=== PATIENT | female | born 1935 | race Caucasian/White ===

== ENCOUNTER 2017-03-15 14:58 | Inpatient (IN) | payer MEDICARE, OTHER ==
[2017-03-15] VITALS (12 sets, daily range): BP systolic 142–201; BP diastolic 63–102; PULSE 102–126; RESP 24–36; TEMP 97.5–98.4; O2SAT 94–99
[~2017-03-15] VITALS: Ht 167.6 cm; Wt 62.5 kg
[~2017-03-15 14:58] MED LIST: ALBU0.086 INH; ALPR0.5T3 PO; ATOR10TA PO; ATOR10TA15 PO; CART300C2 PO; CEPH500C3 PO; DILT300C3 PO; DUONSOL2 NEB; FLUT1INH INH; HYDR-3533 PO; MIRT1TAB PO; O2; PRED10 PO; PRED10PA PO; TIZA2CAP3 PO; Z.0.OXYGEN INH; ZOFR4TAB3 SL
[2017-03-15] MEDS ORDERED: RESP: ALBUTEROL 2.5 MG/3 ML NEB (SCH) ONE ×2 (15:05→20:38)
--- NOTE | 2017-03-15 15:12 | PD ---
HPI Chief Complaint: Respiratory Distress Time Seen by Provider: 15:02 Travel History International Travel<30 days: No Contact w/Intl Traveler<30days: No Traveled to known affect area: No History of Present Illness HPI PATIENT HAS BEEN DEVELOPING SOB OVER LAST 2 DAYS BUT WORSENED OVER PAST 4-6 HRS , WORSENED BY ACTIVITY, PROD COUGH OF YELLOW SPUTUM, AFEBRILE, PCP IS DR KEYONA BARBOSA ([facility] IS [facility]UL[facility]) PER DAUGHTER SUPPLIED MAJORITY OF HISTORY DUE TO CLINICAL CONDITION....GIVES PMHX OF BREAST CA S/P KENNEDY MASTECTOMY, COPD, HTN, HIGH CHOL....PATIENT IS ON SECOND ROUND OF ABX, AUGMENTIN AND PREDNISONE BUT WORSENING DESPITE THESE MEASURES......PATIENT PRESENTED WITH 1 WORD DYSPNEA/ TRIPODING. PFSH Past Medical History Hx Anticoagulant Therapy: No Cardiovascular Problems: Yes (CHOL, HTN) High Cholesterol: Yes COPD: Yes Diabetes: No Diminished Hearing: Yes Hypertension: Yes Respiratory: Yes (COPD) Past Surgical History Gynecologic Surgery: Yes (BILAT. MASTECTOMY) Hysterectomy: Yes Social History Alcohol Use: Yes (VERY RARE) Tobacco Use: No Substance Use: No Allergies-Medications (Allergen,Severity, Reaction): Coded Allergies: No Known Allergies (Unverified , 03/05/17) Reported Meds & Prescriptions Reported Meds & Active Scripts Active Lortab (Hydrocodone-Acetaminophen) 5-325 Mg Tab 1-2 Tab PO Q6H PRN Reported [O2] Prednisone 10 Mg Tab 10 Mg PO DAILY Tizanidine (Tizanidine HCl) 2 Mg Cap 2 Mg PO TID Atorvastatin (Atorvastatin Calcium) 10 Mg Tab 10 Mg PO HS Diltiazem CD 24 HR 300 Mg Caper 300 Mg PO DAILY Mirtazapine 7.5 Mg Tab 7.5 Mg PO HS Review of Systems ROS Limitations: Clinical Condition Except as stated in HPI: all other systems reviewed are Neg Respiratory: Positive: Shortness of Breath, Wheezing Physical Exam Exam Limitations: Clinical Condition Narrative GENERAL: SKIN: Warm and dry. HEAD: Atraumatic. Normocephalic. EYES: Pupils equal and round. No scleral icterus. No injection or drainage. ENT: No nasal bleeding or discharge. Mucous membranes pink and moist. NECK: Trachea midline. No JVD. CARDIOVASCULAR: Regular RHYTHM, TACHYCARDIC RESPIRATORY: TACHYPNEIC, PURSED LIP BREATHING, SINGLE WORD DYSPNEA, RETRACTIONS PRESENT (SUPRA), WHEEZING DIFFUSELY AND DECREASED TV GASTROINTESTINAL: Abdomen soft, non-tender, nondistended. Hepatic and splenic margins not palpable. MUSCULOSKELETAL: Extremities without clubbing, cyanosis, or edema. No obvious deformities. NEUROLOGICAL: Awake and alert. No obvious cranial nerve deficits. Motor grossly within normal limits. Five out of 5 muscle strength in the arms and legs. Normal speech. PSYCHIATRIC: Appropriate mood and affect; insight and judgment normal. Data Data Last Documented VS Vital Signs Date Time Temp Pulse Resp B/P Pulse Ox O2 Delivery O2 Flow Rate FiO2 03/15/17 16:17 97 Nasal Cannula 3 03/15/17 16:01 113 28 142/77 03/15/17 15:00 97.5 Orders Complete Blood Count With Diff (03/15/17 15:03) Comprehensive Metabolic Panel (03/15/17 15:03) B-Type Natriuretic Peptide (03/15/17 15:03) Act Partial Throm Time (Ptt) (03/15/17 15:03) Prothrombin Time / Inr (Pt) (03/15/17 15:03) Ckmb (Isoenzyme) Profile (03/15/17 15:03) Troponin I (03/15/17 15:03) Influenzae A/B Antigen (03/15/17 15:03) Blood Culture (03/15/17 15:03) Iv Access Insert/Monitor (03/15/17 15:03) Electrocardiogram (03/15/17 15:03) Ecg Monitoring (03/15/17 15:03) Oximetry (03/15/17 15:03) Oxygen Administration (03/15/17 15:03) Chest, Single Ap (03/15/17 15:03) Sodium Chloride 0.9% Flush (Ns Flush) (03/15/17 15:15) Methylprednisolone So Succ Inj (Solumedr (03/15/17 15:15) Albuterol Neb (Albuterol Neb) (03/15/17 15:15) Magnesium Sulfate 1 Gm Premix (Magnesium (03/15/17 15:15) Azithromycin Inj (Zithromax Inj) (03/15/17 15:15) Lactic Acid Sepsis Protocol (03/15/17 15:03) Albuterol Neb (Albuterol Neb) (03/15/17 15:05) Lorazepam Inj (Ativan Inj) (03/15/17 15:45) Labs Laboratory Tests Test 03/15/17 15:15 White Blood Count 32.2 TH/MM3 Red Blood Count 4.23 MIL/MM3 Hemoglobin 12.1 GM/DL Hematocrit 38.5 % Mean Corpuscular Volume 91.0 FL Mean Corpuscular Hemoglobin 28.7 PG Mean Corpuscular Hemoglobin 31.6 % Concent Red Cell Distribution Width 16.1 % Platelet Count 436 TH/MM3 Mean Platelet Volume 8.5 FL Neutrophils (%) (Auto) 94.0 % Lymphocytes (%) (Auto) 3.4 % Monocytes (%) (Auto) 2.4 % Eosinophils (%) (Auto) 0.0 % Basophils (%) (Auto) 0.2 % Neutrophils # (Auto) 30.3 TH/MM3 Lymphocytes # (Auto) 1.1 TH/MM3 Monocytes # (Auto) 0.8 TH/MM3 Eosinophils # (Auto) 0.0 TH/MM3 Basophils # (Auto) 0.1 TH/MM3 CBC Comment AUTO DIFF Differential Total Cells 100 Counted Neutrophils % (Manual) 93 % Band Neutrophils % 2 % Lymphocytes % 3 % Monocytes % 1 % Neutrophils # (Manual) 30.9 TH/MM3 Metamyelocytes 1 % Differential Comment FINAL DIFF MANUAL Toxic Granulation 1+ Platelet Estimate HIGH Platelet Morphology Comment NORMAL Ovalocytes 1+ Acanthocytes OCC Prothrombin Time 10.8 SEC Prothromb Time International 1.0 RATIO Ratio Activated Partial 21.4 SEC Thromboplast Time B-Type Natriuretic Peptide 75 PG/ML MDM Medical Decision Making Medical Screen Exam Complete: Yes Emergency Medical Condition: Yes Medical Record Reviewed: Yes Interpretation(s) MY INTERP: BASELINE MOTION ARTIFACT NOTED, NSR, ST 118, J POINT ELEVATION, NO STEMI PATTERN, NONSPEC STT CHANGES Differential Diagnosis COPD EXAC V PNA V ATYPICAL MN V PTX Narrative Course PATIENT IMMEDIATELY UPON SEEING, WAS STARTED ON HOURLONG NEBS, SOLUMEDROL, MAGNESIUM AND AZITHROMYCIN. PATIENT SHOWED SOME IMPROVEMENT BUT NOT ENOUGH TO DISCHARGE, PT ALSO HAD FAILED OUTPT THERAPY (AUGMENTIN AND PREDNISONE) WELL. Critical Care Narrative CRITICAL CARE NOTE: With evaluation of the patient, labs, EKG, receipt of radiologic studies, administration of medications, reevaluation the patient and discussion of the patient with the admitting physicians, the total critical care time was [60] minutes. Time to perform other separately billable procedures was not included in the critical care time. Diagnosis Primary Impression: SEVERE COPD EXACERBATION Additional Impressions: Right middle lobe pneumonia Qualified Code: J18.1 - Pneumonia of right middle lobe due to infectious organism Failure of outpatient treatment Admitting Information Admitting Physician Requests: Lei Nelson MD Mar 15, 2017 15:12
[2017-03-15] MEDS: RESP: ALBUTEROL 2.5 MG/3 ML NEB (SCH) INH (15:13)
[2017-03-15] MEDS ORDERED: MAGNESIUM SULFATE 1 GM PREMIX 100 ML IV ONE (15:15)
[2017-03-15] MEDS ORDERED: AZITHROMYCIN INJ 500 MG in SODIUM CHLOR 0.9% 250 ML INJ 250 ML IV ONE (15:15)
[2017-03-15] MEDS ORDERED: methylPREDNISolone SOD SUCC 125 MG/2 ML VIAL IVP ONE (15:15)
[2017-03-15] MEDS ORDERED: SODIUM CHLORIDE 0.9% FLUSH 10 ML FLUSH IVF PRN (15:15)
[2017-03-15] MEDS ORDERED: LORazepam 2 MG/ML VIAL IV PUSH ONE (15:45)
[2017-03-15 15:50] LABS: AUTOMATED NEUTROPHIL # 30.3 TH/MM3 (1.8-7.7); BASOPHIL # 0.1 TH/MM3 (0-0.2); BASOPHIL % 0.2 % (0.0-2.0); HEMATOCRIT 38.5 % (35.0-46.0); LYMPH % 3.4 % (9.0-44.0); LYMPHOCYTE # 1.1 TH/MM3 (1.0-4.8); MEAN CORPUSCULAR HEMOGLOBIN 28.7 PG (27.0-34.0); MEAN CORPUSCULAR HGB CONC 31.6 % (32.0-36.0); MONO % 2.4 % (0.0-8.0); PLATELET COUNT 436 TH/MM3 (150-450); RED BLOOD COUNT 4.23 MIL/MM3 (4.00-5.30); RED CELL DISTRIBUTION WIDTH 16.1 % (11.6-17.2); WHITE BLOOD COUNT 32.2 TH/MM3 (4.0-11.0)
[2017-03-15 15:53] LABS: HEMO FLAGS AUTO DIFF
--- NOTE | 2017-03-15 15:53 | RADRPT ---
EXAM DATE/TIME: 03/15/2017 15:08 [facility] COMPARISON: No previous studies available for comparison. INDICATIONS : Shortness of breath. MEDICAL HISTORY : Chronic obstructive pulmonary disease. Hypercholesterolemia. Hypertension. SURGICAL HISTORY : Hysterectomy. Mastectomy, bilateral. ENCOUNTER: Initial ACUITY: 1 day PAIN SCORE: 0/10 LOCATION: Bilateral chest FINDINGS: There is focal patchy opacity within the right medial lung base consistent with probable pneumonia. Clinical correlation is recommended. Underlying emphysematous changes are noted. The heart is deuce l. CONCLUSION: 1. Focal patchy opacity within the right medial lung base consistent with probable pneumonia. Clini faisal correlation is recommended. 2. Underlying emphysematous changes bilaterally. Cayden Candelario MD on March 15, 2017 at 15:49 Board Certified Radiologist. This report was verified electronically.
[2017-03-15 16:16] LABS: APTT (PATIENT) 21.4 SEC (24.3-30.1); PROTHROMBIN TIME - PATIENT 10.8 SEC (9.8-11.6)
[2017-03-15 16:23] LABS: BANDS 2 % (0-6); METAMYELOCYTES 1 % (0-1); NEUTROPHIL # MANUAL DIFF 30.9 TH/MM3 (1.8-7.7); POLYS (SEG NEUTROPHILS) 93 % (16-70); WBC DIFF SAMPLE 100
[2017-03-15 16:26] LABS: ACANTHOCYTES OCC (NORMAL); OVALOCYTES 1+ (NORMAL); PLATELET ESTIMATE SMEAR HIGH (NORMAL); PLATELET MORPHOLOGY NORMAL (NORMAL)
[2017-03-15 16:27] LABS: SCAN/DIFF FINAL DIFF MANUAL; TOXIC GRANULATION 1+ (NORMAL)
[2017-03-15 16:37] LABS: ALKALINE PHOSPHATASE 134 U/L (45-117); ALT (GPT) 30 U/L (10-53); ANION GAP 15 MEQ/L (5-15); AST (GOT) 41 U/L (15-37); BICARBONATE 21.6 MEQ/L (21.0-32.0); BLOOD UREA NITROGEN 43 MG/DL (7-18); CHLORIDE 98 MEQ/L (98-107); CREATINE KINASE 70 U/L (26-192); GLOMERULAR FILTRATION RATE 36 ML/MIN (>89); POTASSIUM 5.1 MEQ/L (3.5-5.1); SODIUM (NA) 135 MEQ/L (136-145); TOTAL BILIRUBIN ADULT 0.5 MG/DL (0.2-1.0)
[2017-03-15] MEDS ORDERED: SODIUM CHLOR 0.9% 1000 ML INJ 1,000 ML IV ONE ×2 (16:45→18:00)
[2017-03-15] MEDS: SODIUM CHLOR 0.9% 1000 ML INJ 1,000 ML IV SCH ×3 (17:19→22:00)
[2017-03-15] MEDS ORDERED: NYST1000 SWISH-SWAL (17:20)
[2017-03-15] MEDS ORDERED: AUGM875T3 PO (17:20)
[2017-03-15] MEDS ORDERED: IPRASOL INH (17:20)
[2017-03-15] MEDS ORDERED: VENTAER INH (17:20)
[2017-03-15] MEDS ORDERED: NALOXONE HCL 0.4 MG/ML AMP IV PRN (17:30)
[2017-03-15] MEDS ORDERED: BISACODYL 10 MG SUPP RECTAL PRN (17:30)
[2017-03-15] MEDS ORDERED: ONDANSETRON HCL 4 MG/2 ML VIAL IVP PRN (17:30)
[2017-03-15] MEDS ORDERED: ACETAMINOPHEN 325 MG TAB PO PRN (17:30)
[2017-03-15] MEDS ORDERED: SODIUM CHLORIDE 0.9% FLUSH 10 ML FLUSH IV FLUSH PRN (17:30)
[2017-03-15 17:36] LABS: LACTIC ACID GHOST NOT REPORTABLE
[2017-03-15] MEDS ORDERED: RESP: ALBUTEROL CONC 2.5 MG/0.5 ML NEB NEB PRN (17:45)
[2017-03-15] MEDS ORDERED: SODIUM CHLORID 0.9% 500 ML INJ 500 ML IV ONE (18:00)
[2017-03-15] MEDS ORDERED: GLUCAGON 1 MG/ML VIAL OTHER PRN (18:00)
[2017-03-15] MEDS ORDERED: DEXTROSE 50% IN WATER 50 ML VIAL(D50) IV PRN (18:00)
--- NOTE | 2017-03-15 18:39 | HHI.HP ---
[facility] Service [facility] Primary Care Physician Dante Reddy MD Admission Diagnosis RML PNA, RESPIRATORY DISTRESS DUE TO COPD EXACERBATION Diagnoses: Chief Complaint: Having trouble breathing Travel History International Travel<30 Days: No Contact w/Intl Traveler <30 Da: No Traveled to Known Affected Are: No Sepsis Criteria Sepsis Criteria (SIRS+source): Infect source susp/known (PNA) Criteria Outcome: Meets sepsis criteria (tachycardic, elevated white count ( although this could be from steroids) possible source of infection being pneumonia) History of Present Illness 81-year-old white female being admitted for a respiratory distress. Patient was in her usual state of health until a few weeks ago when she had a fall, injured her ribs and subsequently began experiencing shortness of breath. She came our emergency room originally for her acute evaluation for rib contusion and one home. She then saw her PCP and says that she was prescribed at least two trials of antibiotics. The patient does not know all of her medicines by name completely. Originally (from checking with the pharmacy) she had filled on a Z-Ten and doxycycline after her ER visit but is unfortunate she both of those regimens completely. About 4-5 days later she complained her PCP about persistent and worsening shortness of breath and worsening productive cough at which point she was then prescribed Augmentin which the patient says she had been taking for the past few days. Her symptoms worsened today to the point where she called her daughter and told her bring her to the emergency room because she felt like she was having "a panic attack" due to how short her breathing became. She reports having intermittent posttussive emesis, otherwise denies any liz nausea. She says she's had decreased by mouth intake because of her trouble breathing the past few days. Patient denies any cyanosis clubbing or edema in her legs or fingertips. She reports being compliant with her DuoNeb's and her Ventolin inhaler but she does admit that she does not take her Breo controller inhaler because she thinks it makes her mouth sore. She says that she takes prednisone daily at 10 mg as a regular medication and says that her home oxygen is at 2-3 L 24 hours a day. Review of Systems Except as stated in HPI: all other systems reviewed are Neg Past Family Social History Past Medical History COPD Reported Medications Reported Meds & Active Scripts Active Lortab (Hydrocodone-Acetaminophen) 5-325 Mg Tab 1-2 Tab PO Q6H PRN Reported Duoneb (Ipratropium-Albuterol Neb) 0.5-2.5 Mg/3 Ml Neb 1 Nebule INH QID NEB PRN Ventolin Hfa 18 GM Inh (Albuterol Sulfate) 90 Mcg/Act Aer 2 Puff INH Q6H PRN Nystatin Liq 100,000 unit/ml Susp 4 Ml SWISH-SWAL QID Augmentin (Amoxicillin-Clavulanate) 875-125 Mg Tab 1 Tab PO BID [O2] Prednisone 10 Mg Tab 10 Mg PO DAILY Atorvastatin (Atorvastatin Calcium) 10 Mg Tab 10 Mg PO HS Allergies: Coded Allergies: No Known Allergies (Unverified , 03/05/17) Social History Lives by herself. Used to smoke over 15 years ago. Says she used to smoke starting during her high school age. Physical Exam Vital Signs Vital Signs Date Time Temp Pulse Resp B/P Pulse Ox O2 Delivery O2 Flow Rate FiO2 03/15/17 16:17 97 Nasal Cannula 3 03/15/17 16:01 113 28 142/77 99 Nasal Cannula 3 03/15/17 15:13 97 Nasal Cannula 3.00 03/15/17 15:09 98 Nasal Cannula 3 03/15/17 15:09 98 Aerosol Mask 3 03/15/17 15:06 98 Nasal Cannula 3 03/15/17 15:00 97.5 121 36 201/102 95 Physical Exam GENERAL: This is a well-nourished, well-developed patient, in moderate distress SKIN: No rashes, ecchymoses or lesions. Cool and dry. EYES: Pupils equal round and reactive. Extraocular motions intact. No scleral icterus. No injection or drainage. ENT: Dentures in place Throat without erythema, NECK: Trachea midline. No JVD CARDIOVASCULAR: Tachycardic rate and regular rhythm without murmurs, gallops, or rubs. Normal cap refill less than 2 seconds, radial pulses bilaterally intact and strong RESPIRATORY: Bilateral wheezing and Bilateral rales , right greater than left, moderately decreased breath sounds bilaterally, subcostal retractions noted, conversive dyspnea noted GASTROINTESTINAL: Abdomen soft, non-tender, nondistended. No focal masses palpated MUSCULOSKELETAL: Extremities without clubbing, cyanosis, or edema NEUROLOGICAL: Awake and alert. Five out of 5 muscle strength in all muscle groups. Normal speech. Laboratory Reported Meds & Active Scripts Active Lortab (Hydrocodone-Acetaminophen) 5-325 Mg Tab 1-2 Tab PO Q6H PRN Reported Duoneb (Ipratropium-Albuterol Neb) 0.5-2.5 Mg/3 Ml Neb 1 Nebule INH QID NEB PRN Ventolin Hfa 18 GM Inh (Albuterol Sulfate) 90 Mcg/Act Aer 2 Puff INH Q6H PRN Nystatin Liq 100,000 unit/ml Susp 4 Ml SWISH-SWAL QID Augmentin (Amoxicillin-Clavulanate) 875-125 Mg Tab 1 Tab PO BID [O2] Prednisone 10 Mg Tab 10 Mg PO DAILY Tizanidine (Tizanidine HCl) 2 Mg Cap 2 Mg PO TID Atorvastatin (Atorvastatin Calcium) 10 Mg Tab 10 Mg PO HS Mirtazapine 7.5 Mg Tab 7.5 Mg PO HS Laboratory Tests Test 03/15/17 15:15 White Blood Count 32.2 Red Blood Count 4.23 Hemoglobin 12.1 Hematocrit 38.5 Mean Corpuscular Volume 91.0 Mean Corpuscular Hemoglobin 28.7 Mean Corpuscular Hemoglobin 31.6 Concent Red Cell Distribution Width 16.1 Platelet Count 436 Mean Platelet Volume 8.5 Neutrophils (%) (Auto) 94.0 Lymphocytes (%) (Auto) 3.4 Monocytes (%) (Auto) 2.4 Eosinophils (%) (Auto) 0.0 Basophils (%) (Auto) 0.2 Neutrophils # (Auto) 30.3 Lymphocytes # (Auto) 1.1 Monocytes # (Auto) 0.8 Eosinophils # (Auto) 0.0 Basophils # (Auto) 0.1 CBC Comment AUTO DIFF Differential Total Cells 100 Counted Neutrophils % (Manual) 93 Band Neutrophils % 2 Lymphocytes % 3 Monocytes % 1 Neutrophils # (Manual) 30.9 Metamyelocytes 1 Differential Comment FINAL DIFF MANUAL Toxic Granulation 1+ Platelet Estimate HIGH Platelet Morphology Comment NORMAL Ovalocytes 1+ Acanthocytes OCC Prothrombin Time 10.8 Prothromb Time International 1.0 Ratio Activated Partial 21.4 Thromboplast Time Sodium Level 135 Potassium Level 5.1 Chloride Level 98 Carbon Dioxide Level 21.6 Anion Gap 15 Blood Urea Nitrogen 43 Creatinine 1.40 Estimat Glomerular Filtration 36 Rate Random Glucose 206 Lactic Acid Level 7.2 Calcium Level 9.9 Total Bilirubin 0.5 Aspartate Amino Transf 41 (AST/SGOT) Alanine Aminotransferase 30 (ALT/SGPT) Alkaline Phosphatase 134 Total Creatine Kinase 70 Troponin I LESS THAN 0.02 B-Type Natriuretic Peptide 75 Total Protein 7.8 Albumin 3.3 Date/Time Procedure Status Source Growth 03/15/17 15:55 Influenza Types A,B Antigen (BILLY) - Final Complete Nasal Washing NEGATIVE FOR FLU A AND B ANTIGEN.... 03/15/17 15:45 Aerobic Blood Culture Received Blood Peripheral Pending 03/15/17 15:45 Anaerobic Blood Culture Received Blood Peripheral Pending Result Diagram: 03/15/17 1515 03/15/17 1515 Imaging Last Impressions Chest X-Ray 03/15/17 1503 Signed Impressions: Service Date/Time: Friday, March 15, 2017 15:08 - CONCLUSION: 1. Focal patchy opacity within the right medial lung base consistent with probable pneumonia. Clinical correlation is recommended. 2. Underlying emphysematous changes bilaterally. Cayden Candelario MD Assessment and Plan Problem List: (1) Right middle lobe pneumonia ICD Code: J18.1 Status: Acute (2) Failure of outpatient treatment ICD Code: Z78.9 Status: Acute (3) Rib contusion ICD Code: S20.219A Status: Acute (4) COPD with exacerbation ICD Code: J44.1 Status: Acute (5) Severe sepsis due to pneumococcus with acute organ dysfunction ICD Code: A40.3 Status: Acute Assessment and Plan 81 -year-old white female being admitted for respiratory distress and likely sepsis secondary to COPD exacerbation and pneumonia. During the ER course, patient's condition per signout had significantly improved but she still was very short of breath. Initially she was tripoding but now she is able to talk with still notable conversive dyspnea. Will nonetheless admit her to intensive care given she has an elevated lactate at 7 with the suspected source being pneumonia. Respiratory distress - COPD exacerbation with likely right lobe pneumonia. I independently reviewed a chest x-ray in comparison to a prior film, there is slightly more prominent opacity/infiltrates noted in the right middle and right lower lobe which are still mild at best. Antibiotics as below. Solu-Medrol has been scheduled, respiratory protocol with oxygen ordered. The patient is fortunately maintaining her home oxygen requirement as of now. Duonebs and albuterol scheduled. Will ultimately need to go back on home controller inhaler. Pain medication for recent rib contusion along with incentive spirometry to prevent atelectasis. Sepsis likely secondary to pneumonia - normal saline boluses ordered (ER ordered 1 L, ordering an additional 2.5 L followed by MIVF). Blood cultures obtained, Gram stain, pneumococcal and legionella urinary antigens obtained. Influenza negative. Levaquin, vancomycin, Zosyn to cover for healthcare associated pneumonia. Repeat lactate is pending. A.m. labs. Renal insufficiency - uncontrolled this is acute or chronic. Will adjust medications accordingly. Continuing all home medications otherwise. Code Status full code Discussed Condition With pt Physician Certification 2 Midnight Certification Type: Admission for Inpatient Services Order for Inpatient Services The services are ordered in accordance with Medicare regulations or non- Medicare payer requirements, as applicable. In the case of services not specified as inpatient-only, they are appropriately provided as inpatient services in accordance with the 2-midnight benchmark. Estimated LOS (days): 2 3 days is the estimated time the patient will need to remain in the hospital, assuming treatment plan goals are met and no additional complications. Post-Hospital Plan: Home Problem Qualifiers (1) Right middle lobe pneumonia: Qualified Code: J13 - Pneumonia of right middle lobe due to Streptococcus pneumoniae Garrett Mcdonnell MD Mar 15, 2017 18:39
[2017-03-15] MEDS ORDERED: Vancomycin Consult Pharmacy 1 EA OTHER SCH ×2 (18:45)
[2017-03-15] MEDS: LEVOFLOXACIN 750 MG PREMIX INJ 150 ML IV SCH (19:22)
[2017-03-15] MEDS: RESP: ALBUTEROL 2.5 MG/IPRATROPIUM 0.5 MG NEB (SCH) NEB (19:32)
[2017-03-15] MEDS ORDERED: VANCOMYCIN 1,000 MG/NS 250 ML IV SCH ×2 (20:00)
[2017-03-15] MEDS: NYSTATIN SUSP 500,000 U/5 ML CUP SWISH-SWAL SCH ×2 (21:00→22:02)
[2017-03-15] MEDS ORDERED: LORazepam 0.5 MG TAB PO ONE (21:45)
[2017-03-15] MEDS: ATORVASTATIN 10 MG TAB PO SCH (22:02)
[2017-03-15] MEDS: DOCUSATE SODIUM 50 MG/SENNA 8.6 MG TAB PO SCH (22:02)
[2017-03-15] MEDS: SODIUM CHLORIDE 0.9% FLUSH 10 ML FLUSH IV FLUSH SCH (22:03)
[2017-03-15] MEDS: MIRTAZAPINE 15 MG TAB PO SCH (22:03)
[2017-03-15] MEDS: methylPREDNISolone SOD SUCC 125 MG/2 ML VIAL IV PUSH SCH (22:03)
[2017-03-15] MEDS: PIPERACIL-TAZO 3.375 GM PREMIX 50 ML IV SCH (22:04)
[2017-03-15] MEDS: ENOXAPARIN SODIUM 30 MG/0.3 ML SYRINGE SQ SCH (23:00)
[2017-03-15] MEDS: INSULIN ASPART SUPPLEMENTAL SCALE SQ SCH (23:05)
[2017-03-16] VITALS (28 sets, daily range): BP systolic 152–203; BP diastolic 69–102; PULSE 95–156; RESP 20–32; TEMP 97–98.4; O2SAT 92–96
[2017-03-16] MEDS: RESP: ALBUTEROL 2.5 MG/IPRATROPIUM 0.5 MG NEB (SCH) NEB ×6 (00:15→19:46)
[2017-03-16] MEDS: PIPERACIL-TAZO 3.375 GM PREMIX 50 ML IV SCH ×4 (02:13→20:14)
[2017-03-16] MEDS: methylPREDNISolone SOD SUCC 125 MG/2 ML VIAL IV PUSH SCH ×4 (04:20→21:21)
[2017-03-16 05:34] LABS: AUTOMATED NEUTROPHIL # 26.3 TH/MM3 (1.8-7.7); BASOPHIL % 0.2 % (0.0-2.0); HEMATOCRIT 28.4 % (35.0-46.0); HEMO FLAGS DIFF FINAL; LYMPH % 1.3 % (9.0-44.0); LYMPHOCYTE # 0.3 TH/MM3 (1.0-4.8); MEAN CELL VOLUME 89.7 FL (80.0-100.0); MEAN CORPUSCULAR HGB CONC 33.4 % (32.0-36.0); MONO % 1.9 % (0.0-8.0); NEUT % 96.6 % (16.0-70.0); PLATELET COUNT 343 TH/MM3 (150-450); RED BLOOD COUNT 3.16 MIL/MM3 (4.00-5.30); WHITE BLOOD COUNT 27.2 TH/MM3 (4.0-11.0)
[2017-03-16] MEDS: INSULIN ASPART SUPPLEMENTAL SCALE SQ SCH ×4 (05:57→21:18)
[2017-03-16 06:06] LABS: BICARBONATE 25.6 MEQ/L (21.0-32.0); POTASSIUM 3.5 MEQ/L (3.5-5.1)
[2017-03-16] MEDS: NYSTATIN SUSP 500,000 U/5 ML CUP SWISH-SWAL SCH ×4 (08:11→21:21)
[2017-03-16] MEDS: DOCUSATE SODIUM 50 MG/SENNA 8.6 MG TAB PO SCH ×2 (08:12→21:20)
[2017-03-16] MEDS: SODIUM CHLORIDE 0.9% FLUSH 10 ML FLUSH IV FLUSH SCH ×2 (08:22→21:19)
--- NOTE | 2017-03-16 09:30 | HHI.PR ---
Subjective Remarks No acute events overnight. Tachycardic to 128. Afebrile. Patient continues to complain of shortness of breath and states that her breathing is "exhausting. " She denies subjective fever/chills. Endorses fatigue. Objective Vitals Vital Signs Date Time Temp Pulse Resp B/P Pulse Ox O2 Delivery O2 Flow Rate FiO2 03/16/17 07:34 92 Nasal Cannula 3.00 03/16/17 06:00 128 03/16/17 05:00 128 03/16/17 04:00 132 03/16/17 04:00 98.4 114 24 156/83 95 03/16/17 03:00 127 03/16/17 02:00 124 03/16/17 01:00 130 03/16/17 01:00 98.4 119 24 165/95 94 03/16/17 00:00 117 03/15/17 23:00 112 03/15/17 22:00 116 03/15/17 21:00 112 03/15/17 20:53 126 03/15/17 20:40 98.4 120 24 156/76 95 03/15/17 19:35 96 Nasal Cannula 3.00 03/15/17 18:52 104 26 142/66 94 Nasal Cannula 3 03/15/17 17:33 102 28 145/63 94 Nasal Cannula 3 03/15/17 16:17 97 Nasal Cannula 3 03/15/17 16:01 113 28 142/77 99 Nasal Cannula 3 03/15/17 15:13 97 Nasal Cannula 3.00 03/15/17 15:09 98 Nasal Cannula 3 03/15/17 15:09 98 Aerosol Mask 3 03/15/17 15:06 98 Nasal Cannula 3 03/15/17 15:00 97.5 121 36 201/102 95 I/O 03/15/17 03/15/17 03/15/17 03/16/17 03/16/17 03/16/17 06:59 14:59 22:59 06:59 14:59 22:59 Intake Total 1335 ml Output Total 400 ml Balance 935 ml Intake Oral 480 ml IV Total 855 ml Output Urine Total 400 ml # Voids 2 # Bowel Movements 0 Result Diagram: 03/16/17 [id number] Objective Remarks GENERAL: This is a well-nourished, well-developed patient, in mild distress SKIN: No rashes, ecchymoses or lesions. Cool and dry. EYES: Pupils equal round and reactive. Extraocular motions intact. No scleral icterus. No injection or drainage. ENT: Dentures in place Throat without erythema. NECK: Trachea midline. No JVD CARDIOVASCULAR: Tachycardic rate and regular rhythm without murmurs, gallops, or rubs. RESPIRATORY: Decreased breath sounds bilaterally. No wheezes/rales. Conversive dyspnea. GASTROINTESTINAL: Abdomen soft, non-tender, nondistended. No focal masses palpated MUSCULOSKELETAL: Extremities without clubbing, cyanosis, or edema NEUROLOGICAL: Awake and alert. Five out of 5 muscle strength in all muscle groups. Normal speech. A/P Problem List: (1) Right middle lobe pneumonia ICD Code: J18.1 Status: Acute (2) Failure of outpatient treatment ICD Code: Z78.9 Status: Acute (3) Rib contusion ICD Code: S20.219A Status: Acute (4) COPD with exacerbation ICD Code: J44.1 Status: Acute (5) Severe sepsis due to pneumococcus with acute organ dysfunction ICD Code: A40.3 Status: Acute Assessment and Plan 81-year-old female with a past medical history of COPD admitted for severe sepsis secondary to COPD exacerbation and pneumonia. 1. Respiratory distress/severe sepsis Secondary to COPD exacerbation with right lower lobe pneumonia. Treated for HCAP, continue vancomycin, Zosyn and Levaquin Continue IV fluid resuscitation Lactic acid improving, continue to trend DuoNeb's and IV steroids Follow cultures Legionella and pneumococcal antigens pending Patient with recent rib contusion, continue pain medication and IS to prevent hypoventilation 2. ANNE MARIE Resolved Continue IV fluid hydration Continuing all home medications otherwise. Discharge Planning Pending clinical improvement Problem Qualifiers (1) Right middle lobe pneumonia: Qualified Code: J13 - Pneumonia of right middle lobe due to Streptococcus pneumoniae Katherine Rolon MD R3 Mar 16, 2017 09:30
[2017-03-16] MEDS ORDERED: hydrALAZINE HCL 20 MG/ML VIAL IV PUSH ONE (12:45)
[2017-03-16] MEDS: SODIUM CHLOR 0.9% 1000 ML INJ 1,000 ML IV SCH ×2 (13:19→23:19)
[2017-03-16] MEDS: LORazepam 2 MG/ML VIAL IM PRN (13:38)
--- NOTE | 2017-03-16 14:37 | EKG ---
Date Performed: 03/15/2017 Time Performed: 15:06:17 PTAGE: 81 years EKG: Baseline artifact Poor initial anterior forces in V1 and V2, probable normal variant Minor nonspecific ST-T wave change NO PREVIOUS TRACING DOCTOR: Kike Ayala Interpretating Date/Time 03/16/2017 14:36:18
--- NOTE | 2017-03-16 15:26 | MB ---
cc: ALISE SHAW M.D., JENNIFER DATE OF CONSULTATION: 03/16/2017. REASON FOR CONSULTATION: Hospital records have been reviewed and the patient spoken with. She is an 81-year-old white female I am seeing for tachycardia. HISTORY OF PRESENT ILLNESS: The patient has no definite cardiac history but has underlying COPD with distant radiation therapy to the lung and tobacco abuse. A few weeks ago she fell injuring her ribs and has had chest wall discomfort since then. She notes moderate to chronic dyspnea on exertion otherwise. She notes no fevers, chills or sputum production. She was admitted because of worsening shortness of breath. She has chest wall discomfort but otherwise no cardiac symptoms. EKG initially showed sinus tachycardia with mild nonspecific S-T-T wave changes. She appears to either have premature atrial contractions or more likely multifocal atrial tachycardia now. PAST MEDICAL HISTORY: 1. Hypertension. 2. Hyperlipidemia. 3. COPD. 4. Hysterectomy. 5. Bilateral mastectomy with distant radiation therapy. SOCIAL HISTORY: She is a and smoked in the past up until twenty years ago. She rarely drinks. ALLERGIES: NONE. MEDICATIONS: Medication list reviewed. FAMILY HISTORY: Noncontributory. REVIEW OF SYSTEMS: Remarkable for the above along with occasional joint and back pain. IMAGING STUDIES: Chest x-ray Showed focal opacity in the right midlung consistent with probable pneumonia and underlying COPD. LABORATORY DATA: White count is markedly elevated. Her hematocrit has dropped from 38.5 to 28.4 today. PT/PTT normal. Initial potassium 5.1, creatinine 1.4, BUN 43. Troponins negative. Lactic acid was up, but has normalized. Potassium 3.5 with a creatinine of 0.79. BNP level is normal at 75. PHYSICAL EXAMINATION: GENERAL: On exam, she appears moderately short of breath and tachypneic. VITAL SIGNS: She is mildly hypertensive. She is tachycardiac with what appears to be multifocal atrial tachycardia. HEAD, EYES, EARS, NOSE, THROAT: There are no xanthelasma and oral pharyngeal mucosa normal. NECK: JVD normal. CHEST: Decreased breath sounds with mild van-expiratory wheezes. CARDIOVASCULAR: JVD normal. S1-S2. No murmurs or gallops. ABDOMEN: Benign. EXTREMITIES: Show no cyanosis, clubbing or edema. PULSES: Carotids without bruits. Radials 2+. Femorals not well appreciated. Pedals 1+. She is not ambulated. PROBLEMS: 1. Probable multifocal atrial tachycardia. 2. Pneumonia with underlying COPD. 3. Hypertension. 4. Hyperlipidemia. RECOMMENDATIONS: 1. At this point in time, her rhythm and heart rate is most likely due to underlying process. I discussed this with Dr. Rolon and would leave further management to her and the hospitalist service with antibiotics and optimization of pulmonary management. 2. She is on DVT prophylaxis. 3. They will need to follow up her hemoglobin and hematocrit, although there is no obvious source of bleeding. 4. There is no evidence of congestive heart failure as BNP level is normal. At this point, I have nothing more to add and will leave further management to the primary service. MD RA Marr/JCChristian /2:49 PM /3:13 PM
[2017-03-16] MEDS: ENOXAPARIN SODIUM 30 MG/0.3 ML SYRINGE SQ SCH (17:17)
[2017-03-16] MEDS: METOPROLOL TARTRATE 25 MG TAB PO SCH ×2 (17:17→21:20)
[2017-03-16] MEDS: VANCOMYCIN INJ 1,250 MG in SODIUM CHLOR 0.9% 250 ML INJ 250 ML IV SCH (20:58)
[2017-03-16] MEDS: ATORVASTATIN 10 MG TAB PO SCH (21:20)
[2017-03-16] MEDS: MIRTAZAPINE 15 MG TAB PO SCH (21:20)
[2017-03-17] VITALS (34 sets, daily range): BP systolic 143–170; BP diastolic 78–89; PULSE 84–126; RESP 16–21; TEMP 97.6–98.6; O2SAT 94–99
[2017-03-17] MEDS: RESP: ALBUTEROL 2.5 MG/IPRATROPIUM 0.5 MG NEB (SCH) NEB ×8 (00:08→23:47)
[2017-03-17 02:54] LABS: BASOPHIL % 0.1 % (0.0-2.0); LYMPH % 2.2 % (9.0-44.0); LYMPHOCYTE # 0.8 TH/MM3 (1.0-4.8); MEAN CELL VOLUME 90.3 FL (80.0-100.0); MEAN CORPUSCULAR HEMOGLOBIN 28.9 PG (27.0-34.0); MONO % 2.7 % (0.0-8.0); PLATELET COUNT 301 TH/MM3 (150-450); RED BLOOD COUNT 2.44 MIL/MM3 (4.00-5.30); WHITE BLOOD COUNT 34.7 TH/MM3 (4.0-11.0)
[2017-03-17 02:55] LABS: HEMO FLAGS AUTO DIFF
[2017-03-17 03:24] LABS: BICARBONATE 24.6 MEQ/L (21.0-32.0); POTASSIUM 3.1 MEQ/L (3.5-5.1)
[2017-03-17] MEDS: methylPREDNISolone SOD SUCC 125 MG/2 ML VIAL IV PUSH SCH ×2 (03:24→09:41)
[2017-03-17] MEDS: PIPERACIL-TAZO 3.375 GM PREMIX 50 ML IV SCH ×4 (03:26→20:05)
[2017-03-17] MEDS: SODIUM CHLOR 0.9% 1000 ML INJ 1,000 ML IV SCH ×2 (04:19→09:19)
[2017-03-17] MEDS: METOPROLOL TARTRATE 25 MG TAB PO SCH ×3 (05:45→22:22)
[2017-03-17 05:46] LABS: BANDS 3 % (0-6); PLATELET ESTIMATE SMEAR NORMAL (NORMAL); PLATELET MORPHOLOGY NORMAL (NORMAL); POLYS (SEG NEUTROPHILS) 92 % (16-70); SCAN/DIFF FINAL DIFF MANUAL; WBC DIFF SAMPLE 100
[2017-03-17] MEDS: INSULIN ASPART SUPPLEMENTAL SCALE SQ SCH ×4 (05:48→20:31)
[2017-03-17] MEDS ORDERED: POTASSIUM CHLORIDE 20 MEQ CONTROLLED RELEASE TAB PO ONE (08:00)
[2017-03-17] MEDS ORDERED: SODIUM CHLOR 0.9% 250 ML INJ 250 ML IV ONE (08:00)
[2017-03-17] MEDS: DOCUSATE SODIUM 50 MG/SENNA 8.6 MG TAB PO SCH ×2 (09:41→21:00)
[2017-03-17] MEDS: NYSTATIN SUSP 500,000 U/5 ML CUP SWISH-SWAL SCH ×4 (09:42→20:05)
[2017-03-17] MEDS: SODIUM CHLORIDE 0.9% FLUSH 10 ML FLUSH IV FLUSH SCH ×2 (09:42→20:06)
--- NOTE | 2017-03-17 10:18 | HHI.PR ---
Subjective Remarks Patient tells me that she is feeling better today. Her shortness of breath seems to be improving however still present. Denies any chest pains, nausea or vomiting. Patient denies any bleeding per vagina or rectum. Objective Vitals Vital Signs Date Time Temp Pulse Resp B/P Pulse Ox O2 Delivery O2 Flow Rate FiO2 03/17/17 07:43 94 Nasal Cannula 2.00 03/17/17 07:30 97.6 87 18 143/89 96 03/17/17 06:00 86 03/17/17 05:00 90 03/17/17 04:00 86 03/17/17 03:53 86 16 148/78 96 03/17/17 03:00 95 03/17/17 02:00 94 03/17/17 01:00 100 03/17/17 00:13 94 Nasal Cannula 2.50 03/17/17 00:00 106 03/16/17 23:49 109 20 152/82 95 03/16/17 23:00 95 03/16/17 22:00 118 03/16/17 21:00 130 03/16/17 20:00 140 03/16/17 19:55 97.8 123 20 159/99 95 03/16/17 19:48 96 Nasal Cannula 3.00 03/16/17 19:00 131 03/16/17 18:00 148 03/16/17 17:00 150 03/16/17 16:00 98.0 145 22 190/102 94 03/16/17 16:00 156 03/16/17 15:00 145 03/16/17 13:30 144 181/69 03/16/17 13:00 130 03/16/17 12:00 97.6 125 24 170/96 95 03/16/17 12:00 123 03/16/17 11:00 130 I/O 03/16/17 03/16/17 03/16/17 03/17/17 03/17/17 03/17/17 07:00 15:00 23:00 07:00 15:00 23:00 Intake Total 1335 ml 1100 ml 1050 ml Output Total 400 ml 700 ml Balance 935 ml 1100 ml 350 ml Intake Oral 480 ml 600 ml 300 ml IV Total 855 ml 500 ml 750 ml Output Urine Total 400 ml 700 ml # Voids 2 4 # Bowel Movements 0 0 Result Diagram: 03/17/17 0209 03/17/17 0209 Imaging Last Impressions Chest X-Ray 03/15/17 1503 Signed Impressions: Service Date/Time: Friday, March 15, 2017 15:08 - CONCLUSION: 1. Focal patchy opacity within the right medial lung base consistent with probable pneumonia. Clinical correlation is recommended. 2. Underlying emphysematous changes bilaterally. Cayden Candelario MD Objective Remarks GENERAL: This is a well-nourished, well-developed patient, NC in place EYES: Extraocular motions intact. ENT: dry mucous membranes, had to sip some water NECK: Trachea midline. CARDIOVASCULAR: RRR w no obvious murmurs RESPIRATORY: Decreased breath sounds bilaterally. poor air entry however pt speaking in full sentences No wheezes/rales. GASTROINTESTINAL: Abdomen soft, non-tender, nondistended. No focal masses palpated MUSCULOSKELETAL: Extremities without edema NEUROLOGICAL: Awake and alert. Normal speech. moves all extremities. A/P Problem List: (1) Right middle lobe pneumonia ICD Code: J18.1 Status: Acute (2) Failure of outpatient treatment ICD Code: Z78.9 Status: Acute (3) Rib contusion ICD Code: S20.219A Status: Acute (4) COPD with exacerbation ICD Code: J44.1 Status: Acute (5) Severe sepsis due to pneumococcus with acute organ dysfunction ICD Code: A40.3 Status: Acute Assessment and Plan 81-year-old female with a past medical history of COPD admitted for severe sepsis secondary to COPD exacerbation and pneumonia. 1. Respiratory distress/severe sepsis/PNA/leukocytosis Secondary to COPD exacerbation with right lower lobe pneumonia. Treated for HCAP, continue vancomycin, Zosyn and Levaquin Continue IV fluid resuscitation Lactic acid improving, continue to trend. D-dimer elevated, check CTA DuoNeb's and IV steroids.Will switch solu-medrol to 40mg IV q8hrs today and continue to taper blood cx neg x 1 day, flu neg. Legionella and pneumococcal antigens pending Patient with recent rib contusion, continue pain medication and encouraged use of IS to prevent hypoventilation _Persistent leukocytosis, most likely secondary to high steroid use and infection. Monitor closely. 2. ANNE MARIE Resolved Continue IV fluid hydration 3- Severe anemia on admission Hb was 12 now down to 7.0. Bleeding source is unknown, check Hemoccult. Get a GI consult for further evaluation and recommendations. Hold all anticoagulation. We'll transfuse 1 unit packed red blood cells. Repeat H& H posttransfusion. 4. Hypernatremia: Sodium jumped to 148. Encouraged water intake. 5. Elevated troponins: Patient is chest pain-free. Most likely due to oxygen demand due to her tachycardia on admission 6. Hypokalemia: Replaced DVT prophylaxis: Stop Lovenox due to severe anemia possibly GI bleed Continuing all home medications otherwise. Discharge Planning GI consult and place Follow-up on CTA 1 unit packed red blood cells ordered to be transfused now Problem Qualifiers (1) Right middle lobe pneumonia: Qualified Code: J13 - Pneumonia of right middle lobe due to Streptococcus pneumoniae Sydnie Cruz MD Mar 17, 2017 10:18
[2017-03-17] MEDS ORDERED: EPINEPHrine HCL (1:10,000) 1 MG/10 ML SYRINGE ONE (12:00)
[2017-03-17] MEDS ORDERED: IOHEXOL 350 MG/ML 10 ML VIAL (for RAD DIAG) IV ONE (12:18)
--- NOTE | 2017-03-17 12:29 | RADRPT ---
EXAM DATE/TIME: 03/17/2017 12:06 [facility] COMPARISON: No previous studies available for comparison. INDICATIONS : Respiratory distress. IV CONTRAST: 75 cc Omnipaque 350 (iohexol) IV RADIATION DOSE: 6.29 CTDIvol (mGy) MEDICAL HISTORY : Hypertension. Chronic obstructive pulmonary disease. Carcinoma, breast. SURGICAL HISTORY : Hysterectomy. Mastectomy, bilateral. ENCOUNTER: Initial ACUITY: 1 day PAIN SCALE: 3/10 LOCATION: Bilateral chest TECHNIQUE: Volumetric scanning of the chest was performed using a pulmonary embolism protocol MIP images were re constructed. Using automated exposure control and adjustment of the mA and/or kV according to patien t size, radiation dose was kept as low as reasonably achievable to obtain optimal diagnostic quality images. DICOM format image data is available electronically for review and comparison. Follow-up recommendations for incidentally detected pulmonary nodules are based at a minimum on nodul e size and patient risk factors according to Fleischner Society Guidelines. FINDINGS: There is no evidence for PE for technique. Extensive COPD is present. In the right lower lobe th ere are multiple areas of masslike densities the largest measures 3.6 cm in size extending posteromed ially to pleural surfaces. There is one area which has air-fluid level within it measures 2 cm in siz e. These are most likely areas of mucous plugging with inflammatory changes and in the endobronchial tree there are multiple tiny nodular densities the largest one in the subcarinal area measures 1.1 cm in size may be inspissated mucous, however endobronchial lesion is difficult to exclude. Multiple cy sts are present in the kidneys the largest on the right measures 5.2 cm in size. CONCLUSION: Multiple endobronchial nodular densities could be inspissated mucous versus endobronchial lesions wit h probable mucous plugging and inflammatory change right lower lobe. Follow up is suggested with nonc ontrast chest CT in 3 months after appropriate clinical therapy. Megha Aleman MD on March 17, 2017 at 12:22 Board Certified Radiologist. This report was verified electronically.
--- NOTE | 2017-03-17 14:07 | PD.CONS ---
HPI History of Present Illness This is a 81 year old female with a history of COPD, on O2 3L via n/c at home, who is currently hospitalized for right middle lobe pneumonia and COPD. On admission, she had an H&H of 12.1/38.5 and this has been trending down with an HH of 7.0/22.0 today. GI has been consulted for evaluation of anemia. The patient has not seen any obvious blood loss. She denies any history of GI bleeding in the past. She has never had an upper endoscopy but reports that she had a colonoscopy many years ago, probably more than 10 years ago and that it was normal without any polyps. She complains of occasional odynophagia with swallowing, with a discomfort in her lower esophagus, right side of chest, but reports this is rare and she cannot identify any aggravating factors. She denies any heartburn or reflux. She denies any nausea, vomiting, abdominal pain , bowel changes, constipation, diarrhea, melena, or hematochezia. She reports that she has always had a small appetite, but this is her "norm" and that she has not recently lost any significant weight. She denies any family hx of esophageal, gastric, or colorectal cancer. (Saloni Lane) PFSH Past Medical History COPD Past Surgical History Colonoscopy (Saloni Laen) Coded Allergies: No Known Allergies (Unverified , 03/05/17) Medications Allergies Coded Allergies Type Severity Reaction Last Updated Verified No Known Allergies 03/05/17 No Active Scripts Medications Dose Route/Sig Days Date Category Duoneb (Ipratropium-Albuterol Neb) 0.5-2.5 Mg/3 Ml Neb 1 Nebule INH QID NEB PRN 03/15/17 Reported Ventolin Hfa 18 GM Inh (Albuterol Sulfate) 90 Mcg/Act Aer 2 Puff INH Q6H PRN 03/15/17 Reported Nystatin Liq 100,000 unit/ml Susp 4 Ml SWISH-SWAL QID 03/15/17 Reported Augmentin (Amoxicillin-Clavulanate) 875-125 Mg Tab 1 Tab PO BID 03/15/17 Reported Lortab (Hydrocodone-Acetaminophen) 5-325 Mg Tab 1-2 Tab PO Q6H PRN 03/05/17 Rx [O2] 03/05/17 Reported Prednisone 10 Mg Tab 10 Mg PO DAILY 03/05/17 Reported Tizanidine (Tizanidine HCl) 2 Mg Cap 2 Mg PO TID 03/05/17 Reported Atorvastatin (Atorvastatin Calcium) 10 Mg Tab 10 Mg PO HS 03/05/17 Reported Mirtazapine 7.5 Mg Tab 7.5 Mg PO HS 03/05/17 Reported Family History Mother had COPD, asthma Father had asthma Denies any family history of esophageal, gastric, or colorectal cancer Social History Quit smoking more than 15 years ago, states that she smoked from high school until that time. No etoh use. (Saloni Lane) Review of Systems Constitutional: COMPLAINS OF: Fatigue, DENIES: Weight loss Respiratory: COMPLAINS OF: Cough, Wheezing, Sputum production, Shortness of breath Cardiovascular: DENIES: Chest pain Gastrointestinal: COMPLAINS OF: Odynophagia, DENIES: Abdominal pain, Black stools, Bloody stools, Constipation, Diarrhea, Nausea, Vomiting, Difficulty Swallowing, Heartburn, Hematemesis Musculoskeletal: COMPLAINS OF: Back pain Hematologic/lymphatic: COMPLAINS OF: Bruising Neurologic: DENIES: Headache Psychiatric: DENIES: Confusion (Saloni Lane) GI Exam Vitals I&O Vital Signs Date Time Temp Pulse Resp B/P Pulse Ox O2 Delivery O2 Flow Rate FiO2 03/17/17 12:30 84 03/17/17 11:40 98.0 99 21 170/88 94 03/17/17 11:00 97 03/17/17 10:00 88 03/17/17 09:00 84 03/17/17 08:00 86 03/17/17 07:43 94 Nasal Cannula 2.00 03/17/17 07:30 97.6 87 18 143/89 96 03/17/17 07:20 86 03/17/17 06:00 86 03/17/17 05:00 90 03/17/17 04:00 86 03/17/17 03:53 86 16 148/78 96 03/17/17 03:00 95 03/17/17 02:00 94 03/17/17 01:00 100 03/17/17 00:13 94 Nasal Cannula 2.50 03/17/17 00:00 106 03/16/17 23:49 109 20 152/82 95 03/16/17 23:00 95 03/16/17 22:00 118 03/16/17 21:00 130 03/16/17 20:00 140 03/16/17 19:55 97.8 123 20 159/99 95 03/16/17 19:48 96 Nasal Cannula 3.00 03/16/17 19:00 131 03/16/17 18:00 148 03/16/17 17:00 150 03/16/17 16:00 98.0 145 22 190/102 94 03/16/17 16:00 156 03/16/17 15:00 145 I/O 03/16/17 03/16/17 03/16/17 03/17/17 03/17/17 03/17/17 07:00 15:00 23:00 07:00 15:00 23:00 Intake Total 1335 ml 1100 ml 1050 ml Output Total 400 ml 700 ml Balance 935 ml 1100 ml 350 ml Intake Oral 480 ml 600 ml 300 ml IV Total 855 ml 500 ml 750 ml Output Urine Total 400 ml 700 ml # Voids 2 4 # Bowel Movements 0 [address] Angiography 03/17/17 0000 Signed Impressions: Service Date/Time: Friday, March 17, 2017 12:06 - CONCLUSION: Multiple endobronchial nodular densities could be inspissated mucous versus endobronchial lesions with probable mucous plugging and inflammatory change right lower lobe. Follow up is suggested with noncontrast chest CT in 3 months after appropriate clinical therapy. Megha Aleman MD Chest X-Ray 03/15/17 1503 Signed Impressions: Service Date/Time: Wednesday, March 15, 2017 15:08 - CONCLUSION: 1. Focal patchy opacity within the right medial lung base consistent with probable pneumonia. Clinical correlation is recommended. 2. Underlying emphysematous changes bilaterally. Cayden Candelario MD Laboratory Test 03/16/17 03/16/17 03/17/17 03/17/17 14:29 20:33 02:09 10:40 D-Dimer Quantitative (PE/DVT) 3.90 MG/L FEU Total Creatine Kinase 56 U/L 60 U/L 41 U/L Troponin I 0.04 NG/ML 0.06 NG/ML 0.07 NG/ML White Blood Count 34.7 TH/MM3 Red Blood Count 2.44 MIL/MM3 Hemoglobin 7.0 GM/DL Hematocrit 22.0 % Mean Corpuscular Volume 90.3 FL Mean Corpuscular Hemoglobin 28.9 PG Mean Corpuscular Hemoglobin 32.0 % Concent Red Cell Distribution Width 16.0 % Platelet Count 301 TH/MM3 Mean Platelet Volume 8.2 FL Neutrophils (%) (Auto) 95.0 % Lymphocytes (%) (Auto) 2.2 % Monocytes (%) (Auto) 2.7 % Eosinophils (%) (Auto) 0.0 % Basophils (%) (Auto) 0.1 % Neutrophils # (Auto) 33.0 TH/MM3 Lymphocytes # (Auto) 0.8 TH/MM3 Monocytes # (Auto) 0.9 TH/MM3 Eosinophils # (Auto) 0.0 TH/MM3 Basophils # (Auto) 0.0 TH/MM3 CBC Comment AUTO DIFF Differential Total Cells 100 Counted Neutrophils % (Manual) 92 % Band Neutrophils % 3 % Lymphocytes % 3 % Monocytes % 2 % Neutrophils # (Manual) 33.0 TH/MM3 Differential Comment FINAL DIFF MANUAL Platelet Estimate NORMAL Platelet Morphology Comment NORMAL Sodium Level 148 MEQ/L Potassium Level 3.1 MEQ/L Chloride Level 115 MEQ/L Carbon Dioxide Level 24.6 MEQ/L Anion Gap 8 MEQ/L Blood Urea Nitrogen 38 MG/DL Creatinine 0.74 MG/DL Estimat Glomerular Filtration 76 ML/MIN Rate Random Glucose 151 MG/DL Calcium Level 7.5 MG/DL Blood Type O POSITIVE Antibody Screen NEGATIVE Crossmatch Leukocyte-Reduced Red Blood Cells Blood Bank Comment Date/Time Procedure Status Source Growth 03/15/17 15:55 Influenza Types A,B Antigen (BILLY) - Final Complete Nasal Washing NEGATIVE FOR FLU A AND B ANTIGEN.... 03/15/17 15:45 Aerobic Blood Culture - Preliminary Resulted Blood Peripheral NO GROWTH IN 2 DAYS 03/15/17 15:45 Anaerobic Blood Culture - Preliminary Resulted Blood Peripheral NO GROWTH IN 2 DAYS Physical Examination HEENT: Normocephalic; atraumatic; no jaundice. CHEST: Resp even/unlabored, expiratory wheezing, tachypneic, mildly labored. CARDIAC: RRR. ABDOMEN: Soft, nondistended, nontender; no hepatosplenomegaly; bowel sounds are present in all four quadrants. EXTREMITIES: No clubbing, cyanosis, or edema. SKIN: Normal; no rash; no jaundice. 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 (Saloni Lane) Assessment and Plan Plan ASSESSMENT: - Anemia with drop in Hgb. HH went from 12.1/38.5 on admission to 7.0/22.0. No obvious blood loss. C/O occasional odynophagia, but no other GI symptoms. Never had EGD. Last colonoscopy was about 10 years ago, pt reports as normal with no polyps. No family hx of esophageal, gastric, colorectal cancer. GI consulted for further evaluation of anemia. D/W patient further evaluation with egd/colonoscopy, but she is currently having significant wheezing and her breathing is mildly labored and therefore we would wait until her respiratory status is optimized prior to scheduling for procedures. PPI. Hemoccult stool. - Odynophagia. Rare episodes of painful swallowing in lower esophagus/right side of chest, very rare, no aggravating factors. No dysphagia. - Right Middle Lobe Pneumonia, COPD exacerbation. Steroids, nebs, vancomycin, zosyn. On 3L via n/c (on 2L at home). She has exp. wheezing, mildly tachypneic and labored breathing. - Sepsis/Leukocytosis. WBC 34.7. BCx no growth x 2 days. - ANNE MARIE with electrolyte abnormalities. Improved. PLAN: - SAI - Hemoccult stool - Protonix 40mg po daily - Monitor HH - Transfuse as necessary - Supportive care - Plan for egd/colonoscopy once respiratory status optimized - Further recommendations to follow based on results of above - Pt seen and examined by Dr. Morgan and myself and this note is written on her behalf (Saloni Lane) Physician Comments seen, examined agree with above ba swallow egd when more stable or if active bleeding we will schedule on emergency ppi (Jenna Morgan MD) Saloni Lane Mar 17, 2017 14:07 Jenna Morgan MD Mar 17, 2017 20:26
[2017-03-17] MEDS ORDERED: PANTOPRAZOLE SOD 40 MG DELAYED RELEASE TAB PO SCH (14:15)
--- NOTE | 2017-03-17 14:51 | EKG ---
Date Performed: 03/16/2017 Time Performed: 14:31:22 PTAGE: 81 years EKG: Atrial fibrillation with rapid ventricular response Extensive ST-T changes are nonspecific At times there appears to be organized atrial activity but the irregularly irregular nature with her tachycardia make atrial fibrillation/atrial tachycardia the most likely diagnosis. Borderline ECG PREVIOUS TRACING : 03/15/2017 15.06 DOCTOR: Anthony Johnson Interpretating Date/Time 03/17/2017 14:49:21
--- NOTE | 2017-03-17 14:51 | EKG ---
Date Performed: 03/17/2017 Time Performed: 06:09:20 PTAGE: 81 years EKG: Sinus rhythm with PVC(s) with PAC(s) Compared to previous tracing sinus rhythm has replaced the likely rapid atri al fibrillation Borderline ECG PREVIOUS TRACING : 03/16/2017 14.31 DOCTOR: Anthony Johnson Interpretating Date/Time 03/17/2017 14:49:42
[2017-03-17] MEDS: methylPREDNISolone SOD SUCC 40 MG/1 ML VIAL IV PUSH SCH (17:58)
[2017-03-17] MEDS: LEVOFLOXACIN 750 MG PREMIX INJ 150 ML IV SCH (17:59)
[2017-03-17] MEDS: MIRTAZAPINE 15 MG TAB PO SCH (20:05)
[2017-03-17] MEDS: ATORVASTATIN 10 MG TAB PO SCH (20:05)
[2017-03-17] MEDS: guaiFENesin E.R. 600 MG TAB PO SCH (20:05)
[2017-03-17] MEDS: RESP: ACETYLCYSTEINE 20% 30 ML NEB NEB SCH (22:00)
[2017-03-17] MEDS: SUCRALFATE 1 GM/10 ML CUP PO SCH (22:22)
[2017-03-17] MEDS: PANTOPRAZOLE SODIUM 40 MG VIAL IV PUSH SCH (22:23)
[2017-03-17] MEDS: VANCOMYCIN INJ 1,250 MG in SODIUM CHLOR 0.9% 250 ML INJ 250 ML IV SCH (22:23)
[2017-03-18] VITALS (23 sets, daily range): BP systolic 140–170; BP diastolic 76–94; PULSE 90–120; RESP 19–20; TEMP 97.6–98.2; O2SAT 94–100
[2017-03-18] MEDS: RESP: ALBUTEROL 2.5 MG/IPRATROPIUM 0.5 MG NEB (SCH) NEB ×4 (03:33→16:29)
[2017-03-18] MEDS: RESP: ACETYLCYSTEINE 20% 30 ML NEB NEB SCH ×3 (03:33→16:00)
[2017-03-18] MEDS: PIPERACIL-TAZO 3.375 GM PREMIX 50 ML IV SCH ×4 (03:54→22:38)
[2017-03-18] MEDS: methylPREDNISolone SOD SUCC 40 MG/1 ML VIAL IV PUSH SCH ×3 (03:54→17:02)
[2017-03-18] MEDS: INSULIN ASPART SUPPLEMENTAL SCALE SQ SCH ×4 (06:02→23:08)
[2017-03-18] MEDS: METOPROLOL TARTRATE 25 MG TAB PO SCH ×3 (06:03→21:12)
[2017-03-18] MEDS: SUCRALFATE 1 GM/10 ML CUP PO SCH ×4 (06:03→21:12)
[2017-03-18 06:46] LABS: AUTOMATED NEUTROPHIL # 22.1 TH/MM3 (1.8-7.7); BASOPHIL % 0.1 % (0.0-2.0); HEMATOCRIT 25.2 % (35.0-46.0); LYMPH % 2.2 % (9.0-44.0); LYMPHOCYTE # 0.5 TH/MM3 (1.0-4.8); MEAN CELL VOLUME 89.7 FL (80.0-100.0); MEAN CORPUSCULAR HEMOGLOBIN 29.9 PG (27.0-34.0); MEAN CORPUSCULAR HGB CONC 33.3 % (32.0-36.0); MONO % 4.9 % (0.0-8.0); NEUT % 92.8 % (16.0-70.0); PLATELET COUNT 281 TH/MM3 (150-450); RED BLOOD COUNT 2.81 MIL/MM3 (4.00-5.30); RED CELL DISTRIBUTION WIDTH 15.2 % (11.6-17.2); WHITE BLOOD COUNT 23.8 TH/MM3 (4.0-11.0)
[2017-03-18 06:51] LABS: HEMO FLAGS AUTO DIFF
[2017-03-18 07:02] LABS: BICARBONATE 25.3 MEQ/L (21.0-32.0); POTASSIUM 3.3 MEQ/L (3.5-5.1)
[2017-03-18 07:25] LABS: BANDS 1 % (0-6); NEUTROPHIL # MANUAL DIFF 22.4 TH/MM3 (1.8-7.7); POLYS (SEG NEUTROPHILS) 93 % (16-70); WBC DIFF SAMPLE 100
[2017-03-18 07:26] LABS: OVALOCYTES 1+ (NORMAL); PLATELET ESTIMATE SMEAR NORMAL (NORMAL); PLATELET MORPHOLOGY NORMAL (NORMAL); SCAN/DIFF FINAL DIFF MANUAL
--- NOTE | 2017-03-18 07:32 | MB ---
cc: LISA MICHELLE DATE OF CONSULTATION 03/17/[address] Sydnie Cruz REASON FOR CONSULTATION Pulmonary management and possible mucus plugging. HISTORY OF PRESENT ILLNESS Ms. Weston is an elderly female with longstanding history of COPD. She is oxygen dependent. She uses oxygen 2-3 liters via nasal cannula. She has lately become more short of breath, has cough and congestion, had fever one time. She is becoming more clumsy and had two falls. Recently she had a fall and has a laceration of the ribs. Because of worsening of her symptoms, she was brought to the hospital. She had a workup and she was found to have MAP. She had a CT scan of the chest and it does not show any pulmonary embolism; it shows right lower lobe inflammatory infiltrate and possible inspissated mucus in the endobronchial area. Her CBC showed WBC count of 34.71, hemoglobin 7.0, hematocrit 22, MCV 95, platelet count 201. Her sodium is 140, potassium 3.1, chloride 115, CO2 24, BUN 38, creatinine 0.74. INR is 1.0. PAST MEDICAL HISTORY Significant for - 1. History of COPD. She is oxygen dependent. 2. History of lumpectomy and radiation done 20 years ago. 3. She had a recent bilateral mastectomy done for CA of the breast. MEDICATIONS She is currently taking - 1. Mucomyst. 2. Solu-Medrol 40 mg q. 8 hours. 3. Protonix 40 mg a day. 4. Vancomycin IV. 5. Metoprolol 25 mg q. 8 hours. 6. Lorazepam p.r.n. 7. Albuterol/Atrovent nebulizer treatments. 8. Zosyn IV. 9. Levaquin 750 mg q.48 hours. ALLERGIES No known drug allergies. SOCIAL HISTORY She has history of smoking which she quit. No alcohol abuse. FAMILY HISTORY She is a , lives alone. Her daughter lives nearby. She has three children. REVIEW OF SYSTEMS She has lost some weight, has cough and congestion. No fever or chills. No DVT or pulmonary embolism. PHYSICAL EXAMINATION GENERAL: An elderly female, mild short of breath, somewhat confused. Her daughter is at the bedside. VITAL SIGNS: Blood pressure 163/80, heart rate 99, respirations 20, temperature 98.1. HEENT EXAMINATION: Pupils are equal and reactive to light. She had bilateral cataract surgery done. Oral mucosa, nasal mucosa normal. NECK: Supple. JVP not raised. CHEST: Good Breath sounds bilat. She has scattered rhonchi. CV: S1 and S2 normal. ABDOMEN: Benign. EXTREMITIES: No edema. IMPRESSION 1. COPD with exacerbation. 2. Right lower lobe infiltrate. 3. Mucous plugging in the airways. She is tolerating it well. 4. Leukocytosis. 5. History of fall. 6. Anemia and possible GI bleed. PLAN 1. I discussed with the patient and her daughter. We will give her aerosol treatment starting Mucomyst nebulizer treatment. 2. Mucinex twice a day and use acapella. 3. If her symptoms persist or the repeat study shows persistent mucous plugging, she will need bronchoscopy. 4. Continue antibiotic, aerosol treatment, IV Solu-Medrol. 5. She has received blood transfusion. We will check the hemoglobin. 6. GI is following the patient. Further treatment will depend on the course in the hospital. Thank you Dr. Cruz for this consultation. Lisa Michelle MD ADA/SSB /6:21 PM /7:16 AM K[facility]
[2017-03-18] MEDS: DOCUSATE SODIUM 50 MG/SENNA 8.6 MG TAB PO SCH ×2 (09:00→21:12)
[2017-03-18] MEDS: ACETAMINOPHEN/HYDROcodone 325 MG/5 MG TAB PO PRN ×2 (09:59→17:09)
[2017-03-18] MEDS: guaiFENesin E.R. 600 MG TAB PO SCH ×2 (09:59→21:12)
[2017-03-18] MEDS: PANTOPRAZOLE SODIUM 40 MG VIAL IV PUSH SCH ×2 (09:59→21:11)
[2017-03-18] MEDS: NYSTATIN SUSP 500,000 U/5 ML CUP SWISH-SWAL SCH ×4 (09:59→21:11)
[2017-03-18] MEDS: SODIUM CHLORIDE 0.9% FLUSH 10 ML FLUSH IV FLUSH SCH ×2 (10:01→21:13)
--- NOTE | 2017-03-18 10:29 | HHI.PR ---
Subjective Remarks Pt tells me that she was eating a grape and after swallowing she gets right sided chest pain w radiation to her back. pain right now is about an 8/10. This has been occurring everytime she eats. SOB is about the same, not worsened. No coughing much. No nausea or vomiting. Per our and, patient did have black stools this morning. Hemoccult is positive. Objective Vitals Vital Signs Date Time Temp Pulse Resp B/P Pulse Ox O2 Delivery O2 Flow Rate FiO2 03/18/17 07:53 98 Nasal Cannula 2.00 03/18/17 04:00 97.9 100 20 152/80 100 03/18/17 02:00 94 03/18/17 01:00 102 03/18/17 00:00 98.0 99 20 140/76 100 03/18/17 00:00 116 03/17/17 23:00 108 03/17/17 22:00 126 03/17/17 21:00 106 03/17/17 20:59 98 Nasal Cannula 2.00 03/17/17 20:00 104 03/17/17 20:00 100 20 165/85 99 03/17/17 19:00 108 03/17/17 18:00 104 03/17/17 17:00 100 03/17/17 15:50 102 03/17/17 15:35 98.1 99 21 163/80 97 03/17/17 15:30 98.3 99 20 164/86 96 03/17/17 15:25 98.6 101 20 158/85 95 03/17/17 15:24 98.3 101 20 160/81 97 03/17/17 15:20 98.3 101 21 160/81 97 03/17/17 14:00 106 03/17/17 13:00 102 03/17/17 12:30 84 03/17/17 11:40 98.0 99 21 170/88 94 03/17/17 11:00 97 I/O 03/17/17 03/17/17 03/17/17 03/18/17 03/18/17 03/18/17 07:00 15:00 23:00 07:00 15:00 23:00 Intake Total 1050 ml 1300 ml 1421 ml Output Total 700 ml Balance 350 ml 1300 ml 1421 ml Intake Oral 300 ml 480 ml 480 ml IV Total 750 ml 820 ml 941 ml Output Urine Total 700 ml # Voids 3 2 # Bowel Movements 0 2 1 Result Diagram: 03/18/17 0620 03/18/17 [address] Angiography 03/17/17 0000 Signed Impressions: Service Date/Time: Friday, March 17, 2017 12:06 - CONCLUSION: Multiple endobronchial nodular densities could be inspissated mucous versus endobronchial lesions with probable mucous plugging and inflammatory change right lower lobe. Follow up is suggested with noncontrast chest CT in 3 months after appropriate clinical therapy. Megha Aleman MD Chest X-Ray 03/15/17 1503 Signed Impressions: Service Date/Time: Wednesday, March 15, 2017 15:08 - CONCLUSION: 1. Focal patchy opacity within the right medial lung base consistent with probable pneumonia. Clinical correlation is recommended. 2. Underlying emphysematous changes bilaterally. Cayden Candelario MD Objective Remarks GENERAL: This is a well-nourished, well-developed patient, NC in place EYES: Extraocular motions intact. ENT: dry mucous membranes, had to sip some water NECK: Trachea midline. CARDIOVASCULAR: RRR w no obvious murmurs RESPIRATORY: Decreased breath sounds bilaterally. poor air entry however pt speaking in full sentences. some wheezing noted at the bases. GASTROINTESTINAL: Abdomen soft, non-tender, nondistended. No focal masses palpated MUSCULOSKELETAL: Extremities without edema NEUROLOGICAL: Awake and alert. Normal speech. moves all extremities. A/P Problem List: (1) Right middle lobe pneumonia ICD Code: J18.1 Status: Acute (2) Failure of outpatient treatment ICD Code: Z78.9 Status: Acute (3) Rib contusion ICD Code: S20.219A Status: Acute (4) COPD with exacerbation ICD Code: J44.1 Status: Acute (5) Severe sepsis due to pneumococcus with acute organ dysfunction ICD Code: A40.3 Status: Acute Assessment and Plan 81-year-old female with a past medical history of COPD admitted for severe sepsis secondary to COPD exacerbation and pneumonia. 1. Respiratory distress/severe sepsis/PNA/leukocytosis Secondary to COPD exacerbation with right lower lobe pneumonia. Treated for HCAP, continue vancomycin, Zosyn and Levaquin Continue IV fluid resuscitation Lactic acid improving, continue to trend. D-dimer elevated, CTA shows endobronchial nodules densities: Mucus plugging versus inflammatory changes in the right lower lobe. Pulmonology following. Continue duo nebs and IV steroids. Continue to taper steroids blood cx neg x 2 days, flu neg. Legionella and pneumococcal antigens pending Patient with recent rib contusion, continue pain medication and encouraged use of IS to prevent hypoventilation _Persistent leukocytosis, most likely secondary to high steroid use and infection. Trending down. Monitor closely 2. ANNE MARIE Resolved Continue IV fluid hydration 3- Severe anemia on admission Hb was 12 now down to 7.0. Bleeding source is unknown, Hemoccult positive. GI evaluated the patient and recommends a barium swallow eval and EGD when more stable. Hold all anticoagulation. Status post 1 unit packed red blood cells. Hemoglobin today is 8.4 4. Hypernatremia: Sodium jumped to 149. Encouraged water intake. However we' ll switch her IV fluids to one half normal saline at 60 mL's per hour and repeat BMP later today. 5. Elevated troponins: Most likely due to oxygen demand due to her tachycardia on admission 6. Hypokalemia: Replaced DVT prophylaxis: In no chemical anticoagulation due to GI bleed Continuing all home medications otherwise. Discharge Planning GI following. Schedule for a barium swallow eval and will need EGD when more stable pulmonary levi Pulmonology following. May need bronchoscopy Continue to taper steroids Problem Qualifiers (1) Right middle lobe pneumonia: Qualified Code: J13 - Pneumonia of right middle lobe due to Streptococcus pneumoniae Sydnie Cruz MD Mar 18, 2017 10:29
[2017-03-18] MEDS ORDERED: EPINEPHrine HCL (1:10,000) 1 MG/10 ML SYRINGE ONE (10:43)
--- NOTE | 2017-03-18 11:26 | RADRPT ---
EXAM DATE/TIME: 03/18/2017 11:04 [facility] COMPARISON: No previous studies available for comparison. INDICATIONS : Pain in chest when swallowing liquids and solids FLUORO TIME: 0.9 minutes IMAGE COUNT: 10 CONTRAST: 1. Liquid E-Z Paque Barium Sulfate (60% w/v, 41% w.w) MEDICAL HISTORY : Chronic obstructive pulmonary disease. Hypercholesterolemia. Hypertension. pneumonia SURGICAL HISTORY : Mastectomy, bilateral. Hysterectomy. ENCOUNTER: Subsequent ACUITY: 3 days PAIN SCORE: 5/10 LOCATION: Bilateral esophagus FINDINGS: No esophageal obstruction or filling defects are identified. There is a small sliding hiatal hernia. No esophageal dilatation. Mild nonspecific esophageal motility disorder. CONCLUSION: 1. Mild nonspecific esophageal motility disorder with small sliding hiatal. Parker Nassar MD on March 18, 2017 at 11:23 Board Certified Radiologist. This report was verified electronically.
[2017-03-18] MEDS: SODIUM CHLOR 0.45% 1000 ML INJ 1,000 ML IV SCH (12:53)
--- NOTE | 2017-03-18 15:17 | HHI.GIFU ---
Subjective Remarks Pt resting in bed. c/o epigastric pain when she eats. She does okay with softer foods like ice cream and jello. (Estefania Gayle) Objective Vitals I&O Vital Signs Date Time Temp Pulse Resp B/P Pulse Ox O2 Delivery O2 Flow Rate FiO2 03/18/17 15:06 97.6 114 19 142/83 97 03/18/17 15:00 110 03/18/17 14:00 120 03/18/17 13:00 102 03/18/17 12:00 92 03/18/17 11:30 93 03/18/17 11:30 97.8 101 20 170/80 96 03/18/17 10:00 98 03/18/17 09:00 110 03/18/17 08:00 100 03/18/17 07:53 98 Nasal Cannula 2.00 03/18/17 07:50 98.2 104 19 157/79 94 03/18/17 07:50 101 03/18/17 04:00 97.9 100 20 152/80 100 03/18/17 02:00 94 03/18/17 01:00 102 03/18/17 00:00 98.0 99 20 140/76 100 03/18/17 00:00 116 03/17/17 23:00 108 03/17/17 22:00 126 03/17/17 21:00 106 03/17/17 20:59 98 Nasal Cannula 2.00 03/17/17 20:00 104 03/17/17 20:00 100 20 165/85 99 03/17/17 19:00 108 03/17/17 18:00 104 03/17/17 17:00 100 03/17/17 15:50 102 03/17/17 15:35 98.1 99 21 163/80 97 03/17/17 15:30 98.3 99 20 164/86 96 03/17/17 15:25 98.6 101 20 158/85 95 03/17/17 15:24 98.3 101 20 160/81 97 03/17/17 15:20 98.3 101 21 160/81 97 I/O 03/17/17 03/17/17 03/17/17 03/18/17 03/18/17 03/18/17 07:00 15:00 23:00 07:00 15:00 23:00 Intake Total 1050 ml 1300 ml 1421 ml Output Total 700 ml Balance 350 ml 1300 ml 1421 ml Intake Oral 300 ml 480 ml 480 ml IV Total 750 ml 820 ml 941 ml Output Urine Total 700 ml # Voids 3 2 # Bowel Movements 0 2 1 Laboratory Laboratory Tests Test 03/18/17 06:20 White Blood Count 23.8 Red Blood Count 2.81 Hemoglobin 8.4 Hematocrit 25.2 Mean Corpuscular Volume 89.7 Mean Corpuscular Hemoglobin 29.9 Mean Corpuscular Hemoglobin 33.3 Concent Red Cell Distribution Width 15.2 Platelet Count 281 Mean Platelet Volume 8.6 Neutrophils (%) (Auto) 92.8 Lymphocytes (%) (Auto) 2.2 Monocytes (%) (Auto) 4.9 Eosinophils (%) (Auto) 0.0 Basophils (%) (Auto) 0.1 Neutrophils # (Auto) 22.1 Lymphocytes # (Auto) 0.5 Monocytes # (Auto) 1.2 Eosinophils # (Auto) 0.0 Basophils # (Auto) 0.0 CBC Comment AUTO DIFF Differential Total Cells 100 Counted Neutrophils % (Manual) 93 Band Neutrophils % 1 Lymphocytes % 2 Monocytes % 4 Neutrophils # (Manual) 22.4 Differential Comment FINAL DIFF MANUAL Platelet Estimate NORMAL Platelet Morphology Comment NORMAL Ovalocytes 1+ Sodium Level 149 Potassium Level 3.3 Chloride Level 115 Carbon Dioxide Level 25.3 Anion Gap 9 Blood Urea Nitrogen 31 Creatinine 0.78 Estimat Glomerular Filtration 71 Rate Random Glucose 132 Calcium Level 7.8 Date/Time Procedure Status Source Growth 03/17/17 16:53 Stool Occult Blood (BILLY) - Final Complete Stool Stool HEMOCCULT POSITIVE 03/15/17 15:55 Influenza Types A,B Antigen (BILLY) - Final Complete Nasal Washing NEGATIVE FOR FLU A AND B ANTIGEN.... 03/15/17 15:45 Aerobic Blood Culture - Preliminary Resulted Blood Peripheral NO GROWTH IN 3 DAYS 03/15/17 15:45 Anaerobic Blood Culture - Preliminary Resulted Blood Peripheral NO GROWTH IN 3 DAYS Imaging Last Impressions Barium Swallow X-Ray 03/18/17 0000 Signed Impressions: Service Date/Time: Saturday, March 18, 2017 11:04 - CONCLUSION: 1. Mild nonspecific esophageal motility disorder with small sliding hiatal. Parker Nassar MD CT Angiography 03/17/17 0000 Signed Impressions: Service Date/Time: Friday, March 17, 2017 12:06 - CONCLUSION: Multiple endobronchial nodular densities could be inspissated mucous versus endobronchial lesions with probable mucous plugging and inflammatory change right lower lobe. Follow up is suggested with noncontrast chest CT in 3 months after appropriate clinical therapy. Megha Aleman MD Chest X-Ray 03/15/17 1503 Signed Impressions: Service Date/Time: Wednesday, March 15, 2017 15:08 - CONCLUSION: 1. Focal patchy opacity within the right medial lung base consistent with probable pneumonia. Clinical correlation is recommended. 2. Underlying emphysematous changes bilaterally. Cayden Candelario MD Physical Exam HEENT: PERRL; normocephalic; atraumatic; no jaundice. CHEST: diminished, tachypneic CARDIAC: tachy ABDOMEN: Soft, nondistended, mild epigastric TTP; no hepatosplenomegaly; bowel sounds are present in all four quadrants. EXTREMITIES: No clubbing, cyanosis, or edema. SKIN: Normal; no rash; no jaundice. [employer]: No focal deficits; alert and oriented times three. (Estefania Gayle [facility]) Assessment and Plan Plan ASSESSMENT: - Anemia with drop in Hgb. HH went from 12.1/38.5 on admission to 7.0/22.0. No obvious blood loss. heme pos stool. HH stable. C/O occasional odynophagia, but no other GI symptoms. Never had EGD. Last colonoscopy was about 10 years ago, pt reports as normal with no polyps. No family hx of esophageal, gastric, colorectal cancer. GI consulted for further evaluation of anemia. D/W patient further evaluation with egd/colonoscopy, but she is currently having significant wheezing and her breathing is mildly labored and therefore we would wait until her respiratory status is optimized prior to scheduling for procedures. PPI. Hemoccult stool. - Odynophagia. Rare episodes of painful swallowing in lower esophagus/right side of chest, very rare, no aggravating factors. No dysphagia. Ba swallow --> mild non specific esophageal motility disorder - Right Middle Lobe Pneumonia, COPD exacerbation. Steroids, nebs, vancomycin, zosyn. On 3L via n/c (on 2L at home). She has exp. wheezing, mildly tachypneic and labored breathing. - Sepsis/Leukocytosis. TRENDING DOWN BCx no growth x 2 days. - ANNE MARIE with electrolyte abnormalities. Improved. PLAN: - soft diet - Protonix 40mg po daily - Monitor HH - Transfuse as necessary - Supportive care - Plan for egd/colonoscopy once respiratory status optimized - Further recommendations to follow based on results of above - Pt seen and examined by Dr. Morgan and myself and this note is written on her behalf (Estefania Gayle) Physician Comments seen, examined agree with above no indication of gi bleeding will start Cardizem drip shortly (Jenna Morgan MD) Estefania Gayle Mar 18, 2017 15:17 Jenna Morgan MD Mar 18, 2017 16:22
[2017-03-18] MEDS ORDERED: DILTIAZEM HCL 25 MG/5 ML VIAL IVP ONE (16:30)
[2017-03-18] MEDS ORDERED: DILTIAZEM INJ 125 MG in SODIUM CHLORIDE 0.9% INJ 100 ML IV SCH (16:30)
--- NOTE | 2017-03-18 19:33 | HHI.PR ---
Subjective Remarks 81 YOWF with COPD exac, mucous plugging, RLL infilt/ density Has cough, not able to expactorate Breathing better Had Ba swallow study Objective Vital Signs Vital Signs Date Time Temp Pulse Resp B/P Pulse Ox O2 Delivery O2 Flow Rate FiO2 03/18/17 18:00 107 03/18/17 17:00 102 03/18/17 16:06 110 03/18/17 15:06 97.6 114 19 142/83 97 03/18/17 15:00 110 03/18/17 14:00 120 03/18/17 13:00 102 03/18/17 12:00 92 03/18/17 11:30 93 03/18/17 11:30 97.8 101 20 170/80 96 03/18/17 10:00 98 03/18/17 09:00 110 03/18/17 08:00 100 03/18/17 07:53 98 Nasal Cannula 2.00 03/18/17 07:50 98.2 104 19 157/79 94 03/18/17 07:50 101 03/18/17 04:00 97.9 100 20 152/80 100 03/18/17 02:00 94 03/18/17 01:00 102 03/18/17 00:00 98.0 99 20 140/76 100 03/18/17 00:00 116 03/17/17 23:00 108 03/17/17 22:00 126 03/17/17 21:00 106 03/17/17 20:59 98 Nasal Cannula 2.00 03/17/17 20:00 104 03/17/17 20:00 100 20 165/85 99 I/O 03/17/17 03/17/17 03/17/17 03/18/17 03/18/17 03/18/17 07:00 15:00 23:00 07:00 15:00 23:00 Intake Total 1050 ml 1300 ml 1421 ml 480 ml Output Total 700 ml 200 ml Balance 350 ml 1300 ml 1421 ml 280 ml Intake Oral 300 ml 480 ml 480 ml 480 ml IV Total 750 ml 820 ml 941 ml Output Urine Total 700 ml 200 ml # Voids 3 2 1 # Bowel Movements 0 2 1 1 Result Diagram: 03/18/1720 03/18/17 0620 Objective Remarks GENERAL: MBMN WF,Mild sob SKIN: Warm and dry. HEAD: Normocephalic. EYES: No scleral icterus. No injection or drainage. NECK: Supple, trachea midline. No JVD or lymphadenopathy. CARDIOVASCULAR: Regular rate and rhythm without murmurs, gallops, or rubs. RESPIRATORY: Breath sounds equal bilaterally. No accessory muscle use. Exp rhonchi GASTROINTESTINAL: Abdomen soft, non-tender, nondistended. MUSCULOSKELETAL: No cyanosis, or edema. BACK: Nontender without obvious deformity. No CVA tenderness. A/P Assessment and Plan COPD exac Mucous plugging Rll infilt/ density Anemia Leucocytosis improving PLAN IV Solumedrol Cont Abx Mucomyst Nebs Mucinex BID use IS and Acapella DW pt and daughter at BS. Hong Velasquez MD Mar 18, 2017 19:33
[2017-03-18] MEDS ORDERED: PHARMACY ORDERED LAB ONE (20:45)
[2017-03-18] MEDS: RESP: IPRATROPIUM 0.5 MG/2.5 ML NEB NEB SCH (20:51)
[2017-03-18] MEDS: VANCOMYCIN INJ 1,250 MG in SODIUM CHLOR 0.9% 250 ML INJ 250 ML IV SCH ×2 (21:00→22:40)
[2017-03-18] MEDS: MIRTAZAPINE 15 MG TAB PO SCH (21:12)
[2017-03-18] MEDS: ATORVASTATIN 10 MG TAB PO SCH (21:12)
[2017-03-18 21:43] LABS: BICARBONATE 23.8 MEQ/L (21.0-32.0); POTASSIUM 3.1 MEQ/L (3.5-5.1)
[2017-03-19] VITALS (29 sets, daily range): BP systolic 145–179; BP diastolic 72–106; PULSE 82–130; RESP 18–20; TEMP 97.6–98.2; O2SAT 95–98
[2017-03-19 02:25] LABS: BASOPHIL # 0.1 TH/MM3 (0-0.2); BASOPHIL % 0.3 % (0.0-2.0); HEMATOCRIT 24.9 % (35.0-46.0); LYMPH % 4.8 % (9.0-44.0); LYMPHOCYTE # 1.1 TH/MM3 (1.0-4.8); MEAN CELL VOLUME 91.3 FL (80.0-100.0); MEAN CORPUSCULAR HGB CONC 32.8 % (32.0-36.0); MONO % 6.9 % (0.0-8.0); PLATELET COUNT 321 TH/MM3 (150-450); RED BLOOD COUNT 2.73 MIL/MM3 (4.00-5.30); RED CELL DISTRIBUTION WIDTH 15.9 % (11.6-17.2); WHITE BLOOD COUNT 22.8 TH/MM3 (4.0-11.0)
[2017-03-19 02:27] LABS: HEMO FLAGS AUTO DIFF
[2017-03-19] MEDS: PIPERACIL-TAZO 3.375 GM PREMIX 50 ML IV SCH ×4 (02:50→20:38)
[2017-03-19] MEDS: methylPREDNISolone SOD SUCC 40 MG/1 ML VIAL IV PUSH SCH ×3 (02:50→16:57)
[2017-03-19 02:54] LABS: BICARBONATE 27.1 MEQ/L (21.0-32.0); POTASSIUM 3.1 MEQ/L (3.5-5.1); VANCOMYCIN TROUGH 8.4 MCG/ML (5.0-10.0)
[2017-03-19] MEDS: RESP: IPRATROPIUM 0.5 MG/2.5 ML NEB NEB SCH ×4 (03:08→20:55)
[2017-03-19] MEDS: SODIUM CHLOR 0.45% 1000 ML INJ 1,000 ML IV SCH ×2 (03:10→14:12)
[2017-03-19] MEDS: METOPROLOL TARTRATE 25 MG TAB PO SCH ×3 (06:00→20:37)
[2017-03-19] MEDS: INSULIN ASPART SUPPLEMENTAL SCALE SQ SCH ×4 (06:14→21:00)
[2017-03-19] MEDS: SUCRALFATE 1 GM/10 ML CUP PO SCH ×4 (07:00→20:37)
[2017-03-19] MEDS: RESP: ACETYLCYSTEINE 20% 30 ML NEB NEB SCH ×4 (08:00→20:55)
[2017-03-19 08:06] LABS: METAMYELOCYTES 2 % (0-1); MYELOCYTES 1 % (0-0); NEUTROPHIL # MANUAL DIFF 20.7 TH/MM3 (1.8-7.7); POLYS (SEG NEUTROPHILS) 88 % (16-70); WBC DIFF SAMPLE 100
[2017-03-19 08:07] LABS: PLATELET ESTIMATE SMEAR NORMAL (NORMAL); PLATELET MORPHOLOGY NORMAL (NORMAL); SCAN/DIFF FINAL DIFF MANUAL
[2017-03-19] MEDS: LORazepam 2 MG/ML VIAL IM PRN (08:53)
[2017-03-19] MEDS: ACETAMINOPHEN/HYDROcodone 325 MG/5 MG TAB PO PRN ×2 (08:53→16:59)
[2017-03-19] MEDS: SODIUM CHLORIDE 0.9% FLUSH 10 ML FLUSH IV FLUSH SCH ×2 (08:53→20:38)
[2017-03-19] MEDS: NYSTATIN SUSP 500,000 U/5 ML CUP SWISH-SWAL SCH ×4 (08:54→20:37)
[2017-03-19] MEDS: guaiFENesin E.R. 600 MG TAB PO SCH ×2 (08:54→20:37)
[2017-03-19] MEDS: DOCUSATE SODIUM 50 MG/SENNA 8.6 MG TAB PO SCH ×2 (08:54→20:38)
[2017-03-19] MEDS: PANTOPRAZOLE SODIUM 40 MG VIAL IV PUSH SCH ×2 (08:54→20:36)
--- NOTE | 2017-03-19 10:38 | EKG ---
Date Performed: 03/18/2017 Time Performed: 16:20:58 PTAGE: 81 years EKG: Sinus tachycardia with PAC(s). Inferior T wave changes are nonspecific Borderline ECG PREVIOUS TRACING : 03/17/2017 06.09 DOCTOR: Arnoldo Degroot Interpretating Date/Time 03/19/2017 10:36:23
[2017-03-19] MEDS: VANCOMYCIN INJ 1,250 MG in SODIUM CHLOR 0.9% 250 ML INJ 250 ML IV SCH (11:46)
[2017-03-19] MEDS ORDERED: POTASSIUM CHLORIDE 25 MEQ EFFERVESCENT TAB PO ONE (13:00)
--- NOTE | 2017-03-19 15:19 | HHI.PR ---
Subjective Remarks Follow-up for shortness of breath and chest pain Shortness of breath and chest pain about the same as yesterday. Still coughing , dry, can bring them up. No fever. Objective Vitals Vital Signs Date Time Temp Pulse Resp B/P Pulse Ox O2 Delivery O2 Flow Rate FiO2 03/19/17 12:00 94 03/19/17 12:00 97.6 107 20 145/96 95 03/19/17 11:00 102 03/19/17 10:00 106 03/19/17 10:00 153/80 03/19/17 09:54 20 03/19/17 09:33 95 Nasal Cannula 3.00 03/19/17 09:00 90 03/19/17 08:00 97.8 88 20 179/106 96 03/19/17 08:00 97 03/19/17 07:00 92 03/19/17 06:00 89 03/19/17 05:04 88 03/19/17 04:00 95 03/19/17 04:00 98.2 89 20 162/98 98 03/19/17 03:12 98 Nasal Cannula 3.00 03/19/17 03:00 82 03/19/17 02:05 97 Nasal Cannula 3.00 03/19/17 02:00 92 03/19/17 01:00 82 03/19/17 00:00 86 03/19/17 00:00 98.0 91 20 150/97 98 03/18/17 23:00 90 03/18/17 22:00 96 03/18/17 21:00 96 03/18/17 20:00 97.8 98 19 156/94 97 03/18/17 20:00 98 03/18/17 19:00 98 03/18/17 18:00 107 03/18/17 17:00 102 03/18/17 16:06 110 03/18/17 15:06 97.6 114 19 142/83 97 03/18/17 15:00 110 03/18/17 14:00 120 I/O 03/18/17 03/18/17 03/18/17 03/19/17 03/19/17 03/19/17 07:00 15:00 23:00 07:00 15:00 23:00 Intake Total 1421 ml 480 ml 1010 ml Output Total 200 ml 700 ml Balance 1421 ml 280 ml 310 ml Intake Oral 480 ml 480 ml 240 ml IV Total 941 ml 770 ml Output Urine Total 200 ml 700 ml # Voids 2 1 # Bowel Movements 1 1 1 Result Diagram: 03/19/1720303/19/17203 Objective Remarks GENERAL: Not in distress, nasal cannula in place. EYES: Extraocular motions intact. ENT: dry mucous membranes NECK: Trachea midline. CARDIOVASCULAR: RRR w no obvious murmurs, positive for reproducible chest pain. RESPIRATORY: Decreased breath sounds bilaterally. poor air entry however pt speaking in full sentences. No wheezing. Poor effort. GASTROINTESTINAL: Abdomen soft, non-tender, nondistended. No focal masses palpated MUSCULOSKELETAL: Extremities without edema NEUROLOGICAL: Awake and alert, oriented, no focal deficits. A/P Problem List: (1) Right middle lobe pneumonia ICD Code: J18.1 Status: Acute (2) Failure of outpatient treatment ICD Code: Z78.9 Status: Acute (3) Rib contusion ICD Code: S20.219A Status: Acute (4) COPD with exacerbation ICD Code: J44.1 Status: Acute (5) Severe sepsis due to pneumococcus with acute organ dysfunction ICD Code: A40.3 Status: Acute Assessment and Plan 81-year-old female with a past medical history of COPD admitted for severe sepsis secondary to COPD exacerbation and pneumonia. 1. Respiratory distress/severe sepsis/PNA/leukocytosis Secondary to COPD exacerbation with right lower lobe pneumonia. Treated for HCAP, continue vancomycin, Zosyn and Levaquin, switch to oral tomorrow if stable. CTA shows endobronchial nodules densities: Mucus plugging versus inflammatory changes in the right lower lobe. Pulmonology following. Continue duo nebs and IV steroids, taper per pulmonary. Continue incentive spirometry. blood cx neg x 2 days, flu neg. Legionella and pneumococcal antigens pending Patient with recent rib contusion, continue pain medication and encouraged use of IS to prevent hypoventilation. Still with leukocytosis, recheck CBC tomorrow. 2. ANNE MARIE Resolved Continue IV fluid hydration 3- Severe anemia -Hemoccult positive. GI evaluated the patient and recommends a barium swallow eval and EGD when more stable. Hold all anticoagulation. Status post 1 unit packed red blood cells. Recheck hemoglobin tomorrow. 4. Hypernatremia: Still mildly elevated, increase half-normal saline. Recheck BMP tomorrow 5. Elevated troponins: Most likely due to oxygen demand due to her tachycardia on admission , reproducible. 6. Hypokalemia: Replaced DVT prophylaxis: In no chemical anticoagulation due to possible GI bleed Discharge Planning GI following. Schedule for a barium swallow eval and will need EGD when more stable pulmonary levi Problem Qualifiers (1) Right middle lobe pneumonia: Qualified Code: J13 - Pneumonia of right middle lobe due to Streptococcus pneumoniae Haider Silvestre MD Mar 19, 2017 14:39
--- NOTE | 2017-03-19 15:44 | HHI.GIFU ---
Subjective Remarks Pt resting in bed. says it still hurts to swallow but she does okay with softer foods. (Estefania Gayle) Objective Vitals I&O Vital Signs Date Time Temp Pulse Resp B/P Pulse Ox O2 Delivery O2 Flow Rate FiO2 03/19/17 14:19 97 Venturi Mask 6.00 35 03/19/17 12:00 94 03/19/17 12:00 97.6 107 20 145/96 95 03/19/17 11:00 102 03/19/17 10:00 106 03/19/17 10:00 153/80 03/19/17 09:54 20 03/19/17 09:33 95 Nasal Cannula 3.00 03/19/17 09:00 90 03/19/17 08:00 97.8 88 20 179/106 96 03/19/17 08:00 97 03/19/17 07:00 92 03/19/17 06:00 89 03/19/17 05:04 88 03/19/17 04:00 95 03/19/17 04:00 98.2 89 20 162/98 98 03/19/17 03:12 98 Nasal Cannula 3.00 03/19/17 03:00 82 03/19/17 02:05 97 Nasal Cannula 3.00 03/19/17 02:00 92 03/19/17 01:00 82 03/19/17 00:00 86 03/19/17 00:00 98.0 91 20 150/97 98 03/18/17 23:00 90 03/18/17 22:00 96 03/18/17 21:00 96 03/18/17 20:00 97.8 98 19 156/94 97 03/18/17 20:00 98 03/18/17 19:00 98 03/18/17 18:00 107 03/18/17 17:00 102 03/18/17 16:06 110 I/O 03/18/17 03/18/17 03/18/17 03/19/17 03/19/17 03/19/17 07:00 15:00 23:00 07:00 15:00 23:00 Intake Total 1421 ml 480 ml 1010 ml Output Total 200 ml 700 ml Balance 1421 ml 280 ml 310 ml Intake Oral 480 ml 480 ml 240 ml IV Total 941 ml 770 ml Output Urine Total 200 ml 700 ml # Voids 2 1 # Bowel Movements 1 1 1 Laboratory Laboratory Tests Test 03/18/17 03/19/17 20:46 02:04 Sodium Level 146 147 Potassium Level 3.1 3.1 Chloride Level 114 111 Carbon Dioxide Level 23.8 27.1 Anion Gap 8 9 Blood Urea Nitrogen 27 25 Creatinine 0.80 0.75 Estimat Glomerular Filtration 69 74 Rate Random Glucose 165 111 Calcium Level 8.0 7.6 White Blood Count 22.8 Red Blood Count 2.73 Hemoglobin 8.2 Hematocrit 24.9 Mean Corpuscular Volume 91.3 Mean Corpuscular Hemoglobin 30.0 Mean Corpuscular Hemoglobin 32.8 Concent Red Cell Distribution Width 15.9 Platelet Count 321 Mean Platelet Volume 8.4 Neutrophils (%) (Auto) 88.0 Lymphocytes (%) (Auto) 4.8 Monocytes (%) (Auto) 6.9 Eosinophils (%) (Auto) 0.0 Basophils (%) (Auto) 0.3 Neutrophils # (Auto) 20.0 Lymphocytes # (Auto) 1.1 Monocytes # (Auto) 1.6 Eosinophils # (Auto) 0.0 Basophils # (Auto) 0.1 CBC Comment AUTO DIFF Differential Total Cells 100 Counted Neutrophils % (Manual) 88 Lymphocytes % 6 Monocytes % 3 Neutrophils # (Manual) 20.7 Metamyelocytes 2 Myelocytes 1 Differential Comment FINAL DIFF MANUAL Platelet Estimate NORMAL Platelet Morphology Comment NORMAL Red Cell Morphology Comment NORMAL Vancomycin Level Trough 8.4 Date/Time Procedure Status Source Growth 03/17/17 16:53 Stool Occult Blood (BILLY) - Final Complete Stool Stool HEMOCCULT POSITIVE 03/15/17 15:55 Influenza Types A,B Antigen (BILLY) - Final Complete Nasal Washing NEGATIVE FOR FLU A AND B ANTIGEN.... 03/15/17 15:45 Aerobic Blood Culture - Preliminary Resulted Blood Peripheral NO GROWTH IN 4 DAYS 03/15/17 15:45 Anaerobic Blood Culture - Preliminary Resulted Blood Peripheral NO GROWTH IN 4 DAYS Imaging Last Impressions Barium Swallow X-Ray 03/18/17 0000 Signed Impressions: Service Date/Time: Saturday, March 18, 2017 11:04 - CONCLUSION: 1. Mild nonspecific esophageal motility disorder with small sliding hiatal. Parker Nassar MD CT Angiography 03/17/17 0000 Signed Impressions: Service Date/Time: Friday, March 17, 2017 12:06 - CONCLUSION: Multiple endobronchial nodular densities could be inspissated mucous versus endobronchial lesions with probable mucous plugging and inflammatory change right lower lobe. Follow up is suggested with noncontrast chest CT in 3 months after appropriate clinical therapy. Megha Aleman MD Chest X-Ray 03/15/17 1503 Signed Impressions: Service Date/Time: Friday, March 15, 2017 15:08 - CONCLUSION: 1. Focal patchy opacity within the right medial lung base consistent with probable pneumonia. Clinical correlation is recommended. 2. Underlying emphysematous changes bilaterally. Cayden Candelario MD Physical Exam HEENT: PERRL; normocephalic; atraumatic; no jaundice. CHEST: diminished, tachypneic, shallow, wheezes CARDIAC: irr HR ABDOMEN: Soft, nondistended, mild epigastric TTP; no hepatosplenomegaly; bowel sounds are present in all four quadrants. EXTREMITIES: No clubbing, cyanosis, or edema. SKIN: Normal; no rash; no jaundice. REHABILITATION LIAISON: No focal deficits; alert and oriented times three. (Estefania Gayle [facility]) Assessment and Plan Plan ASSESSMENT: - Anemia with drop in Hgb. HH went from 12.1/38.5 on admission to 7.0/22.0. No obvious blood loss. heme pos stool. HH stable. C/O occasional odynophagia, but no other GI symptoms. Never had EGD. Last colonoscopy was about 10 years ago, pt reports as normal with no polyps. No family hx of esophageal, gastric, colorectal cancer. GI consulted for further evaluation of anemia. D/W patient further evaluation with egd/colonoscopy, but she is currently having significant wheezing and her breathing is mildly labored and therefore we would wait until her respiratory status is optimized prior to scheduling for procedures. PPI. Hemoccult stool. - Odynophagia. Rare episodes of painful swallowing in lower esophagus/right side of chest, very rare, no aggravating factors. No dysphagia. Ba swallow --> mild non specific esophageal motility disorder on nystatin swish and swallow - Right Middle Lobe Pneumonia, COPD exacerbation. Steroids, nebs, vancomycin, zosyn. On 3L via n/c (on 2L at home). She has exp. wheezing, mildly tachypneic and labored breathing. - Sepsis/Leukocytosis. TRENDING DOWN BCx no growth x 4 days. - ANNE MARIE with electrolyte abnormalities. Improved. PLAN: - continue nystatin - soft diet - Protonix 40mg po daily - Monitor HH - Transfuse as necessary - Supportive care - Plan for egd/colonoscopy once respiratory status optimized - Further recommendations to follow based on results of above - Pt seen and examined by Dr. Morgan and myself and this note is written on her behalf (Estefania Gayle) Estefania Gayle Mar 19, 2017 15:44 Jenna Morgan MD Mar 19, 2017 17:50
[2017-03-19] MEDS: LEVOFLOXACIN 750 MG PREMIX INJ 150 ML IV SCH (16:57)
--- NOTE | 2017-03-19 19:57 | HHI.PR ---
Subjective Remarks 81 YOWF with COPD exac, mucous plugging, RLL infilt/ density Has cough, not able to expactorate Breathing better Had Ba swallow study Cough loosened, able to bring up some sp" Objective Vital Signs Vital Signs Date Time Temp Pulse Resp B/P Pulse Ox O2 Delivery O2 Flow Rate FiO2 03/19/17 19:00 108 03/19/17 18:00 112 03/19/17 17:35 16 03/19/17 17:00 112 03/19/17 16:00 99 03/19/17 16:00 97.6 109 18 157/96 95 03/19/17 15:00 110 03/19/17 14:19 97 Venturi Mask 6.00 35 03/19/17 14:00 130 03/19/17 13:00 114 03/19/17 12:00 94 03/19/17 12:00 97.6 107 20 145/96 95 03/19/17 11:00 102 03/19/17 10:00 106 03/19/17 10:00 153/80 03/19/17 09:33 95 Nasal Cannula 3.00 03/19/17 09:00 90 03/19/17 08:00 97.8 88 20 179/106 96 03/19/17 08:00 97 03/19/17 07:00 92 03/19/17 06:00 89 03/19/17 05:04 88 03/19/17 04:00 95 03/19/17 04:00 98.2 89 20 162/98 98 03/19/17 03:12 98 Nasal Cannula 3.00 03/19/17 03:00 82 03/19/17 02:05 97 Nasal Cannula 3.00 03/19/17 02:00 92 03/19/17 01:00 82 03/19/17 00:00 86 03/19/17 00:00 98.0 91 20 150/97 98 03/18/17 23:00 90 03/18/17 22:00 96 03/18/17 21:00 96 03/18/17 20:00 97.8 98 19 156/94 97 03/18/17 20:00 98 I/O 03/18/17 03/18/17 03/18/17 03/19/17 03/19/17 03/19/17 06:59 14:59 22:59 06:59 14:59 22:59 Intake Total 1421 ml 480 ml 1010 ml 1550 ml Output Total 200 ml 700 ml 3 ml Balance 1421 ml 280 ml 310 ml 1547 ml Intake Oral 480 ml 480 ml 240 ml 600 ml IV Total 941 ml 770 ml 950 ml Output Urine Total 200 ml 700 ml 3 ml # Voids 2 1 2 # Bowel Movements 1 1 1 2 Result Diagram: 03/19/1720303/19/17203 Objective Remarks GENERAL: MBMN WF,Mild sob SKIN: Warm and dry. HEAD: Normocephalic. EYES: No scleral icterus. No injection or drainage. NECK: Supple, trachea midline. No JVD or lymphadenopathy. CARDIOVASCULAR: Regular rate and rhythm without murmurs, gallops, or rubs. RESPIRATORY: Breath sounds equal bilaterally. No accessory muscle use. Exp rhonchi GASTROINTESTINAL: Abdomen soft, non-tender, nondistended. MUSCULOSKELETAL: No cyanosis, or edema. BACK: Nontender without obvious deformity. No CVA tenderness. A/P Assessment and Plan COPD exac Mucous plugging Rll infilt/ density Anemia Leucocytosis improving PLAN IV Solumedrol Cont Abx Mucomyst Nebs Mucinex BID use IS and Acapella Duonebs Hong Chirinos MD Mar 19, 2017 19:57
[2017-03-19] MEDS: ATORVASTATIN 10 MG TAB PO SCH (20:37)
[2017-03-19] MEDS: MIRTAZAPINE 15 MG TAB PO SCH (20:37)
[2017-03-20] VITALS (29 sets, daily range): BP systolic 147–163; BP diastolic 81–110; PULSE 82–126; RESP 16–22; TEMP 97.6–98.4; O2SAT 95–99
[2017-03-20] MEDS: methylPREDNISolone SOD SUCC 40 MG/1 ML VIAL IV PUSH SCH ×3 (03:13→16:59)
[2017-03-20] MEDS: PIPERACIL-TAZO 3.375 GM PREMIX 50 ML IV SCH ×4 (03:13→20:50)
[2017-03-20] MEDS: RESP: IPRATROPIUM 0.5 MG/2.5 ML NEB NEB SCH ×4 (04:00→19:12)
[2017-03-20] MEDS: SUCRALFATE 1 GM/10 ML CUP PO SCH ×4 (05:16→20:51)
[2017-03-20] MEDS: METOPROLOL TARTRATE 25 MG TAB PO SCH ×3 (05:16→20:59)
[2017-03-20] MEDS: VANCOMYCIN INJ 1,250 MG in SODIUM CHLOR 0.9% 250 ML INJ 250 ML IV SCH ×2 (05:16→23:53)
[2017-03-20] MEDS: SODIUM CHLOR 0.45% 1000 ML INJ 1,000 ML IV SCH (05:47)
[2017-03-20] MEDS: INSULIN ASPART SUPPLEMENTAL SCALE SQ SCH ×4 (06:10→20:55)
[2017-03-20 06:54] LABS: BICARBONATE 29.4 MEQ/L (21.0-32.0); MAGNESIUM 1.9 MG/DL (1.5-2.5); POTASSIUM 3.2 MEQ/L (3.5-5.1)
[2017-03-20] MEDS: PANTOPRAZOLE SODIUM 40 MG VIAL IV PUSH SCH ×2 (08:49→20:51)
[2017-03-20] MEDS: NYSTATIN SUSP 500,000 U/5 ML CUP SWISH-SWAL SCH ×4 (08:49→20:52)
[2017-03-20] MEDS: DOCUSATE SODIUM 50 MG/SENNA 8.6 MG TAB PO SCH ×2 (08:50→20:55)
[2017-03-20] MEDS: SODIUM CHLORIDE 0.9% FLUSH 10 ML FLUSH IV FLUSH SCH ×2 (08:50→20:50)
[2017-03-20] MEDS: guaiFENesin E.R. 600 MG TAB PO SCH ×2 (08:50→20:54)
[2017-03-20] MEDS: ACETAMINOPHEN/HYDROcodone 325 MG/5 MG TAB PO PRN (09:02)
[2017-03-20] MEDS: LORazepam 2 MG/ML VIAL IM PRN (09:02)
[2017-03-20] MEDS: RESP: ACETYLCYSTEINE 20% 30 ML NEB NEB SCH (09:25)
[2017-03-20 10:12] LABS: BASOPHIL % 0.2 % (0.0-2.0); HEMATOCRIT 25.9 % (35.0-46.0); LYMPHOCYTE # 0.9 TH/MM3 (1.0-4.8); MEAN CELL VOLUME 89.5 FL (80.0-100.0); MEAN CORPUSCULAR HEMOGLOBIN 29.3 PG (27.0-34.0); MEAN CORPUSCULAR HGB CONC 32.8 % (32.0-36.0); MONO % 6.1 % (0.0-8.0); NEUT % 88.7 % (16.0-70.0); PLATELET COUNT 338 TH/MM3 (150-450); RED CELL DISTRIBUTION WIDTH 15.2 % (11.6-17.2)
[2017-03-20 10:26] LABS: HEMO FLAGS AUTO DIFF
[2017-03-20 11:50] LABS: BANDS 3 % (0-6); CORRECTED NUCLEATED RBC 1 /100 WBC (0-0); NEUTROPHIL # MANUAL DIFF 14.9 TH/MM3 (1.8-7.7); PLATELET ESTIMATE SMEAR NORMAL (NORMAL); PLATELET MORPHOLOGY NORMAL (NORMAL); POLYS (SEG NEUTROPHILS) 80 % (16-70); SCAN/DIFF FINAL DIFF MANUAL; WBC DIFF SAMPLE 100
[2017-03-20] MEDS ORDERED: POTASSIUM CHLORIDE 10 MEQ CONTROLLED RELEASE TAB PO ONE (13:00)
--- NOTE | 2017-03-20 13:00 | HHI.PR ---
Subjective Remarks Follow up pneumonia, hypokalemia. The patient states that she has not had any significant dyspnea today. Denies chest pain except when eating. She describes pain with swallowing. She states that she is able to take her medications orally. Denies nausea, vomiting, diarrhea, constipation. Objective Vitals Vital Signs Date Time Temp Pulse Resp B/P Pulse Ox O2 Delivery O2 Flow Rate FiO2 03/20/17 11:56 98.4 102 18 159/89 97 03/20/17 10:04 18 03/20/17 09:25 95 Nasal Cannula 3.00 03/20/17 09:17 97.6 102 22 163/110 99 03/20/17 06:00 104 03/20/17 05:40 97.8 93 18 147/81 99 03/20/17 05:00 102 03/20/17 04:00 102 03/20/17 03:00 90 03/20/17 02:00 96 03/20/17 01:00 84 03/20/17 00:00 82 03/20/17 00:00 97 16 154/86 97 03/19/17 23:00 96 03/19/17 22:00 92 03/19/17 21:00 112 03/19/17 20:58 96 Nasal Cannula 3.00 03/19/17 20:00 118 03/19/17 20:00 98.1 125 18 155/72 96 03/19/17 19:00 108 03/19/17 18:00 112 03/19/17 17:00 112 03/19/17 16:00 99 03/19/17 16:00 97.6 109 18 157/96 95 03/19/17 15:00 110 03/19/17 14:19 97 Venturi Mask 6.00 35 03/19/17 14:00 130 03/19/17 13:00 114 I/O 03/19/17 03/19/17 03/19/17 03/20/17 03/20/17 03/20/17 07:00 15:00 23:00 07:00 15:00 23:00 Intake Total 1010 ml 1550 ml 1120 ml Output Total 700 ml 3 ml 1500 ml Balance 310 ml 1547 ml -380 ml Intake Oral 240 ml 600 ml 240 ml IV Total 770 ml 950 ml 880 ml Output Urine Total 700 ml 3 ml 1500 ml # Voids 2 # Bowel Movements 1 2 1 Result Diagram: 03/20/17 1000 03/20/17 0613 Imaging Last Impressions Barium Swallow X-Ray 03/18/17 0000 Signed Impressions: Service Date/Time: Saturday, March 18, 2017 11:04 - CONCLUSION: 1. Mild nonspecific esophageal motility disorder with small sliding hiatal. Parker Nassar MD CT Angiography 03/17/17 0000 Signed Impressions: Service Date/Time: Friday, March 17, 2017 12:06 - CONCLUSION: Multiple endobronchial nodular densities could be inspissated mucous versus endobronchial lesions with probable mucous plugging and inflammatory change right lower lobe. Follow up is suggested with noncontrast chest CT in 3 months after appropriate clinical therapy. Megha Aleman MD Chest X-Ray 03/15/17 1503 Signed Impressions: Service Date/Time: Wednesday, March 15, 2017 15:08 - CONCLUSION: 1. Focal patchy opacity within the right medial lung base consistent with probable pneumonia. Clinical correlation is recommended. 2. Underlying emphysematous changes bilaterally. Cayden Candelario MD Objective Remarks General: Elderly female in no acute distress. Heart: Regular rate and rhythm. No murmur. Lungs: Decreased breath sounds throughout. No wheezing noted. Breathing is nonlabored. Abdomen: Soft, nontender, nondistended. Extremities: No lower extremity edema. No calf tenderness. Psych: Alert and oriented. Procedures None Urinary Catheter: No Vascular Central Line Catheter: No A/P Problem List: (1) Right middle lobe pneumonia ICD Code: J18.1 Status: Acute (2) Failure of outpatient treatment ICD Code: Z78.9 Status: Acute (3) Rib contusion ICD Code: S20.219A Status: Acute (4) COPD with exacerbation ICD Code: J44.1 Status: Acute (5) Severe sepsis due to pneumococcus with acute organ dysfunction ICD Code: A40.3 Status: Acute Assessment and Plan 1. Respiratory distress, COPD exacerbation, pneumonia: Continue treatment for healthcare associated pneumonia (vancomycin, Zosyn, Levaquin). Continue DuoNeb, steroids. Appreciate pulmonology recommendations. Continue incentive spirometry. 2. Severe sepsis: Secondary to pneumonia. Sepsis has improved. Continue treatment as above. 3. Acute kidney injury: Resolved. 4. Hypernatremia: Sodium now within normal limits. Continue IV fluids. 5. Hypokalemia: Add potassium to IV fluids. Supplement potassium as well. Recheck labs tomorrow. 6. Elevated troponin: Most likely demand mediated secondary to tachycardia upon admission. 7. Anemia: Hemoccult positive. Appreciate GI recommendations. Barium swallow and EGD when patient is more stable. Anticoagulation on hold. Status post transfusion 1 unit PRBCs. Monitor H&H. 8. DVT prophylaxis: SCDs, DIANDRA hose. Avoid chemical prophylaxis secondary to GI bleed. Problem Qualifiers (1) Right middle lobe pneumonia: Qualified Code: J13 - Pneumonia of right middle lobe due to Streptococcus pneumoniae Samir Cardenas MD Mar 20, 2017 13:00
[2017-03-20] MEDS: 1/2 NS + KCL 20 MEQ INJ 1,000 ML IV SCH (13:36)
--- NOTE | 2017-03-20 14:52 | HHI.GIFU ---
Subjective Remarks Pt resting in bed, getting breathing treatment. Says she is doing better swallowing with less pain if she is careful and takes small bites. (Estefania Gayle) Objective Vitals I&O Vital Signs Date Time Temp Pulse Resp B/P Pulse Ox O2 Delivery O2 Flow Rate FiO2 03/20/17 11:56 98.4 102 18 159/89 97 03/20/17 10:04 18 03/20/17 09:25 95 Nasal Cannula 3.00 03/20/17 09:17 97.6 102 22 163/110 99 03/20/17 06:00 104 03/20/17 05:40 97.8 93 18 147/81 99 03/20/17 05:00 102 03/20/17 04:00 102 03/20/17 03:00 90 03/20/17 02:00 96 03/20/17 01:00 84 03/20/17 00:00 82 03/20/17 00:00 97 16 154/86 97 03/19/17 23:00 96 03/19/17 22:00 92 03/19/17 21:00 112 03/19/17 20:58 96 Nasal Cannula 3.00 03/19/17 20:00 118 03/19/17 20:00 98.1 125 18 155/72 96 03/19/17 19:00 108 03/19/17 18:00 112 03/19/17 17:00 112 03/19/17 16:00 99 03/19/17 16:00 97.6 109 18 157/96 95 03/19/17 15:00 110 I/O 03/19/17 03/19/17 03/19/17 03/20/17 03/20/17 03/20/17 07:00 15:00 23:00 07:00 15:00 23:00 Intake Total 1010 ml 1550 ml 1120 ml Output Total 700 ml 3 ml 1500 ml Balance 310 ml 1547 ml -380 ml Intake Oral 240 ml 600 ml 240 ml IV Total 770 ml 950 ml 880 ml Output Urine Total 700 ml 3 ml 1500 ml # Voids 2 # Bowel Movements 1 2 1 Laboratory Laboratory Tests Test 03/20/17 03/20/17 06:13 10:00 Sodium Level 139 Potassium Level 3.2 Chloride Level 102 Carbon Dioxide Level 29.4 Anion Gap 8 Blood Urea Nitrogen 14 Creatinine 0.66 Estimat Glomerular Filtration 86 Rate Random Glucose 127 Calcium Level 7.8 Magnesium Level 1.9 White Blood Count 18.0 Red Blood Count 2.90 Hemoglobin 8.5 Hematocrit 25.9 Mean Corpuscular Volume 89.5 Mean Corpuscular Hemoglobin 29.3 Mean Corpuscular Hemoglobin 32.8 Concent Red Cell Distribution Width 15.2 Platelet Count 338 Mean Platelet Volume 8.2 Neutrophils (%) (Auto) 88.7 Lymphocytes (%) (Auto) 5.0 Monocytes (%) (Auto) 6.1 Eosinophils (%) (Auto) 0.0 Basophils (%) (Auto) 0.2 Neutrophils # (Auto) 16.0 Lymphocytes # (Auto) 0.9 Monocytes # (Auto) 1.1 Eosinophils # (Auto) 0.0 Basophils # (Auto) 0.0 CBC Comment AUTO DIFF Differential Total Cells 100 Counted Neutrophils % (Manual) 80 Band Neutrophils % 3 Lymphocytes % 10 Monocytes % 7 Neutrophils # (Manual) 14.9 Nucleated Red Blood Cells 1 Differential Comment FINAL DIFF MANUAL Platelet Estimate NORMAL Platelet Morphology Comment NORMAL Red Cell Morphology Comment NORMAL Date/Time Procedure Status Source Growth 03/17/17 16:53 Stool Occult Blood (BILLY) - Final Complete Stool Stool HEMOCCULT POSITIVE 03/15/17 15:55 Influenza Types A,B Antigen (BILLY) - Final Complete Nasal Washing NEGATIVE FOR FLU A AND B ANTIGEN.... 03/15/17 15:45 Aerobic Blood Culture - Final Complete Blood Peripheral NO GROWTH IN 5 DAYS 03/15/17 15:45 Anaerobic Blood Culture - Final Complete Blood Peripheral NO GROWTH IN 5 DAYS Physical Exam HEENT: PERRL; normocephalic; atraumatic; no jaundice. CHEST: diminished, tachypneic, shallow, wheezes CARDIAC: irr HR ABDOMEN: Soft, nondistended, mild epigastric TTP; no hepatosplenomegaly; bowel sounds are present in all four quadrants. EXTREMITIES: No clubbing, cyanosis, or edema. SKIN: Normal; no rash; no jaundice. RADIATION ONCOLOGY THERAPIST: No focal deficits; alert and oriented times three. (Estefania Gayle) Assessment and Plan Plan ASSESSMENT: - Anemia with drop in Hgb. HH went from 12.1/38.5 on admission to 7.0/22.0. relatively stable currently No obvious blood loss. heme pos stool. HH stable. C/O occasional odynophagia, but no other GI symptoms. Never had EGD. Last colonoscopy was about 10 years ago, pt reports as normal with no polyps. No family hx of esophageal, gastric, colorectal cancer. GI consulted for further evaluation of anemia. D/W patient further evaluation with egd/colonoscopy, but she is currently having significant wheezing and her breathing is mildly labored and therefore we would wait until her respiratory status is optimized prior to scheduling for procedures. PPI. Hemoccult stool. - Odynophagia. Rare episodes of painful swallowing in lower esophagus/right side of chest, very rare, no aggravating factors. No dysphagia. Ba swallow --> mild non specific esophageal motility disorder on nystatin swish and swallow - Right Middle Lobe Pneumonia, COPD exacerbation. Steroids, nebs, vancomycin, zosyn. On 3L via n/c (on 2L at home). She has exp. wheezing, mildly tachypneic and labored breathing. - Sepsis/Leukocytosis. TRENDING DOWN BCx no growth x 4 days. - ANNE MARIE with electrolyte abnormalities. Improved. PLAN: - continue nystatin - soft diet - Protonix 40mg po daily - Monitor HH - Transfuse as necessary - Supportive care - Plan for egd/colonoscopy once respiratory status optimized - Further recommendations to follow based on results of above - Pt seen and examined by Dr. Morgan and myself and this note is written on her behalf (Estefania Gayle) Physician Comments seen, examined egd/dil when pulmonary improved trial of gi cocktail (Jenna Morgan MD) Estefania Gayle Mar 20, 2017 14:51 Jenna Morgan MD Mar 20, 2017 19:48
[2017-03-20] MEDS ORDERED: NYSTAT/DIPHENHY/LIDO MOUTHWASH (Adult) 120ML SWISH-SWAL PRN (15:00)
[2017-03-20] MEDS: LEVOFLOXACIN 750 MG PREMIX INJ 150 ML IV SCH (16:59)
--- NOTE | 2017-03-20 19:51 | HHI.PR ---
Subjective Remarks 81 YOWF with COPD exac, mucous plugging, RLL infilt/ density Has cough, not able to expactorate Breathing better Cough loosened, able to bring up some sp Objective Vital Signs Vital Signs Date Time Temp Pulse Resp B/P Pulse Ox O2 Delivery O2 Flow Rate FiO2 03/20/17 18:00 112 03/20/17 17:48 104 03/20/17 17:21 96 Nasal Cannula 3.00 03/20/17 17:00 106 03/20/17 16:00 98.0 109 18 155/100 98 03/20/17 16:00 106 03/20/17 15:00 110 03/20/17 14:00 126 03/20/17 13:00 102 03/20/17 12:00 98 03/20/17 11:56 98.4 102 18 159/89 97 03/20/17 11:00 98 03/20/17 10:04 18 03/20/17 10:00 94 03/20/17 09:25 95 Nasal Cannula 3.00 03/20/17 09:17 97.6 102 22 163/110 99 03/20/17 09:00 108 03/20/17 08:00 92 03/20/17 07:00 90 03/20/17 06:00 104 03/20/17 05:40 97.8 93 18 147/81 99 03/20/17 05:00 102 03/20/17 04:00 102 03/20/17 03:00 90 03/20/17 02:00 96 03/20/17 01:00 84 03/20/17 00:00 82 03/20/17 00:00 97 16 154/86 97 03/19/17 23:00 96 03/19/17 22:00 92 03/19/17 21:00 112 03/19/17 20:58 96 Nasal Cannula 3.00 03/19/17 20:00 118 03/19/17 20:00 98.1 125 18 155/72 96 I/O 03/19/17 03/19/17 03/19/17 03/20/17 03/20/17 03/20/17 07:00 15:00 23:00 07:00 15:00 23:00 Intake Total 1010 ml 1550 ml 1120 ml Output Total 700 ml 3 ml 1500 ml Balance 310 ml 1547 ml -380 ml Intake Oral 240 ml 600 ml 240 ml IV Total 770 ml 950 ml 880 ml Output Urine Total 700 ml 3 ml 1500 ml # Voids 2 # Bowel Movements 1 2 1 Result Diagram: 03/20/17 1000 03/20/17 0613 Objective Remarks GENERAL: MBMN WF,Mild sob SKIN: Warm and dry. HEAD: Normocephalic. EYES: No scleral icterus. No injection or drainage. NECK: Supple, trachea midline. No JVD or lymphadenopathy. CARDIOVASCULAR: Regular rate and rhythm without murmurs, gallops, or rubs. RESPIRATORY: Breath sounds equal bilaterally. No accessory muscle use. Exp rhonchi GASTROINTESTINAL: Abdomen soft, non-tender, nondistended. MUSCULOSKELETAL: No cyanosis, or edema. BACK: Nontender without obvious deformity. No CVA tenderness. A/P Assessment and Plan COPD exac Mucous plugging Rll infilt/ density Anemia Leucocytosis improving PLAN DC Solumedrol Cont Abx Mucomyst Nebs Mucinex BID use IS and Acapella Duonebs qid Prednisone 10 mg tid Hong Velasquez MD Mar 20, 2017 19:50
[2017-03-20] MEDS: ATORVASTATIN 10 MG TAB PO SCH (20:53)
[2017-03-20] MEDS: MIRTAZAPINE 15 MG TAB PO SCH (20:53)
[2017-03-20] MEDS ORDERED: PHARMACY ORDERED LAB ONE (23:45)
[2017-03-21] VITALS (17 sets, daily range): BP systolic 131–173; BP diastolic 87–99; PULSE 74–130; RESP 18–20; TEMP 97.5–98.4; O2SAT 93–98
[2017-03-21 01:25] LABS: BICARBONATE 31.3 MEQ/L (21.0-32.0)
[2017-03-21 01:26] LABS: VANCOMYCIN TROUGH 14.4 MCG/ML (5.0-10.0)
[2017-03-21] MEDS: PIPERACIL-TAZO 3.375 GM PREMIX 50 ML IV SCH ×3 (01:58→14:29)
[2017-03-21] MEDS: 1/2 NS + KCL 20 MEQ INJ 1,000 ML IV SCH ×2 (01:59→12:50)
[2017-03-21] MEDS: RESP: IPRATROPIUM 0.5 MG/2.5 ML NEB NEB SCH ×4 (03:37→20:32)
[2017-03-21] MEDS: SUCRALFATE 1 GM/10 ML CUP PO SCH ×4 (05:05→21:45)
[2017-03-21] MEDS: METOPROLOL TARTRATE 25 MG TAB PO SCH (05:07)
[2017-03-21] MEDS: INSULIN ASPART SUPPLEMENTAL SCALE SQ SCH ×4 (05:08→21:54)
[2017-03-21 06:45] LABS: AUTOMATED NEUTROPHIL # 12.3 TH/MM3 (1.8-7.7); BASOPHIL % 0.1 % (0.0-2.0); EOSINOPHIL # 0.1 TH/MM3 (0-0.4); EOSINOPHIL % 0.5 % (0.0-4.0); HEMATOCRIT 24.5 % (35.0-46.0); LYMPH % 9.6 % (9.0-44.0); LYMPHOCYTE # 1.5 TH/MM3 (1.0-4.8); MEAN CORPUSCULAR HGB CONC 33.7 % (32.0-36.0); MONO % 8.6 % (0.0-8.0); NEUT % 81.2 % (16.0-70.0); PLATELET COUNT 315 TH/MM3 (150-450); RED BLOOD COUNT 2.75 MIL/MM3 (4.00-5.30); RED CELL DISTRIBUTION WIDTH 15.4 % (11.6-17.2); WHITE BLOOD COUNT 15.2 TH/MM3 (4.0-11.0)
[2017-03-21 06:50] LABS: HEMO FLAGS AUTO DIFF
[2017-03-21] MEDS: RESP: ACETYLCYSTEINE 20% 30 ML NEB NEB SCH ×2 (07:18→16:21)
[2017-03-21 07:39] LABS: BANDS 3 % (0-6); EOSINOPHILS 1 % (0-4); MYELOCYTES 3 % (0-0); NEUTROPHIL # MANUAL DIFF 13.1 TH/MM3 (1.8-7.7); POLYS (SEG NEUTROPHILS) 80 % (16-70); WBC DIFF SAMPLE 100
[2017-03-21 07:42] LABS: PLATELET ESTIMATE SMEAR NORMAL (NORMAL); PLATELET MORPHOLOGY NORMAL (NORMAL); SCAN/DIFF FINAL DIFF MANUAL
[2017-03-21] MEDS: guaiFENesin E.R. 600 MG TAB PO SCH ×2 (09:26→21:40)
[2017-03-21] MEDS: DOCUSATE SODIUM 50 MG/SENNA 8.6 MG TAB PO SCH ×2 (09:27→21:00)
[2017-03-21] MEDS: predniSONE 10 MG TAB PO SCH ×3 (09:27→17:40)
[2017-03-21] MEDS: NYSTATIN SUSP 500,000 U/5 ML CUP SWISH-SWAL SCH ×4 (09:27→21:51)
[2017-03-21] MEDS: SODIUM CHLORIDE 0.9% FLUSH 10 ML FLUSH IV FLUSH SCH ×2 (09:27→21:46)
[2017-03-21] MEDS: PANTOPRAZOLE SODIUM 40 MG VIAL IV PUSH SCH ×2 (09:27→21:51)
--- NOTE | 2017-03-21 13:26 | HHI.PR ---
Subjective Remarks Follow up pneumonia. Patient seen and examined, lying in bed awake, alert and comfortably in bed. No apparent distress noted. Tolerating PO intake, no signs of aspiration. Has been out of bed ambulating, minimal shortness of breath. On NC 3 L. Afebrile. Objective Vitals Vital Signs Date Time Temp Pulse Resp B/P Pulse Ox O2 Delivery O2 Flow Rate FiO2 03/21/17 13:03 124 03/21/17 12:03 97.7 118 18 141/97 93 03/21/17 12:03 118 03/21/17 08:01 88 03/21/17 08:01 98.1 88 18 160/92 96 03/21/17 07:18 98 Nasal Cannula 3.00 03/21/17 04:00 98.3 95 18 173/87 98 03/21/17 04:00 88 03/21/17 00:00 98.4 89 18 155/99 97 03/21/17 00:00 95 03/20/17 23:00 98 03/20/17 22:00 102 03/20/17 21:00 124 03/20/17 20:00 99 03/20/17 20:00 98.0 107 18 151/87 97 03/20/17 18:00 112 03/20/17 17:48 104 03/20/17 17:21 96 Nasal Cannula 3.00 03/20/17 17:00 106 03/20/17 16:00 98.0 109 18 155/100 98 03/20/17 16:00 106 03/20/17 15:00 110 03/20/17 14:00 126 I/O 03/20/17 03/20/17 03/20/17 03/21/17 03/21/17 03/21/17 06:59 14:59 22:59 06:59 14:59 22:59 Intake Total 1120 ml 1981 ml 1206 ml Output Total 1500 ml 550 ml Balance -380 ml 1981 ml 656 ml Intake Oral 240 ml 500 ml 240 ml IV Total 880 ml 1481 ml 966 ml Output Urine Total 1500 ml 550 ml # Bowel Movements 1 Result Diagram: 03/21/17 0507 03/21/17 0037 Imaging Last Impressions Barium Swallow X-Ray 03/18/17 0000 Signed Impressions: Service Date/Time: Saturday, March 18, 2017 11:04 - CONCLUSION: 1. Mild nonspecific esophageal motility disorder with small sliding hiatal. Parker Nassar MD CT Angiography 03/17/17 0000 Signed Impressions: Service Date/Time: Friday, March 17, 2017 12:06 - CONCLUSION: Multiple endobronchial nodular densities could be inspissated mucous versus endobronchial lesions with probable mucous plugging and inflammatory change right lower lobe. Follow up is suggested with noncontrast chest CT in 3 months after appropriate clinical therapy. Megha Aleman MD Chest X-Ray 03/15/17 1503 Signed Impressions: Service Date/Time: Wednesday, March 15, 2017 15:08 - CONCLUSION: 1. Focal patchy opacity within the right medial lung base consistent with probable pneumonia. Clinical correlation is recommended. 2. Underlying emphysematous changes bilaterally. Cayden Candelario MD Objective Remarks GENERAL: Well-developed, well-nourished female patient lying in bed on 3 LNC, mild shortness of breath with exertion. SKIN: Warm and dry. No rash. HEENT: Atraumatic. Normocephalic. Pupils equal and round. No scleral icterus. No injection or drainage. No nasal bleeding or discharge. Mucous membranes pink and moist. NECK: Trachea midline. No JVD. CARDIOVASCULAR: Tachycardia. No murmur appreciated. RESPIRATORY: No accessory muscle use. Barrel chested, diminished breath sounds throughout. No wheezing noted. Equal bilaterally. GASTROINTESTINAL: Abdomen soft, non-tender, nondistended. Hepatic and splenic margins not palpable. MUSCULOSKELETAL: Extremities without clubbing, cyanosis, or edema. No obvious deformities. NEUROLOGICAL: Awake and alert. No obvious cranial nerve deficits. Motor grossly within normal limits. Five out of 5 muscle strength in the arms and legs. Normal speech. PSYCHIATRIC: Appropriate mood and affect; insight and judgment normal. Procedures None A/P Problem List: (1) Right middle lobe pneumonia ICD Code: J18.1 Status: Acute (2) Failure of outpatient treatment ICD Code: Z78.9 Status: Acute (3) Rib contusion ICD Code: S20.219A Status: Acute (4) COPD with exacerbation ICD Code: J44.1 Status: Acute (5) Severe sepsis due to pneumococcus with acute organ dysfunction ICD Code: A40.3 Status: Acute Assessment and Plan 1. Respiratory distress, COPD exacerbation, pneumonia: Continue treatment for healthcare associated pneumonia (vancomycin, Zosyn, Levaquin). Continue DuoNeb, steroids. Appreciate pulmonology recommendations. Continue incentive spirometry. Supplemental O2 as needed. 2. Severe sepsis: Secondary to pneumonia. Sepsis has improved. Continue treatment as above. 3. Acute kidney injury: Resolved. 4. Hypernatremia: Na 146 today. Continue 1/2 NS. Encouraged increase in PO water intake. Monitor BMP in am. 5. Hypokalemia: K 4.0 today. Continue supplement potassium as well. Recheck labs tomorrow. 6. Elevated troponin: Most likely demand mediated secondary to tachycardia upon admission. 7. Anemia: Hemoccult positive. GI following and has seen patient, appreciate GI recommendations. GI cocktail given. Patient denies any abdominal or gastric pain. Tolerating PO intake. Barium swallow and EGD when patient is more stable. Anticoagulation on hold. Status post transfusion 1 unit PRBCs. Monitor H&H. No signs and symptoms of bleeding. Continue Protonix. 8. Sinus tachycardia: Heart rate in the 120's today. EKGs reviewed. Cardiac tele events reviewed. Will increase dose of Metoprolol from 25 mg PO q8hr to 50 mg PO BID. Continue to monitor. 9. DVT prophylaxis: SCDs, DIANDRA pate. Avoid chemical prophylaxis secondary to GI bleed. Problem Qualifiers (1) Right middle lobe pneumonia: Qualified Code: J13 - Pneumonia of right middle lobe due to Streptococcus pneumoniae Bárbara Bazzi Mar 21, 2017 13:26
[2017-03-21] MEDS: METOPROLOL TARTRATE 50 MG TAB PO SCH ×2 (14:28→21:40)
--- NOTE | 2017-03-21 15:33 | HHI.GIFU ---
Subjective Remarks Pt resting in bed, says she is feeling better. No difference from GI cocktail. (Estefania Gayle) Objective Vitals I&O Vital Signs Date Time Temp Pulse Resp B/P Pulse Ox O2 Delivery O2 Flow Rate FiO2 03/21/17 14:07 130 03/21/17 13:03 124 03/21/17 12:03 97.7 118 18 141/97 93 03/21/17 12:03 118 03/21/17 08:01 88 03/21/17 08:01 98.1 88 18 160/92 96 03/21/17 07:18 98 Nasal Cannula 3.00 03/21/17 04:00 98.3 95 18 173/87 98 03/21/17 04:00 88 03/21/17 00:00 98.4 89 18 155/99 97 03/21/17 00:00 95 03/20/17 23:00 98 03/20/17 22:00 102 03/20/17 21:00 124 03/20/17 20:00 99 03/20/17 20:00 98.0 107 18 151/87 97 03/20/17 18:00 112 03/20/17 17:48 104 03/20/17 17:21 96 Nasal Cannula 3.00 03/20/17 17:00 106 03/20/17 16:00 98.0 109 18 155/100 98 03/20/17 16:00 106 I/O 03/20/17 03/20/17 03/20/17 03/21/17 03/21/17 03/21/17 07:00 15:00 23:00 07:00 15:00 23:00 Intake Total 1120 ml 1981 ml 1206 ml Output Total 1500 ml 550 ml Balance -380 ml 1981 ml 656 ml Intake Oral 240 ml 500 ml 240 ml IV Total 880 ml 1481 ml 966 ml Output Urine Total 1500 ml 550 ml # Bowel Movements 1 Laboratory Laboratory Tests Test 03/21/17 03/21/17 00:37 05:07 Sodium Level 146 Potassium Level 4.0 Chloride Level 108 Carbon Dioxide Level 31.3 Anion Gap 7 Blood Urea Nitrogen 16 Creatinine 0.81 Estimat Glomerular Filtration 68 Rate Random Glucose 106 Calcium Level 7.7 Vancomycin Level Trough 14.4 White Blood Count 15.2 Red Blood Count 2.75 Hemoglobin 8.3 Hematocrit 24.5 Mean Corpuscular Volume 89.0 Mean Corpuscular Hemoglobin 30.0 Mean Corpuscular Hemoglobin 33.7 Concent Red Cell Distribution Width 15.4 Platelet Count 315 Mean Platelet Volume 9.0 Neutrophils (%) (Auto) 81.2 Lymphocytes (%) (Auto) 9.6 Monocytes (%) (Auto) 8.6 Eosinophils (%) (Auto) 0.5 Basophils (%) (Auto) 0.1 Neutrophils # (Auto) 12.3 Lymphocytes # (Auto) 1.5 Monocytes # (Auto) 1.3 Eosinophils # (Auto) 0.1 Basophils # (Auto) 0.0 CBC Comment AUTO DIFF Differential Total Cells 100 Counted Neutrophils % (Manual) 80 Band Neutrophils % 3 Lymphocytes % 10 Monocytes % 3 Eosinophils % 1 Neutrophils # (Manual) 13.1 Myelocytes 3 Differential Comment FINAL DIFF MANUAL Platelet Estimate NORMAL Platelet Morphology Comment NORMAL Red Cell Morphology Comment NORMAL Date/Time Procedure Status Source Growth 03/17/17 16:53 Stool Occult Blood (BILLY) - Final Complete Stool Stool HEMOCCULT POSITIVE Imaging Last Impressions Barium Swallow X-Ray 03/18/17 0000 Signed Impressions: Service Date/Time: Saturday, March 18, 2017 11:04 - CONCLUSION: 1. Mild nonspecific esophageal motility disorder with small sliding hiatal. Parker Nassar MD CT Angiography 03/17/17 0000 Signed Impressions: Service Date/Time: Friday, March 17, 2017 12:06 - CONCLUSION: Multiple endobronchial nodular densities could be inspissated mucous versus endobronchial lesions with probable mucous plugging and inflammatory change right lower lobe. Follow up is suggested with noncontrast chest CT in 3 months after appropriate clinical therapy. Megha Aleman MD Chest X-Ray 03/15/17 1503 Signed Impressions: Service Date/Time: Wednesday, March 15, 2017 15:08 - CONCLUSION: 1. Focal patchy opacity within the right medial lung base consistent with probable pneumonia. Clinical correlation is recommended. 2. Underlying emphysematous changes bilaterally. Cayden Candelario MD Physical Exam HEENT: PERRL; normocephalic; atraumatic; no jaundice. CHEST: diminished, wheezes left side CARDIAC: irr HR ABDOMEN: Soft, nondistended, mild epigastric TTP; no hepatosplenomegaly; bowel sounds are present in all four quadrants. EXTREMITIES: No clubbing, cyanosis, or edema. SKIN: Normal; no rash; no jaundice. [employer]: No focal deficits; alert and oriented times three. (Estefania Gayle) Assessment and Plan Plan ASSESSMENT: - Anemia with drop in Hgb. HH went from 12.1/38.5 on admission to 7.0/22.0. relatively stable currently No obvious blood loss. heme pos stool. HH stable. C/O occasional odynophagia, but no other GI symptoms. Never had EGD. Last colonoscopy was about 10 years ago, pt reports as normal with no polyps. No family hx of esophageal, gastric, colorectal cancer. GI consulted for further evaluation of anemia. D/W patient further evaluation with egd/colonoscopy, but she is currently having significant wheezing and her breathing is mildly labored and therefore we would wait until her respiratory status is optimized prior to scheduling for procedures. PPI. Hemoccult stool. - Odynophagia. Rare episodes of painful swallowing in lower esophagus/right side of chest, very rare, no aggravating factors. No dysphagia. Ba swallow --> mild non specific esophageal motility disorder on nystatin swish and swallow - Right Middle Lobe Pneumonia, COPD exacerbation. Steroids, nebs, vancomycin, zosyn. On 3L via n/c (on 2L at home). She has exp. wheezing, mildly tachypneic and labored breathing. - Sepsis/Leukocytosis. TRENDING DOWN BCx no growth x 4 days. - ANNE MARIE with electrolyte abnormalities. Improved. PLAN: - EGD w/ dil/colonoscopy friday vs outpt - soft diet - Protonix 40mg po daily - Monitor HH - Transfuse as necessary - Supportive care - Further recommendations to follow based on results of above - Pt seen and examined by Dr. Morgan and myself and this note is written on her behalf (Estefania Gayle) Estefania Gayle Mar 21, 2017 15:33 Jenna Morgan MD Mar 21, 2017 20:24
[2017-03-21] MEDS ORDERED: Vancomycin Consult Pharmacy 1 EA OTHER SCH (16:45)
--- NOTE | 2017-03-21 17:32 | HHI.PR ---
Subjective Remarks 81 YOWF with COPD exac, mucous plugging, RLL infilt/ density Has cough, not able to expactorate Breathing better Cough loosened, able to bring up some sp "I feels so much better, I can dance" Anxious to go home Objective Vital Signs Vital Signs Date Time Temp Pulse Resp B/P Pulse Ox O2 Delivery O2 Flow Rate FiO2 03/21/17 17:12 89 03/21/17 16:29 86 03/21/17 16:29 97.5 82 18 131/87 95 03/21/17 15:36 74 03/21/17 14:07 130 03/21/17 13:03 124 03/21/17 12:03 97.7 118 18 141/97 93 03/21/17 12:03 118 03/21/17 08:01 88 03/21/17 08:01 98.1 88 18 160/92 96 03/21/17 07:18 98 Nasal Cannula 3.00 03/21/17 04:00 98.3 95 18 173/87 98 03/21/17 04:00 88 03/21/17 00:00 98.4 89 18 155/99 97 03/21/17 00:00 95 03/20/17 23:00 98 03/20/17 22:00 102 03/20/17 21:00 124 03/20/17 20:00 99 03/20/17 20:00 98.0 107 18 151/87 97 03/20/17 18:00 112 03/20/17 17:48 104 I/O 03/20/17 03/20/17 03/20/17 03/21/17 03/21/17 03/21/17 07:00 15:00 23:00 07:00 15:00 23:00 Intake Total 1120 ml 1981 ml 1206 ml 640 ml Output Total 1500 ml 550 ml Balance -380 ml 1981 ml 656 ml 640 ml Intake Oral 240 ml 500 ml 240 ml 640 ml IV Total 880 ml 1481 ml 966 ml Output Urine Total 1500 ml 550 ml # Voids 4 # Bowel Movements 1 1 Result Diagram: 03/21/17 0507 03/21/17 0037 Objective Remarks GENERAL: MBMN WF,Mild sob SKIN: Warm and dry. HEAD: Normocephalic. EYES: No scleral icterus. No injection or drainage. NECK: Supple, trachea midline. No JVD or lymphadenopathy. CARDIOVASCULAR: Regular rate and rhythm without murmurs, gallops, or rubs. RESPIRATORY: Breath sounds equal bilaterally. No accessory muscle use. Exp rhonchi GASTROINTESTINAL: Abdomen soft, non-tender, nondistended. MUSCULOSKELETAL: No cyanosis, or edema. BACK: Nontender without obvious deformity. No CVA tenderness. A/P Assessment and Plan COPD exac Mucous plugging Rll infilt/ density Anemia Leucocytosis improving PLAN Cont Abx Mucomyst Nebs Mucinex BID use IS and Acapella Duonebs qid Prednisone 10 mg tid DC [place] barron and IV levaquin PO Levaquin DC plans for home Hong Velasquez MD Mar 21, 2017 17:32
[2017-03-21] MEDS ORDERED: VANCOMYCIN 1,500 MG/NS 500 ML IV SCH ×2 (18:00)
[2017-03-21] MEDS: ATORVASTATIN 10 MG TAB PO SCH (21:40)
[2017-03-21] MEDS: MIRTAZAPINE 15 MG TAB PO SCH (21:44)
[2017-03-21] MEDS: LORazepam 2 MG/ML VIAL IM PRN (21:53)
[2017-03-22] VITALS (31 sets, daily range): BP systolic 145–183; BP diastolic 69–98; PULSE 72–106; RESP 18–21; TEMP 97.8–99; O2SAT 94–99
[2017-03-22] MEDS: RESP: IPRATROPIUM 0.5 MG/2.5 ML NEB NEB SCH ×5 (04:00→20:06)
[2017-03-22] MEDS: 1/2 NS + KCL 20 MEQ INJ 1,000 ML IV SCH (04:11)
[2017-03-22] MEDS: SUCRALFATE 1 GM/10 ML CUP PO SCH ×4 (06:03→21:40)
[2017-03-22] MEDS: INSULIN ASPART SUPPLEMENTAL SCALE SQ SCH ×4 (06:03→21:46)
[2017-03-22 08:07] LABS: BASOPHIL % 0.2 % (0.0-2.0); EOSINOPHIL # 0.2 TH/MM3 (0-0.4); EOSINOPHIL % 1.4 % (0.0-4.0); HEMATOCRIT 28.3 % (35.0-46.0); LYMPH % 8.7 % (9.0-44.0); LYMPHOCYTE # 1.4 TH/MM3 (1.0-4.8); MEAN CELL VOLUME 90.5 FL (80.0-100.0); MEAN CORPUSCULAR HEMOGLOBIN 29.2 PG (27.0-34.0); MEAN CORPUSCULAR HGB CONC 32.2 % (32.0-36.0); MONO % 8.6 % (0.0-8.0); NEUT % 81.1 % (16.0-70.0); PLATELET COUNT 351 TH/MM3 (150-450); RED BLOOD COUNT 3.13 MIL/MM3 (4.00-5.30); RED CELL DISTRIBUTION WIDTH 15.4 % (11.6-17.2); WHITE BLOOD COUNT 16.1 TH/MM3 (4.0-11.0)
[2017-03-22 08:10] LABS: HEMO FLAGS AUTO DIFF
[2017-03-22 08:28] LABS: POTASSIUM 3.1 MEQ/L (3.5-5.1)
[2017-03-22] MEDS: LEVOFLOXACIN 500 MG TAB PO SCH (08:53)
[2017-03-22] MEDS: DOCUSATE SODIUM 50 MG/SENNA 8.6 MG TAB PO SCH ×2 (08:53→21:00)
[2017-03-22] MEDS: NYSTATIN SUSP 500,000 U/5 ML CUP SWISH-SWAL SCH ×4 (08:53→21:40)
[2017-03-22] MEDS: METOPROLOL TARTRATE 50 MG TAB PO SCH ×2 (08:53→21:39)
[2017-03-22] MEDS: PANTOPRAZOLE SODIUM 40 MG VIAL IV PUSH SCH (08:53)
[2017-03-22] MEDS: guaiFENesin E.R. 600 MG TAB PO SCH ×2 (08:53→21:38)
[2017-03-22] MEDS: predniSONE 10 MG TAB PO SCH ×3 (08:53→18:15)
[2017-03-22] MEDS: SODIUM CHLORIDE 0.9% FLUSH 10 ML FLUSH IV FLUSH SCH ×2 (08:53→21:00)
[2017-03-22 09:36] LABS: BANDS 2 % (0-6); EOSINOPHILS 1 % (0-4); METAMYELOCYTES 2 % (0-1); MYELOCYTES 1 % (0-0); NEUTROPHIL # MANUAL DIFF 14.2 TH/MM3 (1.8-7.7); POLYS (SEG NEUTROPHILS) 83 % (16-70); WBC DIFF SAMPLE 100
[2017-03-22 09:41] LABS: OVALOCYTES 1+ (NORMAL); SCAN/DIFF FINAL DIFF MANUAL
--- NOTE | 2017-03-22 10:27 | HHI.PR ---
Subjective Remarks The patient was really anxious to go home. She said her breathing was at baseline. She said that she has not been eating much because she does have trouble swallowing. She says she has only been ambulating to the commode and back. She would be interested in working with physical therapy. She has been having bowel movements. She has been sleeping well. Objective Vitals Vital Signs Date Time Temp Pulse Resp B/P Pulse Ox O2 Delivery O2 Flow Rate FiO2 03/22/17 07:01 81 03/22/17 06:15 84 03/22/17 05:08 86 03/22/17 04:20 77 03/22/17 04:00 98.0 90 18 165/84 96 03/22/17 03:30 79 03/22/17 02:11 78 03/22/17 01:30 85 03/22/17 00:20 97.9 96 21 168/98 97 03/22/17 00:00 89 03/21/17 23:00 87 03/21/17 22:00 106 03/21/17 21:03 94 03/21/17 20:34 98 Nasal Cannula 3.00 03/21/17 20:20 98.1 98 20 168/88 97 03/21/17 20:20 104 03/21/17 19:20 99 03/21/17 18:36 92 03/21/17 17:12 89 03/21/17 16:29 86 03/21/17 16:29 97.5 82 18 131/87 95 03/21/17 15:36 74 03/21/17 14:07 130 03/21/17 13:03 124 03/21/17 12:03 97.7 118 18 141/97 93 03/21/17 12:03 118 I/O 03/21/17 03/21/17 03/21/17 03/22/17 03/22/17 03/22/17 07:00 15:00 23:00 07:00 15:00 23:00 Intake Total 1206 ml 640 ml 2429 ml Output Total 550 ml Balance 656 ml 640 ml 2429 ml Intake Oral 240 ml 640 ml 480 ml IV Total 966 ml 1949 ml Output Urine Total 550 ml # Voids 4 2 # Bowel Movements 1 2 Result Diagram: 03/22/17 0736 03/22/17 0736 Imaging Last Impressions Barium Swallow X-Ray 03/18/17 0000 Signed Impressions: Service Date/Time: Saturday, March 18, 2017 11:04 - CONCLUSION: 1. Mild nonspecific esophageal motility disorder with small sliding hiatal. Parker Nassar MD CT Angiography 03/17/17 0000 Signed Impressions: Service Date/Time: Friday, March 17, 2017 12:06 - CONCLUSION: Multiple endobronchial nodular densities could be inspissated mucous versus endobronchial lesions with probable mucous plugging and inflammatory change right lower lobe. Follow up is suggested with noncontrast chest CT in 3 months after appropriate clinical therapy. Megha Aleman MD Chest X-Ray 03/15/17 1503 Signed Impressions: Service Date/Time: Wednesday, March 15, 2017 15:08 - CONCLUSION: 1. Focal patchy opacity within the right medial lung base consistent with probable pneumonia. Clinical correlation is recommended. 2. Underlying emphysematous changes bilaterally. Cayden Candelario MD Objective Remarks GENERAL: Resting comfortably in bed. SKIN: Warm and dry. No rash. HEENT: Atraumatic. Normocephalic. Pupils equal and round. No scleral icterus. No injection or drainage. No nasal bleeding or discharge. Mucous membranes pink and moist. NECK: Trachea midline. No JVD. CARDIOVASCULAR: Regular rate and rhythm. No murmur appreciated. RESPIRATORY: No accessory muscle use. Diminished breath sounds throughout. No wheezing noted. GASTROINTESTINAL: Abdomen soft, non-tender, nondistended. Hepatic and splenic margins not palpable. MUSCULOSKELETAL: Extremities without clubbing, cyanosis, or edema. No obvious deformities. NEUROLOGICAL: Awake and alert. No obvious cranial nerve deficits. Motor grossly within normal limits. Five out of 5 muscle strength in the arms and legs. Normal speech. PSYCHIATRIC: Appropriate mood and affect; insight and judgment normal. Procedures None Medications and IVs Current Medications Medications (Trade) Dose Ordered Sig/Shanelle Route Start Time Stop Time Status Last Admin (NS Flush) 2 ml UNSCH PRN IV FLUSH 03/15/17 17:30 (NS Flush) 2 ml BID IV FLUSH 03/15/17 21:00 03/22/17 08:53 (Tylenol) 650 mg Q4H PRN PO 03/15/17 17:30 (Zofran Inj) 4 mg Q6H PRN IVP 03/15/17 17:30 03/16/17 08:11 (Lovenox Inj) 30 mg Q24H SQ 03/15/17 18:00 Hold 03/16/17 17:17 (Narcan Inj) 0.4 mg UNSCH PRN IV 03/15/17 17:30 (Gloria-Colace) 1 tab BID PO 03/15/17 21:00 03/22/17 08:53 (Dulcolax Supp) 10 mg DAILY PRN RECTAL 03/15/17 17:30 (D50w (Vial) Inj) 50 ml UNSCH PRN IV 03/15/17 18:00 (Glucagon Inj) 1 mg UNSCH PRN OTHER 03/15/17 18:00 (Lipitor) 10 mg HS PO 03/15/17 21:00 03/21/17 21:40 (Verbena 5-325 Mg) 1 tab Q6H PRN PO 03/15/17 18:00 03/20/17 09:02 (Remeron) 7.5 mg HS PO 03/15/17 21:00 03/21/17 21:44 (Mycostatin Liq) 4 ml QID SWISH-SWAL 03/15/17 18:00 03/22/17 08:53 (Ativan Inj) 0.5 mg Q6H PRN IM 03/16/17 12:45 03/21/17 21:53 (Mucinex Er) 600 mg BID PO 03/17/17 21:00 03/22/17 08:53 (Protonix Inj) 40 mg Q12H IV PUSH 03/17/17 21:00 03/22/17 08:53 (Carafate Liq) 1 gm ACHS PO 03/17/17 21:00 03/22/17 06:03 (Magic Mouthwash Adult Liq) 10 ml QID PRN SWISH-SWAL 03/20/17 15:00 03/20/17 16:59 (Deltasone) 10 mg TID PO 03/21/17 09:00 03/22/17 08:53 (Lopressor) 50 mg Q12HR PO 03/21/17 14:00 03/22/17 08:53 (Levaquin) 500 mg DAILY PO 03/22/17 09:00 03/22/17 08:53 (KCl) 40 meq Q4H PO 03/22/17 10:00 03/22/17 14:01 A/P Problem List: (1) Right middle lobe pneumonia ICD Code: J18.1 Status: Acute (2) Failure of outpatient treatment ICD Code: Z78.9 Status: Acute (3) Rib contusion ICD Code: S20.219A Status: Acute (4) COPD with exacerbation ICD Code: J44.1 Status: Acute (5) Severe sepsis due to pneumococcus with acute organ dysfunction ICD Code: A40.3 Status: Acute Assessment and Plan 1. Respiratory distress, COPD exacerbation, pneumonia: S/p treatment for healthcare associated pneumonia (vancomycin, Zosyn). Continue Levaquin per pulmonology. Continue DuoNeb, steroids. Appreciate pulmonology recommendations. Incentive spirometry. Supplemental O2 as needed. Continue prednisone. Add physical therapy. 2. Severe sepsis: Secondary to pneumonia. Sepsis has improved. Continue treatment as above. 3. Acute kidney injury: Resolved. 4. Hypernatremia: Improved on 1/2NS. Encouraged increase in PO water intake. Monitor BMP in am. 5. Hypokalemia: Possibly s/t decreased PO intake. Continue supplement potassium and monitor. Check mag and phos levels. 6. Elevated troponin: Most likely demand mediated secondary to tachycardia upon admission. 7. Anemia: Hemoccult positive. GI following and has seen patient, appreciate GI recommendations. GI cocktail given. Patient denies any abdominal or gastric pain. Tolerating PO intake. Barium swallow and EGD when patient is more stable. Anticoagulation on hold. Status post transfusion 1 unit PRBCs. Monitor H&H. No signs and symptoms of bleeding. Continue Protonix. 8. Sinus tachycardia: EKGs reviewed. Will increase dose of Metoprolol from 25 mg PO q8hr to 50 mg PO BID. Continue to monitor. Improved. Continue telemetry. 9. DVT prophylaxis: SCDs, DIANDRA pate. Avoid chemical prophylaxis secondary to GI bleed. Discharge Planning Anticipate discharge home in 1-2 days Problem Qualifiers (1) Right middle lobe pneumonia: Qualified Code: J13 - Pneumonia of right middle lobe due to Streptococcus pneumoniae Diogenes Sanches DO Mar 22, 2017 10:27
[2017-03-22] MEDS: RESP: ACETYLCYSTEINE 20% 30 ML NEB NEB SCH ×4 (10:38→20:06)
[2017-03-22] MEDS: POTASSIUM CHLORIDE 20 MEQ CONTROLLED RELEASE TAB PO SCH ×2 (10:57→13:47)
[2017-03-22 11:14] LABS: MAGNESIUM 1.8 MG/DL (1.5-2.5)
[2017-03-22] MEDS ORDERED: SODIUM PHOSPHATE INJ 30 MMOL in SODIUM CHLOR 0.9% 250 ML INJ 250 ML IV ONE (20:00)
[2017-03-22] MEDS: PANTOPRAZOLE SOD 40 MG DELAYED RELEASE TAB PO SCH (21:00)
[2017-03-22] MEDS: MIRTAZAPINE 15 MG TAB PO SCH (21:39)
[2017-03-22] MEDS: ATORVASTATIN 10 MG TAB PO SCH (21:39)
[2017-03-23] VITALS (30 sets, daily range): BP systolic 119–168; BP diastolic 72–87; PULSE 67–112; RESP 18–20; TEMP 97.2–98.5; O2SAT 92–98
[2017-03-23] MEDS ORDERED: cloNIDine HCL 0.1 MG TAB PO ONE (00:45)
[2017-03-23] MEDS: RESP: IPRATROPIUM 0.5 MG/2.5 ML NEB NEB SCH ×4 (04:08→22:06)
[2017-03-23] MEDS: SUCRALFATE 1 GM/10 ML CUP PO SCH ×4 (05:50→21:24)
[2017-03-23] MEDS: INSULIN ASPART SUPPLEMENTAL SCALE SQ SCH ×4 (06:02→21:00)
[2017-03-23] MEDS: DOCUSATE SODIUM 50 MG/SENNA 8.6 MG TAB PO SCH ×2 (09:00→21:00)
--- NOTE | 2017-03-23 09:24 | HHI.GIFU ---
Subjective Remarks Lying in bed in no distress. Patient states her breathing is at baseline. O2 sat 96% on 3L via NC. (Ammy Strong) Objective Vitals I&O Vital Signs Date Time Temp Pulse Resp B/P Pulse Ox O2 Delivery O2 Flow Rate FiO2 03/23/17 07:00 80 03/23/17 07:00 97.3 90 19 156/80 96 03/23/17 07:00 96 Nasal Cannula 3.00 03/23/17 06:06 73 03/23/17 05:09 70 03/23/17 04:10 98 Nasal Cannula 2.00 03/23/17 04:00 70 03/23/17 03:51 98.3 83 151/86 97 03/23/17 03:15 80 03/23/17 02:00 78 03/23/17 01:00 84 03/23/17 00:39 97.6 75 168/86 95 03/23/17 00:00 72 03/22/17 23:00 76 03/22/17 22:00 100 03/22/17 21:00 106 03/22/17 20:08 96 Nasal Cannula 2.00 03/22/17 20:00 98.4 103 158/69 97 03/22/17 20:00 100 03/22/17 19:00 101 03/22/17 18:01 94 03/22/17 17:01 78 03/22/17 16:00 76 03/22/17 15:15 98.3 94 18 145/86 94 03/22/17 15:00 75 03/22/17 14:00 86 03/22/17 13:00 80 03/22/17 12:01 72 03/22/17 11:01 99.0 92 18 162/96 94 03/22/17 11:00 92 03/22/17 10:41 98 Nasal Cannula 3.00 03/22/17 10:00 86 I/O 03/22/17 03/22/17 03/22/17 03/23/17 03/23/17 03/23/17 06:59 14:59 22:59 06:59 14:59 22:59 Intake Total 2429 ml 3355 ml 240 ml Output Total 1100 ml Balance 2429 ml 2255 ml 240 ml Intake Oral 480 ml 480 ml 240 ml IV Total 1949 ml 2875 ml Output Urine Total 1100 ml # Voids 2 5 3 # Bowel Movements 2 2 1 Imaging Last Impressions Barium Swallow X-Ray 03/18/17 0000 Signed Impressions: Service Date/Time: Saturday, March 18, 2017 11:04 - CONCLUSION: 1. Mild nonspecific esophageal motility disorder with small sliding hiatal. Parker Nassar MD CT Angiography 03/17/17 0000 Signed Impressions: Service Date/Time: Friday, March 17, 2017 12:06 - CONCLUSION: Multiple endobronchial nodular densities could be inspissated mucous versus endobronchial lesions with probable mucous plugging and inflammatory change right lower lobe. Follow up is suggested with noncontrast chest CT in 3 months after appropriate clinical therapy. Megha Aleman MD Chest X-Ray 03/15/17 1503 Signed Impressions: Service Date/Time: Wednesday, March 15, 2017 15:08 - CONCLUSION: 1. Focal patchy opacity within the right medial lung base consistent with probable pneumonia. Clinical correlation is recommended. 2. Underlying emphysematous changes bilaterally. Cayden Candelario MD Physical Exam HEENT: PERRLA; normocephalic; atraumatic; no jaundice. CHEST: Diminished lung sounds throughout, clear CARDIAC: RRR ABDOMEN: Soft, nondistended, no hepatosplenomegaly; bowel sounds x 4 quadrants EXTREMITIES: No clubbing, cyanosis, or edema. SKIN: Normal; no rash; no jaundice. [employer]: No focal deficits; alert and oriented x 3 (Ammy Strong) Assessment and Plan Plan ASSESSMENT: - Anemia with drop in Hgb. HH went from 12.1/38.5 on admission to 7.0/22.0. HH (03/22) 9.1/28.3. No obvious blood loss. Heme positive stool. C/O occasional odynophagia, but no other GI symptoms. Never had EGD. Last colonoscopy was about 10 years ago, pt reports as normal with no polyps. No family hx of esophageal, gastric, colorectal cancer. GI consulted for further evaluation of anemia. PPI. - Odynophagia. Rare episodes of painful swallowing in lower esophagus/right side of chest, very rare, no aggravating factors. No dysphagia. Barium swallow--->mild non specific esophageal motility disorder. On nystatin swish and swallow - Right Middle Lobe Pneumonia, COPD exacerbation. Steroids, nebs, vancomycin, Zosyn. On 3L via n/c, O2 sat 96% (on 2L at home). - Sepsis/Leukocytosis. TRENDING DOWN. WBC 16.1 today. BCx no growth x 5 days. - ANNE MARIE with electrolyte abnormalities. Improved. PLAN: - EGD w/ dilation and Colonoscopy Friday - Obtain consents - Clear liquids today - Bowel prep today - NPO after MN tonight - Protonix 40mg PO daily - Monitor HH, transfuse as necessary - Supportive care - Further recommendations to follow based on results of above Patient seen and examined by Dr. Morgan and myself and this note is written on her behalf (Ammy Strong) Physician Comments seen, examined agree with above respiratory status improved (Jenna Morgan MD) Ammy Strong Mar 23, 2017 09:24 Jenna Morgan MD Mar 23, 2017 15:57
[2017-03-23] MEDS: NYSTATIN SUSP 500,000 U/5 ML CUP SWISH-SWAL SCH ×4 (10:06→21:27)
[2017-03-23] MEDS: PANTOPRAZOLE SOD 40 MG DELAYED RELEASE TAB PO SCH ×2 (10:08→21:25)
[2017-03-23] MEDS: SODIUM CHLORIDE 0.9% FLUSH 10 ML FLUSH IV FLUSH SCH ×2 (10:08→21:30)
[2017-03-23] MEDS: predniSONE 10 MG TAB PO SCH ×3 (10:08→17:23)
[2017-03-23] MEDS: LEVOFLOXACIN 500 MG TAB PO SCH (10:08)
[2017-03-23] MEDS: METOPROLOL TARTRATE 50 MG TAB PO SCH ×2 (10:08→21:25)
[2017-03-23] MEDS: guaiFENesin E.R. 600 MG TAB PO SCH ×2 (10:08→21:27)
[2017-03-23] MEDS: RESP: ACETYLCYSTEINE 20% 30 ML NEB NEB SCH ×3 (11:07→22:06)
[2017-03-23] MEDS: ACETAMINOPHEN/HYDROcodone 325 MG/5 MG TAB PO PRN ×2 (12:59→21:27)
--- NOTE | 2017-03-23 15:35 | HHI.PR ---
Subjective Remarks The patient was resting in bed comfortably. She says she was tolerating her clear liquid diet. She requested a sleeping medication. Objective Vitals Vital Signs Date Time Temp Pulse Resp B/P Pulse Ox O2 Delivery O2 Flow Rate FiO2 03/23/17 14:10 20 03/23/17 14:00 83 03/23/17 13:00 88 03/23/17 12:00 112 03/23/17 11:07 95 Nasal Cannula 3.00 03/23/17 11:00 97.6 112 20 119/73 94 03/23/17 11:00 106 03/23/17 10:00 84 03/23/17 09:00 102 03/23/17 08:00 108 03/23/17 07:00 80 03/23/17 07:00 97.3 90 19 156/80 96 03/23/17 07:00 96 Nasal Cannula 3.00 03/23/17 06:06 73 03/23/17 05:09 70 03/23/17 04:10 98 Nasal Cannula 2.00 03/23/17 04:00 70 03/23/17 03:51 98.3 83 151/86 97 03/23/17 03:15 80 03/23/17 02:00 78 03/23/17 01:00 84 03/23/17 00:39 97.6 75 168/86 95 03/23/17 00:00 72 03/22/17 23:00 76 03/22/17 22:00 100 03/22/17 21:00 106 03/22/17 20:08 96 Nasal Cannula 2.00 03/22/17 20:00 98.4 103 158/69 97 03/22/17 20:00 100 03/22/17 19:00 101 03/22/17 18:01 94 03/22/17 17:01 78 03/22/17 16:00 76 I/O 03/22/17 03/22/17 03/22/17 03/23/17 03/23/17 03/23/17 06:59 14:59 22:59 06:59 14:59 22:59 Intake Total 2429 ml 3355 ml 240 ml Output Total 1100 ml Balance 2429 ml 2255 ml 240 ml Intake Oral 480 ml 480 ml 240 ml IV Total 1949 ml 2875 ml Output Urine Total 1100 ml # Voids 2 5 3 # Bowel Movements 2 2 1 Result Diagram: 03/22/17 0736 03/22/17 0736 Imaging Last Impressions Barium Swallow X-Ray 03/18/17 0000 Signed Impressions: Service Date/Time: Saturday, March 18, 2017 11:04 - CONCLUSION: 1. Mild nonspecific esophageal motility disorder with small sliding hiatal. Parker Nassar MD CT Angiography 03/17/17 0000 Signed Impressions: Service Date/Time: Friday, March 17, 2017 12:06 - CONCLUSION: Multiple endobronchial nodular densities could be inspissated mucous versus endobronchial lesions with probable mucous plugging and inflammatory change right lower lobe. Follow up is suggested with noncontrast chest CT in 3 months after appropriate clinical therapy. Megha Aleman MD Chest X-Ray 03/15/17 1503 Signed Impressions: Service Date/Time: Wednesday, March 15, 2017 15:08 - CONCLUSION: 1. Focal patchy opacity within the right medial lung base consistent with probable pneumonia. Clinical correlation is recommended. 2. Underlying emphysematous changes bilaterally. Cayden Candelario MD Objective Remarks GENERAL: Resting comfortably in bed. SKIN: Warm and dry. No rash. HEENT: Atraumatic. Normocephalic. Pupils equal and round. No scleral icterus. No injection or drainage. No nasal bleeding or discharge. Mucous membranes pink and moist. NECK: Trachea midline. No JVD. CARDIOVASCULAR: Regular rate and rhythm. No murmur appreciated. RESPIRATORY: No accessory muscle use. Diminished breath sounds throughout. No wheezing noted. GASTROINTESTINAL: Abdomen soft, non-tender, nondistended. Hepatic and splenic margins not palpable. MUSCULOSKELETAL: Extremities without clubbing, cyanosis, or edema. No obvious deformities. NEUROLOGICAL: Awake and alert. No obvious cranial nerve deficits. Motor grossly within normal limits. Five out of 5 muscle strength in the arms and legs. Normal speech. PSYCHIATRIC: Appropriate mood and affect; insight and judgment normal. Procedures None Medications and IVs Current Medications Medications (Trade) Dose Ordered Sig/Shanelle Route Start Time Stop Time Status Last Admin (NS Flush) 2 ml UNSCH PRN IV FLUSH 03/15/17 17:30 (NS Flush) 2 ml BID IV FLUSH 03/15/17 21:00 03/23/17 10:08 (Tylenol) 650 mg Q4H PRN PO 7/29/17 17:30 (Zofran Inj) 4 mg Q6H PRN IVP 03/15/17 17:30 03/16/17 08:11 (Lovenox Inj) 30 mg Q24H SQ 03/15/17 18:00 Hold 03/16/17 17:17 (Narcan Inj) 0.4 mg UNSCH PRN IV 03/15/17 17:30 (Gloria-Colace) 1 tab BID PO 03/15/17 21:00 03/22/17 08:53 (Dulcolax Supp) 10 mg DAILY PRN RECTAL 03/15/17 17:30 (D50w (Vial) Inj) 50 ml UNSCH PRN IV 03/15/17 18:00 (Glucagon Inj) 1 mg UNSCH PRN OTHER 03/15/17 18:00 (Lipitor) 10 mg HS PO 03/15/17 21:00 03/22/17 21:39 ([place] 5-325 Mg) 1 tab Q6H PRN PO 03/15/17 18:00 03/23/17 12:59 (Remeron) 7.5 mg HS PO 03/15/17 21:00 03/22/17 21:39 (Mycostatin Liq) 4 ml QID SWISH-SWAL 03/15/17 18:00 03/23/17 12:50 (Ativan Inj) 0.5 mg Q6H PRN IM 03/16/17 12:45 03/21/17 21:53 (Mucinex Er) 600 mg BID PO 03/17/17 21:00 03/23/17 10:08 (Carafate Liq) 1 gm ACHS PO 03/17/17 21:00 03/23/17 10:07 (Magic Mouthwash Adult Liq) 10 ml QID PRN SWISH-SWAL 03/20/17 15:00 03/20/17 16:59 (Deltasone) 10 mg TID PO 03/21/17 09:00 03/23/17 12:50 (Lopressor) 50 mg Q12HR PO 03/21/17 14:00 03/23/17 10:08 (Levaquin) 500 mg DAILY PO 03/22/17 09:00 03/23/17 10:08 (Protonix) 40 mg Q12HR PO 03/22/17 21:00 03/23/17 10:08 (Colyte Liq) 4,000 ml ONCE ONCE PO 03/23/17 16:00 03/23/17 16:01 A/P Problem List: (1) Right middle lobe pneumonia ICD Code: J18.1 Status: Acute (2) Failure of outpatient treatment ICD Code: Z78.9 Status: Acute (3) Rib contusion ICD Code: S20.219A Status: Acute (4) COPD with exacerbation ICD Code: J44.1 Status: Acute (5) Severe sepsis due to pneumococcus with acute organ dysfunction ICD Code: A40.3 Status: Acute Assessment and Plan 1. Respiratory distress, COPD exacerbation, pneumonia: S/p treatment for healthcare associated pneumonia (vancomycin, Zosyn). Continue Levaquin per pulmonology. Continue DuoNeb, steroids. Appreciate pulmonology recommendations. Incentive spirometry. Supplemental O2 as needed. Continue prednisone. Add physical therapy. SNF recommended. 2. Severe sepsis: Secondary to pneumonia. Sepsis has improved. Continue treatment as above. 3. Acute kidney injury: Resolved. 4. Hypernatremia: Improved on 1/2NS. Encouraged increase in PO water intake. Monitor BMP in am. 5. Hypokalemia: Possibly s/t decreased PO intake. Continue supplement potassium and monitor. Check mag and phos levels. 6. Elevated troponin: Most likely demand mediated secondary to tachycardia upon admission. 7. Anemia: Hemoccult positive. GI following and has seen patient, appreciate GI recommendations. GI cocktail given. Patient denies any abdominal or gastric pain. Tolerating PO intake. EGD planned 03/24. Anticoagulation on hold. Status post transfusion 1 unit PRBCs. Monitor H&H. No signs and symptoms of bleeding. Continue Protonix. 8. Sinus tachycardia: EKGs reviewed. Will increase dose of Metoprolol from 25 mg PO q8hr to 50 mg PO BID. Continue to monitor. Improved. Continue telemetry. 9. DVT prophylaxis: SCDsDIANDRA. Avoid chemical prophylaxis secondary to GI bleed. 10. Odynophagia: GI planning EGD 03/24. Discharge Planning Awaiting EGD Problem Qualifiers (1) Right middle lobe pneumonia: Qualified Code: J13 - Pneumonia of right middle lobe due to Streptococcus pneumoniae Diogenes Sanches DO Mar 23, 2017 15:35
[2017-03-23] MEDS ORDERED: PEG (High)/E-LYTE SOLN 4000 ML BTL PO ONE (16:00)
[2017-03-23 16:27] LABS: HEMATOCRIT 25.3 % (35.0-46.0); MEAN CELL VOLUME 90.9 FL (80.0-100.0); MEAN CORPUSCULAR HEMOGLOBIN 28.8 PG (27.0-34.0); MEAN CORPUSCULAR HGB CONC 31.7 % (32.0-36.0); PLATELET COUNT 350 TH/MM3 (150-450); RED BLOOD COUNT 2.79 MIL/MM3 (4.00-5.30); RED CELL DISTRIBUTION WIDTH 15.4 % (11.6-17.2); REVIEW FLAG FINAL; WHITE BLOOD COUNT 14.4 TH/MM3 (4.0-11.0)
[2017-03-23 16:40] LABS: BICARBONATE 28.1 MEQ/L (21.0-32.0); MAGNESIUM 1.7 MG/DL (1.5-2.5); POTASSIUM 3.7 MEQ/L (3.5-5.1)
[2017-03-23] MEDS ORDERED: MAGNESIUM SULFATE 1 GM PREMIX 100 ML IV ONE (18:00)
[2017-03-23] MEDS ORDERED: POTASSIUM CHLORIDE 25 MEQ EFFERVESCENT TAB PO ONE (18:00)
[2017-03-23] MEDS ORDERED: TEMAZEPAM 15 MG CAP PO PRN (21:00)
[2017-03-23] MEDS: ATORVASTATIN 10 MG TAB PO SCH (21:26)
[2017-03-23] MEDS: MIRTAZAPINE 15 MG TAB PO SCH (21:26)
[2017-03-23] MEDS ORDERED: PHARMACY ORDERED LAB ONE (23:45)
[2017-03-24] VITALS (15 sets, daily range): BP systolic 114–171; BP diastolic 62–88; PULSE 62–98; RESP 12–20; TEMP 97.2–98.1; O2SAT 94–99
[2017-03-24] MEDS: RESP: IPRATROPIUM 0.5 MG/2.5 ML NEB NEB SCH ×3 (04:10→15:40)
[2017-03-24 06:50] LABS: MEAN CELL VOLUME 90.1 FL (80.0-100.0); MEAN CORPUSCULAR HEMOGLOBIN 29.6 PG (27.0-34.0); MEAN CORPUSCULAR HGB CONC 32.9 % (32.0-36.0); PLATELET COUNT 371 TH/MM3 (150-450); RED BLOOD COUNT 2.88 MIL/MM3 (4.00-5.30); RED CELL DISTRIBUTION WIDTH 15.3 % (11.6-17.2); REVIEW FLAG FINAL; WHITE BLOOD COUNT 11.8 TH/MM3 (4.0-11.0)
[2017-03-24 07:00] LABS: PROTHROMBIN TIME - PATIENT 10.6 SEC (9.8-11.6)
[2017-03-24] MEDS: INSULIN ASPART SUPPLEMENTAL SCALE SQ SCH ×3 (07:00→15:53)
[2017-03-24] MEDS: SUCRALFATE 1 GM/10 ML CUP PO SCH ×3 (07:15→15:53)
[2017-03-24 07:17] LABS: BICARBONATE 30.5 MEQ/L (21.0-32.0); MAGNESIUM 2.1 MG/DL (1.5-2.5); POTASSIUM 3.4 MEQ/L (3.5-5.1)
[2017-03-24] MEDS: NYSTATIN SUSP 500,000 U/5 ML CUP SWISH-SWAL SCH ×2 (08:32→12:57)
[2017-03-24] MEDS: PANTOPRAZOLE SOD 40 MG DELAYED RELEASE TAB PO SCH (08:32)
[2017-03-24] MEDS: predniSONE 10 MG TAB PO SCH ×2 (08:32→12:57)
[2017-03-24] MEDS: METOPROLOL TARTRATE 50 MG TAB PO SCH (08:32)
[2017-03-24] MEDS: LEVOFLOXACIN 500 MG TAB PO SCH (08:32)
[2017-03-24] MEDS: guaiFENesin E.R. 600 MG TAB PO SCH (08:32)
[2017-03-24] MEDS: DOCUSATE SODIUM 50 MG/SENNA 8.6 MG TAB PO SCH (08:33)
[2017-03-24] MEDS: SODIUM CHLORIDE 0.9% FLUSH 10 ML FLUSH IV FLUSH SCH (08:33)
[2017-03-24] MEDS: RESP: ACETYLCYSTEINE 20% 30 ML NEB NEB SCH ×2 (09:16→15:40)
[2017-03-24] MEDS ORDERED: PROPOFOL 200 MG/20 ML AMP IV ONE (11:11)
--- NOTE | 2017-03-24 12:01 | HHI.GIFU ---
Subjective Remarks EGD with biopsy and esophageal dilatation to 18mm. Pt has esophagitis. Also erosive gastritis and biosy obtained. Antral ulcer and duodenal ulcers. Colonoscopy showed several small benign polyps. Re stacey with snare and biopsy forceps. Objective Vitals I&O Vital Signs Date Time Temp Pulse Resp B/P Pulse Ox O2 Delivery O2 Flow Rate FiO2 03/24/17 09:18 96 Nasal Cannula 3.00 03/24/17 09:00 90 03/24/17 08:00 82 03/24/17 07:00 73 03/24/17 07:00 94 Nasal Cannula 3.00 03/24/17 07:00 98.1 97 18 151/88 94 03/24/17 06:00 72 03/24/17 05:00 70 03/24/17 04:00 80 03/24/17 03:00 67 03/24/17 03:00 97.2 82 12 157/79 97 03/24/17 02:00 66 03/24/17 01:00 80 03/24/17 00:00 62 03/23/17 23:00 97.2 74 18 144/85 98 03/23/17 23:00 67 03/23/17 22:07 92 Nasal Cannula 3.00 03/23/17 22:00 104 03/23/17 21:00 84 03/23/17 20:00 92 03/23/17 19:25 86 03/23/17 19:00 97.5 85 18 138/87 97 03/23/17 19:00 98 Nasal Cannula 3.00 03/23/17 18:00 109 03/23/17 17:00 103 03/23/17 16:03 84 03/23/17 15:00 98.5 95 18 141/72 94 03/23/17 15:00 88 03/23/17 14:10 20 03/23/17 14:00 83 03/23/17 13:00 88 03/23/17 12:00 112 I/O 03/23/17 03/23/17 03/23/17 03/24/17 03/24/17 03/24/17 07:00 15:00 23:00 07:00 15:00 23:00 Intake Total 240 ml 600 ml 960 ml Output Total 500 ml Balance 240 ml 100 ml 960 ml Intake Oral 240 ml 600 ml 960 ml Output Urine Total 500 ml # Voids 3 3 # Bowel Movements 1 3 3 Laboratory Laboratory Tests Test 03/23/17 03/24/17 15:41 05:10 White Blood Count 14.4 11.8 Red Blood Count 2.79 2.88 Hemoglobin 8.0 8.6 Hematocrit 25.3 26.0 Mean Corpuscular Volume 90.9 90.1 Mean Corpuscular Hemoglobin 28.8 29.6 Mean Corpuscular Hemoglobin 31.7 32.9 Concent Red Cell Distribution Width 15.4 15.3 Platelet Count 350 371 Mean Platelet Volume 8.4 8.6 Sodium Level 141 143 Potassium Level 3.7 3.4 Chloride Level 105 106 Carbon Dioxide Level 28.1 30.5 Anion Gap 8 7 Blood Urea Nitrogen 19 16 Creatinine 0.57 0.56 Estimat Glomerular Filtration 102 104 Rate Random Glucose 140 70 Calcium Level 8.1 8.0 Phosphorus Level 2.6 Magnesium Level 1.7 2.1 Prothrombin Time 10.6 Prothromb Time International 1.0 Ratio Physical Exam HEENT: PERRLA; normocephalic; atraumatic; no jaundice. CHEST: Diminished lung sounds throughout, clear CARDIAC: RRR ABDOMEN: Soft, nondistended, no hepatosplenomegaly; bowel sounds x 4 quadrants EXTREMITIES: No clubbing, cyanosis, or edema. SKIN: Normal; no rash; no jaundice. PROP ATTENDANT: No focal deficits; alert and oriented x 3 Assessment and Plan Plan ASSESSMENT: - Anemia with drop in Hgb. HH went from 12.1/38.5 on admission to 7.0/22.0. HH (03/22) 9.1/28.3. No obvious blood loss. Heme positive stool. C/O occasional odynophagia, but no other GI symptoms. Never had EGD. Last colonoscopy was about 10 years ago, pt reports as normal with no polyps. No family hx of esophageal, gastric, colorectal cancer. GI consulted for further evaluation of anemia. PPI. - Odynophagia. Rare episodes of painful swallowing in lower esophagus/right side of chest, very rare, no aggravating factors. No dysphagia. Barium swallow--->mild non specific esophageal motility disorder. On nystatin swish and swallow - Right Middle Lobe Pneumonia, COPD exacerbation. Steroids, nebs, vancomycin, Zosyn. On 3L via n/c, O2 sat 96% (on 2L at home). - Sepsis/Leukocytosis. TRENDING DOWN. WBC 16.1 today. BCx no growth x 5 days. - ANNE MARIE with electrolyte abnormalities. Improved. EGD showed duodenal ulcers and erosive gastritis. No active bleeding. Colonoscopy showed a few small benign polyps, removed. PLAN: - advance to regular diet. Protonix 40mg po bid. OK for discharge if otherwise stable. Large duodenal ulcer will require 2-3 months to heal. Repeat EGD in 6 weeks. Treat H pylori if present on biopsy. Await polyp biopsy results. Paolo Hinson MD Mar 24, 2017 12:01
--- NOTE | 2017-03-24 13:54 | HHI.FF ---
Face to Face Verification Diagnosis: (1) Acute and chronic respiratory failure (2) COPD exacerbation (3) Right middle lobe pneumonia (4) Antral ulcer (5) Ulcer (6) Generalized weakness (7) Duodenal ulcer (8) Esophagitis Physical Therapy Order: Evaluate and Treat, Improve ambulation, Strength and gait training Home Health Nursing Order: Medical education Signs/symptoms of disease process Oxygen administration education Medication education-adverse effect Nursing assessment with vital signs I have seen patient Concetta Weston on 03/24/17. My clinical findings support the need for the requested home health care services because: Patient has SOB Deconditioned w/ increased weakness Limited ability to care for self High risk of falls I certify that my clinical findings support that this patient is homebound because: Hx COPD- exertion dyspnea/weakness Unsteady gait/balance Unsafe to leave home unassisted Diogenes Sanches DO Mar 24, 2017 13:54
--- NOTE | 2017-03-24 13:55 | HHI.DCPOC ---
Discharge Care Plan Diagnosis: (1) COPD exacerbation (2) Antral ulcer (3) Acute and chronic respiratory failure (4) Generalized weakness (5) Duodenal ulcer (6) Esophagitis (7) Right middle lobe pneumonia Goals to Promote Your Health * To prevent worsening of your condition and complications * To maintain your health at the optimal level Directions to Meet Your Goals Take your medications as prescribed Follow your dietary instruction Follow activity as directed Keep your appointments as scheduled Take your immunizations and boosters as scheduled If your symptoms worsen call your PCP, if no PCP go to Urgent Care Center or Emergency Room Smoking is Dangerous to Your Health. Avoid second hand smoke Call the 24-hour hour crisis hotline for domestic abuse at Diogenes Sanches DO Mar 24, 2017 13:55
[2017-03-24] MEDS ORDERED: PRED10PA PO (14:00)
[2017-03-24] MEDS ORDERED: HYDR-3516 PO (14:00)
[2017-03-24] MEDS ORDERED: LEVA500T20 PO (14:00)
[2017-03-24] MEDS ORDERED: PANT40TA3 PO (14:00)
[2017-03-24] MEDS ORDERED: POTA-163 PO (14:01)
[2017-03-24] MEDS ORDERED: GETGO ROLLING W1 MI1 (14:13)
--- NOTE | 2017-03-24 14:24 | HHI.DS ---
Discharge Summary Admission Date Mar 15, 2017 at 17:28 Discharge Date: Mar 24, 2017 Admitting Diagnosis RML PNA, RESPIRATORY DISTRESS DUE TO COPD EXACERBATION (1) Right middle lobe pneumonia ICD Code: J18.1 (2) Failure of outpatient treatment ICD Code: Z78.9 (3) Rib contusion ICD Code: S20.219A (4) COPD with exacerbation ICD Code: J44.1 (5) Severe sepsis due to pneumococcus with acute organ dysfunction ICD Code: A40.3 (6) Generalized weakness ICD Code: R53.1 (7) Antral ulcer ICD Code: K25.9 (8) Acute and chronic respiratory failure ICD Code: J96.20 Diagnosis: Principal (9) Duodenal ulcer ICD Code: K26.9 (10) Esophagitis ICD Code: K20.9 Procedures None Brief History - From Admission 81-year-old white female being admitted for a respiratory distress. Patient was in her usual state of health until a few weeks ago when she had a fall, injured her ribs and subsequently began experiencing shortness of breath. She came our emergency room originally for her acute evaluation for rib contusion and one home. She then saw her PCP and says that she was prescribed at least two trials of antibiotics. The patient does not know all of her medicines by name completely. Originally (from checking with the pharmacy) she had filled on a Z-Ten and doxycycline after her ER visit but is unfortunate she both of those regimens completely. About 4-5 days later she complained her PCP about persistent and worsening shortness of breath and worsening productive cough at which point she was then prescribed Augmentin which the patient says she had been taking for the past few days. Her symptoms worsened today to the point where she called her daughter and told her bring her to the emergency room because she felt like she was having "a panic attack" due to how short her breathing became. She reports having intermittent posttussive emesis, otherwise denies any liz nausea. She says she's had decreased by mouth intake because of her trouble breathing the past few days. Patient denies any cyanosis clubbing or edema in her legs or fingertips. She reports being compliant with her DuoNeb's and her Ventolin inhaler but she does admit that she does not take her Breo controller inhaler because she thinks it makes her mouth sore. She says that she takes prednisone daily at 10 mg as a regular medication and says that her home oxygen is at 2-3 L 24 hours a day. CBC/BMP: 03/24/17 0510 03/24/17 0510 Significant Findings Laboratory Tests Test 03/22/17 03/23/17 03/24/17 07:36 15:41 05:10 White Blood Count 16.1 TH/MM3 14.4 TH/MM3 11.8 TH/MM3 (4.0-11.0) (4.0-11.0) (4.0-11.0) Red Blood Count 3.13 MIL/MM3 2.79 MIL/MM3 2.88 MIL/MM3 (4.00-5.30) (4.00-5.30) (4.00-5.30) Hemoglobin 9.1 GM/DL 8.0 GM/DL 8.6 GM/DL (11.6-15.3) (11.6-15.3) (11.6-15.3) Hematocrit 28.3 % 25.3 % 26.0 % (35.0-46.0) (35.0-46.0) (35.0-46.0) Neutrophils (%) (Auto) 81.1 % (16.0-70.0) Lymphocytes (%) (Auto) 8.7 % (9.0-44.0) Monocytes (%) (Auto) 8.6 % (0.0-8.0) Neutrophils # (Auto) 13.0 TH/MM3 (1.8-7.7) Monocytes # (Auto) 1.4 TH/MM3 (0-0.9) Neutrophils % (Manual) 83 % (16-70) Neutrophils # (Manual) 14.2 TH/MM3 (1.8-7.7) Metamyelocytes 2 % (0-1) Myelocytes 1 % (0-0) Ovalocytes 1+ (NORMAL) Potassium Level 3.1 MEQ/L 3.4 MEQ/L (3.5-5.1) (3.5-5.1) Creatinine 0.43 MG/DL (0.50-1.00) Calcium Level 8.2 MG/DL 8.1 MG/DL 8.0 MG/DL (8.5-10.1) (8.5-10.1) (8.5-10.1) Phosphorus Level 1.7 MG/DL (2.5-4.9) Mean Corpuscular Hemoglobin 31.7 % Concent (32.0-36.0) Blood Urea Nitrogen 19 MG/DL (7-18) Random Glucose 140 MG/DL 70 MG/DL (74-106) (74-106) Imaging Last Impressions Barium Swallow X-Ray 03/18/17 0000 Signed Impressions: Service Date/Time: Saturday, March 18, 2017 11:04 - CONCLUSION: 1. Mild nonspecific esophageal motility disorder with small sliding hiatal. Parker Nassar MD CT Angiography 03/17/17 0000 Signed Impressions: Service Date/Time: Friday, March 17, 2017 12:06 - CONCLUSION: Multiple endobronchial nodular densities could be inspissated mucous versus endobronchial lesions with probable mucous plugging and inflammatory change right lower lobe. Follow up is suggested with noncontrast chest CT in 3 months after appropriate clinical therapy. Megha Aleman MD Chest X-Ray 03/15/17 1503 Signed Impressions: Service Date/Time: Wednesday, March 15, 2017 15:08 - CONCLUSION: 1. Focal patchy opacity within the right medial lung base consistent with probable pneumonia. Clinical correlation is recommended. 2. Underlying emphysematous changes bilaterally. Cayden Candelario MD PE at Discharge GENERAL: Resting comfortably in bed. SKIN: Warm and dry. No rash. HEENT: Atraumatic. Normocephalic. Pupils equal and round. No scleral icterus. No injection or drainage. No nasal bleeding or discharge. Mucous membranes pink and moist. NECK: Trachea midline. No JVD. CARDIOVASCULAR: Regular rate and rhythm. No murmur appreciated. RESPIRATORY: No accessory muscle use. Diminished breath sounds throughout. No wheezing noted. GASTROINTESTINAL: Abdomen soft, non-tender, nondistended. Hepatic and splenic margins not palpable. MUSCULOSKELETAL: Extremities without clubbing, cyanosis, or edema. No obvious deformities. NEUROLOGICAL: Awake and alert. No obvious cranial nerve deficits. Motor grossly within normal limits. Five out of 5 muscle strength in the arms and legs. Normal speech. PSYCHIATRIC: Appropriate mood and affect; insight and judgment normal. Pt update on day of discharge The patient was seen following her procedures. She was about to eat lunch. She tolerated the first few bites well. She was interested in going home. Discussed with nursing. Hospital Course Respiratory distress/ COPD exacerbation/ Pneumonia CXR performed initially concerning for right sided pneumonia. CT scan showed: Multiple endobronchial nodular densities could be inspissated mucous versus endobronchial lesions with probable mucous plugging and inflammatory change right lower lobe. Follow up is suggested with noncontrast chest CT in 3 months after appropriate clinical therapy. Pulmonology was consulted. S/p treatment for healthcare associated pneumonia (vancomycin, Zosyn). She was started on Levaquin. She was continued on DuoNeb and steroids. She received incentive spirometry. She was continued on supplemental O2. She will be discharged on Levaquin and a steroid taper. She will follow up with pulmonology. She will continue her home oxygen. Anemia/ Odynophagia Hemoccult positive. GI was consulted. Anticoagulation was put on hold. Status post transfusion of 1 unit PRBCs. Her hemoglobin remained stable. She was continued on Protonix. She had a barium swallow. S/p EGD with esophageal dilatation/ colonoscopy which showed: esophagitis; erosive gastritis and biosy was obtained; Antral ulcer and duodenal ulcers; Colonoscopy showed several small benign polyps. She will follow up with gastroenterology. She will continue a PPI. She will continue a mechanical soft diet. She will continue nystatin. Plavix will remain on hold until cleared by GI. Hypokalemia She received supplemental potassium and her diet was advanced. She will be discharged on KCl supplementation. Tachycardia Her diltiazem was held and she was placed on Lopressor. She was monitored on telemetry. Cardiology was consulted and recommended treating the underlying conditions. The pt will resume her home meds on discharge. Pt Condition on Discharge: Stable Discharge Disposition: Disch w/ Home Health Serv Discharge Time: > 30 minutes Discharge Instructions DIET: Follow Instructions for: As Tolerated, No Restrictions Speech Therapy-Diet Recommends: Mechanical Soft Activities you can perform: Weight Bearing as Halima Follow up Referrals: Gastroenterology - 1 Week with Paolo Hinson MD PCP Follow-up - 1 Week Pulmonology - 1 Week with Hong Velasquez MD New Orders: BASIC METABOLIC PROF - 3-5 Days New Medications: Potassium Chloride ER (Potassium Chloride ER) 20 Meq Tab 20 MEQ PO DAILY Electrolyte Replacement #7 Ref 0 TAB Prednisone (21) 10 mg tab Dose Pack (Prednisone (21) 10 mg tab Dose Pack) 10 Mg Pack 10 MG PO DIRECTED Inflammation #1 Ref 0 DSPK Walker Rolling/GetGo (Walker Rolling/GetGo) 1 Mis Mis 1 EA .ROUTE DIRECTED #1 EA Hydrocodone-Acetaminophen (Hydrocodone-Acetaminophen) 5-325 mg Tab 1 TAB PO Q6H PRN PAIN 6-10 #12 TAB Levofloxacin (Levaquin) 500 Mg Tablet 500 MG PO DAILY Infection Days 3 TAB Pantoprazole (Pantoprazole) 40 Mg Tab 40 MG PO Q12HR Stomach #60 TAB Continued Medications: Albuterol 18 GM Inh (Ventolin Hfa 18 GM Inh) 90 Mcg/Act Aer 2 PUFF INH Q6H PRN SHORTNESS OF BREATH #1 Ref 0 INHALER Albuterol Sulfate (Proventil Ud 0.083% (2.5 Mg/3 Ml)) 2.5 Mg/3 Ml Inha 2.5 MG INH TID Alprazolam (Alprazolam) 0.5 Mg Tab 0.5 MG PO TID TAB Atorvastatin (Atorvastatin) 10 Mg Tab 10 MG PO HS Cholesterol Management #30 Ref 0 TAB DILTIAZEM XT 300 mg (Cartia) (Cartia XT 300 mg) 300 Mg/24 Hr Cap 300 MG PO DAILY Fluticasone Furoate-Vilanterol (Breo Ellipta 100-25 Mcg/INH) 1 Inh Inh 1 PUFF INH DAILY Ipratropium-Albuterol Neb (Duoneb) 0.5-2.5 Mg/3 Ml Neb 1 NEBULE INH QID NEB PRN SHORTNESS OF BREATH #120 Ref 0 NEBULE Mirtazapine (Mirtazapine) 7.5 Mg Tab 7.5 MG PO HS Depression Control #30 Ref 0 TAB Miscellaneous (Oxygen (O2)) Inha 2 L INH DAILY BOX Nystatin Liq (Nystatin Liq) 100,000 unit/ml Susp 4 ML SWISH-SWAL QID Infection Ref 0 ML Ondansetron (Zofran ODT) 4 Mg Tab 4 MG SL Q6H FOR NAUSEA/VOMITING PRN NAUSEA OR VOMITING #10 TAB Tizanidine (Tizanidine) 2 Mg Cap 2 MG PO TID Muscle Spasm Ref 0 CAP ([O2]) Discontinued Medications: Amoxicillin-Clavulanate (Augmentin) 875-125 Mg Tab 1 TAB PO BID Infection Ref 0 TAB Atorvastatin 10 mg (Atorvastatin 10 mg) 10 Mg Tab 10 MG PO HS Days 30 TAB Cephalexin (Keflex) 500 Mg Cap 500 MG PO Q6 #28 CAP Hydrocodone-Acetaminophen (Lortab) 5-325 Mg Tab 1-2 TAB PO Q6H PRN PAIN #20 Ref 0 TAB Hydrocodone/Acetaminophen 5 mg/325 mg (Lortab 5 mg/325 mg) 1 Tab 1 TAB PO Q6H PRN PAIN #7 TAB Ipratropium-Albuterol (Resp: Albuterol 2.5 Mg/Ipratropium 0.5 Mg) 1 Amp Nebu 1 AMP NEB Q4-6HPRN Days 30 AMP Prednisone (Sterapred Ds 12 Day Pack) 10 Mg Ten 10 MG PO DIRECTED USE DIRECTED copd #1 TEN Prednisone (Prednisone) 10 Mg Tab 10 MG PO DAILY Ref 0 TAB Diogenes Sanches DO Mar 24, 2017 14:23
--- NOTE | 2017-03-24 17:24 | HHI.PR ---
Subjective Remarks 81 YOWF with COPD exac, mucous plugging, RLL infilt/ density Has cough, not able to expactorate Breathing better Cough loosened, able to bring up some sp Anxious to go home Objective Vital Signs Vital Signs Date Time Temp Pulse Resp B/P Pulse Ox O2 Delivery O2 Flow Rate FiO2 03/24/17 15:00 97.7 98 20 114/62 98 03/24/17 15:00 98 03/24/17 14:00 85 03/24/17 13:00 89 03/24/17 12:48 88 03/24/17 12:48 97.7 74 20 171/80 99 03/24/17 12:19 97.6 72 16 126/60 100 03/24/17 09:18 96 Nasal Cannula 3.00 03/24/17 09:00 90 03/24/17 08:00 82 03/24/17 07:00 73 03/24/17 07:00 94 Nasal Cannula 3.00 03/24/17 07:00 98.1 97 18 151/88 94 03/24/17 06:00 72 03/24/17 05:00 70 03/24/17 04:00 80 03/24/17 03:00 67 03/24/17 03:00 97.2 82 12 157/79 97 03/24/17 02:00 66 03/24/17 01:00 80 03/24/17 00:00 62 03/23/17 23:00 97.2 74 18 144/85 98 03/23/17 23:00 67 03/23/17 22:07 92 Nasal Cannula 3.00 03/23/17 22:00 104 03/23/17 21:00 84 03/23/17 20:00 92 03/23/17 19:25 86 03/23/17 19:00 97.5 85 18 138/87 97 03/23/17 19:00 98 Nasal Cannula 3.00 03/23/17 18:00 109 I/O 03/23/17 03/23/17 03/23/17 03/24/17 03/24/17 03/24/17 07:00 15:00 23:00 07:00 15:00 23:00 Intake Total 240 ml 600 ml 960 ml Output Total 500 ml Balance 240 ml 100 ml 960 ml Intake Oral 240 ml 600 ml 960 ml Output Urine Total 500 ml # Voids 3 3 # Bowel Movements 1 3 3 Result Diagram: 03/24/17 0510 03/24/17 0510 Objective Remarks GENERAL: MBMN WF,Mild sob SKIN: Warm and dry. HEAD: Normocephalic. EYES: No scleral icterus. No injection or drainage. NECK: Supple, trachea midline. No JVD or lymphadenopathy. CARDIOVASCULAR: Regular rate and rhythm without murmurs, gallops, or rubs. RESPIRATORY: Breath sounds equal bilaterally. No accessory muscle use. Exp rhonchi GASTROINTESTINAL: Abdomen soft, non-tender, nondistended. MUSCULOSKELETAL: No cyanosis, or edema. BACK: Nontender without obvious deformity. No CVA tenderness. A/P Assessment and Plan COPD exac Mucous plugging Rll infilt/ density Anemia Leucocytosis improving PLAN Mucinex BID use IS and Acapella Duonebs qid Prednisone 10 mg tid PO Levaquin DC plans for home Hong Velasquez MD Mar 24, 2017 17:24
== END 2017-03-24 16:46 | disposition home health service (06) | DRG 871 ==
LOC: NEPC 14:58 → NEDA 17:05 → MERGE 17:28 → OBSVTOIN 17:28 → HCIS 20:26
PROVIDERS: ADMIT Hospitalist; ATTEND Hospitalist
PROC: 3E0F7GC Introduction of Other Therapeutic Substance into Respiratory Tract, Via Natural or Artificial Opening (ICD-10-PCS; principal; 2017-03-15)
PROC: 30233N1 Transfusion of Nonautologous Red Blood Cells into Peripheral Vein, Percutaneous Approach (ICD-10-PCS; 2017-03-17)
PROC: 0DB58ZX Excision of Esophagus, Via Natural or Artificial Opening Endoscopic, Diagnostic (ICD-10-PCS; 2017-03-24)
PROC: 0DB68ZX Excision of Stomach, Via Natural or Artificial Opening Endoscopic, Diagnostic (ICD-10-PCS; 2017-03-24)
PROC: 0D758ZZ Dilation of Esophagus, Via Natural or Artificial Opening Endoscopic (ICD-10-PCS; 2017-03-24)
PROC: 0DBK8ZX Excision of Ascending Colon, Via Natural or Artificial Opening Endoscopic, Diagnostic (ICD-10-PCS; 2017-03-24)
PROC: 0DBN8ZX Excision of Sigmoid Colon, Via Natural or Artificial Opening Endoscopic, Diagnostic (ICD-10-PCS; 2017-03-24)
PROC: 0DBK8ZX Excision of Ascending Colon, Via Natural or Artificial Opening Endoscopic, Diagnostic (ICD-10-PCS; 2017-03-24)
DX: A41.9 Sepsis, unspecified organism (principal); J13 Pneumonia due to Streptococcus pneumoniae; J96.20 Acute and chronic respiratory failure, unspecified whether with hypoxia or hypercapnia; N17.9 Acute kidney failure, unspecified; E87.0 Hyperosmolality and hypernatremia; K26.9 Duodenal ulcer, unspecified as acute or chronic, without hemorrhage or perforation; J44.0 Chronic obstructive pulmonary disease with (acute) lower respiratory infection; K92.2 Gastrointestinal hemorrhage, unspecified; J44.1 Chronic obstructive pulmonary disease with (acute) exacerbation; I10 Essential (primary) hypertension; K22.2 Esophageal obstruction; K63.5 Polyp of colon; D64.9 Anemia, unspecified; T17.990A Other foreign object in respiratory tract, part unspecified in causing asphyxiation, initial encounter; Z99.81 Dependence on supplemental oxygen; S20.219A Contusion of unspecified front wall of thorax, initial encounter; K20.9 Esophagitis, unspecified; K25.9 Gastric ulcer, unspecified as acute or chronic, without hemorrhage or perforation; H91.90 Unspecified hearing loss, unspecified ear; K29.60 Other gastritis without bleeding; E78.00 Pure hypercholesterolemia, unspecified; Z85.3 Personal history of malignant neoplasm of breast; Z87.891 Personal history of nicotine dependence; R65.20 Severe sepsis without septic shock; W19.XXXA Unspecified fall, initial encounter; Z90.13 Acquired absence of bilateral breasts and nipples; Z92.3 Personal history of irradiation; E78.5 Hyperlipidemia, unspecified; Z82.5 Family history of asthma and other chronic lower respiratory diseases; X58.XXXA Exposure to other specified factors, initial encounter; Y92.239 Unspecified place in hospital as the place of occurrence of the external cause; E87.6 Hypokalemia; K22.4 Dyskinesia of esophagus; R74.8 Abnormal levels of other serum enzymes
CPT/HCPCS: 36430; 71010; 71275; 74230; 76937; 80048; 80053; 80202; 82272; 82550; 82948; 83605; 83735; 83880; 84100; 84484; 85007; 85025; 85027; 85379; 85610; 85730; 86850; 86900; 86901; 86920; 87040; 87804; 88305; 88312; 93005; 94150; 94640; 94664; 94667; 94668; 96365; 96375; C1726; C9113; J0171; J0360; J0456; J1650; J1815; J1956; J2060; J2405; J2543; J2920; J2930; J3370; J3475; J7030; J7040; J7050; J7512; J7608; J7613; J7644; P9016; Q9967

== ENCOUNTER 2017-03-28 13:11 | Observation (INO) | payer OTHER ==
[2017-03-28] VITALS (13 sets, daily range): BP systolic 120–170; BP diastolic 68–94; PULSE 95–124; RESP 18–24; TEMP 98.2–98.6; O2SAT 97–100
[~2017-03-28] VITALS: Ht 167.6 cm; Wt 55.0 kg
[~2017-03-28 13:11] MED LIST changes: -ATOR10TA PO; -CEPH500C3 PO; -DILT300C3 PO; -DUONSOL2 NEB; +GETGO ROLLING W1 MI1; +HYDR-3516 PO; -HYDR-3533 PO; +IPRASOL INH; +LEVA500T20 PO; +NYST1000 SWISH-SWAL; +PANT40TA3 PO; +POTA-163 PO; -PRED10 PO; +VENTAER INH
--- NOTE | 2017-03-28 13:53 | PD ---
HPI Chief Complaint: Abnormal Results Time Seen by Provider: 13:34 Travel History International Travel<30 days: No Contact w/Intl Traveler<30days: No Traveled to known affect area: No History of Present Illness HPI 81 y/o female presents with low hemoglobin of 6.4. She denies any active bleeding. She cannot recall if she's had this issue before per staff. She does state that she was in the hospital recently. She denies any other concurrent complaints. She is presenting from the detention. She states she had the blood work done routinely and only notes tiredness. She denies other concurrent complaints. PFSH Past Medical History Hx Anticoagulant Therapy: No Arthritis: Yes (MILD GENERALIZED) Asthma: Yes Autoimmune Disease: No Blood Disorders: No Anxiety: Yes (RARE ANXIETY ATTACKS) Depression: No Heart Rhythm Problems: No Cancer: Yes (BREAST CANCER) Cardiovascular Problems: Yes High Cholesterol: Yes Chemotherapy: No Chest Pain: No Congestive Heart Failure: No COPD: Yes Diabetes: No Diminished Hearing: Yes Endocrine: No Gastrointestinal Disorders: Yes (LACTOSE INTOLERANT ) GERD: No Glaucoma: No Genitourinary: No Hepatitis: No Hiatal Hernia: No Hypertension: Yes Immune Disorder: No Insomnia: Yes Musculoskeletal: Yes Neurologic: No Psychiatric: Yes Reproductive: No Respiratory: Yes Immunizations Current: Yes Radiation Therapy: Yes (1989) Sleep Apnea: No Thyroid Disease: No Ulcer: No Tetanus Vaccination: < 5 Years PNEUMOCCOCAL Vaccine (Year): 2008 ?: Not Menopausal: Yes Past Surgical History Abdominal Surgery: Yes (TAHBSO) Cardiac Surgery: No Ear Surgery: No Endocrine Surgery: No Eye Surgery: Yes (CATARACTS BILATERAL ) Genitourinary Surgery: No Gynecologic Surgery: Yes (BILAT. MASTECTOMY) Hysterectomy: Yes Oral Surgery: Yes (EXTRACTIONS ) Pacemaker: No Thoracic Surgery: Yes (left breast lumpectomy ) Other Surgery: Yes (LEFT BREAST LUMPECTOMY) Social History Alcohol Use: Yes (VERY RARE) Tobacco Use: No Substance Use: No Allergies-Medications (Allergen,Severity, Reaction): Coded Allergies: No Known Allergies (Verified , 03/28/17) Reported Meds & Prescriptions Reported Meds & Active Scripts Active Potassium Chloride ER (Potassium Chloride) 20 Meq Tab 20 Meq PO DAILY Reported Flonase Nasal [place] (Fluticasone Nasal [place]) 50 Mcg/Act [place] 1 Spr EACH NARE Q12HR PRN Guaifenesin 400 Mg Tab 400 Mg PO BID PRN Tizanidine (Tizanidine HCl) 4 Mg Cap 4 Mg PO TID PRN Nitroglycerin SL (Nitroglycerin) 0.4 Mg Subl 0.4 Mg SL DIRECTED PRN ONE TABLET UNDER THE TONGUE NEEDED FOR CHEST PAIN, MAY REPEAT EVERY FIVE MINUTES FOR A TOTAL OF 3 DOSES OR CALL 911 IF NO RELIEF Prednisone 10 Mg Tab 10 Mg PO BID Atorvastatin (Atorvastatin Calcium) 20 Mg Tab 20 Mg PO HS Breo Ellipta Inh (Fluticasone/Vilanterol) 200-25 Mcg/Act Inh 1 Puff INH DAILY Use daily at the same time. Vitamin D3 (Cholecalciferol) 1,000 Unit Tab 1,000 Units PO DAILY Ocuvite Lutein 25-5 mg Softgel (Lutein/Zeaxanthin) 1 Each Capsule 1 Cap PO DAILY Caltrate 600+D Plus Minerals (Calcium Carbonate-Vitamin D W/Minerals) 600-800 Mg -Unit Tab 1 Tab PO DAILY Multiple Vitamin 1 Tab 1 Tab PO DAILY Omeprazole 40 Mg Cap 40 Mg PO DAILY Duoneb (Ipratropium-Albuterol Neb) 0.5-2.5 Mg/3 Ml Neb 1 Nebule INH Q4HR PRN Ventolin Hfa 18 GM Inh (Albuterol Sulfate) 90 Mcg/Act Aer 2 Puff INH Q6H PRN Tizanidine (Tizanidine HCl) 2 Mg Cap 2 Mg PO TID PRN Mirtazapine 7.5 Mg Tab 7.5 Mg PO HS Review of Systems Except as stated in HPI: all other systems reviewed are Neg Physical Exam Narrative GENERAL: Well-nourished, well-developed patient. SKIN: Warm and dry. HEAD: Normocephalic and atraumatic. EYES: No injection or drainage. ENT: No nasal drainage noted. NECK: Supple, trachea midline. CARDIOVASCULAR: Regular rate and rhythm RESPIRATORY: No increased effort. No accessory muscle use. GASTROINTESTINAL: Abdomen soft, non-tender, nondistended. RECTAL EXAM: Performed with clerk specialist and after permission. No external hemorrhoid or fissure, stool is brown, non-bloody. NEUROLOGICAL: Awake. Moves all extremities. Normal speech. Data Data Last Documented VS Vital Signs Date Time Temp Pulse Resp B/P Pulse Ox O2 Delivery O2 Flow Rate FiO2 03/28/17 16:00 114 22 162/81 97 Nasal Cannula 2 03/28/17 13:23 98.3 Orders Complete Blood Count With Diff (03/28/17 13:40) Basic Metabolic Panel (Bmp) (03/28/17 13:40) Act Partial Throm Time (Ptt) (03/28/17 13:40) Prothrombin Time / Inr (Pt) (03/28/17 13:40) Iv Access Insert/Monitor (03/28/17 13:40) Ecg Monitoring (03/28/17 13:40) Oximetry (03/28/17 13:40) Type And Screen (03/28/17 13:40) Urinalysis - C+S If Indicated (03/28/17 14:36) Chest, Single Ap (03/28/17 ) Blood Product Administration .UPON TRANSFUSION (03/28/17 14:37) Sodium Chlor 0.9% 250 Ml Inj (Ns 250 Ml (03/28/17 14:45) Red Blood Cells (Rbc) (03/28/17 15:51) Sodium Chlor 0.9% 250 Ml Inj (Ns 250 Ml (03/28/17 16:00) Levofloxacin (Levaquin) (03/28/17 16:00) Admit Order (Ed Use Only) (03/28/17 16:11) Labs Laboratory Tests Test 03/28/17 03/28/17 13:35 15:51 White Blood Count 18.6 TH/MM3 Red Blood Count 2.51 MIL/MM3 Hemoglobin 7.3 GM/DL Hematocrit 22.8 % Mean Corpuscular Volume 91.2 FL Mean Corpuscular Hemoglobin 29.3 PG Mean Corpuscular Hemoglobin 32.1 % Concent Red Cell Distribution Width 15.2 % Platelet Count 306 TH/MM3 Mean Platelet Volume 8.2 FL Neutrophils (%) (Auto) 92.3 % Lymphocytes (%) (Auto) 3.2 % Monocytes (%) (Auto) 4.1 % Eosinophils (%) (Auto) 0.3 % Basophils (%) (Auto) 0.1 % Neutrophils # (Auto) 17.2 TH/MM3 Lymphocytes # (Auto) 0.6 TH/MM3 Monocytes # (Auto) 0.8 TH/MM3 Eosinophils # (Auto) 0.1 TH/MM3 Basophils # (Auto) 0.0 TH/MM3 CBC Comment DIFF FINAL Differential Comment Prothrombin Time 10.4 SEC Prothromb Time International 0.9 RATIO Ratio Activated Partial 19.4 SEC Thromboplast Time Sodium Level 139 MEQ/L Potassium Level 4.0 MEQ/L Chloride Level 103 MEQ/L Carbon Dioxide Level 26.5 MEQ/L Anion Gap 10 MEQ/L Blood Urea Nitrogen 20 MG/DL Creatinine 0.77 MG/DL Estimat Glomerular Filtration 72 ML/MIN Rate Random Glucose 103 MG/DL Calcium Level 8.9 MG/DL Blood Type O POSITIVE O POSITIVE Antibody Screen NEGATIVE Crossmatch Leukocyte-Reduced Red Blood Cells Blood Bank Comment MDM Medical Decision Making Medical Screen Exam Complete: Yes Emergency Medical Condition: Yes Medical Record Reviewed: Yes (past history confirmed, recent hospitalization with transfusion, EGD with gastritis and esophagitis) Interpretation(s) CBC & BMP Diagram 03/28/17 13:35 Last 24 hours Impressions Chest X-Ray 03/28/17 0000 Signed Impressions: Service Date/Time: Tuesday, March 28, 2017 14:37 - CONCLUSION: Stable chest x-ray with persistent airspace opacity in the right lower lobe. The prior CT demonstrated findings suspicious for aspiration with consolidation. Pop Connolly MD Differential Diagnosis Iron deficiency anemia, blood loss, lab error Narrative Course Will check blood work to confirm and reevaluate Blood work confirms anemia. We will transfuse with 1 unit, x-ray shows persistent infiltrate and acute elevation in white blood cell count so we will write for an additional day of Levaquin and her white blood cell count will need to be monitored. Clinically she only notes generalized weakness. We will place in observation. HemaPrompt Point of Care Internal Pos. & Neg. Controls: Passed Fecal Specimen Occult Blood: Negative Diagnosis Primary Impression: Anemia Qualified Code: D64.9 - Anemia, unspecified type Additional Impressions: Generalized weakness Infiltrate noted on imaging study Admitting Information Admitting Physician Requests: Observation Miguelina Betancur MD Mar 28, 2017 13:53
[2017-03-28 14:07] LABS: AUTOMATED NEUTROPHIL # 17.2 TH/MM3 (1.8-7.7); BASOPHIL % 0.1 % (0.0-2.0); EOSINOPHIL # 0.1 TH/MM3 (0-0.4); EOSINOPHIL % 0.3 % (0.0-4.0); HEMATOCRIT 22.8 % (35.0-46.0); HEMO FLAGS DIFF FINAL; LYMPH % 3.2 % (9.0-44.0); LYMPHOCYTE # 0.6 TH/MM3 (1.0-4.8); MEAN CELL VOLUME 91.2 FL (80.0-100.0); MEAN CORPUSCULAR HEMOGLOBIN 29.3 PG (27.0-34.0); MEAN CORPUSCULAR HGB CONC 32.1 % (32.0-36.0); MONO % 4.1 % (0.0-8.0); NEUT % 92.3 % (16.0-70.0); PLATELET COUNT 306 TH/MM3 (150-450); RED BLOOD COUNT 2.51 MIL/MM3 (4.00-5.30); RED CELL DISTRIBUTION WIDTH 15.2 % (11.6-17.2); WHITE BLOOD COUNT 18.6 TH/MM3 (4.0-11.0)
[2017-03-28] MEDS ORDERED: CALC1TAB34 PO (14:11)
[2017-03-28] MEDS ORDERED: MULTTAB67 PO (14:11)
[2017-03-28] MEDS ORDERED: OMEP40CA2 PO (14:11)
[2017-03-28] MEDS ORDERED: LUTE1CAP10 PO (14:11)
[2017-03-28] MEDS ORDERED: PRED10 PO (14:16)
[2017-03-28] MEDS ORDERED: ATOR20TA15 PO (14:16)
[2017-03-28] MEDS ORDERED: FLUT1INH7 INH (14:16)
[2017-03-28] MEDS ORDERED: NITR1SUB3 SL (14:16)
[2017-03-28] MEDS ORDERED: VITA100018 PO (14:16)
[2017-03-28] MEDS ORDERED: TIZA4CAP3 PO (14:21)
[2017-03-28] MEDS ORDERED: FLUT1SPR5 EACH NARE (14:21)
[2017-03-28] MEDS ORDERED: GUAI400T8 PO (14:21)
[2017-03-28 14:23] LABS: APTT (PATIENT) 19.4 SEC (24.3-30.1); INTERNATIONAL NORMALIZED RATIO 0.9 RATIO; PROTHROMBIN TIME - PATIENT 10.4 SEC (9.8-11.6)
[2017-03-28 14:29] LABS: BICARBONATE 26.5 MEQ/L (21.0-32.0)
[2017-03-28] MEDS ORDERED: SODIUM CHLOR 0.9% 250 ML INJ 250 ML IV ONE ×2 (14:45→16:00)
--- NOTE | 2017-03-28 15:51 | RADRPT ---
EXAM DATE/TIME: 03/28/2017 14:37 [facility] COMPARISON: CT PULMONARY ANGIOGRAM, March 17, 2017, 12:06. CHEST SINGLE AP, March 15, 2017, 15:08. INDICATIONS : Shortness of breath. MEDICAL HISTORY : Chronic obstructive pulmonary disease. Hypercholesterolemia. Hypertension. SURGICAL HISTORY : Mastectomy, bilateral. Hysterectomy. ENCOUNTER: Initial ACUITY: 1 day PAIN SCORE: 0/10 LOCATION: Bilateral chest FINDINGS: 2 AP views of the chest demonstrate a normal-sized cardiac silhouette calcification of the aorta. The lungs are mildly underinflated. There is persistent airspace opacity in the medial right lower lobe. No pleural effusion or pneumothorax is identified. Background lung changes are characteristic of emp hysema. Bones and soft tissues demonstrate no acute finding. There are multiple clips in the left axi lla. CONCLUSION: Stable chest x-ray with persistent airspace opacity in the right lower lobe. The prior CT demonstrate d findings suspicious for aspiration with consolidation. Pop Connolly MD on March 28, 2017 at 15:47 Board Certified Radiologist. This report was verified electronically.
[2017-03-28] MEDS ORDERED: LEVOFLOXACIN 750 MG TAB PO ONE (16:00)
[2017-03-28] MEDS ORDERED: ONDANSETRON HCL 4 MG/2 ML VIAL IVP PRN (16:15)
[2017-03-28] MEDS ORDERED: BISACODYL 10 MG SUPP RECTAL PRN (16:15)
[2017-03-28] MEDS ORDERED: NALOXONE HCL 0.4 MG/ML AMP IV PRN (16:15)
[2017-03-28] MEDS ORDERED: MAGNESIUM HYDROXIDE SUSP 30 ML CUP PO PRN (16:15)
[2017-03-28] MEDS ORDERED: LACTULOSE SYRUP 20 GM/30 ML CUP PO PRN (16:15)
[2017-03-28] MEDS ORDERED: ACETAMINOPHEN 325 MG TAB PO PRN (16:15)
[2017-03-28] MEDS ORDERED: SENNOSIDES 8.6 MG TAB PO PRN (16:15)
[2017-03-28] MEDS ORDERED: SODIUM CHLORIDE 0.9% FLUSH 10 ML FLUSH IV FLUSH PRN (16:15)
--- NOTE | 2017-03-28 17:26 | HHI.HP ---
HPI Service [facility] Primary Care Physician Dante Reddy MD Admission Diagnosis anemia Diagnoses: Chief Complaint: Anemia Travel History International Travel<30 Days: No Contact w/Intl Traveler <30 Da: No Traveled to Known Affected Are: No History of Present Illness Written by Aaron Olvera, acting as scribe for Dr. Cardenas on 03/28/17 at 17:07. 81-year-old female with past medical history of COPD, PUD, HTN/tachycardia who was sent from SNF for anemia. The patient is awake and alert, but states she is "confused". History is obtained from the patient, ED communication, jail documentation, and the EMR. She states she was sent from the jail for low blood count. The patient had a recent hospitalization for pneumonia and GI bleeding. The patient was Hemoccult negative in the ED. She had outpatient lab work that showed a hemoglobin of 6.4. Repeat hemoglobin in the ED was 7.3. ED transfuse 1 unit PRBCs. The patient denies any pain, headache, vision changes, bleeding, abdominal pain , nausea, vomiting, fever, chills, sweats. Her shortness of breath is at baseline. She has been having a nonproductive cough. She states she completed treatment for pneumonia. The patient hasn't had a bowel movement 2 days, which is normal for her. The patient was discharged from the hospital on 03/25 after an admission for pneumonia where she saw pulmonology and GI bleed which she saw gastroenterology. She did have an EGD which showed erosive gastritis and 2 ulcers. She saw her PCP on 03/26. She is admitted to SNF 03/27. She was sent to the ED on 03/28 for anemia as above on labs at SNF. Review of Systems ROS Limitations: Poor Historian Except as stated in HPI: all other systems reviewed are Neg Past Family Social History Past Medical History COPD on home oxygen Recent GI bleed and peptic ulcer disease Hypertension with tachycardia History of breast cancer status post mastectomy Past Surgical History Bilateral mastectomy Hysterectomy EGD Reported Medications Potassium Chloride ER (Potassium Chloride) 20 Meq Tab 20 Meq PO DAILY Flonase Nasal [place] (Fluticasone Nasal [place]) 50 Mcg/Act [place] 1 Spr EACH NARE Q12HR PRN Guaifenesin 400 Mg Tab 400 Mg PO BID PRN Tizanidine (Tizanidine HCl) 4 Mg Cap 4 Mg PO TID PRN Nitroglycerin SL (Nitroglycerin) 0.4 Mg Subl 0.4 Mg SL DIRECTED PRN ONE TABLET UNDER THE TONGUE NEEDED FOR CHEST PAIN, MAY REPEAT EVERY FIVE MINUTES FOR A TOTAL OF 3 DOSES OR CALL 911 IF NO RELIEF Prednisone 10 Mg Tab 10 Mg PO BID Atorvastatin (Atorvastatin Calcium) 20 Mg Tab 20 Mg PO HS Breo Ellipta Inh (Fluticasone/Vilanterol) 200-25 Mcg/Act Inh 1 Puff INH DAILY Use daily at the same time. Vitamin D3 (Cholecalciferol) 1,000 Unit Tab 1,000 Units PO DAILY Ocuvite Lutein 25-5 mg Softgel (Lutein/Zeaxanthin) 1 Each Capsule 1 Cap PO DAILY Caltrate 600+D Plus Minerals (Calcium Carbonate-Vitamin D W/Minerals) 600-800 Mg -Unit Tab 1 Tab PO DAILY Multiple Vitamin 1 Tab 1 Tab PO DAILY Omeprazole 40 Mg Cap 40 Mg PO DAILY Duoneb (Ipratropium-Albuterol Neb) 0.5-2.5 Mg/3 Ml Neb 1 Nebule INH Q4HR PRN Ventolin Hfa 18 GM Inh (Albuterol Sulfate) 90 Mcg/Act Aer 2 Puff INH Q6H PRN Tizanidine (Tizanidine HCl) 2 Mg Cap 2 Mg PO TID PRN Mirtazapine 7.5 Mg Tab 7.5 Mg PO HS Allergies: Coded Allergies: No Known Allergies (Verified , 03/28/17) Active Ordered Medications Current Medications Medications (Trade) Dose Ordered Sig/Shanelle Route Start Time Stop Time Status Last Admin Sodium Chloride 250 ml @ 15 mls/hr ONCE ONCE IV 03/28/17 14:45 03/29/17 07:24 03/28/17 15:02 (NS 250 ml Inj) 250 ml @ 15 mls/hr ONCE ONCE IV 03/28/17 16:00 03/29/17 08:39 (NS Flush) 2 ml UNSCH PRN IV FLUSH 03/28/17 16:15 (NS Flush) 2 ml BID IV FLUSH 03/28/17 21:00 (Tylenol) 650 mg Q4H PRN PO 03/28/17 16:15 (Zofran Inj) 4 mg Q6H PRN IVP 03/28/17 16:15 (Narcan Inj) 0.4 mg UNSCH PRN IV 03/28/17 16:15 (Gloria-Colace) 1 tab BID PO 03/28/17 21:00 (Milk Of Magnesia Liq) 30 ml Q12H PRN PO 03/28/17 16:15 (Senokot) 17.2 mg Q12H PRN PO 03/28/17 16:15 (Dulcolax Supp) 10 mg DAILY PRN RECTAL 03/28/17 16:15 (Lactulose Liq) 30 ml DAILY PRN PO 03/28/17 16:15 (Levaquin) 750 mg Q24H PO 03/29/17 16:00 Family History Mother had CHF Brother had throat cancer Sister had unknown cancer Social History [facility] resident Quit smoking 15 years ago Has 1 alcoholic beverage every other month Denies any drug use Physical Exam Vital Signs Vital Signs Date Time Temp Pulse Resp B/P Pulse Ox O2 Delivery O2 Flow Rate FiO2 03/28/17 17:03 120 19 170/70 97 03/28/17 16:50 98.6 120 24 154/86 100 Nasal Cannula 2 03/28/17 16:00 114 22 162/81 97 Nasal Cannula 2 03/28/17 13:52 98 Nasal Cannula 2 03/28/17 13:23 98.3 115 24 170/87 98 Physical Exam GENERAL: Well-developed well-nourished. In no acute distress. Appears comfortable on O2. SKIN: Warm and dry. No lesions noted. HEENT: Normocephalic. Pupils equal and round. Mucous membranes pink and moist. CARDIOVASCULAR: Regular rate and rhythm. No murmur appreciated. RESPIRATORY: No accessory muscle use. Diffuse coarse breath sounds. Basilar rhonchi bilaterally. GASTROINTESTINAL: Abdomen soft, non-tender, nondistended. Bowel sounds x4. MUSCULOSKELETAL: No obvious deformities. No clubbing or cyanosis. No edema. NEUROLOGICAL: Awake and alert. No focal neurological deficits. Moves upper and lower extremities spontaneously. Normal speech. PSYCHIATRIC: Pleasantly confused mood and affect; insight and judgment fair. Laboratory Laboratory Tests Test 03/28/17 03/28/17 13:35 15:51 White Blood Count 18.6 Red Blood Count 2.51 Hemoglobin 7.3 Hematocrit 22.8 Mean Corpuscular Volume 91.2 Mean Corpuscular Hemoglobin 29.3 Mean Corpuscular Hemoglobin 32.1 Concent Red Cell Distribution Width 15.2 Platelet Count 306 Mean Platelet Volume 8.2 Neutrophils (%) (Auto) 92.3 Lymphocytes (%) (Auto) 3.2 Monocytes (%) (Auto) 4.1 Eosinophils (%) (Auto) 0.3 Basophils (%) (Auto) 0.1 Neutrophils # (Auto) 17.2 Lymphocytes # (Auto) 0.6 Monocytes # (Auto) 0.8 Eosinophils # (Auto) 0.1 Basophils # (Auto) 0.0 CBC Comment DIFF FINAL Differential Comment Prothrombin Time 10.4 Prothromb Time International 0.9 Ratio Activated Partial 19.4 Thromboplast Time Sodium Level 139 Potassium Level 4.0 Chloride Level 103 Carbon Dioxide Level 26.5 Anion Gap 10 Blood Urea Nitrogen 20 Creatinine 0.77 Estimat Glomerular Filtration 72 Rate Random Glucose 103 Calcium Level 8.9 Blood Type O POSITIVE O POSITIVE Antibody Screen NEGATIVE Crossmatch Leukocyte-Reduced Red Blood Cells Blood Bank Comment Result Diagram: 03/28/17 1335 03/28/17 1335 Imaging Last Impressions Chest X-Ray 03/28/17 0000 Signed Impressions: Service Date/Time: Tuesday, March 28, 2017 14:37 - CONCLUSION: Stable chest x-ray with persistent airspace opacity in the right lower lobe. The prior CT demonstrated findings suspicious for aspiration with consolidation. Pop Connolly MD Assessment and Plan Assessment and Plan 81-year-old female with past medical history of COPD, PUD, HTN/tachycardia who was sent from SNF for anemia Normocytic anemia: Acute on chronic. Recent anemia of acute blood loss. Hemoglobin 7.3, previously 8.6 on 03/24/17. No signs of active bleeding, Hemoccult negative in the ED. -Status post transfusion 1 unit PRBCs in the ED -Monitor H&H and for signs of active bleeding Pneumonia: Patient continuing with cough. Chest x-ray shows continued airspace opacity in the right lower lobe. S/P recent treatment for hospital-acquired pneumonia. -Resume Levaquin -Consult pulmonology COPD with chronic respiratory failure on home O2: -Continue steroid taper -Continue pulmonary regimen and nebs as needed Hypertension and tachycardia: Currently not well controlled -Resume Cardizem -Monitor on telemetry Peptic ulcer disease: -Continue PPI DVT prophylaxis: SCDs. Avoid chemical prophylaxis with anemia. Discussed Condition With Patient, ED staff Attending Statement This note was transcribed by shahid Olvera. I, Dr. Samir Cardenas personally performed the history, physical exam, and medical decision making; and confirmed the accuracy of the information in the transcribed note. Authenticated by Dr. Samir Cardenas on 03/28/17 at 18:09. Aaron Olvera Mar 28, 2017 17:26 Samir Cardenas MD Mar 28, 2017 18:10
[2017-03-28] MEDS ORDERED: guaiFENesin SOLUTION 200 MG/10 ML CUP PO PRN (17:30)
[2017-03-28] MEDS ORDERED: RESP: ALBUTEROL 2.5 MG/IPRATROPIUM 0.5 MG NEB (PRN) INH (17:30)
[2017-03-28] MEDS: DILTIAZEM-CD 240 MG CAP ER PO SCH (17:30)
[2017-03-28] MEDS ORDERED: TEMAZEPAM 7.5 MG CAP PO PRN (19:00)
[2017-03-28] MEDS ORDERED: PILL SPLITTER OTHER PRN (19:30)
[2017-03-28 20:50] LABS: BLOOD, URINE NEG (NEG); COMMENT (UR) CATH-CULT NOT IND; CULTURE IF INDICATED CATH CULTURE NOT IND; GLUCOSE,URINE NEG (NEG); KETONE, URINE NEG (NEG); NITRITE,URINE NEG (NEG); SQUAMOUS EPITHELIAL CELL URINE 1 /hpf (0-5); URINE COLOR YELLOW (YELLW/STRAW)
[2017-03-28] MEDS ORDERED: ATORVASTATIN 20 MG TAB PO SCH (21:00)
[2017-03-28] MEDS ORDERED: MIRTAZAPINE 15 MG TAB PO SCH (21:00)
[2017-03-28] MEDS: predniSONE 10 MG TAB PO SCH (21:14)
[2017-03-28] MEDS: DOCUSATE SODIUM 50 MG/SENNA 8.6 MG TAB PO SCH (21:14)
[2017-03-28] MEDS: SODIUM CHLORIDE 0.9% FLUSH 10 ML FLUSH IV FLUSH SCH (21:15)
--- NOTE | 2017-03-28 22:14 | MB ---
cc: LISA MICHELLE DATE OF CONSULTATION 03/28/17 REQUESTING PHYSICIAN Aaron Olvera MD REASON FOR CONSULTATION COPD and pneumonia. HISTORY OF PRESENT ILLNESS Ms. Weston is a pleasant elderly female with history of COPD. She is oxygen dependent. The patient was admitted in this hospital and discharged from here last week. She had a lung infiltrate and anemia. The patient had a workup done in the skilled nursing and was told that her hemoglobin was low and she was sent over here she was worked up in the emergency room, had hemoglobin 7.3 and she is receiving packed blood cells. She has mild shortness of breath which is normal for her, not able to bring up any phlegm. No fever or chills. No night sweats. PAST MEDICAL HISTORY 1. History of COPD. She is oxygen dependent 2. History of lumpectomy and radiation 20 years ago. 3. History of bilateral mastectomy for CA of the breast 4. Anemia MEDICATIONS Currently taking 1. Levaquin 750 mg a day, 2. Breo elipta 200/25 once a day. 4. Lipitor 20 mg at night time. 5. Albuterol/Atrovent nebulizer treatment. 6. Prednisone 10 mg twice a day, 7. Diltiazem 240 mg a day. ALLERGIES NO KNOWN DRUG ALLERGIES. SOCIAL HISTORY She has history of smoking in the past which she quit. No alcohol use. FAMILY HISTORY She is a , lives alone. Her daughter lives nearby. She has three children. REVIEW OF SYSTEMS She feels weak, walks only short distance. She was recuperating in the skilled nursing. No headache or dizziness. No bleeding from any site. PHYSICAL EXAMINATION GENERAL: Elderly female mildly short of breath. VITAL SIGNS: Blood pressure 120/74, heart rate 120, respirations 22, temperature 98.3 HEENT: Pupils are equal and reactive to light. Oral mucosa, nasal mucosa normal. NECK: Supple. CHESET: She has end-expiratory rhonchi. CARDIOVASCULAR: S1, S2 normal. ABDOMEN: Soft, nondistended. Bowel sounds are present. EXTREMITIES: No edema. NEUROLOGIC: Alert and oriented times three in no focal deficit. LABORATORY FINDINGS WBC count is 18.6, hemoglobin 7.3, hematocrit 22.8, MCV 91, platelet count 306, sodium 139, potassium 4.0, chloride 103, CO2 26, BUN 20, creatinine 0.77. IMPRESSION 1. Chronic obstructive pulmonary disease with mild exacerbation 2. Leukocytosis. She is on steroids. 3. Anemia. 4. History of CA of the breast status post bilateral mastectomy. PLAN The patient has received one unit if blood transfusion. She has a lung infiltrate, likely resolving pneumonia. She is being covered with Levaquin. We will give her aerosol treatment and p.o. prednisone. Monitor her hemoglobin and hematocrit. She has difficulty sleeping, wants some sleeping pill. I will give her Restoril 7.5 mg at nighttime only as needed. Further treatment will depend on the course in the hospital. Thank you, Dr. Aaron Olvera, for this consultation. MD FLORENCIO Blair/ /6:53 PM /9:59 PM MTDD
[2017-03-29] VITALS (7 sets, daily range): BP systolic 130–160; BP diastolic 75–82; PULSE 79–100; RESP 16–20; TEMP 97.6–98.6; O2SAT 96–98
[2017-03-29 06:15] LABS: AUTOMATED NEUTROPHIL # 14.9 TH/MM3 (1.8-7.7); BASOPHIL % 0.1 % (0.0-2.0); EOSINOPHIL # 0.1 TH/MM3 (0-0.4); EOSINOPHIL % 0.4 % (0.0-4.0); HEMATOCRIT 26.4 % (35.0-46.0); HEMO FLAGS DIFF FINAL; LYMPH % 6.3 % (9.0-44.0); LYMPHOCYTE # 1.1 TH/MM3 (1.0-4.8); MEAN CELL VOLUME 88.4 FL (80.0-100.0); MEAN CORPUSCULAR HEMOGLOBIN 30.3 PG (27.0-34.0); MEAN CORPUSCULAR HGB CONC 34.2 % (32.0-36.0); MONO % 5.5 % (0.0-8.0); NEUT % 87.7 % (16.0-70.0); PLATELET COUNT 259 TH/MM3 (150-450); RED BLOOD COUNT 2.98 MIL/MM3 (4.00-5.30); RED CELL DISTRIBUTION WIDTH 14.8 % (11.6-17.2)
[2017-03-29 06:48] LABS: BICARBONATE 30.3 MEQ/L (21.0-32.0); POTASSIUM 3.6 MEQ/L (3.5-5.1)
[2017-03-29] MEDS ORDERED: PANTOPRAZOLE SOD 40 MG DELAYED RELEASE TAB PO SCH (09:00)
[2017-03-29] MEDS ORDERED: MULTIVITAMIN-OPHTHALMIC 1 TAB PO SCH (09:00)
[2017-03-29] MEDS ORDERED: POTASSIUM CHLORIDE 20 MEQ CONTROLLED RELEASE TAB PO SCH (09:00)
[2017-03-29] MEDS ORDERED: CALCIUM/VITAMIN D 250 MG/125 U TAB PO SCH (09:00)
[2017-03-29] MEDS ORDERED: FLUTICASONE 200 MCG/VILANTEROL 25 MCG INHALER INH SCH (09:00)
[2017-03-29] MEDS ORDERED: NON-FORMULARY DRUG (Multiple Vitamin 1 TAB) PO SCH (09:00)
[2017-03-29] MEDS ORDERED: CHOLECALCIFEROL (VIT D3) 1000 UNIT TAB PO SCH (09:00)
--- NOTE | 2017-03-29 09:00 | HHI.PR ---
Subjective Remarks Follow up anemia, pneumonia. Patient states that she feels good today. Denies chest pain. Dyspnea is chronic, unchanged. Denies bleeding. Objective Vitals Vital Signs Date Time Temp Pulse Resp B/P Pulse Ox O2 Delivery O2 Flow Rate FiO2 03/29/17 07:17 97.6 92 16 146/75 96 03/29/17 03:29 98.6 79 18 143/78 98 03/29/17 00:16 89 03/28/17 23:55 142/68 03/28/17 23:36 98.2 95 18 169/92 98 03/28/17 22:33 97 Nasal Cannula 2.00 03/28/17 21:27 132/80 03/28/17 21:12 18 03/28/17 21:10 109 03/28/17 20:23 98.6 114 18 170/94 98 03/28/17 18:21 98.3 120 22 120/74 99 03/28/17 17:30 98.5 124 20 135/92 97 03/28/17 17:03 120 19 170/70 97 03/28/17 16:50 98.6 120 24 154/86 100 Nasal Cannula 2 03/28/17 16:00 114 22 162/81 97 Nasal Cannula 2 03/28/17 13:52 98 Nasal Cannula 2 03/28/17 13:23 98.3 115 24 170/87 98 I/O 03/28/17 03/28/17 03/28/17 03/29/17 03/29/17 03/29/17 06:59 14:59 22:59 06:59 14:59 22:59 Intake Total 250 ml Output Total 600 ml Balance -350 ml Intake Packed Cells 250 ml Output Urine Total 600 ml # Voids 1 Result Diagram: 03/29/17 0500 03/29/17 0500 Imaging Last Impressions Chest X-Ray 03/28/17 0000 Signed Impressions: Service Date/Time: Tuesday, March 28, 2017 14:37 - CONCLUSION: Stable chest x-ray with persistent airspace opacity in the right lower lobe. The prior CT demonstrated findings suspicious for aspiration with consolidation. Pop Connolly MD Objective Remarks General: Elderly female in no acute distress. Heart: Regular rate and rhythm. No murmur. Lungs: Clear to auscultation bilaterally. No wheezes, rales, or rhonchi. Breathing is nonlabored. Abdomen: Soft, nontender, nondistended. Extremities: No lower extremity edema. SCDs. Psych: Alert, somewhat confused. Answers questions appropriately. Procedures None Urinary Catheter: No Vascular Central Line Catheter: No A/P Problem List: (1) Anemia ICD Code: D64.9 Status: Acute (2) Generalized weakness ICD Code: R53.1 Status: Acute (3) COPD with exacerbation ICD Code: J44.1 Status: Acute (4) Pneumonia ICD Code: J18.9 Status: Acute Assessment and Plan 1. Anemia, normocytic: Acute on chronic. Patient had recent anemia secondary to acute blood loss. Hemoglobin was 6.4 as outpatient yesterday, 7.3 on presentation to the ER. Hemoglobin has improved following transfusion of 1 unit PRBCs. Recheck H&H this morning. No reported bleeding overnight. Stool was negative for blood in the ER. 2. Pneumonia: Patient has recently been treated for healthcare associated pneumonia. Continue Levaquin. Appreciate pulmonology recommendations. Continue oxygen. 3. 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 4. Hypertension, tachycardia: Continue Cardizem. 5. GI prophylaxis: PPI. 6. DVT prophylaxis: SCDs. Avoid chemical prophylaxis secondary to anemia, recent GI bleed. Discharge Planning Possible discharge to SNF later today if H&H remains stable. Problem Qualifiers (1) Anemia: Qualified Code: D64.9 - Anemia, unspecified type Samir Cardenas MD Mar 29, 2017 09:00
[2017-03-29] MEDS ORDERED: LEVA750T9 PO (09:02)
[2017-03-29] MEDS ORDERED: CARD240C6 PO (09:02)
[2017-03-29] MEDS ORDERED: PNEUMOCOCCAL POLYVALENT INJ 25 MCG/0.5 ML SYR IM ONE (10:00)
[2017-03-29] MEDS ORDERED: INFLUENZA VIRUS VACCINE (QUADRIVALENT) 0.5 ML SYR IM ONE (10:00)
[2017-03-29] MEDS: DOCUSATE SODIUM 50 MG/SENNA 8.6 MG TAB PO SCH (10:18)
[2017-03-29] MEDS: DILTIAZEM-CD 240 MG CAP ER PO SCH (10:18)
[2017-03-29] MEDS: SODIUM CHLORIDE 0.9% FLUSH 10 ML FLUSH IV FLUSH SCH (10:21)
[2017-03-29] MEDS: predniSONE 10 MG TAB PO SCH (10:35)
--- NOTE | 2017-03-29 11:37 | HHI.PR ---
Subjective Remarks 81 YOWF with COPD, Anemia Breathing better had 1 unit PRBC Hb 10 No fever Objective Vital Signs Vital Signs Date Time Temp Pulse Resp B/P Pulse Ox O2 Delivery O2 Flow Rate FiO2 03/29/17 11:26 97.9 94 20 130/82 96 03/29/17 07:26 97 Nasal Cannula 2.00 03/29/17 07:17 97.6 92 16 146/75 96 03/29/17 03:29 98.6 79 18 143/78 98 03/29/17 00:16 89 03/28/17 23:55 142/68 03/28/17 23:36 98.2 95 18 169/92 98 03/28/17 22:33 97 Nasal Cannula 2.00 03/28/17 21:27 132/80 03/28/17 21:12 18 03/28/17 21:10 109 03/28/17 20:23 98.6 114 18 170/94 98 03/28/17 18:21 98.3 120 22 120/74 99 03/28/17 17:30 98.5 124 20 135/92 97 03/28/17 17:03 120 19 170/70 97 03/28/17 16:50 98.6 120 24 154/86 100 Nasal Cannula 2 03/28/17 16:00 114 22 162/81 97 Nasal Cannula 2 03/28/17 13:52 98 Nasal Cannula 2 03/28/17 13:23 98.3 115 24 170/87 98 I/O 03/28/17 03/28/17 03/28/17 03/29/17 03/29/17 03/29/17 06:59 14:59 22:59 06:59 14:59 22:59 Intake Total 250 ml Output Total 600 ml Balance -350 ml Intake Packed Cells 250 ml Output Urine Total 600 ml # Voids 1 Result Diagram: 03/29/17 0500 03/29/17 0500 Objective Remarks GENERAL: MBMN WF NAD SKIN: Warm and dry. HEAD: Normocephalic. EYES: No scleral icterus. No injection or drainage. NECK: Supple, trachea midline. No JVD or lymphadenopathy. CARDIOVASCULAR: Regular rate and rhythm without murmurs, gallops, or rubs. RESPIRATORY: Breath sounds equal bilaterally. No accessory muscle use. GASTROINTESTINAL: Abdomen soft, non-tender, nondistended. MUSCULOSKELETAL: No cyanosis, or edema. BACK: Nontender without obvious deformity. No CVA tenderness. A/P Assessment and Plan COPD with mild exac Lung infilterate, resolving Pn Leucocytosis Anemia H/O Ca breast PLAN: Aerosol nebs PO Prednisone cont Abx Supplement 02 Monitor H&H DC Plans for back to SNF/rehab Hong Velasquez MD Mar 29, 2017 11:37
[2017-03-29 12:09] LABS: HEMATOCRIT 26.6 % (35.0-46.0); REVIEW FLAG FINAL
--- NOTE | 2017-03-29 12:55 | HHI.DCPOC ---
Discharge Care Plan Diagnosis: (1) COPD with exacerbation (2) Pneumonia (3) Generalized weakness (4) Anemia Goals to Promote Your Health * To prevent worsening of your condition and complications * To maintain your health at the optimal level Directions to Meet Your Goals Take your medications as prescribed Follow your dietary instruction Follow activity as directed Keep your appointments as scheduled Take your immunizations and boosters as scheduled If your symptoms worsen call your PCP, if no PCP go to Urgent Care Center or Emergency Room Smoking is Dangerous to Your Health. Avoid second hand smoke Call the 24-hour hour crisis hotline for domestic abuse at Samir Cardenas MD Mar 29, 2017 12:54
[2017-03-29] MEDS ORDERED: LEVOFLOXACIN 750 MG TAB PO SCH (16:00)
== END 2017-03-29 19:07 ==
LOC: NEPE 13:11 → NEDA 16:13 → NEPFCDU 19:47
PROVIDERS: ADMIT Family Medicine; ATTEND Family Medicine
DX: D64.9 Anemia, unspecified (principal); J18.9 Pneumonia, unspecified organism; J44.1 Chronic obstructive pulmonary disease with (acute) exacerbation; J44.0 Chronic obstructive pulmonary disease with (acute) lower respiratory infection; J96.10 Chronic respiratory failure, unspecified whether with hypoxia or hypercapnia; G47.00 Insomnia, unspecified; R53.1 Weakness; R00.0 Tachycardia, unspecified; I10 Essential (primary) hypertension; K27.9 Peptic ulcer, site unspecified, unspecified as acute or chronic, without hemorrhage or perforation; K29.60 Other gastritis without bleeding; E78.00 Pure hypercholesterolemia, unspecified; I70.0 Atherosclerosis of aorta; M19.90 Unspecified osteoarthritis, unspecified site; F41.9 Anxiety disorder, unspecified; H91.90 Unspecified hearing loss, unspecified ear; Z99.81 Dependence on supplemental oxygen; Z79.899 Other long term (current) drug therapy; Z85.3 Personal history of malignant neoplasm of breast; Z87.891 Personal history of nicotine dependence; Z90.13 Acquired absence of bilateral breasts and nipples; Z23 Encounter for immunization
CPT/HCPCS: 36430; 71010; 80048; 81001; 85014; 85018; 85025; 85610; 85730; 86850; 86900; 86901; 86920; 90732; 94664; 96372; 99285; G0378; J7050; J7512; P9016

== ENCOUNTER 2018-04-25 14:47 | Inpatient (IN) ==
[2018-04-25] MEDS ORDERED: Labetalol HCl Inj 100 MG/20 ML Vial IV.PUSH ONE (14:53)
--- NOTE | 2018-04-25 15:10 | ED ---
HPI General Chief Complaint: Shortness of Breath/Dyspnea Stated Complaint: Medical Time Seen by Provider: 04/25/18 14:53 Source: patient Mode of arrival: EMS Limitations: no limitations History of Present Illness The patient is a 82-year-old female who presents to the emergency department via EMS for shortness of breath. The patient has a history of COPD and bronchitis. The patient was recently diagnosed with bronchitis and has been on an antibiotic but no steroids. The patient states her symptoms have been progressing over the last several days and progressively worsened throughout the day. EMS states they arrived and the patient's O2 saturation was in the low 70s, the patient does have an air compressor at home, but EMS states he would not be able to do more than 4 L of oxygen. The patient has been using nebulizers at home without any alleviation of her symptoms. The patient does have a history of COPD, denies any known history of congestive heart failure, pulmonary embolism, or DVT. She does complain of a slightly productive cough, chest congestion, and shortness of breath. She denies any nausea or vomiting. The patient's primary physician is Dr. Pop Reddy. The patient's fur sewer is Dr. Velasquez. Complaint: shortness of breath Onset (ago): day(s) Context: recent illness Severity: severe Consistency/Duration: progressively worsening Relieving factors: nothing Exacerbating factors: exertion Known history of: COPD Associated symptoms: cough, wheezing and chest congestion Treatment prior to arrival: oxygen and bronchodilator Related Data Home oxygen amount: 2 liters Home Medications Medication Instructions Recorded Confirmed atorvastatin 10 mg PO DAILY 04/25/18 04/25/18 diltiazem HCl [DILT-XR] 240 mg PO DAILY 04/25/18 04/25/18 fluticasone-vilanterol [Breo 1 inh INHALATION DAILY 04/25/18 04/25/18 Ellipta] ipratropium-albuterol 3 ml INHALATION Q6-8H PRN 04/25/18 04/25/18 iron 65 mg PO BID 04/25/18 04/25/18 mirtazapine 15 mg PO HS 04/25/18 04/25/18 pnphifjn-zph-zsiu-FA-lutein 1 mcg PO DAILY 04/25/18 04/25/18 [Centrum Silver Women] pantoprazole 40 mg PO DAILY 04/25/18 04/25/18 prednisone 20 mg PO DAILY 04/25/18 04/25/18 Allergies Allergy/AdvReac Type Severity Reaction Status Date / Time No Known Allergies Allergy Unverified 04/25/18 14:51 Review of Systems ROS: all other systems reviewed are negative [facility] Medical History Medical History Breast cancer (Acute) Bronchitis (Acute) COPD (chronic obstructive pulmonary disease) (Acute) Hyperlipidemia (Acute) Surgical History Surgical History H/O left mastectomy (Acute) H/O right mastectomy (Acute) Family History Family History Mother CHF (congestive heart failure) COPD (chronic obstructive pulmonary disease) Sister Breast cancer Social History Social History Substance History: No History of Abuse Second Hand Smoke Exposure: No Smoking Status: Former smoker How Often Do You Have a Drink Containing Alcohol: Never Recent Travel in [facility] within the Last 8 Weeks: No Exam Narrative Exam Narrative: GENERAL: Awake, alert, 82-year-old female who appears her stated age and is in moderate respiratory distress on CPAP. SKIN: Diaphoretic. HEAD: Atraumatic. Normocephalic. EYES: No injection or drainage. ENT: No nasal bleeding or discharge. Mucous membranes pink and moist. NECK: Trachea midline. No JVD. CARDIOVASCULAR: Regular, tachycardic with a heart rate of 110. RESPIRATORY: Tachypnea with a respiratory of 28. Prolonged expiratory phase with wheezing, diminished breath sounds in left base with rhonchi. GASTROINTESTINAL: Abdomen soft, non-tender, nondistended. MUSCULOSKELETAL: No obvious deformities. No clubbing. No cyanosis. Scattered areas of ecchymosis to lower extremities with thin skin. NEUROLOGICAL: Awake and alert. No obvious cranial nerve deficits. Motor grossly within normal limits. Normal speech. PSYCHIATRIC: Appropriate mood and affect; insight and judgment normal. Course Initial Documented Vital Signs Pulse Oximetry 100 04/25/18 14:50 Last Documented Vital Signs Temperature 97.7 F 04/26/18 08:00 Pulse Rate 97 H 04/26/18 09:24 Respiratory Rate 20 04/26/18 08:17 Blood Pressure 164/86 H 04/26/18 08:00 Pulse Oximetry 98 04/26/18 08:17 Critical Care Time Critical Care Time: Yes Total Critical Care Time: 40 Attestation: Aggregate critical care time was 40 minutes. Time to perform other separately billable procedures was not included in the critical care time. My time did not include minutes spent treating any other patients simultaneously or on activities that did not directly contribute to the patient's treatment. The services I provided to this patient were to treat and/or prevent clinically significant deterioration that could result in: Anoxia, hypoxia, aspiration, arrhythmia, pulmonary edema, . I provided critical care services requiring my management, as noted below: Chart data review, documentation time, medication orders and management, vital sign assessments/reviewing monitor data, ordering and reviewing lab tests, ordering and interpreting/reviewing x-rays and diagnostic studies, care of the patient and discussion of the patient with the admitting physicians. Medical Decision Making MDM Narrative Medical decision making narrative: IV was established, labs are drawn and sent, and the patient was placed on cardiac telemetry monitoring and continuous pulse oximetry monitoring. EKG was ordered and interpreted. Chest x-ray was obtained. The patient was placed on BiPAP at 12/5 and 50% oxygen. I had a discussion with the patient regarding possibilities including intubation, patient states if intubation is necessary she would prefer to be intubated. The patient was administered a nebulizer, already received 3 breathing treatments and Solu-Medrol 125 mg intravenously prior to arrival by EMS. The patient improved on BiPAP. BNP was unremarkable. The patient will be admitted to the medical team, [facility] since she is on BiPAP. I discussed the patient with Dr. Ramírez who agrees with admission. Medical Screen Exam Complete: Yes Emergency Medical Condition: Yes Differential Diagnosis Differential Diagnosis: Differential diagnosis includes COPD exacerbation, congestive heart failure, bronchitis, pneumonia, pleural effusion, pulmonary embolism, acute coronary syndrome, hypoxia. Lab Data Result diagrams: 04/26/18 05:43 04/26/18 05:43 Lab Results 04/25/18 04/25/18 04/25/18 Range/Units 14:53 15:00 15:00 WBC 21.5 H (4.0-11.0) th/mm3 RBC 4.44 (4.00-5.30) mil/mm3 Hgb 13.8 (11.6-15.3) gm/dL Hct 42.8 (35.0-46.0) % MCV 96.4 (80.0-100.0) fL MCH 31.0 (27.0-34.0) pg MCHC 32.2 (32.0-36.0) % RDW 14.5 (11.6-17.2) % Plt Count 294 (150-450) th/mm3 MPV 9.5 (7.0-11.0) fL Neut % (Auto) 82.4 H (16.0-70.0) % Lymph % (Auto) 12.8 (9.0-44.0) % [place] % (Auto) 4.2 (0.0-8.0) % Eos % (Auto) 0.4 (0.0-4.0) % Baso % (Auto) 0.2 (0.0-2.0) % Neut # (Auto) 17.8 H (1.8-7.7) th/mm3 Lymph # (Auto) 2.8 (1.0-4.8) th/mm3 [place] # (Auto) 0.9 (0.0-0.9) th/mm3 Eos # (Auto) 0.1 (0.0-0.4) th/mm3 Baso # (Auto) 0.0 (0.0-0.2) th/mm3 WBC Differential . Differential Comment Auto diff final Puncture Site Patient Temperature O2 Saturation (90-100) % ABG pH (7.380-7.420) ABG pCO2 (38-42) mmHg ABG pO2 (61-120) mmHg ABG HCO3 (22-26) mmol/L ABG O2 Content (12.0-20.0) Vol % ABG Base Excess (-2-2) mmol/L ABG Methemoglobin (0-2) % Ricky Test Hemoglobin (12.0-16.0) G/DL Carboxyhemoglobin (0-4) % O2 Delivery Device Vent Setting Inspired O2 % Critical Value Sodium 142 (136-145) meq/L Potassium 4.6 (3.5-5.1) meq/L Chloride 102 (98-107) meq/L Carbon Dioxide 31.3 (21.0-32.0) meq/L Anion Gap 9 (5-15) meq/L BUN 23 H (7-18) mg/dL Creatinine 0.76 (0.50-1.00) mg/dL Estimated GFR 73 L (>89) mL/min Random Glucose 143 H (74-106) mg/dL Lactic Acid (0.4-2.0) mmol/L Calcium 9.1 (8.5-10.1) mg/dL Magnesium (1.5-2.5) mg/dL Total Bilirubin 0.5 (0.2-1.0) mg/dL AST 61 H (15-37) U/L ALT 57 H (10-53) U/L Alkaline Phosphatase 100 (45-117) U/L Total Creatine Kinase (26-192) U/L CK-MB (CK-2) (0.5-3.6) ng/mL Troponin I 0.02 (0.02-0.05) ng/mL B-Natriuretic Peptide (0-100) pg/mL Total Protein 7.5 (6.4-8.2) g/dL Albumin 3.5 (3.4-5.0) g/dL Urine Color Yellow (Yellw/Straw) Urine Clarity Hazy H (Clear) Urine pH 5.0 (5.0-8.5) Ur Specific Simpson 1.022 (1.002-1.035) Urine Protein 500 or greater (Neg-Trace) mg/dL Urine Glucose (UA) 500 or greater (Negative) mg/dL Urine Ketones Negative (Negative) mg/dL Urine Occult Blood Negative (Negative) Urine Nitrate Negative (Negative) Urine Bilirubin Negative (Negative) Urine Urobilinogen Less than 2 (Less than 2) mg/dL Ur Leukocyte Esterase Negative (Negative) Urine RBC 2 (0-3) /hpf Urine WBC 5 (0-5) /hpf Ur Squamous Epith Cells 1 (0-5) /hpf Ur Transition Epith Cell 1 (None) /hpf Hyaline Casts 10 (0-3) /lpf Urine Mucus Few H (Occasional) /lpf Micro UA Comment Culture not ind Ur Microscopic Review Not Reportable Urine Culture Comments Culture not ind 04/25/18 04/25/18 04/25/18 Range/Units 15:00 15:00 15:40 WBC (4.0-11.0) th/mm3 RBC (4.00-5.30) mil/mm3 Hgb (11.6-15.3) gm/dL Hct (35.0-46.0) % MCV (80.0-100.0) fL MCH (27.0-34.0) pg MCHC (32.0-36.0) % RDW (11.6-17.2) % Plt Count (150-450) th/mm3 MPV (7.0-11.0) fL Neut % (Auto) (16.0-70.0) % Lymph % (Auto) (9.0-44.0) % [place] % (Auto) (0.0-8.0) % Eos % (Auto) (0.0-4.0) % Baso % (Auto) (0.0-2.0) % Neut # (Auto) (1.8-7.7) th/mm3 Lymph # (Auto) (1.0-4.8) th/mm3 [place] # (Auto) (0.0-0.9) th/mm3 Eos # (Auto) (0.0-0.4) th/mm3 Baso # (Auto) (0.0-0.2) th/mm3 WBC Differential Differential Comment Puncture Site Patient Temperature O2 Saturation (90-100) % ABG pH (7.380-7.420) ABG pCO2 (38-42) mmHg ABG pO2 (61-120) mmHg ABG HCO3 (22-26) mmol/L ABG O2 Content (12.0-20.0) Vol % ABG Base Excess (-2-2) mmol/L ABG Methemoglobin (0-2) % Ricky Test Hemoglobin (12.0-16.0) G/DL Carboxyhemoglobin (0-4) % O2 Delivery Device Vent Setting Inspired O2 % Critical Value Sodium (136-145) meq/L Potassium (3.5-5.1) meq/L Chloride (98-107) meq/L Carbon Dioxide (21.0-32.0) meq/L Anion Gap (5-15) meq/L BUN (7-18) mg/dL Creatinine (0.50-1.00) mg/dL Estimated GFR (>89) mL/min Random Glucose (74-106) mg/dL Lactic Acid 2.2 H (0.4-2.0) mmol/L Calcium (8.5-10.1) mg/dL Magnesium 2.3 (1.5-2.5) mg/dL Total Bilirubin (0.2-1.0) mg/dL AST (15-37) U/L ALT (10-53) U/L Alkaline Phosphatase (45-117) U/L Total Creatine Kinase 102 (26-192) U/L CK-MB (CK-2) 1.6 (0.5-3.6) ng/mL Troponin I (0.02-0.05) ng/mL B-Natriuretic Peptide 190 H (0-100) pg/mL Total Protein (6.4-8.2) g/dL Albumin (3.4-5.0) g/dL Urine Color (Yellw/Straw) Urine Clarity (Clear) Urine pH (5.0-8.5) Ur Specific Simpson (1.002-1.035) Urine Protein (Neg-Trace) mg/dL Urine Glucose (UA) (Negative) mg/dL Urine Ketones (Negative) mg/dL Urine Occult Blood (Negative) Urine Nitrate (Negative) Urine Bilirubin (Negative) Urine Urobilinogen (Less than 2) mg/dL Ur Leukocyte Esterase (Negative) Urine RBC (0-3) /hpf Urine WBC (0-5) /hpf Ur Squamous Epith Cells (0-5) /hpf Ur Transition Epith Cell (None) /hpf Hyaline Casts (0-3) /lpf Urine Mucus (Occasional) /lpf Micro UA Comment Ur Microscopic Review Urine Culture Comments 04/25/18 04/25/18 04/25/18 Range/Units 18:16 19:22 21:18 WBC (4.0-11.0) th/mm3 RBC (4.00-5.30) mil/mm3 Hgb (11.6-15.3) gm/dL Hct (35.0-46.0) % MCV (80.0-100.0) fL MCH (27.0-34.0) pg MCHC (32.0-36.0) % RDW (11.6-17.2) % Plt Count (150-450) th/mm3 MPV (7.0-11.0) fL Neut % (Auto) (16.0-70.0) % Lymph % (Auto) (9.0-44.0) % [place] % (Auto) (0.0-8.0) % Eos % (Auto) (0.0-4.0) % Baso % (Auto) (0.0-2.0) % Neut # (Auto) (1.8-7.7) th/mm3 Lymph # (Auto) (1.0-4.8) th/mm3 [place] # (Auto) (0.0-0.9) th/mm3 Eos # (Auto) (0.0-0.4) th/mm3 Baso # (Auto) (0.0-0.2) th/mm3 WBC Differential Differential Comment Puncture Site Right radial Right brachial Patient Temperature 98.6 98.6 O2 Saturation 98 97 (90-100) % ABG pH 7.44 H 7.47 H (7.380-7.420) ABG pCO2 42 39 (38-42) mmHg ABG pO2 171 H 124 H (61-120) mmHg ABG HCO3 28 H 28 H (22-26) mmol/L ABG O2 Content 17.5 17.3 (12.0-20.0) Vol % ABG Base Excess 3.8 H 4.4 H (-2-2) mmol/L ABG Methemoglobin 0.8 0.6 (0-2) % Ricky Test + Hemoglobin 12.5 12.5 (12.0-16.0) G/DL Carboxyhemoglobin 0.9 1.1 (0-4) % O2 Delivery Device Bipap Bipap Vent Setting [id number]/epap5 Ipap 12 / epap 5 Inspired O2 50 40 % Critical Value No No Sodium (136-145) meq/L Potassium (3.5-5.1) meq/L Chloride (98-107) meq/L Carbon Dioxide (21.0-32.0) meq/L Anion Gap (5-15) meq/L BUN (7-18) mg/dL Creatinine (0.50-1.00) mg/dL Estimated GFR (>89) mL/min Random Glucose (74-106) mg/dL Lactic Acid 2.0 (0.4-2.0) mmol/L Calcium (8.5-10.1) mg/dL Magnesium (1.5-2.5) mg/dL Total Bilirubin (0.2-1.0) mg/dL AST (15-37) U/L ALT (10-53) U/L Alkaline Phosphatase (45-117) U/L Total Creatine Kinase (26-192) U/L CK-MB (CK-2) (0.5-3.6) ng/mL Troponin I (0.02-0.05) ng/mL B-Natriuretic Peptide (0-100) pg/mL Total Protein (6.4-8.2) g/dL Albumin (3.4-5.0) g/dL Urine Color (Yellw/Straw) Urine Clarity (Clear) Urine pH (5.0-8.5) Ur Specific Simpson (1.002-1.035) Urine Protein (Neg-Trace) mg/dL Urine Glucose (UA) (Negative) mg/dL Urine Ketones (Negative) mg/dL Urine Occult Blood (Negative) Urine Nitrate (Negative) Urine Bilirubin (Negative) Urine Urobilinogen (Less than 2) mg/dL Ur Leukocyte Esterase (Negative) Urine RBC (0-3) /hpf Urine WBC (0-5) /hpf Ur Squamous Epith Cells (0-5) /hpf Ur Transition Epith Cell (None) /hpf Hyaline Casts (0-3) /lpf Urine Mucus (Occasional) /lpf Micro UA Comment Ur Microscopic Review Urine Culture Comments 04/25/18 04/26/18 04/26/18 Range/Units 21:18 05:43 05:43 WBC 15.3 H 13.6 H (4.0-11.0) th/mm3 RBC 4.03 3.75 L (4.00-5.30) mil/mm3 Hgb 12.4 11.8 (11.6-15.3) gm/dL Hct 38.6 35.1 (35.0-46.0) % MCV 95.7 93.7 (80.0-100.0) fL MCH 30.9 31.5 (27.0-34.0) pg MCHC 32.2 33.7 (32.0-36.0) % RDW 14.3 14.2 (11.6-17.2) % Plt Count 262 241 (150-450) th/mm3 MPV 8.8 8.9 (7.0-11.0) fL Neut % (Auto) 94.2 H (16.0-70.0) % Lymph % (Auto) 3.5 L (9.0-44.0) % [place] % (Auto) 2.0 (0.0-8.0) % Eos % (Auto) 0.0 (0.0-4.0) % Baso % (Auto) 0.3 (0.0-2.0) % Neut # (Auto) 12.8 H (1.8-7.7) th/mm3 Lymph # (Auto) 0.5 L (1.0-4.8) th/mm3 [place] # (Auto) 0.3 (0.0-0.9) th/mm3 Eos # (Auto) 0.0 (0.0-0.4) th/mm3 Baso # (Auto) 0.0 (0.0-0.2) th/mm3 WBC Differential . Differential Comment Auto diff final Puncture Site Patient Temperature O2 Saturation (90-100) % ABG pH (7.380-7.420) ABG pCO2 (38-42) mmHg ABG pO2 (61-120) mmHg ABG HCO3 (22-26) mmol/L ABG O2 Content (12.0-20.0) Vol % ABG Base Excess (-2-2) mmol/L ABG Methemoglobin (0-2) % Ricky Test Hemoglobin (12.0-16.0) G/DL Carboxyhemoglobin (0-4) % O2 Delivery Device Vent Setting Inspired O2 % Critical Value Sodium 140 (136-145) meq/L Potassium 3.5 D (3.5-5.1) meq/L Chloride 101 (98-107) meq/L Carbon Dioxide 30.5 (21.0-32.0) meq/L Anion Gap 9 (5-15) meq/L BUN 29 H (7-18) mg/dL Creatinine 0.74 (0.50-1.00) mg/dL Estimated GFR 75 L (>89) mL/min Random Glucose 149 H (74-106) mg/dL Lactic Acid (0.4-2.0) mmol/L Calcium 9.0 (8.5-10.1) mg/dL Magnesium (1.5-2.5) mg/dL Total Bilirubin 0.3 (0.2-1.0) mg/dL AST 17 (15-37) U/L ALT 43 (10-53) U/L Alkaline Phosphatase 76 (45-117) U/L Total Creatine Kinase (26-192) U/L CK-MB (CK-2) (0.5-3.6) ng/mL Troponin I (0.02-0.05) ng/mL B-Natriuretic Peptide (0-100) pg/mL Total Protein 6.2 L D (6.4-8.2) g/dL Albumin 3.1 L (3.4-5.0) g/dL Urine Color (Yellw/Straw) Urine Clarity (Clear) Urine pH (5.0-8.5) Ur Specific Simpson (1.002-1.035) Urine Protein (Neg-Trace) mg/dL Urine Glucose (UA) (Negative) mg/dL Urine Ketones (Negative) mg/dL Urine Occult Blood (Negative) Urine Nitrate (Negative) Urine Bilirubin (Negative) Urine Urobilinogen (Less than 2) mg/dL Ur Leukocyte Esterase (Negative) Urine RBC (0-3) /hpf Urine WBC (0-5) /hpf Ur Squamous Epith Cells (0-5) /hpf Ur Transition Epith Cell (None) /hpf Hyaline Casts (0-3) /lpf Urine Mucus (Occasional) /lpf Micro UA Comment Ur Microscopic Review Urine Culture Comments Imaging Data Radiologist's impression: Chest X-Ray 04/25/18 14:54 CONCLUSION: Negative examination. Discharge Plan Discharge Disposition Patient Disposition: 30 Still Patient Discharge Condition Condition: Stable Discharge Details Diagnosis: COPD exacerbation Physicians Team ED Provider: Go Munguia Primary Care Provider: Dante Reddy Attending Provider: Jillian Ramírez Other Providers: Pop Calvo V Discharge Interventions Interventions: ED Discharge Assessment Last Done: 04/25/18 20:15 Vital Signs Last Done: 04/25/18 17:00 Status ED Status: Left Department Discharge Information Discharge Date/Time: 04/25/18 20:15
[2018-04-25 15:30] LABS: Baso % (Auto) 0.2 % (0.0-2.0); Eos # (Auto) 0.1 th/mm3 (0.0-0.4); Eos % (Auto) 0.4 % (0.0-4.0); Hematocrit 42.8 % (35.0-46.0); Hemoglobin 13.8 gm/dL (11.6-15.3); Lymph # (Auto) 2.8 th/mm3 (1.0-4.8); Lymph % (Auto) 12.8 % (9.0-44.0); Mean Corpuscular HGB Conc 32.2 % (32.0-36.0); Mean Corpuscular Volume 96.4 fL (80.0-100.0); Mean Platelet Volume 9.5 fL (7.0-11.0); Mono # (Auto) 0.9 th/mm3 (0.0-0.9); Mono % (Auto) 4.2 % (0.0-8.0); Neut # (Auto) 17.8 th/mm3 (1.8-7.7); Neut % (Auto) 82.4 % (16.0-70.0); Platelet Count 294 th/mm3 (150-450); Red Blood Count 4.44 mil/mm3 (4.00-5.30); Red Cell Distribution Width 14.5 % (11.6-17.2); White Blood Count 21.5 th/mm3 (4.0-11.0)
--- NOTE | 2018-04-25 15:37 | XR ---
EXAM DATE: 04/25/2018 3:33 PM EDT AGE/SEX: 82 years / Female INDICATIONS: Short of Breath CLINICAL DATA: This is the patient's initial encounter. Patient reports that signs and symptoms have been present for 1 day and indicates a pain score of 4/10. MEDICAL/SURGICAL HISTORY: None. None. COMPARISON: POI, XR CHEST PA AND LAT, 02/09/2018. . FINDINGS: A single AP view of the chest demonstrates the lungs to be symmetrically aerated without evidence of mass, infiltrate or effusion. The cardiomediastinal contours are unremarkable. Osseous structures a re intact. CONCLUSION: Negative examination. Electronically signed by: Deisi Morris MD 04/25/2018 3:36 PM EDT
[2018-04-25] MEDS ORDERED: Levofloxacin 500 mg Premix Inj 500 MG/100 ML PIGGYBACK IV.SIG ONE (15:41)
[2018-04-25 16:00] LABS: Alkaline Phosphatase 100 U/L (45-117); Total Protein 7.5 g/dL (6.4-8.2); Troponin I 0.02 ng/mL (0.02-0.05)
[2018-04-25 16:03] LABS: Alanine Aminotransferase 57 U/L (10-53); Albumin 3.5 g/dL (3.4-5.0); Anion Gap 9 meq/L (5-15); Aspartate Aminotransferase 61 U/L (15-37); Blood Urea Nitrogen 23 mg/dL (7-18); Calcium 9.1 mg/dL (8.5-10.1); Carbon Dioxide 31.3 meq/L (21.0-32.0); Chloride 102 meq/L (98-107); Glomerular Filtration Rate 73 mL/min (>89); Glucose,Random 143 mg/dL (74-106); Magnesium 2.3 mg/dL (1.5-2.5); Sodium 142 meq/L (136-145)
[2018-04-25 16:09] LABS: Creatine Kinase 102 U/L (26-192); Potassium 4.6 meq/L (3.5-5.1)
[2018-04-25 16:29] LABS: Creatine Kinase MB 1.6 ng/mL (0.5-3.6)
[2018-04-25] MEDS ORDERED: Acetaminophen 325 MG Tablet PO PRN (17:31)
[2018-04-25] MEDS ORDERED: Bisacodyl 10 MG Supp RECTAL PRN (17:31)
--- NOTE | 2018-04-25 17:31 | P.HPIM ---
History of Present Illness Primary Care Physician: Dante Reddy MD History of Present Illness: 82 year old female with oxygen-dependent COPD, HLD, and tachycardia presenting with worsening shortness of breath for the past three days. She is accompanied by her two daughters who report they have been urging the patient to come in for evaluation but she has resisted. The patient finally worsened to the point where she could hardly get up and walk a couple steps, and she was severely short of breath even just at rest. EMS was called and on arrival the patient's O2 sat was in the low 70s and en route to the hospital she was given a dose of IV Solu-Medrol 125 mg. The majority of the history is provided by the patient's daughters who also state that she had just completed a 10 day course of cefuroxime for treatment of bronchitis diagnosed by Dr. Calvo, her project officer. She is chronically on low-dose prednisone but was placed on 30 mg of prednisone daily for a week followed by 20 mg of prednisone daily for a week for which she continues to take. The patient endorses coughing and chest congestion. She denies any chest pain, fever, chills, nausea, vomiting, or abdominal pain. She states she has been doing her nebulizer treatments every 3- 4 hours and sometimes even "doubling up." Her shortness of breath did not significantly improve until she was placed on BiPAP in the ED. - Diagnosis (1) COPD exacerbation Inpatient Certification: I certify that the inpatient services were ordered in accordance with Medicare regulations governing the order. This includes certification that hospital inpatient services are reasonable and necessary and in the case of services not specified as inpatient-only under 42 CFR 419.22(n), that they are appropriately provided as inpatient services in accordance to with the 2-midnight benchmark under 43 CFR 412.3(e) Estimated Total Length of Stay (Days): 3 Plans for Post Hospital Care: Not yet determined Review of Systems All other systems reviewed negative except as stated in HPI [facility] - History History Provided By: Patient, Family Member - Medical History Medical History: Medical History (Last Updated 04/25/18 @ 18:46 by Jillian Ramírez MD) Breast cancer Bronchitis COPD (chronic obstructive pulmonary disease) Hyperlipidemia - Surgical History Surgical History: Surgical History (Last Updated 04/25/18 @ 14:56 by Mavis Duncan) H/O left mastectomy H/O right mastectomy - Family History Family History: Family History (Last Updated 04/25/18 @ 18:46 by Jillian Ramírez MD) Mother CHF (congestive heart failure) COPD (chronic obstructive pulmonary disease) Sister Breast cancer - Social History I have reviewed the patient's Social History: Yes - Tobacco History Second Hand Smoke Exposure: No Tobacco Use In Past 30 Days: No Smoking Status: Former smoker - Alcohol History How Often Do You Have a Drink Containing Alcohol: Never - Substance Use History Substance History: No History of Abuse - Travel History Recent Travel in the [place] Within the Last 8 Weeks: No - Immunization History Tetanus Immunization: Unsure Hx Influenza Vaccine This Season: Unable to Assess Medications and Allergies Allergies Allergy/AdvReac Type Severity Reaction Status Date / Time No Known Allergies Allergy Unverified 04/25/18 14:51 Home Medications Medication Instructions Recorded Confirmed Type Centrum Silver Women 04/25/18 04/25/18 History atorvastatin 10 mg PO DAILY 04/25/18 04/25/18 History diltiazem HCl [DILT-XR] 240 mg PO DAILY 04/25/18 04/25/18 History fluticasone-vilanterol [Breo 1 inh INHALATION DAILY 04/25/18 04/25/18 History Ellipta] ipratropium-albuterol 3 ml INHALATION Q6-8H PRN 04/25/18 04/25/18 History iron 65 mg PO BID 04/25/18 04/25/18 History mirtazapine 15 mg PO HS 04/25/18 04/25/18 History pantoprazole 40 mg PO DAILY 04/25/18 04/25/18 History prednisone 20 mg PO DAILY 04/25/18 04/25/18 History Exam Vital signs: Vital Signs 04/25/18 14:51 04/25/18 15:07 04/25/18 15:26 Pulse Rate 112 H 74 Respiratory Rate 26 H 25 H Blood Pressure 197/107 H 164/82 H Pulse Oximetry 99 99 100 Intake & Output 04/24/18 04/25/18 04/25/18 18:59 06:59 18:59 Weight 58.967 kg Narrative: GENERAL: Elderly female sitting up in bed with BiPAP mask in place. SKIN: Warm and dry. HEENT: AT/NC. Pupils equal and round. MMM. NECK: Supple no tender LAD or JVD. CHEST: Prior mastectomy. HEART: RRR no m/r/g. LUNGS: Increased work of breathing with diffuse wheezing. No crackles. ABDOMEN: +BS, soft, NT, ND. EXTREMITIES: No LE edema. NEURO: Awake and alert. Results - Labs CBC & Chem 7: 04/25/18 15:00 04/25/18 15:00 Labs: Short CBC 04/25/18 Range/Units 15:00 WBC 21.5 H (4.0-11.0) th/mm3 Hgb 13.8 (11.6-15.3) gm/dL Hct 42.8 (35.0-46.0) % Plt Count 294 (150-450) th/mm3 BMP 04/25/18 15:00 Sodium 142 Potassium 4.6 Chloride 102 Carbon Dioxide 31.3 BUN 23 H Creatinine 0.76 Calcium 9.1 Cardiac Enzymes 04/25/18 04/25/18 Range/Units 15:00 15:00 Total Creatine Kinase 102 (26-192) U/L CK-MB (CK-2) 1.6 (0.5-3.6) ng/mL Troponin I 0.02 (0.02-0.05) ng/mL Liver Function 04/25/18 Range/Units 15:00 Total Bilirubin 0.5 (0.2-1.0) mg/dL AST 61 H (15-37) U/L ALT 57 H (10-53) U/L Alkaline Phosphatase 100 (45-117) U/L Albumin 3.5 (3.4-5.0) g/dL - Imaging Impressions Chest X-Ray 04/25/18 14:54 CONCLUSION: Negative examination. Caprini VTE Risk Assessment Caprini VTE Risk Assessment: Moderate/High Risk (score >= 2) Caprini Risk Assessment Model: Point Value = 1 Point Value = 2 Point Value = 3 Point Value = 5 Age 41-60 Minor surgery BMI > 25 kg/m2 Swollen legs Varicose veins or History of unexplained or recurrent spontaneous Oral contraceptives or hormone replacement Sepsis (< 1 month) Serious lung disease, including pneumonia (< 1 month) Abnormal pulmonary function Acute myocardial infarction Congestive heart failure (< 1 month) History of inflammatory bowel disease Medical patient at bed rest Age 61-74 Arthroscopic surgery Major open surgery (> 45 min) Laparoscopic surgery (> 45 min) Malignancy Confined to bed (> 72 hours) Immobilizing plaster cast Central venous access Age >= 75 History of VTE Family history of VTE Factor V Leiden Prothrombin [id number] Lupus anticoagulant Anticardiolipin antibodies Elevated serum homocysteine Heparin-induced thrombocytopenia Other congenital or acquired thrombophilia Stroke (< 1 month) Elective arthroplasty Hip, pelvis, or leg fracture Acute spinal cord injury (< 1 month) Prophylaxis Regimen: Total Risk Factor Score Risk Level Prophylaxis Regimen 0-1 Low Early ambulation 2 Moderate Order ONE of the following: *Sequential Compression Device (SCD) *Heparin 5000 units SQ BID 3-4 Higher Order ONE of the following medications: *Heparin 5000 units SQ TID *Enoxaparin/Lovenox 40 mg SQ daily (WT < 150 kg, CrCl > 30 mL/min) *Enoxaparin/Lovenox 30 mg SQ daily (WT < 150 kg, CrCl > 10-29 mL/min) *Enoxaparin/Lovenox 30 mg SQ BID (WT < 150 kg, CrCl > 30 mL/min) AND/OR *Sequential Compression Device (SCD) 5 or more Highest Order ONE of the following medications: *Heparin 5000 units SQ TID (Preferred with Epidurals) *Enoxaparin/Lovenox 40 mg SQ daily (WT < 150 kg, CrCl > 30 mL/min) *Enoxaparin/Lovenox 30 mg SQ daily (WT < 150 kg, CrCl > 10-29 mL/min) *Enoxaparin/Lovenox 30 mg SQ BID (WT < 150 kg, CrCl > 30 mL/min) AND *Sequential Compression Device (SCD) Assessment and Plan - Assessment (1) COPD exacerbation Code(s): J44.1 - Chronic obstructive pulmonary disease with (acute) exacerbation Status: Acute - Plan 82 year old female with history of O2-dependent COPD, breast cancer s/ p mastectomy, HLD, and tachycardia admitted for COPD exacerbation. 1. COPD exacerbation, failed outpatient therapy Initial O2 saturation on the scene by EMS in the 70s Maintaining sats 97-100% on BiPAP CXR negative for infiltrate, personally reviewed ABG looks pretty good on BiPAP, pH 7.44, PO2 171, PCO2 42, bicarb 28 WBC elevated 21.5 but the patient has been on steroids and received IV Solu- Medrol en route Afebrile but will monitor clinically for signs of infection Check sputum culture, Legionella and pneumococcal antigens, and influenza DuoNeb Q4H Albuterol Q2H PRN Resume home Brio Supplemental O2 and BiPAP as needed Solu-Medrol 60 mg IV Q6 IV Levaquin 2. Sepsis Patient tachypneic with elevated lactic acid of 2.2 and leukocytosis, source as above Blood cultures drawn Urinalysis ordered Repeat lactic acid Monitor on telemetry See plans above regarding treatment of underlying source 3. Elevated blood pressure No reported history of hypertension, BP elevated likely secondary to stress and increased work of breathing Clonidine, hydralazine, metoprolol as needed Will consider scheduling something if BPs remain elevated 4. Tachycardia No history of atrial fibrillation Resume home diltiazem 5. Elevated LFTs Appears to be acute Possibly secondary to sepsis Avoid hepatotoxic agents Monitor LFTs 6. Depression Resume home mirtazapine 7. Hyperlipidemia Resume home atorvastatin DVT prophylaxis: Heparin Q12 Code Status: FULL Discussed Condition With: Dr. Munguia, patient, and family
[2018-04-25 18:26] LABS: ABG Base Excess 3.8 mmol/L (-2-2); ABG PCO2 42 mmHg (38-42); ABG PO2 171 mmHg (61-120)
[2018-04-25] MEDS ORDERED: hydrALAZINE HCl Inj 20 MG/ML Vial IV.PUSH PRN (18:48)
[2018-04-25] MEDS ORDERED: Metoprolol Inj 5 MG/5 ML Vial IV.PUSH PRN (18:48)
[2018-04-25 19:37] LABS: ABG Base Excess 4.4 mmol/L (-2-2); ABG PCO2 39 mmHg (38-42); ABG PO2 124 mmHg (61-120)
[2018-04-25] MEDS: MethylPREDNISolone Sod Succinate Inj 125 MG/2 ML Vial IV.PUSH SCH (21:15)
[2018-04-25] MEDS: Senna/Docusate Sodium 8.6/50 MG Tablet PO SCH (21:16)
[2018-04-25] MEDS: Heparin - SQ 10,000 UNITS/ML Vial SQ SCH (21:16)
[2018-04-25] MEDS: guaiFENesin 600 MG ER Tablet PO SCH (21:16)
[2018-04-25] MEDS: Mirtazapine 15 MG Tablet PO SCH (21:24)
[2018-04-25 21:36] LABS: Hematocrit 38.6 % (35.0-46.0); Hemoglobin 12.4 gm/dL (11.6-15.3); Mean Corpuscular HGB Conc 32.2 % (32.0-36.0); Mean Corpuscular Hemoglobin 30.9 pg (27.0-34.0); Mean Corpuscular Volume 95.7 fL (80.0-100.0); Mean Platelet Volume 8.8 fL (7.0-11.0); Platelet Count 262 th/mm3 (150-450); Red Blood Count 4.03 mil/mm3 (4.00-5.30); Red Cell Distribution Width 14.3 % (11.6-17.2); White Blood Count 15.3 th/mm3 (4.0-11.0)
--- NOTE | 2018-04-26 00:11 | MB ---
cc: Agusto Mcdermott MD DATE: 04/25/2018 REASON FOR CONSULTATION: COPD and respiratory distress. HISTORY OF PRESENT ILLNESS: This is an 82-year-old white female with a history of COPD and tachycardia, who was admitted for progressive dyspnea over the past 3-4 days. She has home oxygen at 3 liters. She was bringing up thick whitish-yellow mucus and started taking an antibiotic as an outpatient over the past 10 days, including prednisone 30 mg with tapered dose. The patient has been coughing up and bringing up some whitish-yellow mucus and failed to improve over the past 2 days and thus came to the emergency room for evaluation. Chest x-ray done upon admission showed no evidence of active infiltrate, but evidence of hyperinflation. She has been placed on a BiPAP mask due to hypercapnia and she is now breathing easier, her heart rate is better, and she is saturating well, up to 96% on 50% FiO2. The patient has a cough and brings up thick foamy mucus. No fevers or chills. No hemoptysis, but has reflux. PAST HISTORY: Includes recurrent bronchitis, asthma and COPD. She has had pneumonia in the past. She has a history of breast cancer with left mastectomy and right mastectomy. She has had endoscopies done in the past. No history of diabetes. HABITS: The patient smoked 1-2 packs per day for over 35 years and no significant alcohol use. FAMILY HISTORY: Significant for heart disease. ALLERGIES: THE PATIENT HAS NO SIGNIFICANT DRUG ALLERGIES. REVIEW OF SYSTEMS: The patient has lost weight. She has leg swelling. She has headaches, postnasal drip and cough. She has wheezing and epigastric distress. She has urinary frequency and flank pains. She has joint pains of her extremities. No skin rash. She has trouble sleeping at night. PHYSICAL EXAMINATION: GENERAL: This is an elderly, thinly built white female who is pale and dyspneic at rest. She has mild clubbing. Minimal peripheral edema. VITAL SIGNS: Blood pressure 138/80, pulse is 95, respirations 20, temperature 97.2. HEENT: Head is normocephalic. Pupils reactive and equal. Tongue dry. Throat is injected. Nasal mucosa edematous. NECK: Supple. No bruits or thyroid enlargement. No lymphadenopathy. RESPIRATORY: Decreased excursions with increased AP diameter. Percussion note resonant throughout. Expiratory wheezes throughout both lung [place], prolonged expirations. HEART: Sounds are irregular, S1 and S2. No murmur. ABDOMEN: Soft, benign. No masses. EXTREMITIES: Varicosities and decreased peripheral pulses. NEUROLOGIC: Reflexes are 1+ with no gross motor deficits. Cranial nerves are grossly intact. SKIN: Multiple ecchymotic areas of the skin of the extremities. IMPRESSION: 1. Chronic obstructive pulmonary disease with acute exacerbation. 2. Hypercapnic respiratory failure. 3. Probable sepsis and early pneumonia. 4. Depression and anxiety. 5. Tachycardia. PLAN: The patient has been placed on O2 at 35% FiO2 with BiPAP 12/5 and 35%. We will place her on Solu-Medrol 60 mg IV every 6 hours. Continue with antibiotic coverage including Levaquin 500 mg IV daily and add cefepime 1 g IV every 12 hours. The patient will be continued on Breo 100/25 mcg 1 puff a day. Repeat chest x-ray to be done. Sputum sent for Gram stain and culture. Wean her off the BiPAP in the a.m. and switch her to a nasal cannula at [address] Ramírez for this consultation. Agusto Mcdermott MD VJD/zaid , 10:59 PM , 11:12 PM
[2018-04-26] MEDS: MethylPREDNISolone Sod Succinate Inj 125 MG/2 ML Vial IV.PUSH SCH ×6 (01:15→20:28)
[2018-04-26 01:41] LABS: Bilirubin,Urine Negative (Negative); Clarity,Urine Hazy (Clear); Color,Urine Yellow (Yellw/Straw); Glucose,Urine (UA) 500 or Greater mg/dL (Negative); Hyaline Casts,Urine 10 /lpf (0-3); Leukocyte Esterase,Urine Negative (Negative); Mucus,Urine Few /lpf (Occasional); Nitrite,Urine Negative (Negative); Specific Gravity,Urine 1.022 (1.002-1.035); Squamous Epithelial Cell,Urine 1 /hpf (0-5); Transitional Epi Cells,Urine 1 /hpf
[2018-04-26 06:12] LABS: Baso % (Auto) 0.3 % (0.0-2.0); Hematocrit 35.1 % (35.0-46.0); Hemoglobin 11.8 gm/dL (11.6-15.3); Lymph # (Auto) 0.5 th/mm3 (1.0-4.8); Lymph % (Auto) 3.5 % (9.0-44.0); Mean Corpuscular HGB Conc 33.7 % (32.0-36.0); Mean Corpuscular Hemoglobin 31.5 pg (27.0-34.0); Mean Corpuscular Volume 93.7 fL (80.0-100.0); Mean Platelet Volume 8.9 fL (7.0-11.0); Mono # (Auto) 0.3 th/mm3 (0.0-0.9); Neut # (Auto) 12.8 th/mm3 (1.8-7.7); Neut % (Auto) 94.2 % (16.0-70.0); Platelet Count 241 th/mm3 (150-450); Red Blood Count 3.75 mil/mm3 (4.00-5.30); Red Cell Distribution Width 14.2 % (11.6-17.2); White Blood Count 13.6 th/mm3 (4.0-11.0)
[2018-04-26 06:55] LABS: Alanine Aminotransferase 43 U/L (10-53); Albumin 3.1 g/dL (3.4-5.0); Anion Gap 9 meq/L (5-15); Aspartate Aminotransferase 17 U/L (15-37); Blood Urea Nitrogen 29 mg/dL (7-18); Carbon Dioxide 30.5 meq/L (21.0-32.0); Chloride 101 meq/L (98-107); Glomerular Filtration Rate 75 mL/min (>89); Glucose,Random 149 mg/dL (74-106); Potassium 3.5 meq/L (3.5-5.1); Sodium 140 meq/L (136-145)
[2018-04-26 07:10] LABS: Alkaline Phosphatase 76 U/L (45-117); Total Protein 6.2 g/dL (6.4-8.2)
[2018-04-26] MEDS: Senna/Docusate Sodium 8.6/50 MG Tablet PO SCH ×2 (08:01→20:32)
[2018-04-26] MEDS: guaiFENesin 600 MG ER Tablet PO SCH ×2 (08:02→20:32)
[2018-04-26] MEDS: dilTIAZem CD 240 MG Capsule PO SCH (08:02)
[2018-04-26] MEDS: Heparin - SQ 10,000 UNITS/ML Vial SQ SCH ×2 (08:02→20:30)
--- NOTE | 2018-04-26 08:29 | P.PNIM ---
Subjective Interval history: Patient seen and examined for f/u COPD exacerbation. Reports she is feeling better than yesterday and hoping to be able to go home soon. Continues to have some shortness of breath, wheezing, and a dry cough but symptoms have improved. Denies chest pain. Appetite good. No N/V, abdominal pain. Physical Exam Vital signs: Vital Signs 04/25/18 14:50 04/25/18 14:51 04/25/18 15:07 Temperature Pulse Rate 112 H 74 Respiratory Rate 26 H 25 H Blood Pressure 197/107 H 164/82 H Pulse Oximetry 100 99 99 04/25/18 15:26 04/25/18 17:00 04/25/18 17:42 Temperature Pulse Rate 81 89 Respiratory Rate 20 28 H Blood Pressure 193/102 H Pulse Oximetry 100 100 97 04/25/18 19:15 04/25/18 19:30 04/25/18 20:00 Temperature 98.0 F Pulse Rate 83 85 88 Respiratory Rate 20 Blood Pressure 202/103 H 191/106 H 164/97 H Pulse Oximetry 99 04/25/18 20:35 04/25/18 21:00 04/25/18 22:00 Temperature Pulse Rate 88 89 Respiratory Rate Blood Pressure Pulse Oximetry 100 04/25/18 23:00 04/25/18 23:12 04/26/18 00:00 Temperature 97.8 F Pulse Rate 88 88 91 H Respiratory Rate 20 Blood Pressure 155/89 H Pulse Oximetry 97 04/26/18 00:31 04/26/18 01:00 04/26/18 02:00 Temperature Pulse Rate 88 83 81 Respiratory Rate 20 Blood Pressure Pulse Oximetry 04/26/18 03:00 04/26/18 03:59 04/26/18 04:40 Temperature 98 F Pulse Rate 94 H 85 85 Respiratory Rate 20 20 Blood Pressure 175/81 H Pulse Oximetry 99 04/26/18 05:00 04/26/18 05:54 Temperature Pulse Rate 83 82 Respiratory Rate Blood Pressure Pulse Oximetry Intake & Output 04/25/18 04/26/18 04/26/18 18:59 06:59 18:59 Intake Total 100 / 100 680 / 680 Output Total 600 / 600 Balance 100 / 100 80 / 80 Weight 58.967 kg 56.5 kg Intake: IV 100 / 100 200 / 200 Maxipime Inj 1,000 MG In NS Inj 200 / 200 100 ML @ 200 mls/hr IV.SIG Q8H RAÚL Rx#:[id number] Levaquin 500 mg Premix Inj 500 100 / 100 mg In 100 ml @ 100 mls/hr IV. SIG ONCE ONE Rx#:[id number] Oral 480 / 480 Output: Urine 600 / 600 Other: Date of Last Bowel Movement 04/25/18 Narrative: GENERAL: WN, WD elderly female resting in bed in NAD. SKIN: Warm and dry. Ecchymoses over upper extremities. HEENT: AT/NC. Pupils equal and round. MMM. NECK: Supple no tender LAD or JVD. Nasal cannula in place. HEART: RRR no m/r/g. LUNGS: Continues to have diffuse inspiratory crackles but slightly improved aeration compared to yesterday's exam and she definitely appears less short of breath. ABDOMEN: +BS, soft, NT, ND. EXTREMITIES: No LE edema. NEURO: Awake and alert. Results - Labs CBC & Chem 7: 04/26/18 05:43 04/26/18 05:43 Laboratory Results - last 24 hr 04/25/18 04/25/18 04/25/18 14:53 15:00 15:00 WBC 21.5 H RBC 4.44 Hgb 13.8 Hct 42.8 MCV 96.4 MCH 31.0 MCHC 32.2 RDW 14.5 Plt Count 294 MPV 9.5 Neut % (Auto) 82.4 H Lymph % (Auto) 12.8 [place] % (Auto) 4.2 Eos % (Auto) 0.4 Baso % (Auto) 0.2 Neut # (Auto) 17.8 H Lymph # (Auto) 2.8 [place] # (Auto) 0.9 Eos # (Auto) 0.1 Baso # (Auto) 0.0 WBC Differential . Differential Comment Auto diff final Puncture Site Patient Temperature O2 Saturation ABG pH ABG pCO2 ABG pO2 ABG HCO3 ABG O2 Content ABG Base Excess ABG Methemoglobin Ricky Test Hemoglobin Carboxyhemoglobin O2 Delivery Device Vent Setting Inspired O2 Critical Value Sodium 142 Potassium 4.6 Chloride 102 Carbon Dioxide 31.3 Anion Gap 9 BUN 23 H Creatinine 0.76 Estimated GFR 73 L Random Glucose 143 H Lactic Acid Calcium 9.1 Magnesium Total Bilirubin 0.5 AST 61 H ALT 57 H Alkaline Phosphatase 100 Total Creatine Kinase CK-MB (CK-2) Troponin I 0.02 B-Natriuretic Peptide Total Protein 7.5 Albumin 3.5 Urine Color Yellow Urine Clarity Hazy H Urine pH 5.0 Ur Specific [place] 1.022 Urine Protein 500 or greater Urine Glucose (UA) 500 or greater Urine Ketones Negative Urine Occult Blood Negative Urine Nitrate Negative Urine Bilirubin Negative Urine Urobilinogen Less than 2 Ur Leukocyte Esterase Negative Urine RBC 2 Urine WBC 5 Ur Squamous Epith Cells 1 Ur Transition Epith Cell 1 Hyaline Casts 10 Urine Mucus Few H Micro UA Comment Culture not ind Ur Microscopic Review Not Reportable Urine Culture Comments Culture not ind 04/25/18 04/25/18 04/25/18 15:00 15:00 15:40 WBC RBC Hgb Hct MCV MCH MCHC RDW Plt Count MPV Neut % (Auto) Lymph % (Auto) [place] % (Auto) Eos % (Auto) Baso % (Auto) Neut # (Auto) Lymph # (Auto) [place] # (Auto) Eos # (Auto) Baso # (Auto) WBC Differential Differential Comment Puncture Site Patient Temperature O2 Saturation ABG pH ABG pCO2 ABG pO2 ABG HCO3 ABG O2 Content ABG Base Excess ABG Methemoglobin Ricky Test Hemoglobin Carboxyhemoglobin O2 Delivery Device Vent Setting Inspired O2 Critical Value Sodium Potassium Chloride Carbon Dioxide Anion Gap BUN Creatinine Estimated GFR Random Glucose Lactic Acid 2.2 H Calcium Magnesium 2.3 Total Bilirubin AST ALT Alkaline Phosphatase Total Creatine Kinase 102 CK-MB (CK-2) 1.6 Troponin I B-Natriuretic Peptide 190 H Total Protein Albumin Urine Color Urine Clarity Urine pH Ur Specific [place] Urine Protein Urine Glucose (UA) Urine Ketones Urine Occult Blood Urine Nitrate Urine Bilirubin Urine Urobilinogen Ur Leukocyte Esterase Urine RBC Urine WBC Ur Squamous Epith Cells Ur Transition Epith Cell Hyaline Casts Urine Mucus Micro UA Comment Ur Microscopic Review Urine Culture Comments 04/25/18 04/25/18 04/25/18 18:16 19:22 21:18 WBC RBC Hgb Hct MCV MCH MCHC RDW Plt Count MPV Neut % (Auto) Lymph % (Auto) [place] % (Auto) Eos % (Auto) Baso % (Auto) Neut # (Auto) Lymph # (Auto) [place] # (Auto) Eos # (Auto) Baso # (Auto) WBC Differential Differential Comment Puncture Site Right radial Right brachial Patient Temperature 98.6 98.6 O2 Saturation 98 97 ABG pH 7.44 H 7.47 H ABG pCO2 42 39 ABG pO2 171 H 124 H ABG HCO3 28 H 28 H ABG O2 Content 17.5 17.3 ABG Base Excess 3.8 H 4.4 H ABG Methemoglobin 0.8 0.6 Ricky Test + Hemoglobin 12.5 12.5 Carboxyhemoglobin 0.9 1.1 O2 Delivery Device Bipap Bipap Vent Setting [id number] Ipap 12 / epap 5 Inspired O2 50 40 Critical Value No No Sodium Potassium Chloride Carbon Dioxide Anion Gap BUN Creatinine Estimated GFR Random Glucose Lactic Acid 2.0 Calcium Magnesium Total Bilirubin AST ALT Alkaline Phosphatase Total Creatine Kinase CK-MB (CK-2) Troponin I B-Natriuretic Peptide Total Protein Albumin Urine Color Urine Clarity Urine pH Ur Specific [place] Urine Protein Urine Glucose (UA) Urine Ketones Urine Occult Blood Urine Nitrate Urine Bilirubin Urine Urobilinogen Ur Leukocyte Esterase Urine RBC Urine WBC Ur Squamous Epith Cells Ur Transition Epith Cell Hyaline Casts Urine Mucus Micro UA Comment Ur Microscopic Review Urine Culture Comments 04/25/18 04/26/18 04/26/18 21:18 05:43 05:43 WBC 15.3 H 13.6 H RBC 4.03 3.75 L Hgb 12.4 11.8 Hct 38.6 35.1 MCV 95.7 93.7 MCH 30.9 31.5 MCHC 32.2 33.7 RDW 14.3 14.2 Plt Count 262 241 MPV 8.8 8.9 Neut % (Auto) 94.2 H Lymph % (Auto) 3.5 L [place] % (Auto) 2.0 Eos % (Auto) 0.0 Baso % (Auto) 0.3 Neut # (Auto) 12.8 H Lymph # (Auto) 0.5 L [place] # (Auto) 0.3 Eos # (Auto) 0.0 Baso # (Auto) 0.0 WBC Differential . Differential Comment Auto diff final Puncture Site Patient Temperature O2 Saturation ABG pH ABG pCO2 ABG pO2 ABG HCO3 ABG O2 Content ABG Base Excess ABG Methemoglobin Ricky Test Hemoglobin Carboxyhemoglobin O2 Delivery Device Vent Setting Inspired O2 Critical Value Sodium 140 Potassium 3.5 D Chloride 101 Carbon Dioxide 30.5 Anion Gap 9 BUN 29 H Creatinine 0.74 Estimated GFR 75 L Random Glucose 149 H Lactic Acid Calcium 9.0 Magnesium Total Bilirubin 0.3 AST 17 ALT 43 Alkaline Phosphatase 76 Total Creatine Kinase CK-MB (CK-2) Troponin I B-Natriuretic Peptide Total Protein 6.2 L D Albumin 3.1 L Urine Color Urine Clarity Urine pH Ur Specific [place] Urine Protein Urine Glucose (UA) Urine Ketones Urine Occult Blood Urine Nitrate Urine Bilirubin Urine Urobilinogen Ur Leukocyte Esterase Urine RBC Urine WBC Ur Squamous Epith Cells Ur Transition Epith Cell Hyaline Casts Urine Mucus Micro UA Comment Ur Microscopic Review Urine Culture Comments Microbiology 04/25/18 23:11 Nasal Wash Influenza Types A,B Antigen - Final Negative for FLU A and B antigen Infection due to influenza A or B cannot be ruled out since the antigen present in the sample may be below the detection limit of the test. - Imaging Impressions Chest X-Ray 04/25/18 14:54 CONCLUSION: Negative examination. Assessment and Plan - Assessment (1) COPD exacerbation Code(s): J44.1 - Chronic obstructive pulmonary disease with (acute) exacerbation Status: Acute - Plan 82 year old female with history of O2-dependent COPD, breast cancer s/ p mastectomy, HLD, and tachycardia admitted for COPD exacerbation. 04/26: Respiratory symptoms improving the patient continues to have significant wheezing on exam. Continue current care as described below. Added lisinopril for elevated blood pressures 1. COPD exacerbation, failed outpatient therapy Initial O2 saturation on the scene by EMS in the 70s Weaned off BiPAP overnight now on 3L NC with sats 98% CXR negative for infiltrate, personally reviewed ABG on BiPAP yesterday evening: pH 7.44, PO2 171, PCO2 42, bicarb 28 WBC elevated 21.5 but the patient has been on steroids and received IV Solu- Medrol en route WBC down to 13.6 this morning Remains afebrile Influenza negative Check sputum culture, Legionella and pneumococcal antigens DuoNeb Q4H Albuterol Q2H PRN Continue home Brio Supplemental O2 and BiPAP as needed Continue Solu-Medrol 60 mg IV Q6 Continue IV Levaquin Pulmonology consulted as patient known to Dr. Mcdermott. Added IV cefepime 2. Sepsis Patient tachypneic with elevated lactic acid of 2.2 and leukocytosis, source as above Repeat lactic acid 2.0 Blood cultures pending Urinalysis negative for infection Monitor on telemetry See plans above regarding treatment of underlying source 3. Elevated blood pressure No reported history of hypertension BPs continue to be quite elevated, up to 202/103 overnight and early this morning 175/81 Continue home Cardizem Start lisinopril 10 mg daily and can titrate. Monitor BMP and potassium Clonidine, hydralazine, metoprolol as needed 4. Tachycardia, resolved No history of atrial fibrillation Resume home diltiazem 5. Elevated LFTs, resolved Appears to be acute on admission, likely secondary to sepsis LFTs this morning within normal limits 6. Depression Resume home mirtazapine 7. Hyperlipidemia Resume home atorvastatin DVT prophylaxis: Heparin Q12 Discussed Condition With: Patient
[2018-04-26] MEDS: Lisinopril 10 MG Tablet PO SCH (09:05)
--- NOTE | 2018-04-26 14:27 | P.PN ---
Subjective Interval history: On O2 at 3 L. She is better today. Sputum is clearing. No fever. Physical Exam Vital signs: Vital Signs 04/25/18 14:50 04/25/18 14:51 04/25/18 15:07 Temperature Pulse Rate 112 H 74 Respiratory Rate 26 H 25 H Blood Pressure 197/107 H 164/82 H Pulse Oximetry 100 99 99 04/25/18 15:26 04/25/18 17:00 04/25/18 17:42 Temperature Pulse Rate 81 89 Respiratory Rate 20 28 H Blood Pressure 193/102 H Pulse Oximetry 100 100 97 04/25/18 19:15 04/25/18 19:30 04/25/18 20:00 Temperature 98.0 F Pulse Rate 83 85 88 Respiratory Rate 20 Blood Pressure 202/103 H 191/106 H 164/97 H Pulse Oximetry 99 04/25/18 20:35 04/25/18 21:00 04/25/18 22:00 Temperature Pulse Rate 88 89 Respiratory Rate Blood Pressure Pulse Oximetry 100 04/25/18 23:00 04/25/18 23:12 04/26/18 00:00 Temperature 97.8 F Pulse Rate 88 88 91 H Respiratory Rate 20 Blood Pressure 155/89 H Pulse Oximetry 97 04/26/18 00:31 04/26/18 01:00 04/26/18 02:00 Temperature Pulse Rate 88 83 81 Respiratory Rate 20 Blood Pressure Pulse Oximetry 04/26/18 03:00 04/26/18 03:59 04/26/18 04:40 Temperature 98 F Pulse Rate 94 H 85 85 Respiratory Rate 20 20 Blood Pressure 175/81 H Pulse Oximetry 99 04/26/18 05:00 04/26/18 05:54 04/26/18 08:00 Temperature 97.7 F Pulse Rate 83 82 98 H Respiratory Rate 20 Blood Pressure 164/86 H Pulse Oximetry 98 04/26/18 08:17 04/26/18 09:00 04/26/18 09:24 Temperature Pulse Rate 82 90 97 H Respiratory Rate 20 Blood Pressure Pulse Oximetry 98 04/26/18 11:00 04/26/18 11:59 04/26/18 12:33 Temperature 97.8 F Pulse Rate 86 98 H 98 H Respiratory Rate 20 20 Blood Pressure 100/73 Pulse Oximetry 96 04/26/18 13:19 Temperature Pulse Rate 92 H Respiratory Rate Blood Pressure Pulse Oximetry Intake & Output 04/25/18 04/26/18 04/26/18 18:59 06:59 18:59 Intake Total 100 / 100 680 / 680 100 / 100 Output Total 600 / 600 Balance 100 / 100 80 / 80 100 / 100 Weight 58.967 kg 56.5 kg Intake: IV 100 / 100 200 / 200 100 / 100 Maxipime Inj 1,000 MG In NS Inj 200 / 200 100 / 100 100 ML @ 200 mls/hr IV.SIG Q8H RAÚL Rx#:[id number] Levaquin 500 mg Premix Inj 500 100 / 100 mg In 100 ml @ 100 mls/hr IV. SIG ONCE ONE Rx#:[id number] Oral 480 / 480 Output: Urine 600 / 600 Other: Date of Last Bowel Movement 04/25/18 Narrative: GENERAL: WN, WD elderly female alert and Dyspneic SKIN: Warm and dry. Ecchymoses over upper extremities. HEENT: Pupils equal and round. MMM. NECK: Supple no tender LAD or JVD. HEART: RRR no m/r/g. LUNGS: Continues to have diffuse exp wheeze .Distant breath sounds ABDOMEN: +BS, soft, NT, ND. EXTREMITIES: No LE edema. NEURO: Awake and alert. No focal deficit Results - Labs CBC & Chem 7: 04/26/18 05:43 04/26/18 05:43 Laboratory Results - last 24 hr 04/25/18 04/25/18 04/25/18 14:53 15:00 15:00 WBC 21.5 H RBC 4.44 Hgb 13.8 Hct 42.8 MCV 96.4 MCH 31.0 MCHC 32.2 RDW 14.5 Plt Count 294 MPV 9.5 Neut % (Auto) 82.4 H Lymph % (Auto) 12.8 [place] % (Auto) 4.2 Eos % (Auto) 0.4 Baso % (Auto) 0.2 Neut # (Auto) 17.8 H Lymph # (Auto) 2.8 [place] # (Auto) 0.9 Eos # (Auto) 0.1 Baso # (Auto) 0.0 WBC Differential . Differential Comment Auto diff final Puncture Site Patient Temperature O2 Saturation ABG pH ABG pCO2 ABG pO2 ABG HCO3 ABG O2 Content ABG Base Excess ABG Methemoglobin Ricky Test Hemoglobin Carboxyhemoglobin O2 Delivery Device Vent Setting Inspired O2 Critical Value Sodium 142 Potassium 4.6 Chloride 102 Carbon Dioxide 31.3 Anion Gap 9 BUN 23 H Creatinine 0.76 Estimated GFR 73 L Random Glucose 143 H Lactic Acid Calcium 9.1 Magnesium Total Bilirubin 0.5 AST 61 H ALT 57 H Alkaline Phosphatase 100 Total Creatine Kinase CK-MB (CK-2) Troponin I 0.02 B-Natriuretic Peptide Total Protein 7.5 Albumin 3.5 Urine Color Yellow Urine Clarity Hazy H Urine pH 5.0 Ur Specific [place] 1.022 Urine Protein 500 or greater Urine Glucose (UA) 500 or greater Urine Ketones Negative Urine Occult Blood Negative Urine Nitrate Negative Urine Bilirubin Negative Urine Urobilinogen Less than 2 Ur Leukocyte Esterase Negative Urine RBC 2 Urine WBC 5 Ur Squamous Epith Cells 1 Ur Transition Epith Cell 1 Hyaline Casts 10 Urine Mucus Few H Micro UA Comment Culture not ind Ur Microscopic Review Not Reportable Urine Culture Comments Culture not ind 04/25/18 04/25/18 04/25/18 15:00 15:00 15:40 WBC RBC Hgb Hct MCV MCH MCHC RDW Plt Count MPV Neut % (Auto) Lymph % (Auto) [place] % (Auto) Eos % (Auto) Baso % (Auto) Neut # (Auto) Lymph # (Auto) [place] # (Auto) Eos # (Auto) Baso # (Auto) WBC Differential Differential Comment Puncture Site Patient Temperature O2 Saturation ABG pH ABG pCO2 ABG pO2 ABG HCO3 ABG O2 Content ABG Base Excess ABG Methemoglobin Ricky Test Hemoglobin Carboxyhemoglobin O2 Delivery Device Vent Setting Inspired O2 Critical Value Sodium Potassium Chloride Carbon Dioxide Anion Gap BUN Creatinine Estimated GFR Random Glucose Lactic Acid 2.2 H Calcium Magnesium 2.3 Total Bilirubin AST ALT Alkaline Phosphatase Total Creatine Kinase 102 CK-MB (CK-2) 1.6 Troponin I B-Natriuretic Peptide 190 H Total Protein Albumin Urine Color Urine Clarity Urine pH Ur Specific [place] Urine Protein Urine Glucose (UA) Urine Ketones Urine Occult Blood Urine Nitrate Urine Bilirubin Urine Urobilinogen Ur Leukocyte Esterase Urine RBC Urine WBC Ur Squamous Epith Cells Ur Transition Epith Cell Hyaline Casts Urine Mucus Micro UA Comment Ur Microscopic Review Urine Culture Comments 04/25/18 04/25/18 04/25/18 18:16 19:22 21:18 WBC RBC Hgb Hct MCV MCH MCHC RDW Plt Count MPV Neut % (Auto) Lymph % (Auto) [place] % (Auto) Eos % (Auto) Baso % (Auto) Neut # (Auto) Lymph # (Auto) [place] # (Auto) Eos # (Auto) Baso # (Auto) WBC Differential Differential Comment Puncture Site Right radial Right brachial Patient Temperature 98.6 98.6 O2 Saturation 98 97 ABG pH 7.44 H 7.47 H ABG pCO2 42 39 ABG pO2 171 H 124 H ABG HCO3 28 H 28 H ABG O2 Content 17.5 17.3 ABG Base Excess 3.8 H 4.4 H ABG Methemoglobin 0.8 0.6 Ricky Test + Hemoglobin 12.5 12.5 Carboxyhemoglobin 0.9 1.1 O2 Delivery Device Bipap Bipap Vent Setting [id number] Ipap 12 / epap 5 Inspired O2 50 40 Critical Value No No Sodium Potassium Chloride Carbon Dioxide Anion Gap BUN Creatinine Estimated GFR Random Glucose Lactic Acid 2.0 Calcium Magnesium Total Bilirubin AST ALT Alkaline Phosphatase Total Creatine Kinase CK-MB (CK-2) Troponin I B-Natriuretic Peptide Total Protein Albumin Urine Color Urine Clarity Urine pH Ur Specific [place] Urine Protein Urine Glucose (UA) Urine Ketones Urine Occult Blood Urine Nitrate Urine Bilirubin Urine Urobilinogen Ur Leukocyte Esterase Urine RBC Urine WBC Ur Squamous Epith Cells Ur Transition Epith Cell Hyaline Casts Urine Mucus Micro UA Comment Ur Microscopic Review Urine Culture Comments 04/25/18 04/26/18 04/26/18 21:18 05:43 05:43 WBC 15.3 H 13.6 H RBC 4.03 3.75 L Hgb 12.4 11.8 Hct 38.6 35.1 MCV 95.7 93.7 MCH 30.9 31.5 MCHC 32.2 33.7 RDW 14.3 14.2 Plt Count 262 241 MPV 8.8 8.9 Neut % (Auto) 94.2 H Lymph % (Auto) 3.5 L [place] % (Auto) 2.0 Eos % (Auto) 0.0 Baso % (Auto) 0.3 Neut # (Auto) 12.8 H Lymph # (Auto) 0.5 L [place] # (Auto) 0.3 Eos # (Auto) 0.0 Baso # (Auto) 0.0 WBC Differential . Differential Comment Auto diff final Puncture Site Patient Temperature O2 Saturation ABG pH ABG pCO2 ABG pO2 ABG HCO3 ABG O2 Content ABG Base Excess ABG Methemoglobin Ricky Test Hemoglobin Carboxyhemoglobin O2 Delivery Device Vent Setting Inspired O2 Critical Value Sodium 140 Potassium 3.5 D Chloride 101 Carbon Dioxide 30.5 Anion Gap 9 BUN 29 H Creatinine 0.74 Estimated GFR 75 L Random Glucose 149 H Lactic Acid Calcium 9.0 Magnesium Total Bilirubin 0.3 AST 17 ALT 43 Alkaline Phosphatase 76 Total Creatine Kinase CK-MB (CK-2) Troponin I B-Natriuretic Peptide Total Protein 6.2 L D Albumin 3.1 L Urine Color Urine Clarity Urine pH Ur Specific [place] Urine Protein Urine Glucose (UA) Urine Ketones Urine Occult Blood Urine Nitrate Urine Bilirubin Urine Urobilinogen Ur Leukocyte Esterase Urine RBC Urine WBC Ur Squamous Epith Cells Ur Transition Epith Cell Hyaline Casts Urine Mucus Micro UA Comment Ur Microscopic Review Urine Culture Comments Microbiology 04/25/18 15:45 Blood - Peripheral Aerobic Blood Culture - Preliminary No growth in 1 day 04/25/18 15:45 Blood - Peripheral Anaerobic Blood Culture - Preliminary No growth in 1 day 04/25/18 15:35 Blood - Peripheral Aerobic Blood Culture - Preliminary No growth in 1 day 04/25/18 15:35 Blood - Peripheral Anaerobic Blood Culture - Preliminary No growth in 1 day 04/25/18 23:11 Nasal Wash Influenza Types A,B Antigen - Final Negative for FLU A and B antigen Infection due to influenza A or B cannot be ruled out since the antigen present in the sample may be below the detection limit of the test. - Imaging Impressions Chest X-Ray 04/25/18 14:54 CONCLUSION: Negative examination. Assessment and Plan - Assessment (1) Emphysema of lung Code(s): J43.9 - Emphysema, unspecified Status: Acute (2) COPD exacerbation Code(s): J44.1 - Chronic obstructive pulmonary disease with (acute) exacerbation Status: Acute (3) Hypertension Code(s): I10 - Essential (primary) hypertension Status: Acute - Plan 1. O2 at 3 L. 2. nebs qid , duoneb. 3. taper solumedrol to 40 mg IV Q6H 4. Continue antibiotics 5. Sputum culture 6. Mucomyst 2 CC 20% with nebs qid.
[2018-04-26] MEDS ORDERED: Levofloxacin 500 mg Premix Inj 500 MG/100 ML PIGGYBACK IV.SIG SCH (18:00)
[2018-04-26] MEDS: Mirtazapine 15 MG Tablet PO SCH (20:32)
[2018-04-27] MEDS: MethylPREDNISolone Sod Succinate Inj 125 MG/2 ML Vial IV.PUSH SCH ×2 (01:41→09:22)
[2018-04-27 07:01] LABS: Hematocrit 36.4 % (35.0-46.0); Hemoglobin 11.6 gm/dL (11.6-15.3); Mean Corpuscular HGB Conc 31.8 % (32.0-36.0); Mean Corpuscular Hemoglobin 30.8 pg (27.0-34.0); Mean Corpuscular Volume 96.8 fL (80.0-100.0); Mean Platelet Volume 9.6 fL (7.0-11.0); Platelet Count 260 th/mm3 (150-450); Red Blood Count 3.76 mil/mm3 (4.00-5.30); Red Cell Distribution Width 14.6 % (11.6-17.2); White Blood Count 22.5 th/mm3 (4.0-11.0)
[2018-04-27 07:42] LABS: Carbon Dioxide 27.8 meq/L (21.0-32.0); Potassium 3.4 meq/L (3.5-5.1)
[2018-04-27] MEDS: Heparin - SQ 10,000 UNITS/ML Vial SQ SCH ×2 (09:22→20:28)
[2018-04-27] MEDS: Senna/Docusate Sodium 8.6/50 MG Tablet PO SCH ×2 (09:23→20:28)
[2018-04-27] MEDS: dilTIAZem CD 240 MG Capsule PO SCH (09:23)
[2018-04-27] MEDS: Lisinopril 10 MG Tablet PO SCH (09:23)
[2018-04-27] MEDS: guaiFENesin 600 MG ER Tablet PO SCH ×2 (09:23→20:28)
--- NOTE | 2018-04-27 09:59 | P.PNIM ---
Subjective Interval history: Patient states that she still short of breath. No active sputum production. No fevers or chills. No chest pain. States that he she does have oxygen at home uses 3 L. She is not dependent on a walker but uses it to ambulate at home. She is open to both going home or going to rehab if needed at this time. Physical Exam Vital signs: Vital Signs 04/26/18 11:00 04/26/18 11:59 04/26/18 12:33 Temperature 97.8 F Pulse Rate 86 98 H 98 H Respiratory Rate 20 20 Blood Pressure 100/73 Pulse Oximetry 96 04/26/18 13:19 04/26/18 14:36 04/26/18 15:28 Temperature 97.7 F Pulse Rate 92 H 95 H 78 Respiratory Rate 20 Blood Pressure 107/61 Pulse Oximetry 96 04/26/18 16:32 04/26/18 16:43 04/26/18 17:07 Temperature Pulse Rate 87 97 H 94 H Respiratory Rate 23 Blood Pressure Pulse Oximetry 98 04/26/18 19:00 04/26/18 20:00 04/26/18 20:13 Temperature 97.6 F Pulse Rate 84 106 H 80 Respiratory Rate 18 20 Blood Pressure 99/56 L Pulse Oximetry 99 96 04/26/18 21:00 04/26/18 22:00 04/26/18 23:00 Temperature 97.8 F Pulse Rate 95 H 99 H 100 H Respiratory Rate 18 Blood Pressure 138/66 Pulse Oximetry 95 04/27/18 00:00 04/27/18 00:08 04/27/18 01:00 Temperature Pulse Rate 81 76 96 H Respiratory Rate 16 Blood Pressure Pulse Oximetry 04/27/18 02:00 04/27/18 02:46 04/27/18 03:00 Temperature 97.7 F Pulse Rate 87 86 86 Respiratory Rate 20 Blood Pressure 145/64 H Pulse Oximetry 98 04/27/18 03:53 04/27/18 04:04 04/27/18 05:00 Temperature Pulse Rate 84 80 91 H Respiratory Rate 16 Blood Pressure Pulse Oximetry 04/27/18 06:00 04/27/18 07:00 04/27/18 08:00 Temperature 97.5 F L Pulse Rate 89 88 88 Respiratory Rate Blood Pressure 139/68 Pulse Oximetry 93 L 04/27/18 08:12 Temperature Pulse Rate 101 H Respiratory Rate 18 Blood Pressure Pulse Oximetry Intake & Output 04/26/18 04/27/18 04/27/18 18:59 06:59 18:59 Intake Total 800 / 800 680 / 680 Output Total 400 / 400 600 / 600 Balance 400 / 400 80 / 80 Weight 56 kg Intake: IV 200 / 200 200 / 200 Maxipime Inj 1,000 MG In NS Inj 100 / 100 200 / 200 100 ML @ 200 mls/hr IV.SIG Q8H RAÚL Rx#:[id number] Levaquin 500 mg Premix Inj 500 100 / 100 mg In 100 ml @ 100 mls/hr IV. SIG Q24H RAÚL Rx#:[id number] Oral 600 / 600 480 / 480 Output: Urine 400 / 400 600 / 600 Other: Date of Last Bowel Movement 04/26/18 04/26/18 # Bowel Movements 1 1 Narrative: GENERAL: This is a well-nourished, well-developed patient, in no apparent distress. CARDIOVASCULAR: Mildly tachycardic rate and rhythm RESPIRATORY: Bilateral wheezes diffuse, mild retraction GASTROINTESTINAL: Abdomen soft, non-tender, nondistended. Normal active bowel sounds MUSCULOSKELETAL: Extremities without clubbing, cyanosis, or edema. NEURO: Alert & Oriented x4 to person, place, time, situation. Moves all ext x4 Results - Labs CBC & Chem 7: 04/27/18 05:39 04/27/18 05:39 Laboratory Results - last 24 hr 04/27/18 04/27/18 05:39 05:39 WBC 22.5 H D RBC 3.76 L Hgb 11.6 Hct 36.4 MCV 96.8 MCH 30.8 MCHC 31.8 L RDW 14.6 Plt Count 260 MPV 9.6 Sodium 140 Potassium 3.4 L Chloride 101 Carbon Dioxide 27.8 Anion Gap 11 BUN 39 H Creatinine 1.07 H Estimated GFR 49 L Random Glucose 153 H Calcium 9.0 Microbiology 04/25/18 15:45 Blood - Peripheral Aerobic Blood Culture - Preliminary No growth in 1 day 04/25/18 15:45 Blood - Peripheral Anaerobic Blood Culture - Preliminary No growth in 1 day 04/25/18 15:35 Blood - Peripheral Aerobic Blood Culture - Preliminary No growth in 1 day 04/25/18 15:35 Blood - Peripheral Anaerobic Blood Culture - Preliminary No growth in 1 day Assessment and Plan - Assessment (1) COPD exacerbation Code(s): J44.1 - Chronic obstructive pulmonary disease with (acute) exacerbation Status: Acute - Plan 82 year old female with history of O2-dependent COPD, breast cancer s/ p mastectomy, HLD, and tachycardia admitted for COPD exacerbation. 1. Acute on chronic COPD exacerbation, failed outpatient therapy so that Initial O2 saturation on the scene by EMS in the 70s Weaned off BiPAP overnight now on 3L NC with sats 98% CXR negative for infiltrate, personally reviewed WBC elevated this morning but likely due to steroids, currently on cefepime E IV Remains afebrile Influenza negative Check sputum culture, Legionella and pneumococcal antigens DuoNeb Q4H Albuterol Q2H PRN Continue home Brio Supplemental O2 and BiPAP as needed Decrease Solu-Medrol 40 mg IV Q8 Continue IV cefepime IV Pulmonology consulted as patient known to Dr. Mcdermott. 2. Severe sepsis present on admission Patient tachypneic with elevated lactic acid of 2.2 and leukocytosis, source as above Repeat lactic acid 2.0 Blood cultures pending Urinalysis negative for infection 3. hypertension, chronic essential Better controlled Continue home Cardizem continue lisinopril 10 mg daily and can titrate. Monitor BMP and potassium Clonidine, hydralazine, metoprolol as needed 4. Tachycardia, resolved, improved No history of atrial fibrillation Resume home diltiazem 5. Elevated LFTs, resolved Appears to be acute on admission, likely secondary to sepsis Repeat LFTs within normal limits 6. Depression Resume home mirtazapine 7. Hyperlipidemia Resume home atorvastatin DVT prophylaxis: Heparin Q12 Continue physical therapy Discharge Planning: half-way facility versus home health care physical therapy depending on clinical progression of physical therapy
--- NOTE | 2018-04-27 10:09 | P.DCO ---
- Physical Therapy Order: Evaluate and treat - Home Health Nursing Order: Oxygen administration education, Nursing assessment with vital signs - Certification I have seen patient Concetta Weston on 04/27/18. My clinical findings support the need for the requested home health care services because: Patient has SOB I certify that my clinical findings support that this patient is homebound because: Hx COPD - exertion dyspnea/weakness
--- NOTE | 2018-04-27 12:31 | P.PN ---
Subjective Interval history: She was in distress today . Now on BIPAP. O2 sat 96.Still wheezing. Physical Exam Vital signs: Vital Signs 04/26/18 12:33 04/26/18 13:19 04/26/18 14:36 Temperature 97.7 F Pulse Rate 98 H 92 H 95 H Respiratory Rate 20 20 Blood Pressure 107/61 Pulse Oximetry 96 04/26/18 15:28 04/26/18 16:32 04/26/18 16:43 Temperature Pulse Rate 78 87 97 H Respiratory Rate 23 Blood Pressure Pulse Oximetry 98 04/26/18 17:07 04/26/18 19:00 04/26/18 20:00 Temperature 97.6 F Pulse Rate 94 H 84 106 H Respiratory Rate 18 Blood Pressure 99/56 L Pulse Oximetry 99 04/26/18 20:13 04/26/18 21:00 04/26/18 22:00 Temperature Pulse Rate 80 95 H 99 H Respiratory Rate 20 Blood Pressure Pulse Oximetry 96 04/26/18 23:00 04/27/18 00:00 04/27/18 00:08 Temperature 97.8 F Pulse Rate 100 H 81 76 Respiratory Rate 18 16 Blood Pressure 138/66 Pulse Oximetry 95 04/27/18 01:00 04/27/18 02:00 04/27/18 02:46 Temperature 97.7 F Pulse Rate 96 H 87 86 Respiratory Rate 20 Blood Pressure 145/64 H Pulse Oximetry 98 04/27/18 03:00 04/27/18 03:53 04/27/18 04:04 Temperature Pulse Rate 86 84 80 Respiratory Rate 16 Blood Pressure Pulse Oximetry 04/27/18 05:00 04/27/18 06:00 04/27/18 07:00 Temperature 97.5 F L Pulse Rate 91 H 89 88 Respiratory Rate Blood Pressure 139/68 Pulse Oximetry 93 L 04/27/18 08:00 04/27/18 08:12 04/27/18 09:00 Temperature Pulse Rate 88 101 H 118 H Respiratory Rate 18 Blood Pressure Pulse Oximetry 04/27/18 10:00 04/27/18 10:03 Temperature Pulse Rate 136 H 113 H Respiratory Rate 28 H Blood Pressure Pulse Oximetry Intake & Output 04/26/18 04/27/18 04/27/18 18:59 06:59 18:59 Intake Total 800 / 800 680 / 680 Output Total 400 / 400 600 / 600 Balance 400 / 400 80 / 80 Weight 56 kg Intake: IV 200 / 200 200 / 200 Maxipime Inj 1,000 MG In NS Inj 100 / 100 200 / 200 100 ML @ 200 mls/hr IV.SIG Q8H RAÚL Rx#:[id number] Levaquin 500 mg Premix Inj 500 100 / 100 mg In 100 ml @ 100 mls/hr IV. SIG Q24H RAÚL Rx#:[id number] Oral 600 / 600 480 / 480 Output: Urine 400 / 400 600 / 600 Other: Date of Last Bowel Movement 04/26/18 04/26/18 # Bowel Movements 1 1 Narrative: GENERAL: This is a thin elderly W/F patient, in distress. CARDIOVASCULAR: Mildly tachycardic rate and rhythm RESPIRATORY: Bilateral wheezes diffuse, mild retraction and distant breath sounds. GASTROINTESTINAL: Abdomen soft, non-tender, nondistended. Normal active bowel sounds MUSCULOSKELETAL: Extremities without clubbing, cyanosis, or edema. NEURO: Alert & Oriented x4 to person, place, time, situation. Moves all ext x4 Results - Labs CBC & Chem 7: 04/27/18 05:39 04/27/18 05:39 Laboratory Results - last 24 hr 04/27/18 04/27/18 05:39 05:39 WBC 22.5 H D RBC 3.76 L Hgb 11.6 Hct 36.4 MCV 96.8 MCH 30.8 MCHC 31.8 L RDW 14.6 Plt Count 260 MPV 9.6 Sodium 140 Potassium 3.4 L Chloride 101 Carbon Dioxide 27.8 Anion Gap 11 BUN 39 H Creatinine 1.07 H Estimated GFR 49 L Random Glucose 153 H Calcium 9.0 Microbiology 04/25/18 15:45 Blood - Peripheral Aerobic Blood Culture - Preliminary No growth in 2 days 04/25/18 15:45 Blood - Peripheral Anaerobic Blood Culture - Preliminary No growth in 2 days 04/25/18 15:35 Blood - Peripheral Aerobic Blood Culture - Preliminary No growth in 2 days 04/25/18 15:35 Blood - Peripheral Anaerobic Blood Culture - Preliminary No growth in 2 days 04/26/18 16:15 Urine - Random Urine Streptococcus pneumoniae Antigen (M - Final Presumptive negative for streptococcus pneumoniae antigen, suggesting no current or recent infection. Infection due to Streptococcus pneumoniae cannot be ruled out since the antigen present in the sample may be below the detection limit of the test. 04/26/18 16:15 Urine - Random Urine Legionella Antigen - Final Presumptive negative for Legionella pneumophila serogroup 1 antigen in urine, suggesting no recent or recurrent infection. Infection due to Legionella cannot be ruled out since other serogroups and species may cause disease, antigen may not be present in urine in early infection, and the level of antigen present in the urine may be below the detection limit of the test. Assessment and Plan - Assessment (1) Emphysema of lung Code(s): J43.9 - Emphysema, unspecified Status: Acute (2) COPD exacerbation Code(s): J44.1 - Chronic obstructive pulmonary disease with (acute) exacerbation Status: Acute (3) Hypertension Code(s): I10 - Essential (primary) hypertension Status: Acute - Plan 1. O2 at 4 L. 2. nebs qid , duoneb. 3. taper solumedrol to 40 mg IV Q8H 4. Continue antibiotics 5. Will use BIPAP 12/5 CM daytime for resp distress and at HS 6. Mucomyst 2 CC 20% with nebs qid. 7. CXR ,BMP in am
--- NOTE | 2018-04-27 15:02 | XR ---
EXAM DATE: 04/27/2018 2:37 PM EDT AGE/SEX: 82 years / Female INDICATIONS: Shortness of breath. CLINICAL DATA: This is the patient's subsequent encounter. Patient reports that signs and symptoms h ave been present for 2 days and indicates a pain score of 0/10. MEDICAL/SURGICAL HISTORY: Chronic obstructive pulmonary disease. None. COMPARISON: [facility] – [place], CHEST 1V SINGLE AP, 04/25/2018. . FINDINGS: Lungs are hyperinflated. There is no evidence of consolidating airspace disease mass densities or eff usions. Heart and mediastinal structures are unremarkable. CONCLUSION: Stable chest demonstrating COPD but no evidence of acute process. Electronically signed by: Td Curiel MD 04/27/2018 3:00 PM EDT
[2018-04-27] MEDS: MethylPREDNISolone Sod Succinate Inj 40 MG/ML Vial IV.PUSH SCH (17:10)
[2018-04-27] MEDS: levoFLOXacin 500 MG Tablet PO SCH (17:50)
[2018-04-27] MEDS: Mirtazapine 15 MG Tablet PO SCH (20:28)
[2018-04-28] MEDS: MethylPREDNISolone Sod Succinate Inj 40 MG/ML Vial IV.PUSH SCH ×4 (02:15→22:33)
[2018-04-28 04:21] LABS: Baso % (Auto) 0.1 % (0.0-2.0); Hemoglobin 11.4 gm/dL (11.6-15.3); Lymph # (Auto) 0.3 th/mm3 (1.0-4.8); Lymph % (Auto) 1.1 % (9.0-44.0); Mean Corpuscular HGB Conc 32.5 % (32.0-36.0); Mean Corpuscular Hemoglobin 31.2 pg (27.0-34.0); Mean Corpuscular Volume 96.1 fL (80.0-100.0); Mean Platelet Volume 9.2 fL (7.0-11.0); Mono # (Auto) 0.8 th/mm3 (0.0-0.9); Mono % (Auto) 3.4 % (0.0-8.0); Neut # (Auto) 22.6 th/mm3 (1.8-7.7); Neut % (Auto) 95.4 % (16.0-70.0); Platelet Count 259 th/mm3 (150-450); Red Blood Count 3.64 mil/mm3 (4.00-5.30); Red Cell Distribution Width 14.7 % (11.6-17.2); White Blood Count 23.7 th/mm3 (4.0-11.0)
[2018-04-28 04:28] LABS: Calcium 9.4 mg/dL (8.5-10.1); Carbon Dioxide 26.6 meq/L (21.0-32.0); Potassium 3.9 meq/L (3.5-5.1)
[2018-04-28] MEDS ORDERED: levoFLOXacin Liq 25 MG/ML 100 ML Bottle PO SCH (09:00)
[2018-04-28] MEDS: Senna/Docusate Sodium 8.6/50 MG Tablet PO SCH ×2 (09:29→22:34)
[2018-04-28] MEDS: Heparin - SQ 10,000 UNITS/ML Vial SQ SCH ×2 (09:29→22:34)
[2018-04-28] MEDS: guaiFENesin 600 MG ER Tablet PO SCH ×2 (09:30→22:34)
[2018-04-28] MEDS: dilTIAZem CD 240 MG Capsule PO SCH (09:30)
--- NOTE | 2018-04-28 09:50 | P.PNIM ---
Subjective Interval history: Breathing much better today and overnight. Yesterday had to be on BiPAP. No reports of chest pain. Feeling better. Physical Exam Vital signs: Vital Signs 04/27/18 10:00 04/27/18 10:03 04/27/18 11:00 Temperature 99.7 F H Pulse Rate 136 H 113 H 114 H Respiratory Rate 28 H Blood Pressure 130/68 Pulse Oximetry 93 L 04/27/18 12:00 04/27/18 12:53 04/27/18 13:00 Temperature Pulse Rate 102 H 107 H 120 H Respiratory Rate 28 H Blood Pressure Pulse Oximetry 96 04/27/18 14:00 04/27/18 15:00 04/27/18 16:00 Temperature 98.8 F Pulse Rate 92 H 92 H 88 Respiratory Rate Blood Pressure 125/64 Pulse Oximetry 93 L 04/27/18 16:06 04/27/18 16:08 04/27/18 17:00 Temperature Pulse Rate 91 H 96 H Respiratory Rate 26 H Blood Pressure Pulse Oximetry 98 04/27/18 18:00 04/27/18 19:00 04/27/18 19:45 Temperature Pulse Rate 100 H 91 H 94 H Respiratory Rate 28 H Blood Pressure Pulse Oximetry 97 04/27/18 20:00 04/27/18 21:00 04/27/18 22:00 Temperature 98.1 F Pulse Rate 98 H 96 H 90 Respiratory Rate 24 Blood Pressure 120/64 Pulse Oximetry 96 04/27/18 23:00 04/28/18 00:00 04/28/18 01:00 Temperature 98.0 F Pulse Rate 101 H 92 H 88 Respiratory Rate 22 Blood Pressure 136/73 Pulse Oximetry 96 04/28/18 02:00 04/28/18 03:00 04/28/18 03:11 Temperature Pulse Rate 86 119 H Respiratory Rate Blood Pressure Pulse Oximetry 99 04/28/18 03:18 04/28/18 04:00 04/28/18 04:02 Temperature 97.9 F Pulse Rate 90 100 H Respiratory Rate 18 Blood Pressure 139/74 Pulse Oximetry 95 99 04/28/18 05:00 04/28/18 06:00 04/28/18 07:59 Temperature Pulse Rate 101 H 99 H 91 H Respiratory Rate 16 Blood Pressure Pulse Oximetry 98 Intake & Output 04/27/18 04/28/18 04/28/18 18:59 06:59 18:59 Intake Total 940 / 940 670 / 670 Output Total 600 / 600 400 / 400 Balance 340 / 340 270 / 270 Weight 57 kg Intake: IV 100 / 100 190 / 190 Maxipime Inj 1,000 MG In NS Inj 100 / 100 190 / 190 100 ML @ 200 mls/hr IV.SIG Q8H [facility] Rx#:[id number] Oral 840 / 840 480 / 480 Output: Urine 600 / 600 400 / 400 Other: Date of Last Bowel Movement 04/26/18 # Bowel Movements 0 Narrative: GENERAL: This is a thin elderly W/F patient, in distress. CARDIOVASCULAR: Mildly tachycardic rate and rhythm RESPIRATORY: Few bilateral wheezes diffuse, distant breath sounds. GASTROINTESTINAL: Abdomen soft, non-tender, nondistended. Normal active bowel sounds MUSCULOSKELETAL: Extremities without clubbing, cyanosis, or edema. NEURO: Alert & Oriented x4 to person, place, time, situation. Moves all ext x4 Results - Labs CBC & Chem 7: 04/28/18 03:30 04/28/18 03:30 Laboratory Results - last 24 hr 04/28/18 04/28/18 03:30 03:30 WBC 23.7 H RBC 3.64 L Hgb 11.4 L Hct 35.0 MCV 96.1 MCH 31.2 MCHC 32.5 RDW 14.7 Plt Count 259 MPV 9.2 Neut % (Auto) 95.4 H Lymph % (Auto) 1.1 L [place] % (Auto) 3.4 Eos % (Auto) 0.0 Baso % (Auto) 0.1 Neut # (Auto) 22.6 H Lymph # (Auto) 0.3 L [place] # (Auto) 0.8 Eos # (Auto) 0.0 Baso # (Auto) 0.0 WBC Differential . Differential Comment Auto diff final Sodium 139 Potassium 3.9 Chloride 102 Carbon Dioxide 26.6 Anion Gap 10 BUN 48 H Creatinine 1.34 H Estimated GFR 38 L Random Glucose 141 H Calcium 9.4 Microbiology 04/25/18 15:45 Blood - Peripheral Aerobic Blood Culture - Preliminary No growth in 2 days 04/25/18 15:45 Blood - Peripheral Anaerobic Blood Culture - Preliminary No growth in 2 days 04/25/18 15:35 Blood - Peripheral Aerobic Blood Culture - Preliminary No growth in 2 days 04/25/18 15:35 Blood - Peripheral Anaerobic Blood Culture - Preliminary No growth in 2 days 04/26/18 16:15 Urine - Random Urine Streptococcus pneumoniae Antigen (M - Final Presumptive negative for streptococcus pneumoniae antigen, suggesting no current or recent infection. Infection due to Streptococcus pneumoniae cannot be ruled out since the antigen present in the sample may be below the detection limit of the test. 04/26/18 16:15 Urine - Random Urine Legionella Antigen - Final Presumptive negative for Legionella pneumophila serogroup 1 antigen in urine, suggesting no recent or recurrent infection. Infection due to Legionella cannot be ruled out since other serogroups and species may cause disease, antigen may not be present in urine in early infection, and the level of antigen present in the urine may be below the detection limit of the test. - Imaging Impressions Chest X-Ray 04/27/18 00:00 CONCLUSION: Stable chest demonstrating COPD but no evidence of acute process. Assessment and Plan - Assessment (1) Acute exacerbation of chronic obstructive pulmonary disease (COPD) Code(s): J44.1 - Chronic obstructive pulmonary disease with (acute) exacerbation Status: Acute - Plan 82 year old female with history of O2-dependent COPD, breast cancer s/ p mastectomy, HLD, and tachycardia admitted for COPD exacerbation. 1. Acute on chronic COPD exacerbation, failed outpatient therapy so that Initial O2 saturation on the scene by EMS in the 70s Had to be placed on BiPAP overnight and now now on 3L NC CXR negative for infiltrate, personally reviewed WBC continues to be elevated this morning but likely due to steroids, currently on cefepime E IV Remains afebrile Influenza negative Check sputum culture, Legionella and pneumococcal antigens DuoNeb Q4H Albuterol Q2H PRN Continue home Brio Supplemental O2 and BiPAP as needed continue Solu-Medrol 40 mg IV Q8 Continue IV cefepime IV Pulmonology consulted as patient known to Dr. Mcdermott. Appreciate recommendations. 2. Severe sepsis present on admission Patient tachypneic with elevated lactic acid of 2.2 and leukocytosis, source as above Repeat lactic acid 2.0 Blood cultures pending Urinalysis negative for infection 3. hypertension, chronic essential Better controlled Continue home Cardizem Will hold lisinopril 10 mg today due to acute kidney injury. Clonidine, hydralazine, metoprolol as needed 4. Tachycardia, resolved, improved No history of atrial fibrillation Resume home diltiazem 5. Elevated LFTs, resolved Appears to be acute on admission, likely secondary to sepsis Repeat LFTs within normal limits 6. Depression Resume home mirtazapine 7. Hyperlipidemia Resume home atorvastatin 8. Acute kidney injurylikely due to steroids however will monitor closely on antibiotics. Will hold lisinopril overnight. DVT prophylaxis: Heparin Q12 Continue physical therapy Discharge Planning: alf facility versus home health care physical therapy depending on clinical progression of physical therapy, patient prefers home health care.
--- NOTE | 2018-04-28 12:54 | P.PN ---
Subjective Interval history: She is SOB at rest. Used BIPAP day and at Nite. No chest pain Physical Exam Vital signs: Vital Signs 04/27/18 12:53 04/27/18 13:00 04/27/18 14:00 Temperature Pulse Rate 107 H 120 H 92 H Respiratory Rate 28 H Blood Pressure Pulse Oximetry 96 04/27/18 15:00 04/27/18 16:00 04/27/18 16:06 Temperature 98.8 F Pulse Rate 92 H 88 Respiratory Rate Blood Pressure 125/64 Pulse Oximetry 93 L 98 04/27/18 16:08 04/27/18 17:00 04/27/18 18:00 Temperature Pulse Rate 91 H 96 H 100 H Respiratory Rate 26 H Blood Pressure Pulse Oximetry 04/27/18 19:00 04/27/18 19:45 04/27/18 20:00 Temperature 98.1 F Pulse Rate 91 H 94 H 98 H Respiratory Rate 28 H 24 Blood Pressure 120/64 Pulse Oximetry 97 96 04/27/18 21:00 04/27/18 22:00 04/27/18 23:00 Temperature 98.0 F Pulse Rate 96 H 90 101 H Respiratory Rate 22 Blood Pressure 136/73 Pulse Oximetry 96 04/28/18 00:00 04/28/18 01:00 04/28/18 02:00 Temperature Pulse Rate 92 H 88 86 Respiratory Rate Blood Pressure Pulse Oximetry 04/28/18 03:00 04/28/18 03:11 04/28/18 03:18 Temperature Pulse Rate 119 H Respiratory Rate Blood Pressure Pulse Oximetry 99 95 04/28/18 04:00 04/28/18 04:02 04/28/18 05:00 Temperature 97.9 F Pulse Rate 90 100 H 101 H Respiratory Rate 18 Blood Pressure 139/74 Pulse Oximetry 99 04/28/18 06:00 04/28/18 07:00 04/28/18 07:59 Temperature 97.7 F Pulse Rate 99 H 91 H 91 H Respiratory Rate 18 16 Blood Pressure 155/79 H Pulse Oximetry 98 98 04/28/18 08:00 04/28/18 09:00 04/28/18 10:00 Temperature Pulse Rate 97 H 106 H 105 H Respiratory Rate Blood Pressure Pulse Oximetry 04/28/18 10:53 04/28/18 11:00 04/28/18 11:56 Temperature 98.3 F Pulse Rate 108 H 98 H 101 H Respiratory Rate 14 20 Blood Pressure 144/72 H Pulse Oximetry 98 Intake & Output 04/27/18 04/28/18 04/28/18 18:59 06:59 18:59 Intake Total 940 / 940 670 / 670 Output Total 600 / 600 400 / 400 Balance 340 / 340 270 / 270 Weight 57 kg Intake: IV 100 / 100 190 / 190 Maxipime Inj 1,000 MG In NS Inj 100 / 100 190 / 190 100 ML @ 200 mls/hr IV.SIG Q8H [facility] Rx#:[id number] Oral 840 / 840 480 / 480 Output: Urine 600 / 600 400 / 400 Other: Date of Last Bowel Movement 04/26/18 04/25/18 # Bowel Movements 0 Narrative: GENERAL: This is a thin elderly W/F patient, in mild distress. CARDIOVASCULAR: RSR, no Murmur RESPIRATORY: Few bilateral wheezes and , distant breath sounds. GASTROINTESTINAL: Abdomen soft, non-tender, nondistended. Normal active bowel sounds MUSCULOSKELETAL: Extremities without clubbing, cyanosis, or edema. NEURO: Alert & Oriented x4 to person, place, time, situation. Moves all ext x4 Results - Labs CBC & Chem 7: 04/28/18 03:30 04/28/18 03:30 Laboratory Results - last 24 hr 04/28/18 04/28/18 03:30 03:30 WBC 23.7 H RBC 3.64 L Hgb 11.4 L Hct 35.0 MCV 96.1 MCH 31.2 MCHC 32.5 RDW 14.7 Plt Count 259 MPV 9.2 Neut % (Auto) 95.4 H Lymph % (Auto) 1.1 L [place] % (Auto) 3.4 Eos % (Auto) 0.0 Baso % (Auto) 0.1 Neut # (Auto) 22.6 H Lymph # (Auto) 0.3 L [place] # (Auto) 0.8 Eos # (Auto) 0.0 Baso # (Auto) 0.0 WBC Differential . Differential Comment Auto diff final Sodium 139 Potassium 3.9 Chloride 102 Carbon Dioxide 26.6 Anion Gap 10 BUN 48 H Creatinine 1.34 H Estimated GFR 38 L Random Glucose 141 H Calcium 9.4 Microbiology 04/25/18 15:45 Blood - Peripheral Aerobic Blood Culture - Preliminary No growth in 3 days 04/25/18 15:45 Blood - Peripheral Anaerobic Blood Culture - Preliminary No growth in 3 days 04/25/18 15:35 Blood - Peripheral Aerobic Blood Culture - Preliminary No growth in 3 days 04/25/18 15:35 Blood - Peripheral Anaerobic Blood Culture - Preliminary No growth in 3 days 04/26/18 16:15 Urine - Random Urine Streptococcus pneumoniae Antigen (M - Final Presumptive negative for streptococcus pneumoniae antigen, suggesting no current or recent infection. Infection due to Streptococcus pneumoniae cannot be ruled out since the antigen present in the sample may be below the detection limit of the test. 04/26/18 16:15 Urine - Random Urine Legionella Antigen - Final Presumptive negative for Legionella pneumophila serogroup 1 antigen in urine, suggesting no recent or recurrent infection. Infection due to Legionella cannot be ruled out since other serogroups and species may cause disease, antigen may not be present in urine in early infection, and the level of antigen present in the urine may be below the detection limit of the test. - Imaging Impressions Chest X-Ray 04/27/18 00:00 CONCLUSION: Stable chest demonstrating COPD but no evidence of acute process. Assessment and Plan - Assessment (1) Emphysema of lung Code(s): J43.9 - Emphysema, unspecified Status: Acute (2) COPD exacerbation Code(s): J44.1 - Chronic obstructive pulmonary disease with (acute) exacerbation Status: Acute (3) Hypertension Code(s): I10 - Essential (primary) hypertension Status: Acute - Plan 1. O2 at 4 L.N/C 2. nebs qid , duoneb. 3.increase solumedrol to 40 mg IV Q6H 4. Continue antibiotics 5. Will use BIPAP 12/5 CM daytime for resp distress and at HS 6. Mucomyst 2 CC 20% with nebs qid. 7. CXR ,today 8. Add Xanax .25 mg Q6H PRN for anxiety
--- NOTE | 2018-04-28 13:52 | XR ---
EXAM DATE: 04/28/2018 1:49 PM EDT AGE/SEX: 82 years / Female INDICATIONS: Short of breath. CLINICAL DATA: This is the patient's subsequent encounter. Patient reports that signs and symptoms h ave been present for 3 days and indicates a pain score of 0/10. MEDICAL/SURGICAL HISTORY: Chronic obstructive pulmonary disease. None. COMPARISON: [facility] [place], CHEST 1V SINGLE AP, 04/27/2018. . FINDINGS: The lungs are under aerated. There is no pneumothorax. Mild prominence the right suprahilar region. N o pneumothorax. No pleural effusion. No failure. Surgical clips left axilla. CONCLUSION: Mild prominence right suprahilar region otherwise negative. Electronically signed by: Williams Medina MD 04/28/2018 1:51 PM EDT
[2018-04-28] MEDS: levoFLOXacin 500 MG Tablet PO SCH (17:44)
[2018-04-28] MEDS: Mirtazapine 15 MG Tablet PO SCH (22:34)
[2018-04-28] MEDS: ALPRAZolam 0.25 MG Tablet PO PRN (22:34)
[2018-04-29] MEDS: MethylPREDNISolone Sod Succinate Inj 40 MG/ML Vial IV.PUSH SCH ×4 (03:33→21:21)
[2018-04-29 04:46] LABS: Baso % (Auto) 0.1 % (0.0-2.0); Hematocrit 35.1 % (35.0-46.0); Hemoglobin 11.3 gm/dL (11.6-15.3); Lymph # (Auto) 0.2 th/mm3 (1.0-4.8); Lymph % (Auto) 1.3 % (9.0-44.0); Mean Corpuscular HGB Conc 32.3 % (32.0-36.0); Mean Corpuscular Hemoglobin 31.1 pg (27.0-34.0); Mean Corpuscular Volume 96.4 fL (80.0-100.0); Mean Platelet Volume 9.1 fL (7.0-11.0); Mono # (Auto) 0.7 th/mm3 (0.0-0.9); Mono % (Auto) 3.9 % (0.0-8.0); Neut # (Auto) 16.1 th/mm3 (1.8-7.7); Neut % (Auto) 94.7 % (16.0-70.0); Platelet Count 237 th/mm3 (150-450); Red Blood Count 3.64 mil/mm3 (4.00-5.30); Red Cell Distribution Width 14.7 % (11.6-17.2)
[2018-04-29 05:08] LABS: Calcium 9.1 mg/dL (8.5-10.1); Carbon Dioxide 30.1 meq/L (21.0-32.0); Potassium 3.9 meq/L (3.5-5.1)
--- NOTE | 2018-04-29 07:32 | P.DCO ---
- Physical Therapy Order: Evaluate and treat - Home Health Nursing Order: Oxygen administration education, Nursing assessment with vital signs - Certification I have seen patient Concetta Weston on 04/29/18. My clinical findings support the need for the requested home health care services because: Patient has SOB I certify that my clinical findings support that this patient is homebound because: Hx COPD - exertion dyspnea/weakness
[2018-04-29] MEDS: Heparin - SQ 10,000 UNITS/ML Vial SQ SCH ×2 (09:11→21:21)
[2018-04-29] MEDS: Senna/Docusate Sodium 8.6/50 MG Tablet PO SCH ×2 (09:11→21:21)
[2018-04-29] MEDS: dilTIAZem CD 240 MG Capsule PO SCH (09:11)
[2018-04-29] MEDS: guaiFENesin 600 MG ER Tablet PO SCH ×2 (09:11→21:21)
--- NOTE | 2018-04-29 09:28 | P.PNIM ---
Subjective Interval history: Breathing much better. Do not use BiPAP overnight. No active shortness of breath at this time. Physical Exam Vital signs: Vital Signs 04/28/18 10:00 04/28/18 10:53 04/28/18 11:00 Temperature 98.3 F Pulse Rate 105 H 108 H 98 H Respiratory Rate 14 20 Blood Pressure 144/72 H Pulse Oximetry 98 04/28/18 11:56 04/28/18 13:00 04/28/18 14:00 Temperature Pulse Rate 101 H 116 H 89 Respiratory Rate Blood Pressure Pulse Oximetry 04/28/18 15:00 04/28/18 15:46 04/28/18 16:00 Temperature 98 F Pulse Rate 89 86 89 Respiratory Rate 18 18 Blood Pressure 117/59 L Pulse Oximetry 97 99 04/28/18 17:00 04/28/18 17:37 04/28/18 18:00 Temperature Pulse Rate 90 85 Respiratory Rate Blood Pressure Pulse Oximetry 96 04/28/18 19:00 04/28/18 19:37 04/28/18 23:26 Temperature 98.2 F 98.4 F Pulse Rate 96 H 91 H 94 H Respiratory Rate 26 H 20 24 Blood Pressure 157/89 H 141/75 H Pulse Oximetry 98 98 04/28/18 23:45 04/29/18 00:00 04/29/18 01:00 Temperature Pulse Rate 115 H 89 91 H Respiratory Rate 20 Blood Pressure Pulse Oximetry 100 04/29/18 02:00 04/29/18 03:00 04/29/18 03:22 Temperature 97.9 F Pulse Rate 86 105 H 92 H Respiratory Rate 20 20 Blood Pressure 141/66 H Pulse Oximetry 100 04/29/18 04:00 04/29/18 05:00 04/29/18 06:00 Temperature Pulse Rate 92 H 88 70 Respiratory Rate Blood Pressure Pulse Oximetry 04/29/18 07:00 04/29/18 08:50 Temperature 97.7 F Pulse Rate 91 H 111 H Respiratory Rate 14 23 Blood Pressure 158/89 H Pulse Oximetry 97 Intake & Output 04/28/18 04/29/18 04/29/18 18:59 06:59 18:59 Intake Total 820 / 820 340 / 340 100 / 100 Output Total 600 / 600 400 / 400 Balance 220 / 220 -60 / -60 100 / 100 Weight 56.5 kg Intake: IV 100 / 100 100 / 100 100 / 100 Maxipime Inj 1,000 MG In NS Inj 100 / 100 100 / 100 100 / 100 100 ML @ 200 mls/hr IV.SIG Q8H [facility] Rx#:[id number] Oral 720 / 720 240 / 240 Output: Urine 600 / 600 400 / 400 Other: Date of Last Bowel Movement 04/25/18 04/28/18 # Bowel Movements 1 Narrative: GENERAL: This is a thin elderly W/F patient, in no acute distress CARDIOVASCULAR: RSR, no Murmur RESPIRATORY:, distant breath sounds, relatively clear to auscultation. GASTROINTESTINAL: Abdomen soft, non-tender, nondistended. Normal active bowel sounds MUSCULOSKELETAL: Extremities without clubbing, cyanosis, or edema. NEURO: Alert & Oriented x4 to person, place, time, situation. Moves all ext x4 Results - Labs CBC & Chem 7: 04/29/18 03:52 04/29/18 03:52 Laboratory Results - last 24 hr 04/29/18 04/29/18 03:52 03:52 WBC 17.0 H RBC 3.64 L Hgb 11.3 L Hct 35.1 MCV 96.4 MCH 31.1 MCHC 32.3 RDW 14.7 Plt Count 237 MPV 9.1 Neut % (Auto) 94.7 H Lymph % (Auto) 1.3 L [place] % (Auto) 3.9 Eos % (Auto) 0.0 Baso % (Auto) 0.1 Neut # (Auto) 16.1 H Lymph # (Auto) 0.2 L [place] # (Auto) 0.7 Eos # (Auto) 0.0 Baso # (Auto) 0.0 WBC Differential . Differential Comment Auto diff final Sodium 143 Potassium 3.9 Chloride 105 Carbon Dioxide 30.1 Anion Gap 8 BUN 49 H Creatinine 1.11 H Estimated GFR 47 L Random Glucose 143 H Calcium 9.1 Microbiology 04/25/18 15:45 Blood - Peripheral Aerobic Blood Culture - Preliminary No growth in 3 days 04/25/18 15:45 Blood - Peripheral Anaerobic Blood Culture - Preliminary No growth in 3 days 04/25/18 15:35 Blood - Peripheral Aerobic Blood Culture - Preliminary No growth in 3 days 04/25/18 15:35 Blood - Peripheral Anaerobic Blood Culture - Preliminary No growth in 3 days - Imaging Impressions Chest X-Ray 04/28/18 00:00 CONCLUSION: Mild prominence right suprahilar region otherwise negative. Assessment and Plan - Assessment (1) Acute exacerbation of chronic obstructive pulmonary disease (COPD) Code(s): J44.1 - Chronic obstructive pulmonary disease with (acute) exacerbation Status: Acute - Plan 82 year old female with history of O2-dependent COPD, breast cancer s/ p mastectomy, HLD, and tachycardia admitted for COPD exacerbation. 1. Acute on chronic COPD exacerbation, failed outpatient therapy so that Initial O2 saturation on the scene by EMS in the 70s Had to be placed on previously BiPAP overnight and now now on 3L NC. WBC is trending down and likely due to steroids, continue with IV cefepime and Levaquin. Remains afebrile Influenza negative DuoNeb Q4H Albuterol Q2H PRN Supplemental O2 and BiPAP as needed continue Solu-Medrol and decrease from 40 mg IV Q8 to every 12 Continue cefepime IV Pulmonology consulted as patient known to Dr. Mcdermott. Appreciate recommendations. 2. Severe sepsis present on admissionnow resolved Patient tachypneic with elevated lactic acid of 2.2 and leukocytosis, source as above Repeat lactic acid 2.0 Blood cultures pending Urinalysis negative for infection 3. hypertension, chronic essential Better controlled Continue home Cardizem Will hold lisinopril 10 mg today due to acute kidney injury. Clonidine, hydralazine, metoprolol as needed 4. Tachycardia, resolved, improved No history of atrial fibrillation Resume home diltiazem 5. Elevated LFTs, resolved Appears to be acute on admission, likely secondary to sepsis Repeat LFTs within normal limits 6. Depression Resume home mirtazapine 7. Hyperlipidemia Resume home atorvastatin 8. Acute kidney injurylikely due to steroids however will monitor closely on antibiotics. Lisinopril on hold and creatinine has improved. DVT prophylaxis: Heparin Q12 Continue physical therapy Patient is clinically improving and possibly discharged with home health care in the morning. Discharge Planning: Likely home health care with physical therapy upon discharge to home.
--- NOTE | 2018-04-29 11:57 | P.PN ---
Subjective Interval history: Feels better today. On O2 3L. Used BiPAP last PM. No fever. Physical Exam Vital signs: Vital Signs 04/28/18 11:56 04/28/18 13:00 04/28/18 14:00 Temperature Pulse Rate 101 H 116 H 89 Respiratory Rate Blood Pressure Pulse Oximetry 04/28/18 15:00 04/28/18 15:46 04/28/18 16:00 Temperature 98 F Pulse Rate 89 86 89 Respiratory Rate 18 18 Blood Pressure 117/59 L Pulse Oximetry 97 99 04/28/18 17:00 04/28/18 17:37 04/28/18 18:00 Temperature Pulse Rate 90 85 Respiratory Rate Blood Pressure Pulse Oximetry 96 04/28/18 19:00 04/28/18 19:37 04/28/18 23:26 Temperature 98.2 F 98.4 F Pulse Rate 96 H 91 H 94 H Respiratory Rate 26 H 20 24 Blood Pressure 157/89 H 141/75 H Pulse Oximetry 98 98 04/28/18 23:45 04/29/18 00:00 04/29/18 01:00 Temperature Pulse Rate 115 H 89 91 H Respiratory Rate 20 Blood Pressure Pulse Oximetry 100 04/29/18 02:00 04/29/18 03:00 04/29/18 03:22 Temperature 97.9 F Pulse Rate 86 105 H 92 H Respiratory Rate 20 20 Blood Pressure 141/66 H Pulse Oximetry 100 04/29/18 04:00 04/29/18 05:00 04/29/18 06:00 Temperature Pulse Rate 92 H 88 70 Respiratory Rate Blood Pressure Pulse Oximetry 04/29/18 07:00 04/29/18 08:00 04/29/18 08:50 Temperature 97.7 F Pulse Rate 91 H 91 H 111 H Respiratory Rate 14 23 Blood Pressure 158/89 H Pulse Oximetry 97 04/29/18 09:00 04/29/18 09:46 04/29/18 11:00 Temperature 97.9 F Pulse Rate 102 H 103 H 94 H Respiratory Rate 20 Blood Pressure 202/93 H Pulse Oximetry 97 Intake & Output 04/28/18 04/29/18 04/29/18 18:59 06:59 18:59 Intake Total 820 / 820 340 / 340 200 / 200 Output Total 600 / 600 400 / 400 Balance 220 / 220 -60 / -60 200 / 200 Weight 56.5 kg Intake: IV 100 / 100 100 / 100 200 / 200 Maxipime Inj 1,000 MG In NS Inj 100 / 100 100 / 100 200 / 200 100 ML @ 200 mls/hr IV.SIG Q8H [facility] Rx#:[id number] Oral 720 / 720 240 / 240 Output: Urine 600 / 600 400 / 400 Other: Date of Last Bowel Movement 04/25/18 04/28/18 # Bowel Movements 1 Narrative: GENERAL: This is a thin elderly W/F patient, in no acute distress CARDIOVASCULAR: RSR, no Murmur RESPIRATORY:, distant breath sounds, relatively clear to auscultation. GASTROINTESTINAL: Abdomen soft, non-tender, nondistended. Normal active bowel sounds MUSCULOSKELETAL: Extremities without clubbing, cyanosis, or edema. NEURO: Alert & Oriented x4 to person, place, time, situation. Moves all ext x4 Results - Labs CBC & Chem 7: 04/29/18 03:52 04/29/18 03:52 Laboratory Results - last 24 hr 04/29/18 04/29/18 03:52 03:52 WBC 17.0 H RBC 3.64 L Hgb 11.3 L Hct 35.1 MCV 96.4 MCH 31.1 MCHC 32.3 RDW 14.7 Plt Count 237 MPV 9.1 Neut % (Auto) 94.7 H Lymph % (Auto) 1.3 L [place] % (Auto) 3.9 Eos % (Auto) 0.0 Baso % (Auto) 0.1 Neut # (Auto) 16.1 H Lymph # (Auto) 0.2 L [place] # (Auto) 0.7 Eos # (Auto) 0.0 Baso # (Auto) 0.0 WBC Differential . Differential Comment Auto diff final Sodium 143 Potassium 3.9 Chloride 105 Carbon Dioxide 30.1 Anion Gap 8 BUN 49 H Creatinine 1.11 H Estimated GFR 47 L Random Glucose 143 H Calcium 9.1 Microbiology 04/25/18 15:45 Blood - Peripheral Aerobic Blood Culture - Preliminary No growth in 4 days 04/25/18 15:45 Blood - Peripheral Anaerobic Blood Culture - Preliminary No growth in 4 days 04/25/18 15:35 Blood - Peripheral Aerobic Blood Culture - Preliminary No growth in 4 days 04/25/18 15:35 Blood - Peripheral Anaerobic Blood Culture - Preliminary No growth in 4 days - Imaging Impressions Chest X-Ray 04/28/18 00:00 CONCLUSION: Mild prominence right suprahilar region otherwise negative. Assessment and Plan - Assessment (1) Emphysema of lung Code(s): J43.9 - Emphysema, unspecified Status: Acute (2) COPD exacerbation Code(s): J44.1 - Chronic obstructive pulmonary disease with (acute) exacerbation Status: Acute (3) Hypertension Code(s): I10 - Essential (primary) hypertension Status: Acute - Plan 1. O2 at 3 L.N/C 2. nebs qid , duoneb. 3.Increase solumedrol to 40 mg IV Q8H 4. Continue antibiotics 5. Will use BIPAP 12/5 CM daytime for resp distress and at HS 6. Mucomyst 2 CC 20% with nebs BID 7. Labs in am 8. Xanax .25 mg Q6H PRN for anxiety
[2018-04-29] MEDS: levoFLOXacin 500 MG Tablet PO SCH (17:09)
[2018-04-29] MEDS: ALPRAZolam 0.25 MG Tablet PO PRN (21:21)
[2018-04-29] MEDS: Mirtazapine 15 MG Tablet PO SCH (21:21)
[2018-04-30] MEDS: MethylPREDNISolone Sod Succinate Inj 40 MG/ML Vial IV.PUSH SCH (07:23)
--- NOTE | 2018-04-30 08:25 | P.DS ---
Date of admission: 04/25/18 17:39 Primary care physician: Dante Reddy MD Brief History from admission: 82 year old female with oxygen-dependent COPD, HLD, and tachycardia presenting with worsening shortness of breath for the past three days. She is accompanied by her two daughters who report they have been urging the patient to come in for evaluation but she has resisted. The patient finally worsened to the point where she could hardly get up and walk a couple steps, and she was severely short of breath even just at rest. EMS was called and on arrival the patient's O2 sat was in the low 70s and en route to the hospital she was given a dose of IV Solu-Medrol 125 mg. The majority of the history is provided by the patient's daughters who also state that she had just completed a 10 day course of cefuroxime for treatment of bronchitis diagnosed by Dr. Mcdermott, her drier helper. She is chronically on low-dose prednisone but was placed on 30 mg of prednisone daily for a week followed by 20 mg of prednisone daily for a week for which she continues to take. The patient endorses coughing and chest congestion. She denies any chest pain, fever, chills, nausea, vomiting, or abdominal pain. She states she has been doing her nebulizer treatments every 3- 4 hours and sometimes even "doubling up." Her shortness of breath did not significantly improve until she was placed on BiPAP in the ED. Patient update on day of discharge: Patient reports that her breathing is almost back to normal baseline. She is on 3 L of oxygen at home. She has a walker at home and all the equipment she needs. She wants to go home. DS: Diagnosis - Discharge Diagnosis (1) Severe sepsis Status: Resolved Diagnosis: Principal (2) Acute exacerbation of chronic obstructive pulmonary disease (COPD) Status: Acute Diagnosis: Principal (3) Hypertension Status: Chronic Diagnosis: Secondary (4) Acute kidney injury Status: Resolved Diagnosis: Secondary DS: Summary Hospital Course: 82 year old female with history of O2-dependent COPD, breast cancer s/ p mastectomy, HLD, and tachycardia admitted for COPD exacerbation. These are the medical issues addressed during this hospitalization: 1. Acute on chronic COPD exacerbation, failed outpatient therapy so that Initial O2 saturation on the scene by EMS in the 70s Had to be placed on previously BiPAP overnight and now now on 3L NC. WBC is trending down and likely due to steroids, continue with IV cefepime and Levaquin. Remains afebrile Influenza negative DuoNeb Q4H Albuterol Q2H PRN Supplemental O2 and BiPAP as needed continue Solu-Medrol and decrease from 40 mg IV Q8 to every 12 Continue cefepime IV Pulmonology consulted as patient known to Dr. Mcdermott. Appreciate recommendations. 2. Severe sepsis present on admissionnow resolved Patient tachypneic with elevated lactic acid of 2.2 and leukocytosis, source as above Repeat lactic acid 2.0 Blood cultures pending Urinalysis negative for infection 3. hypertension, chronic essential Better controlled Continue home Cardizem Will hold lisinopril 10 mg today due to acute kidney injury. Clonidine, hydralazine, metoprolol as needed 4. Tachycardia, resolved, improved No history of atrial fibrillation Resume home diltiazem 5. Elevated LFTs, resolved Appears to be acute on admission, likely secondary to sepsis Repeat LFTs within normal limits 6. Depression Resume home mirtazapine 7. Hyperlipidemia, chronic Resume home atorvastatin 8. Acute kidney injurylikely due to steroids however will monitor closely on antibiotics. Lisinopril on hold and creatinine has improved. DVT prophylaxis: Heparin Q12 Patient has gained maximum benefit from hospitalization and ready to be discharged to home with home health care with physical therapy - Time Spent with Patient Total time spent providing and/or coordinating discharge services: Less than 30 minutes - Quality: VTE Deep Vein Thrombosis/Pulmonary Embolism Present on Admission: No Exam Vital signs: Vital Signs 04/29/18 08:50 04/29/18 09:00 04/29/18 09:46 Temperature Pulse Rate 111 H 102 H 103 H Respiratory Rate 23 Blood Pressure Pulse Oximetry 04/29/18 11:00 04/29/18 12:00 04/29/18 13:00 Temperature 97.9 F Pulse Rate 94 H 94 H 81 Respiratory Rate 20 Blood Pressure 202/93 H 133/68 Pulse Oximetry 97 04/29/18 14:00 04/29/18 15:00 04/29/18 15:14 Temperature 98 F Pulse Rate 83 80 81 Respiratory Rate 20 18 Blood Pressure 122/70 Pulse Oximetry 96 99 04/29/18 16:00 04/29/18 17:00 04/29/18 18:00 Temperature Pulse Rate 83 84 95 H Respiratory Rate Blood Pressure Pulse Oximetry 04/29/18 18:03 04/29/18 19:00 04/29/18 19:16 Temperature 98.3 F Pulse Rate 97 H 101 H 85 Respiratory Rate 22 24 20 Blood Pressure 172/77 H Pulse Oximetry 96 04/29/18 20:00 04/29/18 21:00 04/29/18 22:00 Temperature Pulse Rate 101 H 88 90 Respiratory Rate Blood Pressure Pulse Oximetry 04/29/18 23:00 04/29/18 23:56 04/30/18 00:00 Temperature 97.3 F L Pulse Rate 97 H 88 72 Respiratory Rate 26 H 16 Blood Pressure 138/66 Pulse Oximetry 96 99 04/30/18 01:00 04/30/18 02:00 04/30/18 03:00 Temperature 97.9 F Pulse Rate 88 88 90 Respiratory Rate 20 Blood Pressure 127/62 Pulse Oximetry 94 L 04/30/18 04:00 04/30/18 05:00 04/30/18 06:00 Temperature Pulse Rate 90 90 82 Respiratory Rate Blood Pressure Pulse Oximetry Intake & Output 04/29/18 04/30/18 04/30/18 18:59 06:59 18:59 Intake Total 920 / 920 480 / 480 100 / 100 Output Total 600 / 600 600 / 600 Balance 320 / 320 -120 / -120 100 / 100 Weight 56 kg Intake: IV 200 / 200 100 / 100 Maxipime Inj 1,000 MG In NS Inj 200 / 200 100 / 100 100 ML @ 200 mls/hr IV.SIG Q8H [facility] Rx#:[id number] Oral 720 / 720 480 / 480 Output: Urine 600 / 600 600 / 600 Other: Date of Last Bowel Movement 04/29/18 # Bowel Movements 1 Narrative: GENERAL: This is a well-nourished, well-developed patient, in no apparent distress. CARDIOVASCULAR: Regular rate and rhythm RESPIRATORY: Diminished breath sounds bilaterally relatively clear GASTROINTESTINAL: Abdomen soft, non-tender, nondistended. Normal active bowel sounds MUSCULOSKELETAL: Extremities without clubbing, cyanosis, or edema. NEURO: Alert & Oriented x4 to person, place, time, situation. Moves all ext x4 Results Procedures completed during hospitalization: None Labs on day of discharge: Preliminary micro results at discharge 04/25/18 15:45 Aerobic Blood Culture - Preliminary Blood - Peripheral No growth in 4 days Anaerobic Blood Culture - Preliminary No growth in 4 days 04/25/18 15:35 Aerobic Blood Culture - Preliminary Blood - Peripheral No growth in 4 days Anaerobic Blood Culture - Preliminary No growth in 4 days - Impressions ITS Impressions Chest X-Ray 04/28/18 00:00 CONCLUSION: Mild prominence right suprahilar region otherwise negative. Discharge Plan - Discharge Disposition Patient Disposition: /Home Health Service - Discharge Condition Condition: Stable - Discharge Order Discharge Orders: Discharge Order (Routine); Ordered 04/30/18 Ordered By: Ifrah Mohan - Discharge Details Anticipated Discharge Date: 04/30/18 - Physicians Team Primary Care Provider: Dante Reddy Attending Provider: Ifrah Mohan Other Providers: Pop Mcdermott MD ; Minnie Hartman
[2018-04-30] MEDS: dilTIAZem CD 240 MG Capsule PO SCH (09:37)
[2018-04-30] MEDS: guaiFENesin 600 MG ER Tablet PO SCH (09:38)
[2018-04-30] MEDS: Senna/Docusate Sodium 8.6/50 MG Tablet PO SCH (09:38)
[2018-04-30] MEDS: Heparin - SQ 10,000 UNITS/ML Vial SQ SCH (09:38)
[2018-04-30] MEDS: ALPRAZolam 0.25 MG Tablet PO PRN (10:49)
== END 2018-04-30 12:05 | disposition home health service (06) ==
LOC: NEPE 14:47 → NEDA 17:39 → HCPC 20:15
PROVIDERS: ADMIT Family Medicine; ATTEND Family Medicine

== ENCOUNTER 2018-05-15 11:40 | Inpatient (IN) ==
--- NOTE | 2018-05-15 11:56 | ED ---
HPI General Chief Complaint: Shortness of Breath/Dyspnea Stated Complaint: SOB Time Seen by Provider: 05/15/18 11:43 Source: patient Mode of arrival: ambulatory Limitations: no limitations History of Present Illness The patient is a 83-year-old female who presents to the emergency department via EMS for shortness of breath. The patient was recently hospitalized for COPD, was discharged home approximately 1 week ago, now returns with progressing symptoms. The patient does have a history of COPD and is followed by her shower room attendant, Dr. Curry. The patient cannot recall if she is currently on prednisone, states that she lives with her son who administers her medications. The patient had an albuterol inhaler this morning at home and then was provided a DuoNeb and Solu-Medrol 125 mg intravenously by EMS prior to arrival. The patient was noted to have atrial fibrillation with RVR by EMS prior to arrival. The patient's symptoms are moderate. She denies any chest pain but does complain of shortness of breath. She denies any nausea , vomiting, diarrhea, or abdominal pain. She does complain of mild lightheadedness. Symptoms are moderate. MD Complaint: shortness of breath and cough Onset (ago): hour(s) Context: recent illness Severity: similar to previous episodes Consistency/Duration: constant and progressively worsening Relieving factors: nothing Exacerbating factors: exertion and talking Known history of: COPD Associated symptoms: cough, wheezing and lightheadedness Treatment prior to arrival: oxygen and bronchodilator Related Data Home oxygen amount: 3 liters Home Medications Medication Instructions Recorded Confirmed atorvastatin 10 mg PO DAILY 04/25/18 05/15/18 diltiazem HCl [DILT-XR] 240 mg PO DAILY 04/25/18 05/15/18 fluticasone-vilanterol [Breo 1 inh INHALATION DAILY 04/25/18 05/15/18 Ellipta] ipratropium-albuterol 3 ml INHALATION Q6-8H PRN 04/25/18 05/15/18 iron 65 mg PO BID 04/25/18 05/15/18 mirtazapine 15 mg PO HS 04/25/18 05/15/18 oisfimji-muo-ymve-FA-lutein 1 mcg PO DAILY 04/25/18 05/15/18 [Centrum Silver Women] pantoprazole 40 mg PO DAILY 04/25/18 05/15/18 albuterol sulfate [Ventolin HFA] 2 puff INHALATION Q4-6H PRN 05/15/18 05/15/18 fluticasone 1 inh INHALATION DAILY 05/15/18 05/15/18 guaifenesin [Mucinex] 600 mg PO Q12H 05/15/18 05/15/18 vit C-vit M-hxtoih-ajo-om-3 1 cap PO DAILY 05/15/18 05/15/18 [Ocuvite] Previous Rx's Medication Instructions Recorded prednisone 20 mg PO DAILY #30 tab 04/29/18 levofloxacin 500 mg PO Q24H #5 tab 04/30/18 Allergies Allergy/AdvReac Type Severity Reaction Status Date / Time No Known Allergies Allergy Verified 05/15/18 12:42 Review of Systems ROS: all other systems reviewed are negative [facility] Social History Social History Substance History: No History of Abuse Second Hand Smoke Exposure: No Smoking Status: Former smoker How Often Do You Have a Drink Containing Alcohol: Never Recent Travel in [facility] within the Last 8 Weeks: No Recent Out of Country Travel within the Last 8 Weeks: No Exam Narrative Exam Narrative: GENERAL: Awake, alert, pleasant 83-year-old female who appears her stated age and is in mild respiratory distress. SKIN: Focused skin assessment warm/dry. HEAD: Atraumatic. Normocephalic. EYES: No injection or drainage per ENT: No nasal bleeding or discharge. Mucous membranes pink and moist. NECK: Trachea midline. No JVD. CARDIOVASCULAR: Irregularly irregular, tachycardic with a heart rate in the 170s. RESPIRATORY: Tachypnea with diminished breath sounds prolonged expiratory phase with wheezes. GASTROINTESTINAL: Abdomen soft, non-tender, nondistended. Hepatic and splenic margins not palpable. MUSCULOSKELETAL: No obvious deformities. No clubbing. No cyanosis. No edema. NEUROLOGICAL: Awake and alert. No obvious cranial nerve deficits. Motor grossly within normal limits. Normal speech. Nonfocal. Only able to speak in 1 -2 word sentences. PSYCHIATRIC: Appropriate mood and affect; insight and judgment normal. Course Initial Documented Vital Signs Temperature 97.7 F 05/15/18 11:57 Pulse Rate 198 H 05/15/18 11:57 Respiratory Rate 32 H 05/15/18 11:57 Blood Pressure 187/122 H 05/15/18 11:57 Pulse Oximetry 94 L 05/15/18 11:57 Last Documented Vital Signs Temperature 97.7 F 05/15/18 11:57 Pulse Rate 154 H 05/15/18 12:20 Respiratory Rate 24 05/15/18 12:20 Blood Pressure 179/77 H 05/15/18 12:20 Pulse Oximetry 94 L 05/15/18 12:20 Critical Care Time Critical Care Time: Yes Total Critical Care Time: 40 Attestation: Aggregate critical care time was 40 minutes. Time to perform other separately billable procedures was not included in the critical care time. My time did not include minutes spent treating any other patients simultaneously or on activities that did not directly contribute to the patient's treatment. The services I provided to this patient were to treat and/or prevent clinically significant deterioration that could result in: Anoxia, hypoxia, arrhythmia, cardiomyopathy, congestive heart failure, flash pulmonary edema, . I provided critical care services requiring my management, as noted below: Chart data review, documentation time, medication orders and management, vital sign assessments/reviewing monitor data, ordering and reviewing lab tests, ordering and interpreting/reviewing x-rays and diagnostic studies, care of the patient and discussion of the patient with the admitting physicians. Medical Decision Making MDM Narrative Medical decision making narrative: IV was established, labs are drawn and sent, and the patient was placed on cardiac telemetry monitoring and continuous pulse oximetry monitoring. EKG was ordered and interpreted. The patient was noted to have atrial fibrillation with RVR, therefore, was administered Cardizem 50 mg intravenously. Chest x-ray was obtained. Chest x-ray reveals a new infiltrate in the right middle lobe, patient was recently hospitalized, therefore, was treated for healthcare acquired pneumonia with cefepime and Zithromax. The patient did have atrial fibrillation with RVR, was administered Cardizem 50 mg intravenously, Cardizem 10 mg intravenously, then placed on a Cardizem drip. The patient was administered aspirin. The patient has A. fib with RVR, healthcare acquired pneumonia, and COPD exacerbation. Therefore, the patient will be admitted to the on-call medical service, she has [employer], [facility]. I discussed the patient with Dr. Lundy who agrees with admission. Medical Screen Exam Complete: Yes Emergency Medical Condition: Yes Differential Diagnosis Differential Diagnosis: Differential diagnosis includes atrial fibrillation with RVR, congestive heart failure, pulmonary edema, pneumonia, COPD exacerbation, pleural effusion, pulmonary embolism, ACS. Medical Records Medical records reviewed: Yes I reviewed the patient's medical records. Lab Data Lab results reviewed: Yes I reviewed the patient's lab results. Result diagrams: 05/15/18 12:06 05/15/18 12:06 Lab Results 05/15/18 05/15/18 05/15/18 Range/Units 12:06 12:06 12:06 WBC 20.3 H (4.0-11.0) th/mm3 RBC 3.98 L (4.00-5.30) mil/mm3 Hgb 12.3 (11.6-15.3) gm/dL Hct 37.5 (35.0-46.0) % MCV 94.3 (80.0-100.0) fL MCH 30.9 (27.0-34.0) pg MCHC 32.7 (32.0-36.0) % RDW 14.3 (11.6-17.2) % Plt Count 387 D (150-450) th/mm3 MPV 7.9 (7.0-11.0) fL Prelim Diff (Auto) Manual diff required WBC Differential Manual diff final Seg Neuts % (Manual) 78 H (16-70) % Band Neuts % (Manual) 12 H (0-6) % Lymphocytes % (Manual) 6 L (9-44) % Monocytes % (Manual) 4 (0-8) % Abs Neuts (Manual) 18.3 H (1.8-7.7) th/mm3 Differential Comment . Toxic Granulation 1+ H (None) Platelet Estimate Normal (Normal) Platelet Morphology Normal (Normal) PT 10.1 (9.8-11.6) sec INR 1.0 Ratio APTT 19.4 L (24.3-30.1) sec Sodium 138 (136-145) meq/L Potassium 3.3 L (3.5-5.1) meq/L Chloride 97 L (98-107) meq/L Carbon Dioxide 31.3 (21.0-32.0) meq/L Anion Gap 10 (5-15) meq/L BUN 22 H (7-18) mg/dL Creatinine 0.88 (0.50-1.00) mg/dL Estimated GFR 62 L (>89) mL/min Random Glucose 213 H (74-106) mg/dL Calcium 9.3 (8.5-10.1) mg/dL Magnesium 2.0 (1.5-2.5) mg/dL Total Bilirubin 0.4 (0.2-1.0) mg/dL AST 20 (15-37) U/L ALT 33 (10-53) U/L Alkaline Phosphatase 127 H (45-117) U/L Troponin I 0.04 (0.02-0.05) ng/mL B-Natriuretic Peptide (0-100) pg/mL Total Protein 6.8 (6.4-8.2) g/dL Albumin 2.3 L (3.4-5.0) g/dL 05/15/18 Range/Units 12:06 WBC (4.0-11.0) th/mm3 RBC (4.00-5.30) mil/mm3 Hgb (11.6-15.3) gm/dL Hct (35.0-46.0) % MCV (80.0-100.0) fL MCH (27.0-34.0) pg MCHC (32.0-36.0) % RDW (11.6-17.2) % Plt Count (150-450) th/mm3 MPV (7.0-11.0) fL Prelim Diff (Auto) WBC Differential Seg Neuts % (Manual) (16-70) % Band Neuts % (Manual) (0-6) % Lymphocytes % (Manual) (9-44) % Monocytes % (Manual) (0-8) % Abs Neuts (Manual) (1.8-7.7) th/mm3 Differential Comment Toxic Granulation (None) Platelet Estimate (Normal) Platelet Morphology (Normal) PT (9.8-11.6) sec INR Ratio APTT (24.3-30.1) sec Sodium (136-145) meq/L Potassium (3.5-5.1) meq/L Chloride (98-107) meq/L Carbon Dioxide (21.0-32.0) meq/L Anion Gap (5-15) meq/L BUN (7-18) mg/dL Creatinine (0.50-1.00) mg/dL Estimated GFR (>89) mL/min Random Glucose (74-106) mg/dL Calcium (8.5-10.1) mg/dL Magnesium (1.5-2.5) mg/dL Total Bilirubin (0.2-1.0) mg/dL AST (15-37) U/L ALT (10-53) U/L Alkaline Phosphatase (45-117) U/L Troponin I (0.02-0.05) ng/mL B-Natriuretic Peptide 266 H (0-100) pg/mL Total Protein (6.4-8.2) g/dL Albumin (3.4-5.0) g/dL Imaging Data Attestation: I personally reviewed and interpreted this imaging study as follows : My impression: Chest x-ray reveals right middle lobe pneumonia Radiologist's impression: Chest X-Ray 05/15/18 11:50 CONCLUSION: 1. New patchy airspace disease in the right midlung concerning for pneumonia or aspiration in the appropriate clinical setting. ECG Data EKG Prior to Arrival: No Attestation: I personally reviewed and interpreted this ECG as follows: Interpretation: EKG reveals atrial fibrillation with RVR. Nonspecific T wave changes. Discharge Plan Discharge Disposition Patient Disposition: 30 Still Patient Discharge Condition Condition: Stable Discharge Details Diagnosis: Acute exacerbation of chronic obstructive pulmonary disease (COPD), Pneumonia, Atrial fibrillation with RVR Physicians Team ED Provider: Go Munguia Primary Care Provider: Dante Reddy Rxs /Orders / Referrals /Forms Prescriptions: No Action ipratropium-albuterol 0.5 mg-3 mg(2.5 mg base)/3 mL Solution For Nebulization 3 ml INHALATION Q6-8H PRN (Reason: Shortness Of Breath) RF: 0 diltiazem HCl [DILT-XR] 240 mg Capsule,Ext.Rel 24h Degradable 240 mg PO DAILY RF: 0 atorvastatin 10 mg Tablet 10 mg PO DAILY RF: 0 pantoprazole 40 mg Tablet,Delayed Release (Dr/Ec) 40 mg PO DAILY RF: 0 mirtazapine 15 mg Tablet 15 mg PO HS RF: 0 iron 18 mg Tablet 65 mg PO BID RF: 0 fluticasone-vilanterol [Breo Ellipta] 100-25 mcg/dose Blister With Device 1 inh INHALATION DAILY RF: 0 szrloves-lib-abpx-FA-lutein [Centrum Silver Women] 8 mg iron-400 mcg-300 mcg Tablet 1 mcg PO DAILY RF: 0 prednisone 20 mg Tablet 20 mg PO DAILY Qty: 30 RF: 0 levofloxacin 500 mg Tablet 500 mg PO Q24H Qty: 5 RF: 0 fluticasone 50 mcg/actuation Blister With Device 1 inh INHALATION DAILY RF: 0 albuterol sulfate [Ventolin HFA] 90 mcg/actuation Hfa Aerosol Inhaler 2 puff INHALATION Q4-6H PRN (Reason: Wheezing) RF: 0 vit C-vit R-izkjnr-vfn-om-3 [Ocuvite] [id number] xk-qvxw-ld-mg Capsule 1 cap PO DAILY RF: 0 guaifenesin [Mucinex] 600 mg Tablet Extended Release 12hr 600 mg PO Q12H RF: 0 Discharge Interventions Interventions: Vital Signs Last Done: 05/15/18 12:20 Status ED Status: Pending Admission
[2018-05-15] MEDS ORDERED: Azithromycin Inj 500 MG in Sodium Chlor 0.9% Inj 250 ML IV.SIG ONE (12:18)
--- NOTE | 2018-05-15 12:18 | XR ---
EXAM DATE: 05/15/2018 11:50 AM EDT AGE/SEX: 83 years / Female INDICATIONS: Short of breath. CLINICAL DATA: This is the patient's initial encounter. Patient reports that signs and symptoms have been present for 1 week and indicates a pain score of 0/10. MEDICAL/SURGICAL HISTORY: Chronic obstructive pulmonary disease. None. COMPARISON: C, CHEST 1V SINGLE AP, 04/28/2018. . FINDINGS: New patchy airspace disease in the right mid lung. Cardiomediastinal contours are within normal limit s. Bony thorax is intact. CONCLUSION: 1. New patchy airspace disease in the right midlung concerning for pneumonia or aspiration in the ap propriate clinical setting. Electronically signed by: Dutch Bledsoe MD 05/15/2018 12:16 PM EDT
[2018-05-15 12:23] LABS: Hematocrit 37.5 % (35.0-46.0); Hemoglobin 12.3 gm/dL (11.6-15.3); Mean Corpuscular HGB Conc 32.7 % (32.0-36.0); Mean Corpuscular Hemoglobin 30.9 pg (27.0-34.0); Mean Corpuscular Volume 94.3 fL (80.0-100.0); Mean Platelet Volume 7.9 fL (7.0-11.0); Platelet Count 387 th/mm3 (150-450); Red Blood Count 3.98 mil/mm3 (4.00-5.30); Red Cell Distribution Width 14.3 % (11.6-17.2); White Blood Count 20.3 th/mm3 (4.0-11.0)
[2018-05-15 12:37] LABS: Prothrombin Time 10.1 sec (9.8-11.6)
[2018-05-15 12:43] LABS: Activated Partial Thrombo Time 19.4 sec (24.3-30.1); Alanine Aminotransferase 33 U/L (10-53); Albumin 2.3 g/dL (3.4-5.0); Anion Gap 10 meq/L (5-15); Aspartate Aminotransferase 20 U/L (15-37); Blood Urea Nitrogen 22 mg/dL (7-18); Calcium 9.3 mg/dL (8.5-10.1); Carbon Dioxide 31.3 meq/L (21.0-32.0); Chloride 97 meq/L (98-107); Glomerular Filtration Rate 62 mL/min (>89); Glucose,Random 213 mg/dL (74-106); Potassium 3.3 meq/L (3.5-5.1); Sodium 138 meq/L (136-145)
[2018-05-15 12:46] LABS: Alkaline Phosphatase 127 U/L (45-117); Total Protein 6.8 g/dL (6.4-8.2); Troponin I 0.04 ng/mL (0.02-0.05)
[2018-05-15 13:16] LABS: Lymphocytes 6 % (9-44); Monocytes 4 % (0-8)
--- NOTE | 2018-05-15 13:16 | P.HP ---
History of Present Illness Primary Care Physician: Dante Reddy MD Chief Complaint: Shortness of breath History of Present Illness: This is a pleasant 83 y/o Female who was brought in to Emergency Room via EMS, due to shortness of breath. The patient was recently hospitalized for COPD, was discharged home approximately 1 week ago, now returns with progressing symptoms. The patient does have a history of COPD and is followed by her ct technologist, Dr. Dorman. She had an albuterol inhaler this morning at home and then was provided a DuoNeb and Solu-Medrol 125 mg intravenously by EMS prior to arrival. The patient was noted to have atrial fibrillation with RVR by EMS prior to arrival. The patient's symptoms are moderate. She denies any chest pain but does complain of shortness of breath. She denies any nausea, vomiting, diarrhea, or abdominal pain. She does complain of mild lightheadedness. She uses Home Oxygen at 3 L/min. at home, has Hyperlipidemia, Depression, GERD. Received Cardizem 50 mg IV due to Atrial Fibrillation with RVR in ER, she is chronically on low dose Prednisone, seen in her bedroom evident Severe COPD, inspiratory crackles on right base. Estimated Total Length of Stay (Days): 3 Review of Systems All other systems reviewed negative except as stated in HPI PMFSH - History History Provided By: Patient - Medical History Medical History: Medical History (Last Reviewed 05/15/18 @ 14:14 by Cailin Degroot, SABA) Breast cancer Bronchitis COPD (chronic obstructive pulmonary disease) Hyperlipidemia - Surgical History Surgical History: Surgical History (Last Reviewed 05/15/18 @ 11:56 by Lavinia Ceja RN) H/O left mastectomy H/O right mastectomy - Family History Family History: Family History (Last Reviewed 04/30/18 @ 08:12 by Poli Miranda PT) Mother CHF (congestive heart failure) COPD (chronic obstructive pulmonary disease) Sister Breast cancer - Tobacco History Second Hand Smoke Exposure: No Smoking Status: Former smoker - Alcohol History How Often Do You Have a Drink Containing Alcohol: Never - Substance Use History Substance History: No History of Abuse - Travel History Recent Travel in the [place] Within the Last 8 Weeks: No Recent Travel Out of the Country Within the Last 8 Weeks: No - Immunization History Tetanus Immunization: Unsure Hx Influenza Vaccine This Season: No Medications and Allergies Active Medications: Active Medications Azithromycin 500 mg/ Sodium (Chloride) 250 mls @ 250 mls/hr IV.SIG ONCE ONE Stop: 05/15/18 13:17 Last Admin: 05/15/18 12:28 Dose: 250 mls/hr Diltiazem HCl 125 mg/ Sodium (Chloride) 125 mls @ 5 mls/hr IV.CONT TITRATE PRN ; Protocol PRN Reason: Per Protocol Allergies Allergy/AdvReac Type Severity Reaction Status Date / Time No Known Allergies Allergy Verified 05/15/18 12:42 Home Medications Medication Instructions Recorded Confirmed Type atorvastatin 10 mg PO DAILY 04/25/18 05/15/18 History diltiazem HCl [DILT-XR] 240 mg PO DAILY 04/25/18 05/15/18 History fluticasone-vilanterol [Breo 1 inh INHALATION DAILY 04/25/18 05/15/18 History Ellipta] ipratropium-albuterol 3 ml INHALATION Q6-8H PRN 04/25/18 05/15/18 History iron 65 mg PO BID 04/25/18 05/15/18 History mirtazapine 15 mg PO HS 04/25/18 05/15/18 History zthzzhlz-aev-ozdu-FA-lutein 1 mcg PO DAILY 04/25/18 05/15/18 History [Centrum Silver Women] pantoprazole 40 mg PO DAILY 04/25/18 05/15/18 History albuterol sulfate [Ventolin HFA] 2 puff INHALATION Q4-6H PRN 05/15/18 05/15/18 History fluticasone 1 inh INHALATION DAILY 05/15/18 05/15/18 History guaifenesin [Mucinex] 600 mg PO Q12H 05/15/18 05/15/18 History vit C-vit G-orknuh-ctm-om-3 1 cap PO DAILY 05/15/18 05/15/18 History [Ocuvite] Exam Vital signs: Vital Signs 05/15/18 11:57 05/15/18 12:07 05/15/18 12:20 Temperature 97.7 F Pulse Rate 198 H 133 H 154 H Respiratory Rate 32 H 28 H 24 Blood Pressure 187/122 H 150/87 H 179/77 H Pulse Oximetry 94 L 94 L 94 L Intake & Output 05/14/18 05/15/18 05/15/18 18:59 06:59 18:59 Weight 58.967 kg Narrative: GENERAL: moderate respiratory distress. denotes chronic disease. SKIN: Warm and dry. multiple ecchymosis on all four extremities. HEENT: AT/NC. Pupils equal and round. MMM. NECK: Supple no tender LAD or JVD. CHEST: Prior mastectomy. HEART: Irregular rate and rhythm, no murmurs. LUNGS: Severe decreased breath sounds, right middle and lower lobe crackles. ABDOMEN: +BS, soft, NT, ND. EXTREMITIES: No LE edema. NEURO: Awake and alert. Results - Labs CBC & Chem 7: 05/15/18 12:06 05/15/18 12:06 Labs: Laboratory Results - last 24 hr 05/15/18 05/15/18 05/15/18 12:06 12:06 12:06 WBC 20.3 H RBC 3.98 L Hgb 12.3 Hct 37.5 MCV 94.3 MCH 30.9 MCHC 32.7 RDW 14.3 Plt Count 387 D MPV 7.9 Prelim Diff (Auto) Manual diff required Differential Comment . PT 10.1 INR 1.0 APTT 19.4 L Sodium 138 Potassium 3.3 L Chloride 97 L Carbon Dioxide 31.3 Anion Gap 10 BUN 22 H Creatinine 0.88 Estimated GFR 62 L Random Glucose 213 H Calcium 9.3 Magnesium 2.0 Total Bilirubin 0.4 AST 20 ALT 33 Alkaline Phosphatase 127 H Troponin I 0.04 Total Protein 6.8 Albumin 2.3 L - Imaging Impressions Chest X-Ray 05/15/18 11:50 CONCLUSION: 1. New patchy airspace disease in the right midlung concerning for pneumonia or aspiration in the appropriate clinical setting. Caprini VTE Risk Assessment Caprini VTE Risk Assessment: Moderate/High Risk (score >= 2) Caprini Risk Assessment Model: Point Value = 1 Point Value = 2 Point Value = 3 Point Value = 5 Age 41-60 Minor surgery BMI > 25 kg/m2 Swollen legs Varicose veins or History of unexplained or recurrent spontaneous Oral contraceptives or hormone replacement Sepsis (< 1 month) Serious lung disease, including pneumonia (< 1 month) Abnormal pulmonary function Acute myocardial infarction Congestive heart failure (< 1 month) History of inflammatory bowel disease Medical patient at bed rest Age 61-74 Arthroscopic surgery Major open surgery (> 45 min) Laparoscopic surgery (> 45 min) Malignancy Confined to bed (> 72 hours) Immobilizing plaster cast Central venous access Age >= 75 History of VTE Family history of VTE Factor V Leiden Prothrombin [id number] Lupus anticoagulant Anticardiolipin antibodies Elevated serum homocysteine Heparin-induced thrombocytopenia Other congenital or acquired thrombophilia Stroke (< 1 month) Elective arthroplasty Hip, pelvis, or leg fracture Acute spinal cord injury (< 1 month) Prophylaxis Regimen: Total Risk Factor Score Risk Level Prophylaxis Regimen 0-1 Low Early ambulation 2 Moderate Order ONE of the following: *Sequential Compression Device (SCD) *Heparin 5000 units SQ BID 3-4 Higher Order ONE of the following medications: *Heparin 5000 units SQ TID *Enoxaparin/Lovenox 40 mg SQ daily (WT < 150 kg, CrCl > 30 mL/min) *Enoxaparin/Lovenox 30 mg SQ daily (WT < 150 kg, CrCl > 10-29 mL/min) *Enoxaparin/Lovenox 30 mg SQ BID (WT < 150 kg, CrCl > 30 mL/min) AND/OR *Sequential Compression Device (SCD) 5 or more Highest Order ONE of the following medications: *Heparin 5000 units SQ TID (Preferred with Epidurals) *Enoxaparin/Lovenox 40 mg SQ daily (WT < 150 kg, CrCl > 30 mL/min) *Enoxaparin/Lovenox 30 mg SQ daily (WT < 150 kg, CrCl > 10-29 mL/min) *Enoxaparin/Lovenox 30 mg SQ BID (WT < 150 kg, CrCl > 30 mL/min) AND *Sequential Compression Device (SCD) Assessment and Plan - Plan 82 year old female with history of O2-dependent COPD, breast cancer s/ p mastectomy, HLD, and tachycardia admitted for COPD exacerbation. 1. Respiratory Failure Multifactorial, Atrial Fibrillation with RVR,Pneumonia, COPD exacerbation, will continue Azithromycin and Cefepime. Continue Oxygen administration to keep Oxygen saturation over 92%, Bronchodilator, Mucolytic and incentive spirometry, CXR negative for infiltrate, personally reviewed Leukocytosis probable related to Steroid use. Follow sputum culture, Legionella antigen, Pneumococcal antigen, blood cultures. WBC 20.3. 2. Sepsis probable, asked for Lactic acid not performed yet. following blood cultures, legionella antigen, Patient tachypneic with elevated lactic acid of 2.2 and leukocytosis, source as above Blood cultures drawn Urinalysis ordered 3. Atrial Fibrillation with RVR, CHADS2 Vasc Score is 3, anticoagulation Candidate asked for Echocardiogram. probable is not new the patient was not on anticoagulation but is taking Cardizem, will continue Heparin low dose asked for customer advisor specialist consult. Cardizem drip and Metoprolol 25 mg BID 4. Hypertension continue home medicines. at this time on Cardizem and Metoprolol 5. Depression continue Home medicines. 6. Hyperlipidemia continue home Atorvastatin 7. COPD at this time looks at baseline, Bronchodilator, Mucolytic, incentive spirometry 8. Hypokalemia replaced and following. 9. GERD continue Gastric protection. DVT prophylaxis: Heparin Q8 hours. Code Status: Full code. Discussed Condition With: Go Munguia MD Discharge Planning: once cleared by Pulmonary and customer advisor specialist.
[2018-05-15 13:17] LABS: Platelet Estimate Normal (Normal); Platelet Morphology Normal (Normal); Toxic Granulation 1+
[2018-05-15] MEDS: dilTIAZem Inj 125 MG in Sodium Chlor 0.9% Inj 100 ML IV.CONT PRN ×2 (13:19→22:20)
[2018-05-15] MEDS ORDERED: Acetaminophen 325 MG Tablet PO PRN (13:20)
[2018-05-15] MEDS ORDERED: Bisacodyl 10 MG Supp RECTAL PRN (13:20)
[2018-05-15] MEDS: guaiFENesin 600 MG ER Tablet PO SCH (14:06)
[2018-05-15] MEDS: Sod Chloride 0.9% Inj 1,000 ML IV.CONT SCH (14:06)
--- NOTE | 2018-05-15 16:29 | ECG ---
Date Performed: 05/15/2018 Time Performed: 11:52:46 PTAGE: 83 years EKG: Marked baseline artifact Probable multifocal atrial tachycardia with PVCs or aberrancy nons pecific ST T-wave changes Compared to prior electrocardiogram, Rate has increased and STT wave change s are more marked. PREVIOUS TRACING : 03/18/2017 16.20 DOCTOR: Rolo Vazquez Interpretating Date/Time 05/15/2018 16:28:31
[2018-05-15 17:18] LABS: Bilirubin,Urine Negative (Negative); Clarity,Urine Hazy (Clear); Color,Urine Yellow (Yellw/Straw); Glucose,Urine (UA) 50 mg/dL (Negative); Leukocyte Esterase,Urine Trace (Negative); Nitrite,Urine Negative (Negative); Specific Gravity,Urine 1.015 (1.002-1.035); Squamous Epithelial Cell,Urine 4 /hpf (0-5)
[2018-05-15] MEDS: Metoprolol Tartrate 25 MG Tablet PO SCH ×2 (17:19→20:52)
[2018-05-15 20:36] LABS: Troponin I 0.05 ng/mL (0.02-0.05)
[2018-05-15] MEDS: MethylPREDNISolone Sod Succinate Inj 40 MG/ML Vial IV.PUSH SCH (20:51)
[2018-05-15] MEDS: Senna/Docusate Sodium 8.6/50 MG Tablet PO SCH (20:52)
[2018-05-15] MEDS: Ferrous Sulfate 325 MG Tablet PO SCH (20:52)
[2018-05-15] MEDS: Enoxaparin Inj 60 MG/0.6 ML Syringe SQ SCH (20:52)
--- NOTE | 2018-05-15 21:09 | MB ---
cc: Agusto Mcdermott MD DATE: 05/15/2018 REASON FOR CONSULTATION: COPD and respiratory distress. HISTORY OF PRESENT ILLNESS: This is an 83-year-old lady previously known to me with a longstanding history of severe COPD, was in the hospital 2 weeks ago and discharged home on oxygen and nebulized bronchodilators, but developed progressive shortness of breath over the past 3 days and was brought to the emergency room in respiratory distress. She has been on O2 at 2 liters, but could not catch her breath. She denied any nausea, vomiting, or aspiration and denied fevers or chills. She has had mild leg swelling and has depression and anxiety and gastroesophageal reflux. Upon arrival in the ER, she was in atrial fibrillation with RVR and this has been controlled now. PAST MEDICAL HISTORY: Past history has been significant for recurrent exacerbation of bronchitis and pneumonia, history of atrial fibrillation and RVR. She also has had a history for hypertension and past history for breast cancer with left mastectomy as well as right mastectomy. HABITS: The patient smoked a pack and a half per day for over 40 years and quit. Alcohol use minimal. FAMILY HISTORY: Noncontributory. There is a history of heart failure in the family. REVIEW OF SYSTEMS: The patient has lost weight. She has dizziness, postnasal drip, cough with expectoration. She has epigastric distress and reflux. She has urinary frequency and joint pains of her extremities and she has anxiety with depression and dizziness as well as bruising of her skin. PHYSICAL EXAMINATION: GENERAL: This is a thinly built, elderly lady who is dyspneic at rest. Face is plethoric. She has multiple ecchymotic areas of her extremities. VITAL SIGNS: Her blood pressure is 155/80, pulse is 110, respirations 24, temperature 98.2. HEENT: Head is normocephalic. Pupils are reactive. Tongue is moist. Nasal mucosa edematous. Throat was injected. NECK: Supple. No bruits or thyroid enlargement or lymphadenopathy. CHEST: Increased AP diameter with diffuse wheezes throughout both lung venegas, prolonged expirations. HEART: Sounds are irregularly irregular, S1 and S2 with no murmur. No S3. ABDOMEN: Soft, protuberant without masses. No organomegaly or tenderness. EXTREMITIES: Ecchymotic areas of the extremities with decreased peripheral pulses. Reflexes 1+ with no gross motor deficits. Cranial nerves grossly intact. RECTAL: Deferred. IMPRESSION: 1. Atrial fibrillation and rapid ventricular response. 2. Chronic obstructive pulmonary disease and acute exacerbation. 3. Right mid lung pneumonia with probable aspiration. 4. Emphysema and chronic bronchitis. 5. Depression and anxiety. 6. Hypertension. PLAN: The patient will be continued on O2 at 4 liters nasal cannula. We will use BiPAP at night, 12/5 cm and 3% FiO2. Solu-Medrol 20 mg b.i.d. to be ordered for 2 days for her wheezing and cardiac evaluation to control her atrial arrhythmia. Antibiotic therapy has been started including cefepime 1 g IV every 8 hours and Flagyl p.o. 500 mg t.i.d. We will get a followup chest x-ray to evaluate for pneumonia and she will also be placed on Symbicort 180/4.5 mcg 1 puff b.i.d. Thank you Dr. Lundy for this consultation. Agusto Mcdermott MD VJD/sv/ll , 06:37 PM , 06:50 PM
[2018-05-15] MEDS ORDERED: MethylPREDNISolone Sod Succinate Inj 40 MG/ML Vial IV.PUSH SCH (22:00)
[2018-05-15] MEDS ORDERED: Heparin - SQ 10,000 UNITS/ML Vial SQ SCH (22:00)
[2018-05-16] MEDS: guaiFENesin 600 MG ER Tablet PO SCH ×2 (03:59→15:30)
[2018-05-16] MEDS: Sod Chloride 0.9% Inj 1,000 ML IV.CONT SCH (04:00)
[2018-05-16 05:40] LABS: Hematocrit 33.6 % (35.0-46.0); Lymph # (Auto) 0.4 th/mm3 (1.0-4.8); Lymph % (Auto) 2.9 % (9.0-44.0); Mean Corpuscular HGB Conc 32.6 % (32.0-36.0); Mean Corpuscular Hemoglobin 30.6 pg (27.0-34.0); Mean Corpuscular Volume 93.8 fL (80.0-100.0); Mean Platelet Volume 7.8 fL (7.0-11.0); Mono # (Auto) 0.3 th/mm3 (0.0-0.9); Mono % (Auto) 2.2 % (0.0-8.0); Neut # (Auto) 14.6 th/mm3 (1.8-7.7); Neut % (Auto) 94.9 % (16.0-70.0); Platelet Count 339 th/mm3 (150-450); Red Blood Count 3.58 mil/mm3 (4.00-5.30); Red Cell Distribution Width 14.1 % (11.6-17.2); White Blood Count 15.4 th/mm3 (4.0-11.0)
[2018-05-16 06:06] LABS: Anion Gap 6 meq/L (5-15); Blood Urea Nitrogen 21 mg/dL (7-18); Calcium 8.8 mg/dL (8.5-10.1); Carbon Dioxide 31.5 meq/L (21.0-32.0); Chloride 104 meq/L (98-107); Glomerular Filtration Rate Greater Than 89 mL/min (>89); Glucose,Random 117 mg/dL (74-106); Potassium 4.5 meq/L (3.5-5.1); Sodium 141 meq/L (136-145)
[2018-05-16 07:27] LABS: Lymphocytes 1 % (9-44); Metamyelocytes 2 % (0-1); Myelocytes 4 % (0-0); Platelet Estimate Normal (Normal); Platelet Morphology Normal (Normal)
[2018-05-16 07:28] LABS: RBC Morphology Normal (Normal)
--- NOTE | 2018-05-16 08:32 | P.CONCA ---
History of Present Illness Service: Cardiology Consult date: 05/16/18 Reason for Consult: Atrial Arrythmia Primary Care Provider: Dante Reddy MD Family Provider: Dante Reddy MD Chief Complaint: Shortness of breath History of Present Illness: Mrs Weston is a very pleasant 83 year old female who has an extensive Pulmonary history with COPD on home 02, bilateral mastectomy with a history of chest radiation, hx of GI bleed with duodenal ulcers, HTN, HLD who presented with shortness of breath that has progressively worsened since her last discharge. She now presents with evidence of a PNA and is being treated with IV abx and steroids. Cardiology consulted given concern for atrial fibrillation. In review she was seen by Dr. Vazquez in 02/2017 for similar findings. In review of her EKG and comparison of prior EKGs, she likely has multifocal atrial tachycardia presenting with a faster heart combined with aberrantly conducted beats. Her rate rate was originally in the 160s. Her HR slowed down after giving IV cardiazem. She currently does not have any chest pain. She does still endorse shortness of breath. Review of Systems All other systems reviewed negative except as stated in HPI PMFSH - History History Provided By: Patient - Medical History Medical History: Medical History (Last Updated 05/16/18 @ 08:31 by Vargas Woods MD) Duodenal ulcer Duodenal ulcer Breast cancer Bronchitis COPD (chronic obstructive pulmonary disease) Hyperlipidemia - Surgical History Surgical History: Surgical History (Last Reviewed 05/16/18 @ 07:10 by Tiffany Fung) H/O left mastectomy H/O right mastectomy - Family History Family History: Family History (Last Reviewed 04/30/18 @ 08:12 by Poli Miranda, ALDA) Mother CHF (congestive heart failure) COPD (chronic obstructive pulmonary disease) Sister Breast cancer - Tobacco History Second Hand Smoke Exposure: Yes (son smokes) Tobacco Use In Past 30 Days: No Smoking Status: Former smoker Tobacco Type: Cigarettes - Alcohol History How Often Do You Have a Drink Containing Alcohol: Monthly or less - Substance Use History Substance History: No History of Abuse - Travel History Recent Travel in the [place] Within the Last 8 Weeks: No Recent Travel Out of the Country Within the Last 8 Weeks: No - Immunization History Tetanus Immunization: Unsure Hx Influenza Vaccine This Season: No Medications and Allergies Active Medications: Active Medications Acetaminophen (Tylenol) 650 mg PO Q4H PRN PRN Reason: Temp > 100.4 Al Hydroxide/Mg Hydroxide (Milk Of Magnesia Liq) 30 ml PO Q12H PRN PRN Reason: Mild Constipation Albuterol (Duoneb Neb (Shanelle)) 1 ampul NEB Q4HR NEB [facility] Last Admin: 05/16/18 07:40 Dose: 1 ampul Atorvastatin Calcium (Lipitor) 10 mg PO DAILY [facility] Bisacodyl (Dulcolax Supp) 10 mg RECTAL DAILY PRN PRN Reason: SEVERE CONSITIPATION Diltiazem HCl (Cardizem Cd 24hr) 240 mg PO DAILY [facility] Enalaprilat (Vasotec Inj) 1.25 mg IV.PUSH Q6H PRN PRN Reason: SBP>160, DBP>90 Last Admin: 05/16/18 04:54 Dose: 1.25 mg Enoxaparin Sodium (Lovenox Inj) 60 mg SQ Q12HR [facility] Last Admin: 05/15/18 20:52 Dose: 60 mg Ferrous Sulfate (Ferosul) 325 mg PO BID [facility] Last Admin: 05/15/18 20:52 Dose: 325 mg Guaifenesin (Mucinex Er) 600 mg PO Q12H [facility] Last Admin: 05/16/18 03:59 Dose: 600 mg Diltiazem HCl 125 mg/ Sodium (Chloride) 125 mls @ 5 mls/hr IV.CONT TITRATE PRN ; Protocol PRN Reason: Per Protocol Last Titration: 05/16/18 04:42 Dose: 0 mg/hr, 0 mls/hr Sodium Chloride (Ns Inj) 1,000 mls @ 75 mls/hr IV.CONT .[id number] [facility] Last Admin: 05/16/18 04:00 Dose: 75 mls/hr Cefepime HCl 1,000 mg/ Sodium (Chloride) 100 mls @ 200 mls/hr IV.SIG Q8H [facility] Last Infusion: 05/16/18 04:35 Dose: Infused Azithromycin 500 mg/ Sodium (Chloride) 250 mls @ 250 mls/hr IV.SIG Q24H [facility] Lactulose (Lactulose Liq) 30 ml PO DAILY PRN PRN Reason: SEVERE CONSITIPATION Methylprednisolone Sodium Succinate (Solumedrol Inj) 20 mg IV.PUSH Q12HR [facility] Stop: 05/17/18 23:59 Last Admin: 05/15/18 20:51 Dose: 20 mg Metoprolol Tartrate (Lopressor) 25 mg PO BID [facility] Last Admin: 05/15/18 20:52 Dose: 25 mg Multivitamins/Minerals (Theragran-M) 1 tab PO DAILY [facility] Ondansetron HCl (Zofran Inj) 4 mg IV.PUSH Q6H PRN PRN Reason: NAUSEA OR VOMITING Pantoprazole Sodium (Protonix) 40 mg PO DAILY [facility] Senna/Docusate Sodium (Gloria-Colace) 1 tab PO BID [facility] Last Admin: 05/15/18 20:52 Dose: 1 tab Sennosides (Senokot) 17.2 mg PO Q12H PRN PRN Reason: Moderate Constipation Allergies Allergy/AdvReac Type Severity Reaction Status Date / Time No Known Allergies Allergy Verified 05/15/18 12:42 Home Medications Medication Instructions Recorded Confirmed Type atorvastatin 10 mg PO DAILY 04/25/18 05/15/18 History diltiazem HCl [DILT-XR] 240 mg PO DAILY 04/25/18 05/15/18 History fluticasone-vilanterol [Breo 1 inh INHALATION DAILY 04/25/18 05/15/18 History Ellipta] ipratropium-albuterol 3 ml INHALATION Q6-8H PRN 04/25/18 05/15/18 History iron 65 mg PO BID 04/25/18 05/15/18 History mirtazapine 15 mg PO HS 04/25/18 05/15/18 History zdjitxpf-svb-qbhl-FA-lutein 1 mcg PO DAILY 04/25/18 05/15/18 History [Centrum Silver Women] pantoprazole 40 mg PO DAILY 04/25/18 05/15/18 History albuterol sulfate [Ventolin HFA] 2 puff INHALATION Q4-6H PRN 05/15/18 05/15/18 History fluticasone 1 inh INHALATION DAILY 05/15/18 05/15/18 History guaifenesin [Mucinex] 600 mg PO Q12H 05/15/18 05/15/18 History vit C-vit N-ksredu-trd-om-3 1 cap PO DAILY 05/15/18 05/15/18 History [Ocuvite] Exam Vital signs: Vital Signs 05/15/18 11:57 05/15/18 12:07 05/15/18 12:20 Temperature 97.7 F Pulse Rate 198 H 133 H 154 H Respiratory Rate 32 H 28 H 24 Blood Pressure 187/122 H 150/87 H 179/77 H Pulse Oximetry 94 L 94 L 94 L 05/15/18 14:30 05/15/18 14:45 05/15/18 14:46 Temperature Pulse Rate 117 H 126 H Respiratory Rate 23 Blood Pressure 162/89 H Pulse Oximetry 94 L 94 L 05/15/18 16:00 05/15/18 20:00 05/15/18 20:19 Temperature 97.1 F L 98.4 F Pulse Rate 98 H 78 65 Respiratory Rate 20 17 16 Blood Pressure 152/91 H 170/77 H Pulse Oximetry 95 96 96 05/15/18 23:58 05/16/18 00:00 05/16/18 01:38 Temperature 98.1 F Pulse Rate 68 91 H 66 Respiratory Rate 17 16 Blood Pressure 143/79 H Pulse Oximetry 97 05/16/18 04:00 05/16/18 07:44 Temperature 98.1 F Pulse Rate 82 86 Respiratory Rate 17 22 Blood Pressure 177/92 H Pulse Oximetry 94 L 96 Intake & Output 05/15/18 05/16/18 05/16/18 18:59 06:59 18:59 Intake Total 350 / 350 1563.2 / 1563.2 Balance 350 / 350 1563.2 / 1563.2 Weight 43.9 kg 47.6 kg Intake: IV 350 / 350 1323.2 / 1323.2 NS Inj 1,000 ML @ 75 mls/hr IV. 854 / 854 CONT .[id number] [facility] Rx#:[id number] Cardizem Inj 125 MG In NS Inj 197.1 / 197.1 100 ML @ 5 MG/HR 5 mls/hr IV. CONT TITRATE PRN Rx#:[id number] Azithromycin Inj 500 MG In NS 250 / 250 Inj 250 ML @ 250 mls/hr IV.SIG ONCE ONE Rx#:[id number] Maxipime Inj 1,000 MG In NS Inj 200 / 200 100 ML @ 200 mls/hr IV.SIG Q8H [facility] Rx#:[id number] Maxipime Inj 2,000 MG In NS Inj 100 / 100 100 ML @ 200 mls/hr IV.SIG ONCE ONE Rx#:[id number] Oral 240 / 240 Other: # Voids 2 Weight On Admission 43.9 kg - Constitutional mild distress - Routine HEENT Exam Head: Present: normocephalic Eye: Present: EOMI ENT: Present: mucous membranes moist - Routine Neck Exam Present: supple. Absent: JVD - Routine Chest/Breast/Axilla Exam Chest wall: Absent: tenderness - Routine Respiratory Exam Present: wheezes (bilaterally, decreased on the rt base) - Routine Cardiovascular Exam Present: S1, S2, irregular rhythm - Routine Abdominal Exam Present: soft, normoactive bowel sounds. Absent: tenderness - Routine Extremities Exam Absent: edema - Routine Neurological Exam Present: alert, oriented X3 - Routine Psychiatric Exam Present: normal affect Results 05/16/18 04:44 05/16/18 04:44 Cardiac Enzymes 05/15/18 05/15/18 05/15/18 Range/Units 12:06 12:06 19:25 AST 20 (15-37) U/L Troponin I 0.04 0.05 (0.02-0.05) ng/mL B-Natriuretic Peptide 266 H (0-100) pg/mL Coagulation 05/15/18 05/15/18 Range/Units 12:06 12:06 PT 10.1 (9.8-11.6) sec APTT 19.4 L (24.3-30.1) sec B-Natriuretic Peptide 266 H (0-100) pg/mL CBC 05/15/18 05/16/18 Range/Units 12:06 04:44 WBC 20.3 H 15.4 H (4.0-11.0) th/mm3 RBC 3.98 L 3.58 L (4.00-5.30) mil/mm3 Hgb 12.3 11.0 L (11.6-15.3) gm/dL Hct 37.5 33.6 L (35.0-46.0) % Plt Count 387 D 339 (150-450) th/mm3 Neut # (Auto) 14.6 H (1.8-7.7) th/mm3 Lymph # (Auto) 0.4 L (1.0-4.8) th/mm3 Mellette # (Auto) 0.3 (0.0-0.9) th/mm3 Eos # (Auto) 0.0 (0.0-0.4) th/mm3 Baso # (Auto) 0.0 (0.0-0.2) th/mm3 Comprehensive Metabolic Panel 05/15/18 05/16/18 Range/Units 12:06 04:44 Sodium 138 141 (136-145) meq/L Potassium 3.3 L 4.5 D (3.5-5.1) meq/L Chloride 97 L 104 (98-107) meq/L Carbon Dioxide 31.3 31.5 (21.0-32.0) meq/L BUN 22 H 21 H (7-18) mg/dL Creatinine 0.88 0.56 (0.50-1.00) mg/dL Calcium 9.3 8.8 (8.5-10.1) mg/dL AST 20 (15-37) U/L ALT 33 (10-53) U/L Alkaline Phosphatase 127 H (45-117) U/L Total Protein 6.8 (6.4-8.2) g/dL Albumin 2.3 L (3.4-5.0) g/dL Intake and Output 05/15/18 05/16/18 05/16/18 22:59 06:59 14:59 Intake Total 225 / 225 1338.2 / 1338.2 Balance 225 / 225 1338.2 / 1338.2 Intake: IV 225 / 225 1098.2 / 1098.2 NS Inj 1,000 ML @ 75 mls/hr IV. 854 / 854 CONT .[id number] [facility] Rx#:[id number] Cardizem Inj 125 MG In NS Inj 125 / 125 72.1 / 72.1 100 ML @ 5 MG/HR 5 mls/hr IV. CONT TITRATE PRN Rx#:[id number] Maxipime Inj 1,000 MG In NS Inj 100 / 100 100 / 100 100 ML @ 200 mls/hr IV.SIG Q8H [facility] Rx#:[id number] Oral 240 / 240 Other: # Voids 2 Weight 43.9 kg 47.6 kg Weight On Admission 43.9 kg - Imaging and Cardiology Imaging: Impressions Chest X-Ray 05/15/18 11:50 CONCLUSION: 1. New patchy airspace disease in the right midlung concerning for pneumonia or aspiration in the appropriate clinical setting. Assessment and Plan - Plan 1. Atrial Arrhythmia Probable Multifocal atrial tachycardia 2. COPD exacerbation 3. Aspiration PNA 4. HTN 5. Hx of GI bleed and ulcers about 1 year ago Plan: In review of her EKG and her telemetry, it does appear that there are p waves of varying morphology with aberrantly conducted beats. This is likely driven by her underlying pulmonary process. She has had a history of this in February 2017. Treating her underlying pulmonary process will be smith.. I would resume her home Cardizem. Her HR is currently under better control. I think that she is relatively a higher risk for oral anticoagulation should she develop definitive atrial fibrillation given her need for steroids for her COPD and hx of GI bleed. At this juncture, I would not recommend starting anticoagulation. A TTE taylor been ordered, will follow the results. Thank you for allowing me to participate. Please contact me with any questions.
[2018-05-16] MEDS ORDERED: FLUTICASONE INHALATION SCH (09:00)
[2018-05-16] MEDS: MethylPREDNISolone Sod Succinate Inj 40 MG/ML Vial IV.PUSH SCH ×2 (10:06→20:45)
[2018-05-16] MEDS: Ferrous Sulfate 325 MG Tablet PO SCH ×2 (10:06→20:45)
[2018-05-16] MEDS: Senna/Docusate Sodium 8.6/50 MG Tablet PO SCH ×2 (10:06→20:45)
[2018-05-16] MEDS: dilTIAZem CD 240 MG Capsule PO SCH (10:06)
[2018-05-16] MEDS: Metoprolol Tartrate 25 MG Tablet PO SCH ×2 (10:06→20:45)
[2018-05-16] MEDS: Enoxaparin Inj 60 MG/0.6 ML Syringe SQ SCH ×2 (10:06→20:45)
[2018-05-16] MEDS: Multivitamin/Minerals Therapeutic Tablet PO SCH (10:06)
--- NOTE | 2018-05-16 11:18 | P.PNIM ---
Subjective Interval history: Patient reports slight improvement in breathing status. No chest pain. Physical Exam Vital signs: Vital Signs 05/15/18 11:57 05/15/18 12:07 05/15/18 12:20 Temperature 97.7 F Pulse Rate 198 H 133 H 154 H Respiratory Rate 32 H 28 H 24 Blood Pressure 187/122 H 150/87 H 179/77 H Pulse Oximetry 94 L 94 L 94 L 05/15/18 14:30 05/15/18 14:45 05/15/18 14:46 Temperature Pulse Rate 117 H 126 H Respiratory Rate 23 Blood Pressure 162/89 H Pulse Oximetry 94 L 94 L 05/15/18 16:00 05/15/18 20:00 05/15/18 20:19 Temperature 97.1 F L 98.4 F Pulse Rate 98 H 78 65 Respiratory Rate 20 17 16 Blood Pressure 152/91 H 170/77 H Pulse Oximetry 95 96 96 05/15/18 23:58 05/16/18 00:00 05/16/18 01:38 Temperature 98.1 F Pulse Rate 68 91 H 66 Respiratory Rate 17 16 Blood Pressure 143/79 H Pulse Oximetry 97 05/16/18 04:00 05/16/18 07:44 05/16/18 08:00 Temperature 98.1 F 97.9 F Pulse Rate 82 86 85 Respiratory Rate 17 22 19 Blood Pressure 177/92 H 155/86 H Pulse Oximetry 94 L 96 96 Intake & Output 05/15/18 05/16/18 05/16/18 18:59 06:59 18:59 Intake Total 350 / 350 1563.2 / 1563.2 Balance 350 / 350 1563.2 / 1563.2 Weight 43.9 kg 47.6 kg Intake: IV 350 / 350 1323.2 / 1323.2 NS Inj 1,000 ML @ 75 mls/hr IV. 854 / 854 CONT .[id number] [facility] Rx#:[id number] Cardizem Inj 125 MG In NS Inj 197.1 / 197.1 100 ML @ 5 MG/HR 5 mls/hr IV. CONT TITRATE PRN Rx#:[id number] Azithromycin Inj 500 MG In NS 250 / 250 Inj 250 ML @ 250 mls/hr IV.SIG ONCE ONE Rx#:[id number] Maxipime Inj 1,000 MG In NS Inj 200 / 200 100 ML @ 200 mls/hr IV.SIG Q8H [facility] Rx#:[id number] Maxipime Inj 2,000 MG In NS Inj 100 / 100 100 ML @ 200 mls/hr IV.SIG ONCE ONE Rx#:[id number] Oral 240 / 240 Other: # Voids 2 Weight On Admission 43.9 kg Narrative: GENERAL: Elderly female, easily gets short of breath HEART: Irregular rate and rhythm, no murmurs. LUNGS: Markedly diminished breath sounds bilaterally. Diffuse wheezing and rhonchi. ABDOMEN: +BS, soft, NT, ND. EXTREMITIES: No LE edema. NEURO: Awake and alert. Results - Labs CBC & Chem 7: 05/16/18 04:44 05/16/18 04:44 Laboratory Results - last 24 hr 05/15/18 05/15/18 05/15/18 12:06 12:06 12:06 WBC 20.3 H RBC 3.98 L Hgb 12.3 Hct 37.5 MCV 94.3 MCH 30.9 MCHC 32.7 RDW 14.3 Plt Count 387 D MPV 7.9 Prelim Diff (Auto) Manual diff required Neut % (Auto) Lymph % (Auto) [place] % (Auto) Eos % (Auto) Baso % (Auto) Neut # (Auto) Lymph # (Auto) [place] # (Auto) Eos # (Auto) Baso # (Auto) WBC Differential Manual diff final Seg Neuts % (Manual) 78 H Band Neuts % (Manual) 12 H Lymphocytes % (Manual) 6 L Monocytes % (Manual) 4 Metamyelocytes % (Man) Myelocytes % (Man) Abs Neuts (Manual) 18.3 H Differential Comment . Toxic Granulation 1+ H Platelet Estimate Normal Platelet Morphology Normal RBC Morphology PT 10.1 INR 1.0 APTT 19.4 L Sodium 138 Potassium 3.3 L Chloride 97 L Carbon Dioxide 31.3 Anion Gap 10 BUN 22 H Creatinine 0.88 Estimated GFR 62 L Random Glucose 213 H Lactic Acid Calcium 9.3 Magnesium 2.0 Total Bilirubin 0.4 AST 20 ALT 33 Alkaline Phosphatase 127 H Total Creatine Kinase Troponin I 0.04 B-Natriuretic Peptide Total Protein 6.8 Albumin 2.3 L Urine Color Urine Clarity Urine pH Ur Specific [place] Urine Protein Urine Glucose (UA) Urine Ketones Urine Occult Blood Urine Nitrate Urine Bilirubin Urine Urobilinogen Ur Leukocyte Esterase Urine WBC Ur Squamous Epith Cells Granular Casts Micro UA Comment Ur Microscopic Review Urine Culture Comments 05/15/18 05/15/18 05/15/18 12:06 13:54 16:00 WBC RBC Hgb Hct MCV MCH MCHC RDW Plt Count MPV Prelim Diff (Auto) Neut % (Auto) Lymph % (Auto) [place] % (Auto) Eos % (Auto) Baso % (Auto) Neut # (Auto) Lymph # (Auto) [place] # (Auto) Eos # (Auto) Baso # (Auto) WBC Differential Seg Neuts % (Manual) Band Neuts % (Manual) Lymphocytes % (Manual) Monocytes % (Manual) Metamyelocytes % (Man) Myelocytes % (Man) Abs Neuts (Manual) Differential Comment Toxic Granulation Platelet Estimate Platelet Morphology RBC Morphology PT INR APTT Sodium Potassium Chloride Carbon Dioxide Anion Gap BUN Creatinine Estimated GFR Random Glucose Lactic Acid 2.7 H Calcium Magnesium Total Bilirubin AST ALT Alkaline Phosphatase Total Creatine Kinase Troponin I B-Natriuretic Peptide 266 H Total Protein Albumin Urine Color Yellow Urine Clarity Hazy H Urine pH 6.0 Ur Specific [place] 1.015 Urine Protein 100 H Urine Glucose (UA) 50 Urine Ketones Trace H Urine Occult Blood Negative Urine Nitrate Negative Urine Bilirubin Negative Urine Urobilinogen Less than 2 Ur Leukocyte Esterase Trace H Urine WBC 5 Ur Squamous Epith Cells 4 Granular Casts 1 Micro UA Comment Culture not ind Ur Microscopic Review Not Reportable Urine Culture Comments Culture not ind 05/15/18 05/16/18 05/16/18 19:25 04:44 04:44 WBC 15.4 H RBC 3.58 L Hgb 11.0 L Hct 33.6 L MCV 93.8 MCH 30.6 MCHC 32.6 RDW 14.1 Plt Count 339 MPV 7.8 Prelim Diff (Auto) Slide review pending Neut % (Auto) 94.9 H Lymph % (Auto) 2.9 L [place] % (Auto) 2.2 Eos % (Auto) 0.0 Baso % (Auto) 0.0 Neut # (Auto) 14.6 H Lymph # (Auto) 0.4 L [place] # (Auto) 0.3 Eos # (Auto) 0.0 Baso # (Auto) 0.0 WBC Differential Manual diff final Seg Neuts % (Manual) 92 H Band Neuts % (Manual) 1 Lymphocytes % (Manual) 1 L Monocytes % (Manual) Metamyelocytes % (Man) 2 H Myelocytes % (Man) 4 H Abs Neuts (Manual) 15.2 H Differential Comment . Toxic Granulation Platelet Estimate Normal Platelet Morphology Normal RBC Morphology Normal PT INR APTT Sodium 141 Potassium 4.5 D Chloride 104 Carbon Dioxide 31.5 Anion Gap 6 BUN 21 H Creatinine 0.56 Estimated GFR Greater than 89 Random Glucose 117 H Lactic Acid Calcium 8.8 Magnesium Total Bilirubin AST ALT Alkaline Phosphatase Total Creatine Kinase 28 Troponin I 0.05 B-Natriuretic Peptide Total Protein Albumin Urine Color Urine Clarity Urine pH Ur Specific [place] Urine Protein Urine Glucose (UA) Urine Ketones Urine Occult Blood Urine Nitrate Urine Bilirubin Urine Urobilinogen Ur Leukocyte Esterase Urine WBC Ur Squamous Epith Cells Granular Casts Micro UA Comment Ur Microscopic Review Urine Culture Comments Microbiology 05/15/18 12:06 Blood - Peripheral Aerobic Blood Culture - Preliminary No growth in 1 day 05/15/18 12:06 Blood - Peripheral Anaerobic Blood Culture - Preliminary No growth in 1 day 05/15/18 12:06 Blood - Peripheral Aerobic Blood Culture - Preliminary No growth in 1 day 05/15/18 12:06 Blood - Peripheral Anaerobic Blood Culture - Preliminary No growth in 1 day 05/15/18 16:00 Urine - Clean Catch Urine Streptococcus pneumoniae Antigen ( M - Final Presumptive negative for streptococcus pneumoniae antigen, suggesting no current or recent infection. Infection due to Streptococcus pneumoniae cannot be ruled out since the antigen present in the sample may be below the detection limit of the test. 05/15/18 16:00 Urine - Clean Catch Urine Legionella Antigen - Final Presumptive negative for Legionella pneumophila serogroup 1 antigen in urine, suggesting no recent or recurrent infection. Infection due to Legionella cannot be ruled out since other serogroups and species may cause disease, antigen may not be present in urine in early infection, and the level of antigen present in the urine may be below the detection limit of the test. - Imaging Impressions Chest X-Ray 05/15/18 11:50 CONCLUSION: 1. New patchy airspace disease in the right midlung concerning for pneumonia or aspiration in the appropriate clinical setting. Assessment and Plan - Plan 82 year old female with history of O2-dependent COPD, breast cancer s/ p mastectomy, HLD, and tachycardia admitted for COPD exacerbation. 1. Respiratory Failure Multifactorial, Atrial Fibrillation with RVR,Pneumonia, COPD exacerbation, will continue Azithromycin and Cefepime. Continue Oxygen administration to keep Oxygen saturation over 92%, Bronchodilator, Mucolytic and incentive Continue IV Solu-Medrol Follow sputum culture Legionella antigen, Pneumococcal antigen negative 2. Sepsis secondary to pneumonia: -Follow-up blood cultures. Continue antibiotics. 3. Atrial Fibrillation with RVR. -On Cardizem drip. Home dose Cardizem and metoprolol resumed. Wean off drip as tolerated -Appreciate cardiology input. Patient is not a good candidate for anticoagulation at this point given the need for steroids for her COPD and hx of GI bleed 4. Hypertension continue home medicines. at this time on Cardizem and Metoprolol 5. Depression: continue Home medicines. 6. Hyperlipidemia: continue home Atorvastatin 7. GERD: continue Protonix. DVT prophylaxis: Heparin Q8 hours. Discharge Planning: Will need a few days for respiratory status to improve
[2018-05-16] MEDS: Azithromycin Inj 500 MG in Sodium Chlor 0.9% Inj 250 ML IV.SIG SCH (12:42)
--- NOTE | 2018-05-16 12:58 | ECG ---
Date Performed: 05/16/2018 Time Performed: 12:11:48 PTAGE: 83 years EKG: Baseline artifact present Sinus rhythm WITH OCCASIONAL SUPRAVENTRICULAR PREMATURE COMPLEXES NONSPECIFIC T-WAVE ABNORMALITY BORDERLINE ECG C ompared to prior electrocardiogram, Sinus rhythm has replaced atrial fibrillation and nonspecific ST T-wave changes have improved. PREVIOUS TRACING : 05/15/2018 11.52 DOCTOR: Rolo Vazquez Interpretating Date/Time 05/16/2018 12:57:23
--- NOTE | 2018-05-16 16:25 | ECHRPT ---
Indication: A-FIB CONCLUSIONS The left ventricular systolic function is low normal with an estimated ejection fraction in the rang e of 50- 55%. Normal left ventricular size. Wall thickness is normal. No obvious wall motion abnormalities are present. Trace mitral valve regurgitation. The aortic valve is not well visualized. Trace aortic valve regurgitation. Very technically difficult/limited study with many views off-axis BP: / HR: Rhythm: MEASUREMENTS (Male / Female) Normal Values Technical Quality:Very technically difficult study 2D ECHO LVOT Diameter 1.7 cm LV Ejection Fraction MOD 2C 54.3 % LV Ejection Fraction 2C AL 56.1 % M-MODE LV Diastolic Diameter MM 5.0 cm 4.2 - 5.9 / 3.9 - 5.3 cm LV Systolic Diameter MM 3.6 cm LV Ejection Fraction MM Teich 54.4 % IVS Diastolic Thickness MM 1.0 cm 0.6 - 1.0 / 0.6 - 0.9 cm LVPW Diastolic Thickness MM 1.1 cm 0.6 - 1.0 / 0.6 - 0.9 cm LV Relative Wall Thickness MM 0.4 0.24 - 0.42 / 0.22 - 0.42 Aortic Root Diameter MM 2.4 cm AV Cusp Separation MM 1.7 cm DOPPLER AV Peak Velocity 109.0 cm/s AV Peak Gradient 4.8 mmHg AI Peak Velocity 213.0 cm/s AI Peak Gradient 18.1 mmHg AI Pressure Half Time 712.0 ms LVOT Peak Velocity 67.1 cm/s LVOT Peak Gradient 1.8 mmHg AV Area Cont Eq pk 1.4 cm MV Area PHT 3.5 cm Mitral E Point Velocity 60.7 cm/s Mitral A Point Velocity 72.6 cm/s Mitral E to A Ratio 0.8 PV Peak Velocity 67.9 cm/s PV Peak Gradient 1.8 mmHg FINDINGS LEFT VENTRICLE The left ventricular systolic function is low normal with an estimated ejection fraction in the rang e of 50- 55%. Normal left ventricular size. Wall thickness is normal. No regional wall motion abnormalities are present. RIGHT VENTRICLE Normal right ventricular size and systolic function. LEFT ATRIUM The left atrial size is normal. RIGHT ATRIUM The right atrial size is normal. ATRIAL SEPTUM Normal atrial septal thickness without atrial level shunting by limited color doppler interrogation. AORTA The aortic root and proximal ascending aorta are normal in size on limited imaging. MITRAL VALVE Structurally normal mitral valve. Trace mitral valve regurgitation. AORTIC VALVE The aortic valve is not well visualized. Trace aortic valve regurgitation. TRICUSPID VALVE Structurally normal tricuspid valve. No tricuspid valve stenosis or regurgitation. PULMONARY VALVE The pulmonary valve is not well visualized. VESSELS The inferior vena cava is normal in size. PERICARDIUM No pericardial effusion. Anthony Johnson MD (Electronically Signed) Final Date:16 May 2018 16:24
[2018-05-17] MEDS: guaiFENesin 600 MG ER Tablet PO SCH ×2 (02:01→14:08)
[2018-05-17] MEDS: dilTIAZem CD 240 MG Capsule PO SCH (09:03)
[2018-05-17] MEDS: Enoxaparin Inj 60 MG/0.6 ML Syringe SQ SCH (09:04)
[2018-05-17] MEDS: Senna/Docusate Sodium 8.6/50 MG Tablet PO SCH ×2 (09:04→22:18)
[2018-05-17] MEDS: Multivitamin/Minerals Therapeutic Tablet PO SCH (09:04)
[2018-05-17] MEDS: Metoprolol Tartrate 25 MG Tablet PO SCH ×2 (09:04→22:17)
[2018-05-17] MEDS: Ferrous Sulfate 325 MG Tablet PO SCH ×2 (09:04→22:17)
[2018-05-17] MEDS: MethylPREDNISolone Sod Succinate Inj 40 MG/ML Vial IV.PUSH SCH ×2 (09:04→22:18)
[2018-05-17] MEDS: Azithromycin Inj 500 MG in Sodium Chlor 0.9% Inj 250 ML IV.SIG SCH (13:00)
[2018-05-18] MEDS: guaiFENesin 600 MG ER Tablet PO SCH ×2 (04:40→15:55)
[2018-05-18] MEDS: Multivitamin/Minerals Therapeutic Tablet PO SCH (08:22)
[2018-05-18] MEDS: Ferrous Sulfate 325 MG Tablet PO SCH ×2 (08:23→21:11)
[2018-05-18] MEDS: Senna/Docusate Sodium 8.6/50 MG Tablet PO SCH ×2 (08:25→21:11)
[2018-05-18] MEDS: dilTIAZem CD 240 MG Capsule PO SCH (08:26)
[2018-05-18] MEDS: Metoprolol Tartrate 25 MG Tablet PO SCH ×2 (08:26→21:11)
[2018-05-18] MEDS: Enoxaparin Inj 40 MG/0.4 ML Syringe SQ SCH (10:07)
[2018-05-18] MEDS: Azithromycin Inj 500 MG in Sodium Chlor 0.9% Inj 250 ML IV.SIG SCH (13:45)
[2018-05-18] MEDS ORDERED: Vancomycin Consult Pharmacy OTHER PRN (15:26)
--- NOTE | 2018-05-18 15:28 | P.PNIM ---
Subjective Interval history: Patient says she is feeling a little better today. Says that shortness of breath is improving. She says she does not feel like she can go home today, may be tomorrow. Denies any chest pain. Physical Exam Vital signs: Vital Signs 05/17/18 16:00 05/17/18 20:00 05/17/18 20:17 Temperature 97.3 F L 97.8 F Pulse Rate 81 72 74 Respiratory Rate 18 19 17 Blood Pressure 152/84 H 160/83 H Pulse Oximetry 97 97 99 05/17/18 23:39 05/18/18 00:00 05/18/18 04:00 Temperature 97.7 F 97.4 F L Pulse Rate 80 72 82 Respiratory Rate 16 17 17 Blood Pressure 143/78 H 165/95 H Pulse Oximetry 94 L 94 L 05/18/18 05:05 05/18/18 07:43 05/18/18 07:44 Temperature Pulse Rate 82 83 Respiratory Rate 17 20 Blood Pressure Pulse Oximetry 97 05/18/18 08:00 05/18/18 11:39 05/18/18 12:00 Temperature 97.3 F L 97.5 F L Pulse Rate 91 H 73 85 Respiratory Rate 18 20 21 Blood Pressure 176/88 H 151/81 H Pulse Oximetry 97 94 L Intake & Output 05/17/18 05/18/18 05/18/18 18:59 06:59 18:59 Intake Total 1190 / 1190 680 / 680 Output Total 750 / 750 Balance 1190 / 1190 -70 / -70 Weight 48.4 kg Intake: IV 350 / 350 200 / 200 Azithromycin Inj 500 MG In NS 250 / 250 Inj 250 ML @ 250 mls/hr IV.SIG Q24H [facility] Rx#:[id number] Maxipime Inj 1,000 MG In NS Inj 100 / 100 200 / 200 100 ML @ 200 mls/hr IV.SIG Q8H [facility] Rx#:[id number] Oral 840 / 840 480 / 480 Output: Urine 750 / 750 Other: # Voids 4 Date of Last Bowel Movement 05/16/18 # Bowel Movements 0 Narrative: GENERAL: Patient sitting in bed. Appears comfortable. Alert and oriented x3. SKIN: Warm and dry. HEAD: Normocephalic. EYES: No scleral icterus. No injection or drainage. NECK: Supple, trachea midline. No JVD CARDIOVASCULAR: Regular rate and rhythm without murmurs, gallops, or rubs. RESPIRATORY: Breath sounds equal bilaterally. Dry crackles bilateral bases. No accessory muscle use. GASTROINTESTINAL: Abdomen soft, non-tender, nondistended. MUSCULOSKELETAL: No cyanosis, or edema. BACK: Nontender without obvious deformity. No CVA tenderness. Results - Labs CBC & Chem 7: 05/16/18 04:44 05/16/18 04:44 Microbiology 05/16/18 20:53 Sputum - Expectorated Sputum Gram Stain - Final 05/16/18 20:53 Sputum - Expectorated Sputum Sputum Culture - Preliminary S. aureus MRSA 05/15/18 12:06 Blood - Peripheral Aerobic Blood Culture - Preliminary No growth in 3 days 05/15/18 12:06 Blood - Peripheral Anaerobic Blood Culture - Preliminary No growth in 3 days 05/15/18 12:06 Blood - Peripheral Aerobic Blood Culture - Preliminary No growth in 3 days 05/15/18 12:06 Blood - Peripheral Anaerobic Blood Culture - Preliminary No growth in 3 days Assessment and Plan - Plan 82 year old female with history of O2-dependent COPD, breast cancer s/ p mastectomy, HLD, and tachycardia admitted for COPD exacerbation. //Respiratory Failure Multifactorial, Atrial Fibrillation with RVR,Pneumonia, COPD exacerbation, will continue Azithromycin and Cefepime. Continue Oxygen administration to keep Oxygen saturation over 92%, Bronchodilator, Mucolytic and incentive Continue IV Solu-Medrol Follow sputum culture Legionella antigen, Pneumococcal antigen negative = 06/18. MRSA positive sputum. Start vancomycin. Consult infectious disease. Appreciate assistance. //Sepsis secondary to pneumonia: -Follow-up blood cultures. Continue antibiotics. //Atrial Fibrillation with RVR. -On Cardizem drip. Home dose Cardizem and metoprolol resumed. Wean off drip as tolerated -Appreciate cardiology input. Patient is not a good candidate for anticoagulation at this point given the need for steroids for her COPD and hx of GI bleed = Heart rate control. Continue to monitor. // Hypertension continue home medicines. at this time on Cardizem and Metoprolol //Depression: continue Home medicines. //Hyperlipidemia: continue home Atorvastatin //GERD: continue Protonix. //Patient has small skin tear on leg which is bleeding intermittently. Will discontinue heparin. DVT prophylaxis: Hold heparin due to small skin tear on leg which is bleeding. Discharge Planning: Pending ID and pulmonology clearance. Home with home health.
--- NOTE | 2018-05-18 15:29 | P.DCO ---
- Physical Therapy Order: Evaluate and treat - Home Health Nursing Order: Medical education, Nursing assessment with vital signs Instructions: Patient will also need home health nurse for medication management. - Mammography Technologist Order: To provide: Long range planning - Case Management Consult Yes - Certification I have seen patient Concetta Weston on 05/18/18. My clinical findings support the need for the requested home health care services because: Limited ability to care for self I certify that my clinical findings support that this patient is homebound because: Unsafe to leave home unassisted
[2018-05-18] MEDS ORDERED: Pharmacy Ordered Lab Info OTHER ONE (16:45)
[2018-05-18] MEDS ORDERED: Vancomycin Inj 750 MG in Sodium Chlor 0.9% Inj 250 ML IV.SIG SCH (17:00)
--- NOTE | 2018-05-18 18:58 | P.PN ---
Subjective Interval history: She is better today and on O2 4 L. Able to take deep breaths. Sputum is showing MRSA. No fever. CXR with a Right lung infiltrate Physical Exam Vital signs: Vital Signs 05/17/18 20:00 05/17/18 20:17 05/17/18 23:39 Temperature 97.8 F Pulse Rate 72 74 80 Respiratory Rate 19 17 16 Blood Pressure 160/83 H Pulse Oximetry 97 99 05/18/18 00:00 05/18/18 04:00 05/18/18 05:05 Temperature 97.7 F 97.4 F L Pulse Rate 72 82 82 Respiratory Rate 17 17 17 Blood Pressure 143/78 H 165/95 H Pulse Oximetry 94 L 94 L 05/18/18 07:43 05/18/18 07:44 05/18/18 08:00 Temperature 97.3 F L Pulse Rate 83 91 H Respiratory Rate 20 18 Blood Pressure 176/88 H Pulse Oximetry 97 97 05/18/18 11:39 05/18/18 12:00 05/18/18 16:00 Temperature 97.5 F L 97.6 F Pulse Rate 73 85 86 Respiratory Rate 20 21 20 Blood Pressure 151/81 H 139/78 Pulse Oximetry 94 L 95 05/18/18 16:15 Temperature Pulse Rate 80 Respiratory Rate 20 Blood Pressure Pulse Oximetry Intake & Output 05/17/18 05/18/18 05/18/18 18:59 06:59 18:59 Intake Total 1190 / 1190 680 / 680 967.5 / 967.5 Output Total 750 / 750 400 / 400 Balance 1190 / 1190 -70 / -70 567.5 / 567.5 Weight 48.4 kg Intake: IV 350 / 350 200 / 200 607.5 / 607.5 Azithromycin Inj 500 MG In NS 250 / 250 250 / 250 Inj 250 ML @ 250 mls/hr IV.SIG Q24H [facility] Rx#:[id number] Maxipime Inj 1,000 MG In NS Inj 100 / 100 200 / 200 100 / 100 100 ML @ 200 mls/hr IV.SIG Q8H [facility] Rx#:[id number] Vancomycin Inj 750 MG In NS Inj 257.5 / 257.5 250 ML @ 250 mls/hr IV.SIG Q24H [facility] Rx#:[id number] Oral 840 / 840 480 / 480 360 / 360 Output: Urine 750 / 750 400 / 400 Other: # Voids 4 Date of Last Bowel Movement 05/16/18 # Bowel Movements 0 0 Narrative: GENERAL: Elderly W/Fno distress and Appears comfortable. Alert and oriented x3. SKIN: Warm and dry. HEAD: Normocephalic. EYES: No scleral icterus. No injection or drainage. NECK: Supple, trachea midline. No JVD CARDIOVASCULAR: Regular rate and rhythm without murmurs, gallops, or rubs. RESPIRATORY: Breath sounds equal bilaterally. Occ wheezes and crackles bilateral bases. No accessory muscle use. GASTROINTESTINAL: Abdomen soft, non-tender, nondistended. MUSCULOSKELETAL: No cyanosis, or edema. BACK: Nontender without obvious deformity. No CVA tenderness. Results - Labs CBC & Chem 7: 05/16/18 04:44 05/16/18 04:44 Microbiology 05/16/18 20:53 Sputum - Expectorated Sputum Gram Stain - Final 05/16/18 20:53 Sputum - Expectorated Sputum Sputum Culture - Preliminary S. aureus MRSA 05/15/18 12:06 Blood - Peripheral Aerobic Blood Culture - Preliminary No growth in 3 days 05/15/18 12:06 Blood - Peripheral Anaerobic Blood Culture - Preliminary No growth in 3 days 05/15/18 12:06 Blood - Peripheral Aerobic Blood Culture - Preliminary No growth in 3 days 05/15/18 12:06 Blood - Peripheral Anaerobic Blood Culture - Preliminary No growth in 3 days Assessment and Plan - Assessment (1) Anxiety Code(s): F41.9 - Anxiety disorder, unspecified Status: Acute (2) COPD exacerbation Code(s): J44.1 - Chronic obstructive pulmonary disease with (acute) exacerbation Status: Resolved (3) Emphysema of lung Code(s): J43.9 - Emphysema, unspecified Status: Acute (4) Hypertension Code(s): I10 - Essential (primary) hypertension Status: Chronic (5) Acute exacerbation of chronic obstructive pulmonary disease (COPD) Code(s): J44.1 - Chronic obstructive pulmonary disease with (acute) exacerbation Status: Acute (6) Severe sepsis Code(s): A41.9 - Sepsis, unspecified organism; R65.20 - Severe sepsis without septic shock Status: Resolved (7) Acute kidney injury Code(s): N17.9 - Acute kidney failure, unspecified Status: Resolved (8) Pneumonia Code(s): J18.9 - Pneumonia, unspecified organism Status: Acute (9) Atrial fibrillation with RVR Code(s): I48.91 - Unspecified atrial fibrillation Status: Acute (10) MRSA pneumonia Code(s): J15.212 - Pneumonia due to Methicillin resistant Staphylococcus aureus Status: Acute - Plan 1. will ask ID consult. 2. O2 at 3 L N/C 3. Symbicort 160/4.5 mcg , 2puffs bid 4. Nebs qid with duoneb 5. Continue Solumderol 40 mg BID 6. CBC,BMP in am (8) Pneumonia Qualifiers: Pneumonia type: due to unspecified organism Laterality: right Lung location : middle lobe of lung Qualified Code(s): J18.1 - Lobar pneumonia, unspecified organism
[2018-05-19] MEDS: guaiFENesin 600 MG ER Tablet PO SCH ×2 (02:51→16:40)
[2018-05-19 05:45] LABS: Baso % (Auto) 0.1 % (0.0-2.0); Eos % (Auto) 0.2 % (0.0-4.0); Hemoglobin 10.1 gm/dL (11.6-15.3); Lymph # (Auto) 1.3 th/mm3 (1.0-4.8); Lymph % (Auto) 8.5 % (9.0-44.0); Mean Corpuscular HGB Conc 33.6 % (32.0-36.0); Mean Corpuscular Hemoglobin 31.1 pg (27.0-34.0); Mean Corpuscular Volume 92.3 fL (80.0-100.0); Mean Platelet Volume 7.4 fL (7.0-11.0); Mono # (Auto) 0.7 th/mm3 (0.0-0.9); Mono % (Auto) 4.8 % (0.0-8.0); Neut # (Auto) 13.5 th/mm3 (1.8-7.7); Neut % (Auto) 86.4 % (16.0-70.0); Platelet Count 376 th/mm3 (150-450); Red Blood Count 3.25 mil/mm3 (4.00-5.30); White Blood Count 15.6 th/mm3 (4.0-11.0)
[2018-05-19 06:20] LABS: Albumin 2.2 g/dL (3.4-5.0); Anion Gap 12 meq/L (5-15); Blood Urea Nitrogen 15 mg/dL (7-18); Calcium 8.3 mg/dL (8.5-10.1); Carbon Dioxide 31.5 meq/L (21.0-32.0); Chloride 102 meq/L (98-107); Glomerular Filtration Rate Greater Than 89 mL/min (>89); Glucose,Random 75 mg/dL (74-106); Magnesium 1.7 mg/dL (1.5-2.5); Phosphorus 1.1 mg/dL (2.5-4.9); Sodium 145 meq/L (136-145)
[2018-05-19 06:27] LABS: Potassium 2.7 meq/L (3.5-5.1)
[2018-05-19] MEDS ORDERED: Potassium Chloride 25 MEQ Effervescent Tablet PO ONE (06:34)
--- NOTE | 2018-05-19 06:56 | XR ---
EXAM DATE: 05/19/2018 12:00 AM EDT AGE/SEX: 83 years / Female INDICATIONS: Short of breath, evaluate pneumonia CLINICAL DATA: This is the patient's subsequent encounter. Patient reports that signs and symptoms h ave been present for 4 - 6 days and indicates a pain score of Nonresponsive. MEDICAL/SURGICAL HISTORY: Chronic obstructive pulmonary disease. Carcinoma, breast. . mastecto my [place] [facility] [place]. . FINDINGS: Progressing airspace consolidation in the right upper lobe and medial right lower lung zone. Cardiome diastinal contours are within normal limits. Bony thorax is intact. CONCLUSION: 1. Worsening airspace consolidation in the right upper lobe and medial right lower lung zone. Electronically signed by: Dutch Bledsoe MD 05/19/2018 6:55 AM EDT
[2018-05-19 08:11] LABS: Lymphocytes 8 % (9-44); Monocytes 3 % (0-8); Myelocytes 3 % (0-0); Platelet Estimate Normal (Normal); Platelet Morphology Normal (Normal); Promyelocyte 1 % (0-0); Tallied Nucleated RBC 1 (0-0)
[2018-05-19] MEDS: Ferrous Sulfate 325 MG Tablet PO SCH ×2 (08:47→21:17)
[2018-05-19] MEDS: dilTIAZem CD 240 MG Capsule PO SCH (08:47)
[2018-05-19] MEDS: Senna/Docusate Sodium 8.6/50 MG Tablet PO SCH ×2 (08:47→21:18)
[2018-05-19] MEDS: Metoprolol Tartrate 25 MG Tablet PO SCH ×2 (08:47→21:18)
[2018-05-19] MEDS: Enoxaparin Inj 40 MG/0.4 ML Syringe SQ SCH (08:48)
[2018-05-19] MEDS: Potassium Chlor 20 mEq Premix 20 MEQ/100 ML PIGGYBACK IV.SIG SCH ×2 (08:48→10:50)
[2018-05-19] MEDS: Multivitamin/Minerals Therapeutic Tablet PO SCH (08:48)
--- NOTE | 2018-05-19 09:20 | P.PNIM ---
Subjective Interval history: Patient says little more short of breath than yesterday. Denies any chest pain. Physical Exam Vital signs: Vital Signs 05/18/18 11:39 05/18/18 12:00 05/18/18 16:00 Temperature 97.5 F L 97.6 F Pulse Rate 73 85 86 Respiratory Rate 20 21 20 Blood Pressure 151/81 H 139/78 Pulse Oximetry 94 L 95 05/18/18 16:15 05/18/18 20:00 05/18/18 20:11 Temperature 97.6 F Pulse Rate 80 82 101 H Respiratory Rate 20 20 Blood Pressure 157/88 H Pulse Oximetry 97 05/18/18 20:23 05/18/18 23:18 05/19/18 00:00 Temperature 97.6 F Pulse Rate 81 73 81 Respiratory Rate 18 19 20 Blood Pressure 152/78 H Pulse Oximetry 3 L 99 95 05/19/18 03:13 05/19/18 04:00 05/19/18 07:31 Temperature 97.4 F L Pulse Rate 78 79 97 H Respiratory Rate 18 17 15 Blood Pressure 152/84 H Pulse Oximetry 98 97 94 L 05/19/18 08:00 Temperature 97.9 F Pulse Rate 80 Respiratory Rate 18 Blood Pressure 180/79 H Pulse Oximetry 94 L Intake & Output 05/18/18 05/19/18 05/19/18 18:59 06:59 18:59 Intake Total 967.5 / 967.5 200 / 200 Output Total 400 / 400 600 / 600 Balance 567.5 / 567.5 -400 / -400 Weight 47.9 kg Intake: IV 607.5 / 607.5 200 / 200 Azithromycin Inj 500 MG In NS 250 / 250 Inj 250 ML @ 250 mls/hr IV.SIG Q24H RAÚL Rx#:[id number] Maxipime Inj 1,000 MG In NS Inj 100 / 100 200 / 200 100 ML @ 200 mls/hr IV.SIG Q8H RAÚL Rx#:[id number] Vancomycin Inj 750 MG In NS Inj 257.5 / 257.5 250 ML @ 250 mls/hr IV.SIG Q24H RAÚL Rx#:[id number] Oral 360 / 360 Output: Urine 400 / 400 600 / 600 Other: # Voids 1 Date of Last Bowel Movement 05/16/18 # Bowel Movements 0 Narrative: GENERAL: Patient sitting up in bed. Appears comfortable. Alert and oriented x3. SKIN: Warm and dry. HEAD: Normocephalic. EYES: No scleral icterus. No injection or drainage. NECK: Supple, trachea midline. No JVD CARDIOVASCULAR: Regular rate and rhythm without murmurs, gallops, or rubs. RESPIRATORY: Breath sounds equal bilaterally. Transient rhonchi bilaterally which clear with coughing. GASTROINTESTINAL: Abdomen soft, non-tender, nondistended. MUSCULOSKELETAL: No cyanosis, or edema. BACK: Nontender without obvious deformity. No CVA tenderness. Results - Labs CBC & Chem 7: 05/19/18 03:42 05/19/18 03:42 Laboratory Results - last 24 hr 05/19/18 05/19/18 03:42 03:42 WBC 15.6 H RBC 3.25 L Hgb 10.1 L Hct 30.0 L MCV 92.3 MCH 31.1 MCHC 33.6 RDW 14.0 Plt Count 376 MPV 7.4 Prelim Diff (Auto) Slide review pending Neut % (Auto) 86.4 H Lymph % (Auto) 8.5 L [place] % (Auto) 4.8 Eos % (Auto) 0.2 Baso % (Auto) 0.1 Neut # (Auto) 13.5 H Lymph # (Auto) 1.3 [place] # (Auto) 0.7 Eos # (Auto) 0.0 Baso # (Auto) 0.0 WBC Differential Manual diff final Seg Neuts % (Manual) 83 H Band Neuts % (Manual) 2 Lymphocytes % (Manual) 8 L Monocytes % (Manual) 3 Myelocytes % (Man) 3 H Promyelocytes % (Man) 1 H Abs Neuts (Manual) 13.9 H Nucleated RBCs/100 WBC 1 H Differential Comment . Platelet Estimate Normal Platelet Morphology Normal Sodium 145 Potassium 2.7 L* Chloride 102 Carbon Dioxide 31.5 Anion Gap 12 BUN 15 Creatinine 0.52 Estimated GFR Greater than 89 Random Glucose 75 Calcium 8.3 L Phosphorus 1.1 L Magnesium 1.7 Albumin 2.2 L Microbiology 05/16/18 20:53 Sputum - Expectorated Sputum Gram Stain - Final 05/16/18 20:53 Sputum - Expectorated Sputum Sputum Culture - Preliminary S. aureus MRSA 05/15/18 12:06 Blood - Peripheral Aerobic Blood Culture - Preliminary No growth in 3 days 05/15/18 12:06 Blood - Peripheral Anaerobic Blood Culture - Preliminary No growth in 3 days 05/15/18 12:06 Blood - Peripheral Aerobic Blood Culture - Preliminary No growth in 3 days 05/15/18 12:06 Blood - Peripheral Anaerobic Blood Culture - Preliminary No growth in 3 days - Imaging Impressions Chest X-Ray 05/19/18 00:00 CONCLUSION: 1. Worsening airspace consolidation in the right upper lobe and medial right lower lung zone. Assessment and Plan - Assessment (1) COPD exacerbation Code(s): J44.1 - Chronic obstructive pulmonary disease with (acute) exacerbation Status: Resolved - Plan 82 year old female with history of O2-dependent COPD, breast cancer s/ p mastectomy, HLD, and tachycardia admitted for COPD exacerbation. //Respiratory Failure Multifactorial, Atrial Fibrillation with RVR,Pneumonia, COPD exacerbation, will continue Azithromycin and Cefepime. Continue Oxygen administration to keep Oxygen saturation over 92%, Bronchodilator, Mucolytic and incentive Continue IV Solu-Medrol Follow sputum culture Legionella antigen, Pneumococcal antigen negative = 05/18. MRSA positive sputum. Start vancomycin. Consult infectious disease. Appreciate assistance. = 05/19. Follow-up infectious disease recommendations. Continue vancomycin. We will add Acapella and Mucomyst. Follow-up MRSA sensitivities. //Sepsis secondary to pneumonia: -Follow-up blood cultures. Continue antibiotics. //Atrial Fibrillation with RVR. -On Cardizem drip. Home dose Cardizem and metoprolol resumed. Wean off drip as tolerated -Appreciate cardiology input. Patient is not a good candidate for anticoagulation at this point given the need for steroids for her COPD and hx of GI bleed = Heart rate control. Continue to monitor. // Hypertension continue home medicines. at this time on Cardizem and Metoprolol = 05/19. Systolic blood pressures elevated in the 180s. Start losartan. //Depression: continue Home medicines. //Hyperlipidemia: continue home Atorvastatin //GERD: continue Protonix. //Patient has small skin tear on leg which is bleeding intermittently. also echymosis. Will discontinue heparin. DVT prophylaxis: Hold heparin due to small skin tear on leg which is bleeding. Discharge Planning: Pending ID and pulmonology clearance. Home with home health. Patient says she is amenable to SNF, however daughter thinks she will not want to go to SNF. Family and patient requesting hospice consultation.
[2018-05-19] MEDS ORDERED: dilTIAZem 30 MG Tablet PO ONE (09:23)
--- NOTE | 2018-05-19 10:14 | P.CONID ---
History of Present Illness Service: Infectious disease Consult date: 05/19/18 Requesting Physician: Franco Liang Reason for Consult: Evaluate patient with MRSA pneumonia Primary Care Provider: Dante Reddy MD Family Provider: Dante Reddy MD Chief Complaint: Shortness of breath History of Present Illness: Patient seen and examined. Records reviewed. Patient is an 83-year-old female with history of severe COPD, presented to the hospital complaining of worsening shortness of breath over the last 3 days. She was just recently hospitalized around the first week of this April with COPD exacerbation. She uses oxygen about 3 L at home but she uses it on a as needed basis. She stated that she uses it continuously at night when she goes to sleep. She has some chronic cough which she stated has not really changed in some time she would bring up some white to yellowish phlegm. She denies any chest pain. There is been no fever or chills. No nausea or vomiting or any swallowing when she was in the ER she was also found to be in atrial fibrillation with RVR, and currently has a controlled rate. Her chest x-ray on this admission showed no infiltrate on the right lung. Sputum culture was done and the culture is reported as growing MRSA. Patient currently is on IV vancomycin, cefepime, and Zithromax. Patient currently is complaining of worsening shortness of breath this morning. She felt better yesterday. Her WBC was initially 20,000, and that has improved. She also had an elevated lactic acid. She was admitted as a sepsis, pneumonia, and COPD exacerbation. Infectious disease consultation has been requested to assist with management. COUNTS INCLUDE 234 BEDS AT THE [facility] - History History Provided By: Patient - Medical History Medical History: Medical History (Last Reviewed 05/19/18 @ 10:13 by Litzy Aiken MD) Duodenal ulcer Duodenal ulcer Breast cancer Bronchitis COPD (chronic obstructive pulmonary disease) Hyperlipidemia - Surgical History Surgical History: Surgical History (Last Reviewed 05/19/18 @ 10:13 by Litzy Aiken MD) H/O left mastectomy H/O right mastectomy - Family History Family History: Family History (Last Reviewed 05/19/18 @ 10:13 by Litzy Aiken MD) Mother CHF (congestive heart failure) COPD (chronic obstructive pulmonary disease) Sister Breast cancer - Tobacco History Second Hand Smoke Exposure: Yes (son smokes) Tobacco Use In Past 30 Days: No Smoking Status: Former smoker Tobacco Type: Cigarettes - Alcohol History How Often Do You Have a Drink Containing Alcohol: Monthly or less - Substance Use History Substance History: No History of Abuse - Travel History Recent Travel in the [place] Within the Last 8 Weeks: No Recent Travel Out of the Country Within the Last 8 Weeks: No - Immunization History Tetanus Immunization: Unsure Hx Influenza Vaccine This Season: No Medications and Allergies Active Medications: Active Medications Acetaminophen (Tylenol) 650 mg PO Q4H PRN PRN Reason: Temp > 100.4 Acetylcysteine (Mucomyst 10% Neb) 2 ml NEB Q8HR [facility] Al Hydroxide/Mg Hydroxide (Milk Of Magnesia Liq) 30 ml PO Q12H PRN PRN Reason: Mild Constipation Albuterol (Duoneb Neb ([facility])) 1 ampul NEB Q4HR NEB [facility] Last Admin: 05/19/18 07:28 Dose: 1 ampul Atorvastatin Calcium (Lipitor) 10 mg PO DAILY [facility] Last Admin: 05/19/18 08:48 Dose: 10 mg Bisacodyl (Dulcolax Supp) 10 mg RECTAL DAILY PRN PRN Reason: SEVERE CONSITIPATION Clonidine HCl (Catapres) 0.1 mg PO Q6H PRN PRN Reason: SEE LABEL COMMENTS Diltiazem HCl (Cardizem Cd 24hr) 300 mg PO DAILY [facility] Enalaprilat (Vasotec Inj) 1.25 mg IV.PUSH Q6H PRN PRN Reason: SBP>160, DBP>90 Last Admin: 05/16/18 04:54 Dose: 1.25 mg Enoxaparin Sodium (Lovenox Inj) 40 mg SQ DAILY [facility] Last Admin: 05/19/18 08:48 Dose: 40 mg Ferrous Sulfate (Ferosul) 325 mg PO BID [facility] Last Admin: 05/19/18 08:47 Dose: 325 mg Guaifenesin (Mucinex Er) 600 mg PO Q12H [facility] Last Admin: 05/19/18 02:51 Dose: 600 mg Diltiazem HCl 125 mg/ Sodium (Chloride) 125 mls @ 5 mls/hr IV.CONT TITRATE PRN ; Protocol PRN Reason: Per Protocol Last Titration: 05/16/18 04:42 Dose: 0 mg/hr, 0 mls/hr Cefepime HCl 1,000 mg/ Sodium (Chloride) 100 mls @ 200 mls/hr IV.SIG Q8H [facility] Last Infusion: 05/19/18 04:55 Dose: Infused Azithromycin 500 mg/ Sodium (Chloride) 250 mls @ 250 mls/hr IV.SIG Q24H RAÚL Last Infusion: 05/18/18 14:45 Dose: Infused Vancomycin HCl 750 mg/ Sodium (Chloride) 257.5 mls @ 250 mls/hr IV.SIG Q24H [facility] Last Infusion: 05/18/18 18:43 Dose: Infused Potassium Chloride (Kcl 20 Meq Premix Inj) 20 meq in 100 mls @ 50 mls/hr IV.SIG Q2H [facility] Stop: 05/19/18 10:34 Last Admin: 05/19/18 08:48 Dose: 50 mls/hr Lactulose (Lactulose Liq) 30 ml PO DAILY PRN PRN Reason: SEVERE CONSITIPATION Losartan Potassium (Cozaar) 25 mg PO DAILY [facility] Last Admin: 05/19/18 09:45 Dose: 25 mg Metoprolol Tartrate (Lopressor) 25 mg PO BID [facility] Last Admin: 05/19/18 08:47 Dose: 25 mg Miscellaneous Information ([facility] Ordered Lab Info) 0 each OTHER ONCE ONE Stop: 05/21/18 16:46 Multivitamins/Minerals (Theragran-M) 1 tab PO DAILY [facility] Last Admin: 05/19/18 08:48 Dose: 1 tab Ondansetron HCl (Zofran Inj) 4 mg IV.PUSH Q6H PRN PRN Reason: NAUSEA OR VOMITING Pantoprazole Sodium (Protonix) 40 mg PO DAILY [facility] Last Admin: 05/19/18 08:47 Dose: 40 mg Pharmacy Profile Note (Vancomycin Consult Pharmacy) 1 each OTHER UNSCH PRN PRN Reason: Pharmacy to dose Potassium Phos/Sodium Phos (K-Phos Neutral) 250 mg PO QID [facility] Senna/Docusate Sodium (Gloria-Colace) 1 tab PO BID [facility] Last Admin: 05/19/18 08:47 Dose: 1 tab Sennosides (Senokot) 17.2 mg PO Q12H PRN PRN Reason: Moderate Constipation Allergies Allergy/AdvReac Type Severity Reaction Status Date / Time No Known Allergies Allergy Verified 05/15/18 12:42 Home Medications Medication Instructions Recorded Confirmed Type atorvastatin 10 mg PO DAILY 04/25/18 05/15/18 History diltiazem HCl [DILT-XR] 240 mg PO DAILY 04/25/18 05/15/18 History fluticasone-vilanterol [Breo 1 inh INHALATION DAILY 04/25/18 05/15/18 History Ellipta] ipratropium-albuterol 3 ml INHALATION Q6-8H PRN 04/25/18 05/15/18 History iron 65 mg PO BID 04/25/18 05/15/18 History mirtazapine 15 mg PO HS 04/25/18 05/15/18 History kggzuaab-qkr-sqfj-FA-lutein 1 mcg PO DAILY 04/25/18 05/15/18 History [Centrum Silver Women] pantoprazole 40 mg PO DAILY 04/25/18 05/15/18 History albuterol sulfate [Ventolin HFA] 2 puff INHALATION Q4-6H PRN 05/15/18 05/15/18 History fluticasone 1 inh INHALATION DAILY 05/15/18 05/15/18 History guaifenesin [Mucinex] 600 mg PO Q12H 05/15/18 05/15/18 History vit C-vit C-glafsl-hgl-om-3 1 cap PO DAILY 05/15/18 05/15/18 History [Ocuvite] Exam Vital signs: Vital Signs 05/18/18 11:39 05/18/18 12:00 05/18/18 16:00 Temperature 97.5 F L 97.6 F Pulse Rate 73 85 86 Respiratory Rate 20 21 20 Blood Pressure 151/81 H 139/78 Pulse Oximetry 94 L 95 05/18/18 16:15 05/18/18 20:00 05/18/18 20:11 Temperature 97.6 F Pulse Rate 80 82 101 H Respiratory Rate 20 20 Blood Pressure 157/88 H Pulse Oximetry 97 05/18/18 20:23 05/18/18 23:18 05/19/18 00:00 Temperature 97.6 F Pulse Rate 81 73 81 Respiratory Rate 18 19 20 Blood Pressure 152/78 H Pulse Oximetry 3 L 99 95 05/19/18 03:13 05/19/18 04:00 05/19/18 07:31 Temperature 97.4 F L Pulse Rate 78 79 97 H Respiratory Rate 18 17 15 Blood Pressure 152/84 H Pulse Oximetry 98 97 94 L 05/19/18 08:00 Temperature 97.9 F Pulse Rate 80 Respiratory Rate 18 Blood Pressure 180/79 H Pulse Oximetry 94 L Intake & Output 05/18/18 05/19/18 05/19/18 18:59 06:59 18:59 Intake Total 967.5 / 967.5 200 / 200 Output Total 400 / 400 600 / 600 Balance 567.5 / 567.5 -400 / -400 Weight 47.9 kg Intake: IV 607.5 / 607.5 200 / 200 Azithromycin Inj 500 MG In NS 250 / 250 Inj 250 ML @ 250 mls/hr IV.SIG Q24H RAÚL Rx#:[id number] Maxipime Inj 1,000 MG In NS Inj 100 / 100 200 / 200 100 ML @ 200 mls/hr IV.SIG Q8H RAÚL Rx#:[id number] Vancomycin Inj 750 MG In NS Inj 257.5 / 257.5 250 ML @ 250 mls/hr IV.SIG Q24H RAÚL Rx#:[id number] Oral 360 / 360 Output: Urine 400 / 400 600 / 600 Other: # Voids 1 Date of Last Bowel Movement 05/16/18 # Bowel Movements 0 Narrative: Physical Examination GENERAL: Patient is a well-nourished, well-developed female, awake and alert , in moderate respiratory distress, dyspneic at rest, with audible wheezing, purse lip breathing. SKIN: Cool and dry. Has scattered purpuric areas in BUE and BLE. HEAD: Atraumatic. Normocephalic. No temporal wasting, or tenderness. EYES: [place] conjunctiva. No petechia or hemorrhage. Pupils equal, round and reactive to light. Extraocular movements full and intact. No scleral icterus. No injection or drainage. EARS, NOSE AND THROAT: Nose without bleeding or purulent nasal discharge. No sinus tenderness. Mucous membranes slightly dry, with some white coating on tongue. NECK: Trachea midline. Supple and not tender, no meningeal signs CARDIOVASCULAR: Irregular rate and rhythm. Spft heart sounds. RESPIRATORY: Has diffuse rhonchi bilaterally and has some chest wall deformity ABDOMEN: Soft, non-tender, nondistended. Bowel sounds present and normoactive. No guarding. No rebound. No organomegaly. EXTREMITIES: No clubbing, cyanosis, or edema.No joint effusion, has good ROM. No calf tenderness. Well perfused and warm. NEUROLOGICAL: Awake and alert. Cranial nerves grossly intact. Motor grossly within normal limits. PSYCHIATRIC: Somewhat anxious due calm and cooperative. LINE: No evidence of infection Results - Labs CBC & Chem 7: 05/19/18 03:42 05/19/18 03:42 Labs: Laboratory Results - last 24 hr 05/19/18 05/19/18 03:42 03:42 WBC 15.6 H RBC 3.25 L Hgb 10.1 L Hct 30.0 L MCV 92.3 MCH 31.1 MCHC 33.6 RDW 14.0 Plt Count 376 MPV 7.4 Prelim Diff (Auto) Slide review pending Neut % (Auto) 86.4 H Lymph % (Auto) 8.5 L [place] % (Auto) 4.8 Eos % (Auto) 0.2 Baso % (Auto) 0.1 Neut # (Auto) 13.5 H Lymph # (Auto) 1.3 [place] # (Auto) 0.7 Eos # (Auto) 0.0 Baso # (Auto) 0.0 WBC Differential Manual diff final Seg Neuts % (Manual) 83 H Band Neuts % (Manual) 2 Lymphocytes % (Manual) 8 L Monocytes % (Manual) 3 Myelocytes % (Man) 3 H Promyelocytes % (Man) 1 H Abs Neuts (Manual) 13.9 H Nucleated RBCs/100 WBC 1 H Differential Comment . Platelet Estimate Normal Platelet Morphology Normal Sodium 145 Potassium 2.7 L* Chloride 102 Carbon Dioxide 31.5 Anion Gap 12 BUN 15 Creatinine 0.52 Estimated GFR Greater than 89 Random Glucose 75 Calcium 8.3 L Phosphorus 1.1 L Magnesium 1.7 Albumin 2.2 L - Imaging Impressions Chest X-Ray 05/19/18 00:00 CONCLUSION: 1. Worsening airspace consolidation in the right upper lobe and medial right lower lung zone. Assessment and Plan - Plan Impression Sepsis on admission due to PNA MRSA PNA COPD severe, with exacerbation Leukocytosis due to PNA, and reactive Recommendation Use IV Zyvox - follow CBC Stop other Abx Rx COPD exacerbation Follow clinical response to Rx Monitor progress I will follow along with you Thank you for this consultation
[2018-05-19] MEDS: Potassium Phos/Sodium Phos 250 MG Tablet PO SCH ×3 (12:42→21:18)
--- NOTE | 2018-05-19 12:53 | P.PN ---
Subjective Interval history: She has some SOB and no fever. On IV Zyvox per ID. CXR is worse. Physical Exam Vital signs: Vital Signs 05/18/18 16:00 05/18/18 16:15 05/18/18 20:00 Temperature 97.6 F 97.6 F Pulse Rate 86 80 82 Respiratory Rate 20 20 20 Blood Pressure 139/78 157/88 H Pulse Oximetry 95 97 05/18/18 20:11 05/18/18 20:23 05/18/18 23:18 Temperature Pulse Rate 101 H 81 73 Respiratory Rate 18 19 Blood Pressure Pulse Oximetry 3 L 99 05/19/18 00:00 05/19/18 03:13 05/19/18 04:00 Temperature 97.6 F 97.4 F L Pulse Rate 81 78 79 Respiratory Rate 20 18 17 Blood Pressure 152/78 H 152/84 H Pulse Oximetry 95 98 97 05/19/18 07:31 05/19/18 08:00 05/19/18 11:33 Temperature 97.9 F Pulse Rate 97 H 80 98 H Respiratory Rate 15 18 15 Blood Pressure 180/79 H Pulse Oximetry 94 L 94 L 05/19/18 12:00 Temperature 97.8 F Pulse Rate 87 Respiratory Rate 18 Blood Pressure 114/65 Pulse Oximetry 94 L Intake & Output 05/18/18 05/19/18 05/19/18 18:59 06:59 18:59 Intake Total 967.5 / 967.5 200 / 200 200 / 200 Output Total 400 / 400 600 / 600 Balance 567.5 / 567.5 -400 / -400 200 / 200 Weight 47.9 kg Intake: IV 607.5 / 607.5 200 / 200 200 / 200 Azithromycin Inj 500 MG In NS 250 / 250 Inj 250 ML @ 250 mls/hr IV.SIG Q24H RAÚL Rx#:[id number] Maxipime Inj 1,000 MG In NS Inj 100 / 100 200 / 200 100 ML @ 200 mls/hr IV.SIG Q8H RAÚL Rx#:[id number] KCl 20 mEq Premix Inj 20 meq In 200 / 200 100 ml @ 50 mls/hr IV.SIG Q2H RAÚL Rx#:[id number] Vancomycin Inj 750 MG In NS Inj 257.5 / 257.5 250 ML @ 250 mls/hr IV.SIG Q24H RAÚL Rx#:[id number] Oral 360 / 360 Output: Urine 400 / 400 600 / 600 Other: # Voids 1 Date of Last Bowel Movement 05/16/18 # Bowel Movements 0 Narrative: Physical Examination GENERAL: Patient is a well-nourished, well-developed female, awake and alert , in mild respiratory distress, dyspneic at rest, and pursed lip breathing. SKIN: Cool and dry. Has scattered ecchymosis over limbs HEAD: Atraumatic. Normocephalic. No temporal wasting, or tenderness. EYES: [place] conjunctiva. No petechia or hemorrhage. Pupils equal, round and reactive to light. Extraocular movements full and intact. No scleral icterus. No injection or drainage. EARS, NOSE AND THROAT: Nose without bleeding or purulent nasal discharge. No sinus tenderness. Mucous membranes slightly dry, with some white coating on tongue. NECK: Trachea midline. Supple and not tender, no meningeal signs CARDIOVASCULAR: Irregular rate and rhythm. Soft heart sounds. RESPIRATORY: Has diffuse rhonchi bilaterally and occ Crackles ABDOMEN: Soft, non-tender, nondistended. Bowel sounds present and normoactive. No guarding. No rebound. No organomegaly. EXTREMITIES: No clubbing, cyanosis, or edema.No joint effusion, has good ROM. No calf tenderness. NEUROLOGICAL: Awake and alert. Cranial nerves grossly intact. Motor grossly within normal limits. PSYCHIATRIC: Somewhat anxious. Results - Labs CBC & Chem 7: 05/19/18 03:42 05/19/18 03:42 Laboratory Results - last 24 hr 05/19/18 05/19/18 03:42 03:42 WBC 15.6 H RBC 3.25 L Hgb 10.1 L Hct 30.0 L MCV 92.3 MCH 31.1 MCHC 33.6 RDW 14.0 Plt Count 376 MPV 7.4 Prelim Diff (Auto) Slide review pending Neut % (Auto) 86.4 H Lymph % (Auto) 8.5 L [place] % (Auto) 4.8 Eos % (Auto) 0.2 Baso % (Auto) 0.1 Neut # (Auto) 13.5 H Lymph # (Auto) 1.3 [place] # (Auto) 0.7 Eos # (Auto) 0.0 Baso # (Auto) 0.0 WBC Differential Manual diff final Seg Neuts % (Manual) 83 H Band Neuts % (Manual) 2 Lymphocytes % (Manual) 8 L Monocytes % (Manual) 3 Myelocytes % (Man) 3 H Promyelocytes % (Man) 1 H Abs Neuts (Manual) 13.9 H Nucleated RBCs/100 WBC 1 H Differential Comment . Platelet Estimate Normal Platelet Morphology Normal Sodium 145 Potassium 2.7 L* Chloride 102 Carbon Dioxide 31.5 Anion Gap 12 BUN 15 Creatinine 0.52 Estimated GFR Greater than 89 Random Glucose 75 Calcium 8.3 L Phosphorus 1.1 L Magnesium 1.7 Albumin 2.2 L Microbiology 05/16/18 20:53 Sputum - Expectorated Sputum Gram Stain - Final 05/16/18 20:53 Sputum - Expectorated Sputum Sputum Culture - Final S. aureus MRSA 05/15/18 12:06 Blood - Peripheral Aerobic Blood Culture - Preliminary No growth in 4 days 05/15/18 12:06 Blood - Peripheral Anaerobic Blood Culture - Preliminary No growth in 4 days 05/15/18 12:06 Blood - Peripheral Aerobic Blood Culture - Preliminary No growth in 4 days 05/15/18 12:06 Blood - Peripheral Anaerobic Blood Culture - Preliminary No growth in 4 days - Imaging Impressions Chest X-Ray 05/19/18 00:00 CONCLUSION: 1. Worsening airspace consolidation in the right upper lobe and medial right lower lung zone. Assessment and Plan - Assessment (1) Anxiety Code(s): F41.9 - Anxiety disorder, unspecified Status: Acute (2) Emphysema of lung Code(s): J43.9 - Emphysema, unspecified Status: Acute (3) Hypertension Code(s): I10 - Essential (primary) hypertension Status: Chronic (4) Acute exacerbation of chronic obstructive pulmonary disease (COPD) Code(s): J44.1 - Chronic obstructive pulmonary disease with (acute) exacerbation Status: Acute (5) Pneumonia Code(s): J18.9 - Pneumonia, unspecified organism Status: Acute (6) Atrial fibrillation with RVR Code(s): I48.91 - Unspecified atrial fibrillation Status: Acute (7) MRSA pneumonia Code(s): J15.212 - Pneumonia due to Methicillin resistant Staphylococcus aureus Status: Acute - Plan 1. will continue Zyvox 600 mg IV 2. O2 at 3 L N/C 3. Symbicort 160/4.5 mcg , 2puffs bid 4. Nebs qid with duoneb 5. D/C Solumderol 6.Add Prednisone 10 mg BID 7. Get chest W/O contrast (5) Pneumonia Qualifiers: Pneumonia type: due to unspecified organism Laterality: right Lung location : middle lobe of lung Qualified Code(s): J18.1 - Lobar pneumonia, unspecified organism
--- NOTE | 2018-05-19 15:35 | CT ---
EXAM DATE: 05/19/2018 2:27 PM EDT AGE/SEX: 83 years / Female INDICATIONS: Infiltrate CLINICAL DATA: This is the patient's initial encounter. Patient reports that signs and symptoms have been present for 1 day and indicates a pain score of 0/10. MEDICAL/SURGICAL HISTORY: Chronic obstructive pulmonary disease. Carcinoma, breast. Mastectomy, bi lateral. RADIATION DOSE: 6.71 CTDI (mGy) COMPARISON: POI, CT CHEST W/O CONTRAST, 06/23/2017. . TECHNIQUE: Multiple contiguous axial images were obtained through the chest without contrast. Image s were obtained in suspended respiration using multiple row detector helical technique. Using automa gautam exposure control and adjustment of the mA and/or kV according to patient size, radiation dose was kept as low as reasonably achievable to obtain optimal diagnostic quality images. DICOM format imag e data is available electronically for review and comparison. FINDINGS: Lungs: The lungs are symmetrically aerated. There is underlying emphysema. Coarse infiltrate is pres ent posterior right upper lobe and right lower lobe. The left lung is otherwise clear. Mediastinum: There is good visualization of the great vessels of the middle mediastinum. No evidenc e of mediastinal or hilar adenopathy/mass. Coronary artery calcifications are present. Pleurae: No evidence of focal thickening or pleural effusion. Axillae: Unremarkable. Bony Structures: Stable appearance with multiple old right rib fractures. Miscellaneous: The examination was extended to include the upper abdomen, and both adrenal glands ar e normal in size and configuration. Multiple bilateral renal cysts are again noted. CONCLUSION: 1. Coarse infiltrate in the right upper lobe and right lower lobe most characteristic of pneumonia. 2. Underlying emphysema. 3. Multiple renal cysts. Electronically signed by: Diogenes Quiles MD 05/19/2018 3:33 PM EDT
[2018-05-19] MEDS: predniSONE 10 MG Tablet PO SCH (21:17)
[2018-05-20] MEDS: guaiFENesin 600 MG ER Tablet PO SCH ×2 (02:01→15:14)
[2018-05-20 06:28] LABS: Baso # (Auto) 0.1 th/mm3 (0.0-0.2); Baso % (Auto) 0.3 % (0.0-2.0); Eos % (Auto) 0.1 % (0.0-4.0); Hemoglobin 10.6 gm/dL (11.6-15.3); Lymph # (Auto) 0.7 th/mm3 (1.0-4.8); Lymph % (Auto) 3.9 % (9.0-44.0); Mean Corpuscular HGB Conc 33.1 % (32.0-36.0); Mean Corpuscular Hemoglobin 30.8 pg (27.0-34.0); Mean Corpuscular Volume 93.1 fL (80.0-100.0); Mean Platelet Volume 7.9 fL (7.0-11.0); Mono # (Auto) 0.5 th/mm3 (0.0-0.9); Mono % (Auto) 3.1 % (0.0-8.0); Neut # (Auto) 16.3 th/mm3 (1.8-7.7); Neut % (Auto) 92.6 % (16.0-70.0); Platelet Count 351 th/mm3 (150-450); Red Blood Count 3.43 mil/mm3 (4.00-5.30); Red Cell Distribution Width 14.2 % (11.6-17.2); White Blood Count 17.6 th/mm3 (4.0-11.0)
[2018-05-20 06:42] LABS: Albumin 2.1 g/dL (3.4-5.0); Anion Gap 9 meq/L (5-15); Blood Urea Nitrogen 12 mg/dL (7-18); Calcium 8.2 mg/dL (8.5-10.1); Carbon Dioxide 31.1 meq/L (21.0-32.0); Chloride 101 meq/L (98-107); Glomerular Filtration Rate Greater Than 89 mL/min (>89); Glucose,Random 97 mg/dL (74-106); Magnesium 1.6 mg/dL (1.5-2.5); Potassium 3.1 meq/L (3.5-5.1); Sodium 141 meq/L (136-145)
[2018-05-20 06:45] LABS: Phosphorus 2.8 mg/dL (2.5-4.9)
[2018-05-20 07:53] LABS: Lymphocytes 3 % (9-44); Metamyelocytes 4 % (0-1); Monocytes 4 % (0-8); Myelocytes 6 % (0-0); Platelet Estimate Normal (Normal); Platelet Morphology Normal (Normal); Tallied Nucleated RBC 2 (0-0)
[2018-05-20 07:54] LABS: RBC Morphology Normal (Normal)
[2018-05-20] MEDS: predniSONE 10 MG Tablet PO SCH ×2 (09:18→20:22)
[2018-05-20] MEDS: Potassium Phos/Sodium Phos 250 MG Tablet PO SCH ×4 (09:18→20:21)
[2018-05-20] MEDS: Enoxaparin Inj 40 MG/0.4 ML Syringe SQ SCH (09:19)
[2018-05-20] MEDS: Metoprolol Tartrate 25 MG Tablet PO SCH ×2 (09:19→20:22)
[2018-05-20] MEDS: dilTIAZem CD 300 MG Capsule PO SCH (09:19)
[2018-05-20] MEDS: Ferrous Sulfate 325 MG Tablet PO SCH ×2 (09:19→20:22)
[2018-05-20] MEDS: Senna/Docusate Sodium 8.6/50 MG Tablet PO SCH ×2 (09:19→20:22)
[2018-05-20] MEDS: Multivitamin/Minerals Therapeutic Tablet PO SCH (09:19)
--- NOTE | 2018-05-20 12:58 | P.PN ---
Subjective Interval history: She is feeling OK. SOB with activity. No fever. On Antibiotics for MRSA. On O2 4 L Physical Exam Vital signs: Vital Signs 05/19/18 14:58 05/19/18 16:00 05/19/18 20:00 Temperature 97.6 F 97.4 F L Pulse Rate 101 H 81 82 Respiratory Rate 16 19 16 Blood Pressure 135/69 136/85 Pulse Oximetry 93 L 95 05/19/18 23:53 05/20/18 00:00 05/20/18 02:50 Temperature 98.0 F 97.4 F L Pulse Rate 78 92 H 78 Respiratory Rate 16 20 16 Blood Pressure 146/70 H 140/82 Pulse Oximetry 97 91 L 95 05/20/18 04:00 05/20/18 04:45 05/20/18 08:00 Temperature Pulse Rate 85 81 89 Respiratory Rate 18 Blood Pressure Pulse Oximetry 05/20/18 08:34 Temperature Pulse Rate 79 Respiratory Rate 20 Blood Pressure Pulse Oximetry Intake & Output 05/19/18 05/20/18 05/20/18 18:59 06:59 18:59 Intake Total 1240 / 1240 850 / 850 Output Total 700 / 700 Balance 1240 / 1240 150 / 150 Weight 48.1 kg Intake: IV 500 / 500 300 / 300 Zyvox 600 mg Premix 300 ML @ 300 / 300 300 / 300 300 mls/hr IV.SIG Q12H RAÚL Rx#: [id number] KCl 20 mEq Premix Inj 20 meq In 200 / 200 100 ml @ 50 mls/hr IV.SIG Q2H RAÚL Rx#:[id number] Oral 240 / 240 550 / 550 Other 500 / 500 Output: Urine 700 / 700 Other: # Voids 4 4 Date of Last Bowel Movement 05/16/18 05/20/18 05/20/18 # Bowel Movements 3 Narrative: Physical Examination GENERAL: Patient is a well-nourished, well-developed female, awake and alert , in no respiratory distress. SKIN: Cool and dry. Has scattered ecchymosis over limbs HEAD: Atraumatic. Normocephalic. EYES: [place] conjunctiva. No petechia or hemorrhage. Pupils equal, round and reactive to light. No scleral icterus. No injection or drainage. EARS, NOSE AND THROAT: Nose without bleeding or purulent nasal discharge. No sinus tenderness. Mucous membranes slightly dry, with white coating on tongue. NECK: Trachea midline. Supple and not tender and No JVD CARDIOVASCULAR: Irregular rate and rhythm. Soft heart sounds. RESPIRATORY: Has diffuse rhonchi bilaterally and occ basal Crackles ABDOMEN: Soft, non-tender, nondistended. Bowel sounds present and normoactive. No guarding. No rebound. No organomegaly. EXTREMITIES: No clubbing, cyanosis, or edema. No calf tenderness. NEUROLOGICAL: Awake and alert. Cranial nerves grossly intact. Motor grossly within normal limits. PSYCHIATRIC: Somewhat anxious. Results - Labs CBC & Chem 7: 05/20/18 06:00 05/20/18 06:00 Laboratory Results - last 24 hr 05/20/18 05/20/18 06:00 06:00 WBC 17.6 H RBC 3.43 L Hgb 10.6 L Hct 32.0 L MCV 93.1 MCH 30.8 MCHC 33.1 RDW 14.2 Plt Count 351 MPV 7.9 Prelim Diff (Auto) Slide review pending Neut % (Auto) 92.6 H Lymph % (Auto) 3.9 L [place] % (Auto) 3.1 Eos % (Auto) 0.1 Baso % (Auto) 0.3 Neut # (Auto) 16.3 H Lymph # (Auto) 0.7 L [place] # (Auto) 0.5 Eos # (Auto) 0.0 Baso # (Auto) 0.1 WBC Differential Manual diff final Seg Neuts % (Manual) 74 H Band Neuts % (Manual) 9 H Lymphocytes % (Manual) 3 L Monocytes % (Manual) 4 Metamyelocytes % (Man) 4 H Myelocytes % (Man) 6 H Abs Neuts (Manual) 16.4 H Nucleated RBCs/100 WBC 2 H Differential Comment . Platelet Estimate Normal Platelet Morphology Normal RBC Morphology Normal Sodium 141 Potassium 3.1 L Chloride 101 Carbon Dioxide 31.1 Anion Gap 9 BUN 12 Creatinine 0.51 Estimated GFR Greater than 89 Random Glucose 97 Calcium 8.2 L Phosphorus 2.8 D Magnesium 1.6 Albumin 2.1 L Microbiology 05/15/18 12:06 Blood - Peripheral Aerobic Blood Culture - Final No growth in 5 days 05/15/18 12:06 Blood - Peripheral Anaerobic Blood Culture - Final No growth in 5 days 05/15/18 12:06 Blood - Peripheral Aerobic Blood Culture - Final No growth in 5 days 05/15/18 12:06 Blood - Peripheral Anaerobic Blood Culture - Final No growth in 5 days 05/16/18 20:53 Sputum - Expectorated Sputum Gram Stain - Final 05/16/18 20:53 Sputum - Expectorated Sputum Sputum Culture - Final S. aureus MRSA - Imaging Impressions Chest CT 05/19/18 00:00 CONCLUSION: 1. Coarse infiltrate in the right upper lobe and right lower lobe most characteristic of pneumonia. 2. Underlying emphysema. 3. Multiple renal cysts. Assessment and Plan - Assessment (1) Anxiety Code(s): F41.9 - Anxiety disorder, unspecified Status: Acute (2) Emphysema of lung Code(s): J43.9 - Emphysema, unspecified Status: Acute (3) Hypertension Code(s): I10 - Essential (primary) hypertension Status: Chronic (4) Acute exacerbation of chronic obstructive pulmonary disease (COPD) Code(s): J44.1 - Chronic obstructive pulmonary disease with (acute) exacerbation Status: Acute (5) Pneumonia Code(s): J18.9 - Pneumonia, unspecified organism Status: Acute (6) Atrial fibrillation with RVR Code(s): I48.91 - Unspecified atrial fibrillation Status: Acute (7) MRSA pneumonia Code(s): J15.212 - Pneumonia due to Methicillin resistant Staphylococcus aureus Status: Acute - Plan 1. will continue Zyvox 600 mg IV BID 2. O2 at 3 L N/C 3. Symbicort 160/4.5 mcg , 2puffs bid 4. Nebs qid with duoneb 5. CBC,BMP in am. 6.Add Prednisone 10 mg BID 7. PT and OT eval. (5) Pneumonia Qualifiers: Pneumonia type: due to unspecified organism Laterality: right Lung location : middle lobe of lung Qualified Code(s): J18.1 - Lobar pneumonia, unspecified organism
--- NOTE | 2018-05-20 13:55 | P.PNIM ---
Subjective Interval history: Patient says that shortness of breath continues without worsening. Denies any chest pain. Patient feels like going home tomorrow with hospice Physical Exam Vital signs: Vital Signs 05/19/18 14:58 05/19/18 16:00 05/19/18 20:00 Temperature 97.6 F 97.4 F L Pulse Rate 101 H 81 82 Respiratory Rate 16 19 16 Blood Pressure 135/69 136/85 Pulse Oximetry 93 L 95 05/19/18 23:53 05/20/18 00:00 05/20/18 02:50 Temperature 98.0 F 97.4 F L Pulse Rate 78 92 H 78 Respiratory Rate 16 20 16 Blood Pressure 146/70 H 140/82 Pulse Oximetry 97 91 L 95 05/20/18 04:00 05/20/18 04:45 05/20/18 08:00 Temperature 97.5 F L Pulse Rate 85 81 92 H Respiratory Rate 18 18 Blood Pressure 174/87 H Pulse Oximetry 96 05/20/18 08:34 05/20/18 12:00 Temperature 98.0 F Pulse Rate 79 82 Respiratory Rate 20 18 Blood Pressure 142/74 H Pulse Oximetry 95 Intake & Output 05/19/18 05/20/18 05/20/18 18:59 06:59 18:59 Intake Total 1240 / 1240 850 / 850 Output Total 700 / 700 Balance 1240 / 1240 150 / 150 Weight 48.1 kg Intake: IV 500 / 500 300 / 300 Zyvox 600 mg Premix 300 ML @ 300 / 300 300 / 300 300 mls/hr IV.SIG Q12H RAÚL Rx#: [id number] KCl 20 mEq Premix Inj 20 meq In 200 / 200 100 ml @ 50 mls/hr IV.SIG Q2H RAÚL Rx#:[id number] Oral 240 / 240 550 / 550 Other 500 / 500 Output: Urine 700 / 700 Other: # Voids 4 4 Date of Last Bowel Movement 05/16/18 05/20/18 05/20/18 # Bowel Movements 3 Narrative: GENERAL: Patient sitting up in bed. Appears comfortable. SKIN: Warm and dry. HEAD: Normocephalic. EYES: No scleral icterus. No injection or drainage. NECK: Supple, trachea midline. No JVD. CARDIOVASCULAR: Regular rate and rhythm without murmurs, gallops, or rubs. RESPIRATORY: Breath sounds equal bilaterally. No accessory muscle use. GASTROINTESTINAL: Abdomen soft, non-tender, nondistended. MUSCULOSKELETAL: No cyanosis, or edema. BACK: Nontender without obvious deformity. No CVA tenderness. Results - Labs CBC & Chem 7: 05/20/18 06:00 05/20/18 06:00 Laboratory Results - last 24 hr 05/20/18 05/20/18 06:00 06:00 WBC 17.6 H RBC 3.43 L Hgb 10.6 L Hct 32.0 L MCV 93.1 MCH 30.8 MCHC 33.1 RDW 14.2 Plt Count 351 MPV 7.9 Prelim Diff (Auto) Slide review pending Neut % (Auto) 92.6 H Lymph % (Auto) 3.9 L [place] % (Auto) 3.1 Eos % (Auto) 0.1 Baso % (Auto) 0.3 Neut # (Auto) 16.3 H Lymph # (Auto) 0.7 L [place] # (Auto) 0.5 Eos # (Auto) 0.0 Baso # (Auto) 0.1 WBC Differential Manual diff final Seg Neuts % (Manual) 74 H Band Neuts % (Manual) 9 H Lymphocytes % (Manual) 3 L Monocytes % (Manual) 4 Metamyelocytes % (Man) 4 H Myelocytes % (Man) 6 H Abs Neuts (Manual) 16.4 H Nucleated RBCs/100 WBC 2 H Differential Comment . Platelet Estimate Normal Platelet Morphology Normal RBC Morphology Normal Sodium 141 Potassium 3.1 L Chloride 101 Carbon Dioxide 31.1 Anion Gap 9 BUN 12 Creatinine 0.51 Estimated GFR Greater than 89 Random Glucose 97 Calcium 8.2 L Phosphorus 2.8 D Magnesium 1.6 Albumin 2.1 L Microbiology 05/15/18 12:06 Blood - Peripheral Aerobic Blood Culture - Final No growth in 5 days 05/15/18 12:06 Blood - Peripheral Anaerobic Blood Culture - Final No growth in 5 days 05/15/18 12:06 Blood - Peripheral Aerobic Blood Culture - Final No growth in 5 days 05/15/18 12:06 Blood - Peripheral Anaerobic Blood Culture - Final No growth in 5 days 05/16/18 20:53 Sputum - Expectorated Sputum Gram Stain - Final 05/16/18 20:53 Sputum - Expectorated Sputum Sputum Culture - Final S. aureus MRSA - Imaging Impressions Chest CT 05/19/18 00:00 CONCLUSION: 1. Coarse infiltrate in the right upper lobe and right lower lobe most characteristic of pneumonia. 2. Underlying emphysema. 3. Multiple renal cysts. Assessment and Plan - Assessment (1) COPD exacerbation Code(s): J44.1 - Chronic obstructive pulmonary disease with (acute) exacerbation Status: Resolved - Plan 82 year old female with history of O2-dependent COPD, breast cancer s/ p mastectomy, HLD, and tachycardia admitted for COPD exacerbation. //Respiratory Failure Multifactorial, Atrial Fibrillation with RVR,Pneumonia, COPD exacerbation, will continue Azithromycin and Cefepime. Continue Oxygen administration to keep Oxygen saturation over 92%, Bronchodilator, Mucolytic and incentive Continue IV Solu-Medrol Follow sputum culture Legionella antigen, Pneumococcal antigen negative = 05/18. MRSA positive sputum. Start vancomycin. Consult infectious disease. Appreciate assistance. = 05/19. Follow-up infectious disease recommendations. Continue vancomycin. We will add Acapella and Mucomyst. Follow-up MRSA sensitivities. = 05/20. Discussed with infectious disease. Continue antibiotics as per infectious disease. //Sepsis secondary to pneumonia: -Follow-up blood cultures. Continue antibiotics. //Atrial Fibrillation with RVR. -On Cardizem drip. Home dose Cardizem and metoprolol resumed. Wean off drip as tolerated -Appreciate cardiology input. Patient is not a good candidate for anticoagulation at this point given the need for steroids for her COPD and hx of GI bleed = Heart rate control. Continue to monitor. // Hypertension continue home medicines. at this time on Cardizem and Metoprolol = 05/19. Systolic blood pressures elevated in the 180s. Start losartan. = Blood pressure improved. Continue current management. //Depression: continue Home medicines. //Hyperlipidemia: continue home Atorvastatin //GERD: continue Protonix. //Patient has small skin tear on leg which is bleeding intermittently. also echymosis. Will discontinue heparin. DVT prophylaxis: Hold heparin due to small skin tear on leg which is bleeding. Discharge Planning: Pending ID and pulmonology clearance. SNIF versus home health, hospice. Patient says she is amenable to SNF, however daughter thinks she will not want to go to SNF.
[2018-05-20] MEDS ORDERED: Influenza (Quadrivalent) Vaccine 0.5 ML Syringe IM ONE (17:00)
[2018-05-21] MEDS: guaiFENesin 600 MG ER Tablet PO SCH ×2 (02:52→15:46)
[2018-05-21 03:37] LABS: Baso % (Auto) 0.1 % (0.0-2.0); Eos % (Auto) 0.1 % (0.0-4.0); Hemoglobin 9.9 gm/dL (11.6-15.3); Lymph # (Auto) 0.4 th/mm3 (1.0-4.8); Lymph % (Auto) 2.8 % (9.0-44.0); Mean Corpuscular Hemoglobin 30.8 pg (27.0-34.0); Mean Corpuscular Volume 93.2 fL (80.0-100.0); Mean Platelet Volume 8.1 fL (7.0-11.0); Mono # (Auto) 0.5 th/mm3 (0.0-0.9); Mono % (Auto) 3.3 % (0.0-8.0); Neut # (Auto) 13.6 th/mm3 (1.8-7.7); Neut % (Auto) 93.7 % (16.0-70.0); Platelet Count 354 th/mm3 (150-450); Red Blood Count 3.21 mil/mm3 (4.00-5.30); Red Cell Distribution Width 13.9 % (11.6-17.2); White Blood Count 14.5 th/mm3 (4.0-11.0)
[2018-05-21 03:49] LABS: Albumin 2.3 g/dL (3.4-5.0); Anion Gap 4 meq/L (5-15); Blood Urea Nitrogen 11 mg/dL (7-18); Calcium 8.1 mg/dL (8.5-10.1); Carbon Dioxide 35.2 meq/L (21.0-32.0); Chloride 102 meq/L (98-107); Glomerular Filtration Rate Greater Than 89 mL/min (>89); Glucose,Random 152 mg/dL (74-106); Magnesium 1.7 mg/dL (1.5-2.5); Phosphorus 2.9 mg/dL (2.5-4.9); Potassium 4.3 meq/L (3.5-5.1); Sodium 141 meq/L (136-145)
[2018-05-21 04:19] LABS: Lymphocytes 3 % (9-44); Metamyelocytes 2 % (0-1); Monocytes 2 % (0-8); Myelocytes 2 % (0-0); Platelet Estimate Normal (Normal); Platelet Morphology Normal (Normal)
[2018-05-21 04:20] LABS: RBC Morphology Normal (Normal)
[2018-05-21] MEDS: Metoprolol Tartrate 25 MG Tablet PO SCH (08:53)
[2018-05-21] MEDS: Multivitamin/Minerals Therapeutic Tablet PO SCH (08:53)
[2018-05-21] MEDS: Senna/Docusate Sodium 8.6/50 MG Tablet PO SCH (08:53)
[2018-05-21] MEDS: predniSONE 10 MG Tablet PO SCH (08:53)
[2018-05-21] MEDS: Potassium Phos/Sodium Phos 250 MG Tablet PO SCH ×2 (08:53→12:40)
[2018-05-21] MEDS: dilTIAZem CD 300 MG Capsule PO SCH (08:53)
[2018-05-21] MEDS: Enoxaparin Inj 40 MG/0.4 ML Syringe SQ SCH (08:53)
[2018-05-21] MEDS: Ferrous Sulfate 325 MG Tablet PO SCH (08:53)
--- NOTE | 2018-05-21 10:11 | P.DS ---
Date of admission: 05/15/18 13:47 Primary care physician: Dante Reddy MD Brief History from admission: This is a pleasant 83 y/o Female who was brought in to Emergency Room via EMS, due to shortness of breath. The patient was recently hospitalized for COPD, was discharged home approximately 1 week ago, now returns with progressing symptoms. 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 She had an albuterol inhaler this morning at home and then was provided a DuoNeb and Solu-Medrol 125 mg intravenously by EMS prior to arrival. The patient was noted to have atrial fibrillation with RVR by EMS prior to arrival. The patient's symptoms are moderate. She denies any chest pain but does complain of shortness of breath. She denies any nausea, vomiting, diarrhea, or abdominal pain. She does complain of mild lightheadedness. She uses Home Oxygen at 3 L/min. at home, has Hyperlipidemia, Depression, GERD. Received Cardizem 50 mg IV due to Atrial Fibrillation with RVR in ER, she is chronically on low dose Prednisone, seen in her bedroom evident Severe COPD, inspiratory crackles on right base. DS: Medications - Discharge Medications Prescriptions: diltiazem HCl 300 mg PO DAILY 30 Days #30 cap prednisone 10 mg PO BID 30 Days #60 tab DS: Summary Hospital Course: Patient presented with acute respiratory failure, atrial fibrillation with RVR which improved with diltiazem, pneumonia. Pulmonology was consulted. Patient improved with broad-spectrum antibiotics. Sputum culture grew out MRSA sensitive to linezolid. Infectious disease was consulted, recommends continuing treatment with linezolid to complete treatment course. Patient was discharged home with hospice, prescription for linezolid, which can be found in discharge packet. Patient is also discharged with prednisone taper. For problem-based summary from most recent progress note, please see below. 82 year old female with history of O2-dependent COPD, breast cancer s/ p mastectomy, HLD, and tachycardia admitted for COPD exacerbation. //acute Respiratory Failure Multifactorial, Atrial Fibrillation with RVR, Pneumonia, COPD exacerbation, will continue Azithromycin and Cefepime. Continue Oxygen administration to keep Oxygen saturation over 92%, Bronchodilator, Mucolytic and incentive Continue IV Solu-Medrol Follow sputum culture Legionella antigen, Pneumococcal antigen negative = 05/18. MRSA positive sputum. Start vancomycin. Consult infectious disease. Appreciate assistance. = 05/19. Follow-up infectious disease recommendations. Continue vancomycin. We will add Acapella and Mucomyst. Follow-up MRSA sensitivities. = 05/20. Discussed with infectious disease. Continue antibiotics as per infectious disease. = 05/21. Discussed with infectious disease. Cleared by infectious disease for discharge home with linezolid to complete treatment course. Discussed with pulmonology. Cleared for discharge. Follow with pulmonology as outpatient. //Sepsis secondary to pneumonia: -Follow-up blood cultures. Continue antibiotics. //Atrial Fibrillation with RVR. -On Cardizem drip. Home dose Cardizem and metoprolol resumed. Wean off drip as tolerated -Appreciate cardiology input. Patient is not a good candidate for anticoagulation at this point given the need for steroids for her COPD and hx of GI bleed = Heart rate control. Continue to monitor. // Hypertension continue home medicines. at this time on Cardizem and Metoprolol = 05/19. Systolic blood pressures elevated in the 180s. Start losartan. = Blood pressure improved. Continue current management. //Depression: continue Home medicines. //Hyperlipidemia: continue home Atorvastatin //GERD: continue Protonix. //Patient has small skin tear on leg which is bleeding intermittently. also echymosis. Will discontinue heparin. DVT prophylaxis: Hold heparin due to small skin tear on leg which is bleeding. Discharge Planning: Pending ID and pulmonology clearance. SNIF versus home health, hospice. Patient says she is amenable to SNF, however daughter thinks she will not want to go to SNF. - Time Spent with Patient Total time spent providing and/or coordinating discharge services: Greater than 30 minutes - Quality: VTE Deep Vein Thrombosis/Pulmonary Embolism Present on Admission: No Exam Vital signs: Vital Signs 05/20/18 12:00 05/20/18 16:00 05/20/18 16:02 Temperature 98.0 F 97.9 F Pulse Rate 82 87 82 Respiratory Rate 18 18 Blood Pressure 142/74 H 125/76 Pulse Oximetry 95 96 95 05/20/18 19:00 05/20/18 20:00 05/20/18 23:00 Temperature 97.2 F L Pulse Rate 82 78 76 Respiratory Rate 18 Blood Pressure 140/69 Pulse Oximetry 100 93 L 05/20/18 23:40 05/21/18 00:00 05/21/18 03:22 Temperature 97.5 F L Pulse Rate 77 78 65 Respiratory Rate 18 19 Blood Pressure 118/92 H Pulse Oximetry 94 L 05/21/18 03:24 05/21/18 03:43 05/21/18 04:00 Temperature 97.7 F Pulse Rate 75 78 Respiratory Rate 30 H 18 Blood Pressure 130/88 Pulse Oximetry 95 94 L 05/21/18 08:00 05/21/18 08:31 05/21/18 08:32 Temperature 97.6 F Pulse Rate 84 72 Respiratory Rate 20 18 Blood Pressure 147/73 H Pulse Oximetry 97 95 Intake & Output 05/20/18 05/21/18 05/21/18 18:59 06:59 18:59 Intake Total 1350 / 1350 540 / 540 Output Total 700 / 700 800 / 800 Balance 650 / 650 -260 / -260 Weight 49.9 kg Intake: IV 300 / 300 300 / 300 Zyvox 600 mg Premix 300 ML @ 300 / 300 300 / 300 300 mls/hr IV.SIG Q12H RAÚL Rx#: [id number] Oral 550 / 550 240 / 240 Other 500 / 500 Output: Urine 700 / 700 800 / 800 Other: # Voids 4 Date of Last Bowel Movement 05/20/18 05/20/18 # Bowel Movements 3 0 Results Procedures completed during hospitalization: no invasive procedures. Labs on day of discharge: Labs from last 24 hours 05/21/18 05/21/18 02:56 02:56 WBC 14.5 H RBC 3.21 L Hgb 9.9 L Hct 30.0 L MCV 93.2 MCH 30.8 MCHC 33.0 RDW 13.9 Plt Count 354 MPV 8.1 Prelim Diff (Auto) Slide review pending Neut % (Auto) 93.7 H Lymph % (Auto) 2.8 L [place] % (Auto) 3.3 Eos % (Auto) 0.1 Baso % (Auto) 0.1 Neut # (Auto) 13.6 H Lymph # (Auto) 0.4 L [place] # (Auto) 0.5 Eos # (Auto) 0.0 Baso # (Auto) 0.0 WBC Differential Manual diff final Seg Neuts % (Manual) 84 H Band Neuts % (Manual) 7 H Lymphocytes % (Manual) 3 L Monocytes % (Manual) 2 Metamyelocytes % (Man) 2 H Myelocytes % (Man) 2 H Abs Neuts (Manual) 13.8 H Differential Comment . Platelet Estimate Normal Platelet Morphology Normal RBC Morphology Normal Sodium 141 Potassium 4.3 D Chloride 102 Carbon Dioxide 35.2 H Anion Gap 4 L BUN 11 Creatinine 0.51 Estimated GFR Greater than 89 Random Glucose 152 H Calcium 8.1 L Phosphorus 2.9 Magnesium 1.7 Albumin 2.3 L - Impressions ITS Impressions Chest CT 05/19/18 00:00 CONCLUSION: 1. Coarse infiltrate in the right upper lobe and right lower lobe most characteristic of pneumonia. 2. Underlying emphysema. 3. Multiple renal cysts. Chest X-Ray 05/19/18 00:00 CONCLUSION: 1. Worsening airspace consolidation in the right upper lobe and medial right lower lung zone. Discharge Plan - Discharge Disposition Patient Disposition: /Home Health Service - Discharge Condition Condition: Stable - Discharge Order Discharge Orders: Discharge Order (Routine); Ordered 05/21/18 Ordered By: Franco Liang - Discharge Details Anticipated Discharge Date: 05/21/18 Discharge Comment: home with hospice/son - Physicians Team Primary Care Provider: Dante Reddy Attending Provider: Franco Liang Other Providers: Pop Calvo MD ; Vargas Woods MD ; Minnie Hartman ; Litzy Aiken MD
[2018-05-21 12:45] VITALS: PULSE 75; RESP 16
--- NOTE | 2018-05-21 13:00 | P.PN ---
Subjective Interval history: She is feeling OK. Has been seen by [facility]. On O2 4 L On PO Zyvox now. Physical Exam Vital signs: Vital Signs 05/20/18 16:00 05/20/18 16:02 05/20/18 19:00 Temperature 97.9 F Pulse Rate 87 82 82 Respiratory Rate 18 18 18 Blood Pressure 125/76 Pulse Oximetry 96 95 05/20/18 20:00 05/20/18 23:00 05/20/18 23:40 Temperature 97.2 F L 97.5 F L Pulse Rate 78 76 77 Respiratory Rate 18 18 18 Blood Pressure 140/69 118/92 H Pulse Oximetry 100 93 L 94 L 05/21/18 00:00 05/21/18 03:22 05/21/18 03:24 Temperature Pulse Rate 78 65 Respiratory Rate 19 Blood Pressure Pulse Oximetry 95 05/21/18 03:43 05/21/18 04:00 05/21/18 08:00 Temperature 97.7 F 97.6 F Pulse Rate 75 78 84 Respiratory Rate 30 H 18 20 Blood Pressure 130/88 147/73 H Pulse Oximetry 94 L 95 05/21/18 08:31 05/21/18 08:32 05/21/18 12:41 Temperature Pulse Rate 72 75 Respiratory Rate 18 16 Blood Pressure Pulse Oximetry 95 Intake & Output 05/20/18 05/21/18 05/21/18 18:59 06:59 18:59 Intake Total 1350 / 1350 540 / 540 Output Total 700 / 700 800 / 800 Balance 650 / 650 -260 / -260 Weight 49.9 kg Intake: IV 300 / 300 300 / 300 Zyvox 600 mg Premix 300 ML @ 300 / 300 300 / 300 300 mls/hr IV.SIG Q12H RAÚL Rx#: [id number] Oral 550 / 550 240 / 240 Other 500 / 500 Output: Urine 700 / 700 800 / 800 Other: # Voids 4 Date of Last Bowel Movement 05/20/18 05/20/18 # Bowel Movements 3 0 Narrative: GENERAL: Patient sitting up in bed.Pale and Appears comfortable. Alert and oriented x3. SKIN: Warm and dry. HEAD: Normocephalic. EYES: No scleral icterus. No injection or drainage. NECK: Supple, trachea midline. No JVD. CARDIOVASCULAR: Regular rate and rhythm without murmurs, gallops, or rubs. RESPIRATORY: Breath sounds equal bilaterally.Bilateral Rhonchi heard No accessory muscle use. GASTROINTESTINAL: Abdomen soft, non-tender, nondistended. MUSCULOSKELETAL: No cyanosis, or edema. BACK: Nontender without obvious deformity. No CVA tenderness. Results - Labs CBC & Chem 7: 05/21/18 02:56 05/21/18 02:56 Laboratory Results - last 24 hr 05/21/18 05/21/18 02:56 02:56 WBC 14.5 H RBC 3.21 L Hgb 9.9 L Hct 30.0 L MCV 93.2 MCH 30.8 MCHC 33.0 RDW 13.9 Plt Count 354 MPV 8.1 Prelim Diff (Auto) Slide review pending Neut % (Auto) 93.7 H Lymph % (Auto) 2.8 L [place] % (Auto) 3.3 Eos % (Auto) 0.1 Baso % (Auto) 0.1 Neut # (Auto) 13.6 H Lymph # (Auto) 0.4 L [place] # (Auto) 0.5 Eos # (Auto) 0.0 Baso # (Auto) 0.0 WBC Differential Manual diff final Seg Neuts % (Manual) 84 H Band Neuts % (Manual) 7 H Lymphocytes % (Manual) 3 L Monocytes % (Manual) 2 Metamyelocytes % (Man) 2 H Myelocytes % (Man) 2 H Abs Neuts (Manual) 13.8 H Differential Comment . Platelet Estimate Normal Platelet Morphology Normal RBC Morphology Normal Sodium 141 Potassium 4.3 D Chloride 102 Carbon Dioxide 35.2 H Anion Gap 4 L BUN 11 Creatinine 0.51 Estimated GFR Greater than 89 Random Glucose 152 H Calcium 8.1 L Phosphorus 2.9 Magnesium 1.7 Albumin 2.3 L Microbiology 05/15/18 12:06 Blood - Peripheral Aerobic Blood Culture - Final No growth in 5 days 05/15/18 12:06 Blood - Peripheral Anaerobic Blood Culture - Final No growth in 5 days 05/15/18 12:06 Blood - Peripheral Aerobic Blood Culture - Final No growth in 5 days 05/15/18 12:06 Blood - Peripheral Anaerobic Blood Culture - Final No growth in 5 days Assessment and Plan - Assessment (1) Anxiety Code(s): F41.9 - Anxiety disorder, unspecified Status: Acute (2) Emphysema of lung Code(s): J43.9 - Emphysema, unspecified Status: Acute (3) Hypertension Code(s): I10 - Essential (primary) hypertension Status: Chronic (4) Acute exacerbation of chronic obstructive pulmonary disease (COPD) Code(s): J44.1 - Chronic obstructive pulmonary disease with (acute) exacerbation Status: Acute (5) Pneumonia Code(s): J18.9 - Pneumonia, unspecified organism Status: Acute (6) Atrial fibrillation with RVR Code(s): I48.91 - Unspecified atrial fibrillation Status: Acute (7) MRSA pneumonia Code(s): J15.212 - Pneumonia due to Methicillin resistant Staphylococcus aureus Status: Acute - Plan 1. continue Zyvox 600 mg PO BID X 10 days 2. O2 at 3 L N/C 3. Symbicort 160/4.5 mcg , 2puffs bid 4. Nebs qid with duoneb 5. Home today with Hospice 6. Prednisone 10 mg BID 7. Will see as OP in 2 weeks (5) Pneumonia Qualifiers: Pneumonia type: due to unspecified organism Laterality: right Lung location : middle lobe of lung Qualified Code(s): J18.1 - Lobar pneumonia, unspecified organism
[2018-05-21 13:52] VITALS: BP 136/69; TEMP 97.7; O2SAT 98
[2018-05-21] MEDS ORDERED: Pharmacy Ordered Lab Info OTHER ONE (16:45)
== END 2018-05-21 16:29 | disposition home health service (06) ==
LOC: NEPE 11:40 → NEDA 13:47 → N04 14:45
PROVIDERS: ADMIT Internal Medicine; ATTEND Internal Medicine